=== PATIENT | male | born 1945 | race Caucasian/White ===

== ENCOUNTER 2017-06-28 11:00 | Day surgery (SDC) | payer MEDICARE, OTHER ==
[~2017-06-28] VITALS: Ht 162.6 cm; Wt 57.6 kg
[~2017-06-28 11:00] MED LIST: ALGAL OMEGA-3200 MG PO; ALLOPURINOL100 MG PO; AUGMENTIN 875-1 EACH PO; BILBERRY100 MG PO; BROMELAINS500 MG PO; CALCITRIOL0.25 MCG PO; CINNAMON500 MG PO; CLONAZEPAM0.5 MG PO; COQ-10100 MG PO; DONEPEZIL HCL10 MG PO; GABAPENTIN250 MG/5 M PO; L-ARGININE500 M1 PO; LATANOPROST2.5 ML OPTH; MAGNESIUM400 M1 PO; NORCO 5-325 TA1 EACH PO; PHOSPHATIDYLSERI1 GM MISC; PROZAC40 MG PO; TART CHERRY CA1 EACH PO; TRAZODONE HCL100 MG PO; VITAMIN B COMP1 EAC1 PO; VITAMIN B122500 MCG PO; VITAMIN D34000 UNIT PO; VITAMIN K240 MCG PO; ZINC50 MG PO; [UNRECOGNIZED DRUG - OTHER] PO
--- NOTE | 2017-06-28 14:07 | NUR ---
06/28/17 1407 Karuna Almaraz 1352-PATIENT ARRIVED TO PACU ON 4L NC O2 SAT 97% PATIENT NONAROUSABLE. LAYING ON LEFT LATERAL SIDE. PATIENT DOES HAVE TWITCHES. PASSING FLATUS. 1357-PATIENT REPOSITIONED ON BACK BP 88/53 BP INCREASED TO 102/61 1405-PATIENT AROUSING TO VERBAL STIMULI OPENING EYES DENIES PAIN OR NAUSEA. WARM BLANKET GIVEN.
--- NOTE | 2017-06-30 08:59 | OR ---
[facility] [address] [place], [place] [address] Signed DATE OF OPERATION: 06/28/2017 SURGEON: Ulices Maki MD PREOPERATIVE DIAGNOSES: 1. Dementia and weight loss, uncertain etiology. 2. Constipation. POSTOPERATIVE DIAGNOSIS: Internal hemorrhoids, otherwise normal. PROCEDURE: Total colonoscopy to cecum. ANESTHESIA: Intravenous sedation, propofol infusion; Kvng Lilly CRNA. INDICATIONS: A 72-year-old white man is patient of Dr. Park and last seen by me in 2010 for colonoscopy. He has developed constipation and more importantly weight loss. Upon close reflection by his who takes care of him, it is noted that he simply has not been fed that much food in recent times. Now that she is feeding him better, he is gaining weight. In any case, colonoscopy was recommended by Dr. Park as he does have constipation issues as well. He is admitted at this time to undergo colonoscopy. He understands the risks of bleeding, infection, and perforation. His last colonoscopy was in 2010, previously in 2005. FINDINGS: The prep was excellent. Complete colonoscopy was undertaken to the cecum. There was no sign of cancer or polyps or colitis. Retroflex view did confirm internal hemorrhoids. DESCRIPTION OF PROCEDURE: The patient was brought to the endoscopy suite and placed in lateral decubitus position, given intravenous sedation by the hr receptionist with propofol infusion based on his advanced ASA class of 4. Digital rectal examination showed diminished sphincter tone, not atypical for age. The Olympus video colonoscope was passed in the rectum and manipulated throughout the colon. Abdominal wall stabilization was required to allow for full intubation of the cecum itself. The ileocecal valve and appendiceal orifice appeared normal. Photographs Electronically Signed By: ULICES MAKI MD 06/30/17 0859 PATIENT NAME: KEARA CAMERON OPERATIVE REPORT DATE OF : 41 REPORT #: [id number] PHYSICIAN: ULICES MAKI MD PCP: DRE PARK MD REPORT IS CONFIDENTIAL AND NOT TO BE RELEASED WITHOUT AUTHORIZATION [facility] [address] [place], [place] [address] Signed were taken. The scope was withdrawn from that point and examination throughout showed no sign of abnormality until the rectum. Retroflexed view showed prominent internal hemorrhoids which were not bleeding or with other problem. The scope was straightened, withdrawn, removed, and the patient was taken to recovery room in good condition. CONCLUDING DIAGNOSIS: No evidence of colonic lesion to account for constipation or weight loss. PLAN: He will return to the ongoing care of Dr. Park. I suspect his weight loss will improve as he is now being fed more by his manager state. MD HEENA Thakkar/FAHEEM /[id number] cc: Dre Park MD Copies: DRE PARK MD ~ Electronically Signed By: ULICES MAKI MD 06/30/17 0859 PATIENT NAME: KEARA CAMERON OPERATIVE REPORT DATE OF : 41 REPORT #: [id number] PHYSICIAN: ULICES MAKI MD PCP: DRE PARK MD REPORT IS CONFIDENTIAL AND NOT TO BE RELEASED WITHOUT AUTHORIZATION
== END 2017-06-28 14:47 | disposition home or self-care (01) ==
LOC: OPS 11:00 → DS 11:00 → OPS 12:00 → DS 12:00 → OPS 14:47
PROVIDERS: Surgery
PROC: 0DJD8ZZ Inspection of Lower Intestinal Tract, Via Natural or Artificial Opening Endoscopic (ICD-10-PCS; principal; 2017-06-28 12:00)
DX: K64.8 Other hemorrhoids (principal); K59.09 Other constipation; R63.4 Abnormal weight loss; F32.9 Major depressive disorder, single episode, unspecified; G30.9 Alzheimer's disease, unspecified; F02.80 Dementia in other diseases classified elsewhere, unspecified severity, without behavioral disturbance, psychotic disturbance, mood disturbance, and anxiety; I12.9 Hypertensive chronic kidney disease with stage 1 through stage 4 chronic kidney disease, or unspecified chronic kidney disease; N18.4 Chronic kidney disease, stage 4 (severe); G47.30 Sleep apnea, unspecified; Z79.899 Other long term (current) drug therapy
CPT/HCPCS: J2704; J7120

== ENCOUNTER 2019-03-07 16:08 | Emergency (ER) | payer MEDICARE, OTHER ==
[~2019-03-07] VITALS: Ht 162.6 cm; Wt 57.6 kg
--- OUTSIDE RECORDS SUMMARY | ~2019-03-07 | XMS | Encounter Summary ---
Demographics + + + | Address | [address] | | | [place] [address] | + + + | Home Phone | | + + + | Preferred Language | Unknown | + + + | Marital Status | | + + + | Mandaen Affiliation | 1001 | + + + | Race | Unknown | + + + | Ethnic Group | Unknown | + + + Author + + + | Author | [facility] | | | and [place] | + + + | Organization | [facility] | | | and [place] | + + + | Address | Unknown | + + + | Phone | Unavailable | + + + Support + + + + + | Name | Relationship | Address | Phone | + + + + + | Genet Glasgow | ECON | [address] | | | | | [place] | | | | | [phone] | | + + + + + Care Team Providers + +------+ + | Care Business Development Assistant Name | Role | Phone | + +------+ + | Dre Jacobo MD | PCP | | + +------+ + Encounter Details +--------+ + + + + | Date | Type | Department | Care Team | Description | +--------+ + + + + | 12/25/ | Orders Only | [facility] [place] | Osvaldode[facility]ennie | CHRONIC KIDNEY | | 2015 | | NEPHROLOGY [address] | M, DO [address] | DISEASE STAGE III | | | | [address] | [place] | (MODERATE) (Primary | | | | [place], [place] | [place], [place] | Dx); Secondary | | | | [phone] | [address] | hyperparathyroidism | | | | [phone] | | (of renal origin) | | | | | | (HCC); Anemia in | | | | | | chronic kidney | | | | | | disease | +--------+ + + + + Social History + +-------+ +--------+------+ | Tobacco Use | Types | Packs/Day | Years | Date | | | | | Used | | + +-------+ +--------+------+ | Never Smoker | | | | | + +-------+ +--------+------+ + +---+---+---+ | Smokeless Tobacco: | | | | | Never Used | | | | + +---+---+---+ + + +---------+ + | Alcohol Use | Drinks/Week | oz/Week | Comments | + + +---------+ + | No | | | | + + +---------+ + + + + | Sex Assigned at | Date Recorded | | | | + + + | Not on file | | + + + + + + + | Job Start Date | Occupation | Industry | + + + + | Not on file | Not on file | Not on file | + + + + + + + + | Travel History | Travel Start | Travel End | + + + + + + | No recent travel history available. | + + documented as of this encounter Progress Tanika Cross RN - 12/25/2014 9:45 AM PDTInterpath 01/27 documented in this encounter Plan of Treatment +--------+ + + + + | Date | Type | Specialty | Care Team | Description | +--------+ + + + + | 03/12/ | Off-Site | Nephrology | Bennie Garza | | | 2019 | Visit | | DO Deep [address] [place] [address] | | | | | | [place] | | | | | | [place] | | | | | | [phone] | | | | | | | | +--------+ + + + + documented as of this encounter Visit Diagnoses + + | Diagnosis | + + | CHRONIC KIDNEY DISEASE STAGE III (MODERATE) - Primary Chronic kidney disease, Stage | | III (moderate) | + + | Secondary hyperparathyroidism (of renal origin) | + + | Anemia in chronic kidney disease | + + documented in this encounter"
--- OUTSIDE RECORDS SUMMARY | ~2019-03-07 | XMS | Encounter Summary ---
Demographics + + + | Address | [address] | | | [place] [address] | + + + | Home Phone | | + + + | Preferred Language | Unknown | + + + | Marital Status | | + + + | Gnosticism Affiliation | 1001 | + + + | Race | Unknown | + + + | Ethnic Group | Unknown | + + + Author + + + | Author | [facility] | | | and [place] | + + + | Organization | [facility] | | | and [place] | + + + | Address | Unknown | + + + | Phone | Unavailable | + + + Support + + + + + | Name | Relationship | Address | Phone | + + + + + | Genet Glasgwo | ECON | [address] | | | | | [place] | | | | | [phone] | | + + + + + Care Team Providers + +------+ + | Care Driller And Broacher Name | Role | Phone | + +------+ + | Dre Jacobo MD | PCP | | + +------+ + Encounter Details +--------+ + + + + | Date | Type | Department | Care Team | Description | +--------+ + + + + | 07/02/ | Orders Only | [facility] [place] | Bennie Garza | Chronic kidney | | 2017 | | NEPHROLOGY [address] | M, DO [address] | disease, stage IV | | | | [address] | [place], [address] | (severe) (HCC) | | | | [place], [place] | [place], [place] | (Primary Dx) | | | | [address] | [address] | | | | | [phone] | | | +--------+ + + + + Social [...] + documented as of this encounter Progress Notes Carlee Tena RN - 07/02/2016 4:01 PM PDTLabs for nephrology appt on 07/26/16 sent to In [facility] documented in this en counter Plan of Treatment +--------+ + + + + | Date | Type | Specialty | Care Team | Description | +--------+ + + + + | 03/12/ | Off-Site | Nephrology | Bennie Garza | | | 2018 | Visit | | DO Deep [address] | | | | | | [address] | | | | | | [place] | | | | | | [id number] | | | | | | | | +--------+ + + + + documented as of this encounter Visit Diagnoses + + | Diagnosis | + + | Chronic kidney disease, stage IV (severe) (HCC) - Primary Chronic kidney disease, | | Stage IV (severe) | + + documented in this encounter"
--- OUTSIDE RECORDS SUMMARY | ~2019-03-07 | XMS | Encounter Summary ---
Demographics + + + | Address | [address] | | | [place] [address] | + + + | Home Phone | | + + + | Preferred Language | Unknown | + + + | Marital Status | | + + + | Baptist Affiliation | 1001 | + + + | Race | Unknown | + + + | Ethnic Group | Unknown | + + + Author + + + | Author | [facility] | | | and [place] | + + + | Organization | [facility] | | | and [...] [place] | | | | | [address] | | + + + + + Care Team Providers + +------+ + | Care Final Cleaner Name | Role | Phone | + +------+ + | Dre Jacobo MD | PCP | | + +------+ + Encounter Details +--------+ + + + + | Date | Type | Department | Care Team | Description | +--------+ + + + + | 06/01/ | Abstract | [facility] [place] | Bennie Garza | | | 2012 | | NEPHROLOGY [address] | M, DO [address] | | | | | [address] | [place] | | | | | [place], [place] | [place], [place] | | | | | [address] | [address] | | | | | [phone] | | | +--------+ + + + + Social History + +-------+ +--------+------+ | Tobacco Use | Types | Packs/Day | Years | Date | | | | | Used | | + +-------+ +--------+------+ | Never Assessed | | | | | + +-------+ +--------+------+ + + + | Sex Assigned at [...] + + documented as of this encounter Plan of Treatment +--------+ + + + + | Date | Type | Specialty | Care Team | Description | +--------+ + + + + | 03/12/ | Off-Site | Nephrology | Bennie Garza | | | 2018 | Visit | | DO Deep [address] [place] [address] | | | | | | [place] [address] [facility] | | | | | | [place] | | | | | | [phone] | | | | | | | | +--------+ + + + + documented as of this encounter Visit Diagnoses Not on filedocumented in this encounter"
--- OUTSIDE RECORDS SUMMARY | ~2019-03-07 | XMS | Encounter Summary ---
Demographics + + + | Address | [address] | | | [place] [address] | + + + | Home Phone | | + + + | Preferred Language | Unknown | + + + | Marital Status | | + + + | Sabianism Affiliation | 1001 | + + + | Race | Unknown | + + + | Ethnic Group | Unknown | + + + Author + + + | Author | [facility] | | | and [place] | + + + | Organization | [facility] [...] [place] | | | | | [address] | | + + + + + Care Team Providers + +------+ + | Care Studio Designer Name | Role | Phone | + +------+ + | Dre Jacobo MD | PCP | | + +------+ + Encounter Details +--------+ + + + + | Date | Type | Department | Care Team | Description | +--------+ + + + + | 11/12/ | Orders Only | [facility] [place] | Bennie Garza | CHRONIC KIDNEY | | 2016 | | NEPHROLOGY [address] | M, DO [address] | DISEASE STAGE III | | | | [address] | [place], [address] | (MODERATE) (Primary | | | | [place], [place] | [place], [place] | Dx); Anemia in | | | | [phone] | [address] | chronic kidney | | | | [phone] | | disease(285.21) | +--------+ + + + + Social [...] encounter Progress Notes Carlee Tena RN - 11/13/2015 5:24 PM PDTLabs for nephrology appt on 11/24/15 sent to In [facility]. documented in this en counter Plan of Treatment +--------+ + + + + | Date | Type | Specialty | Care Team | Description | +--------+ + + + + | 03/12/ | Off-Site | Nephrology | Bennie Garza | | | 2018 | Visit | | DO [address] | | | | | | [place] | | | | | | [place] | | | | | | [phone] | | | | | | | | +--------+ + + + + documented as of this encounter Visit Diagnoses + + | Diagnosis | + + | CHRONIC KIDNEY DISEASE STAGE III (MODERATE) - Primary Chronic kidney disease, Stage | | III (moderate) | + + | Anemia in chronic kidney disease(285.21) Anemia in chronic kidney disease | + + documented in this encounter"
--- OUTSIDE RECORDS SUMMARY | ~2019-03-07 | XMS | Encounter Summary ---
Demographics + + + | Address | [address] | | | [place] [address] | + + + | Home Phone | | + + + | Preferred Language | Unknown | + + + | Marital Status | | + + + | Church Affiliation | 1001 | + + + | Race | Unknown | + + + | Ethnic Group | Unknown | + + + Author + + + | Author | [facility] | | | and [place] | + + + | Organization | [facility] | | | and [place] | + + + | Address | Unknown | + + + | Phone | Unavailable | + + + Support + + + + + | Name | Relationship | Address | Phone | + + + + + | Genet Glasgow | ECON | [address] | | | | | [place] | | | | | [address] | | + + + + + Care Team Providers + +------+ + | Care Bottled Beverage Inspector Name | Role | Phone | + +------+ + | Dre Jacobo MD | PCP | | + +------+ + Encounter Details +--------+ + + + + | Date | Type | Department | Care Team | Description | +--------+ + + + + | 02/16/ | Orders Only | [facility] [place] | Bennie Garza | Chronic kidney | | 2017 | | NEPHROLOGY [address] | M, DO [address] | disease, stage IV | | | | [address] | [place] | (severe) (HCC) | | | | [place], [place] | [place], [place] | (Primary Dx) | | | | [address] | [address] | | | | | [phone] | | | +--------+ + + + [...] encounter Progress Notes Carlee Tena RN - 02/16/2017 4:07 PM PSTLabs for nephrology appt on 03/14/17 sent to [facility]. documented in this en counter Plan of Treatment +--------+ + + + + | Date | Type | Specialty | Care Team | Description | +--------+ + + + + | 03/12/ | Off-Site | Nephrology | Bennie Garza | | | 2018 | Visit | | DO [address] | | | | | | [place] | | | | | | [place] | | | | | | [phone] | | | | | | | | +--------+ + + + + documented as of this encounter Visit Diagnoses + + | Diagnosis | + + | Chronic kidney disease, stage IV (severe) (HCC) - Primary Chronic kidney disease, | | Stage IV (severe) | + + documented in this encounter"
--- OUTSIDE RECORDS SUMMARY | ~2019-03-07 | XMS | Encounter Summary ---
Demographics + + + | Address | [address] | | | [place] [address] | + + + | Home Phone | | + + + | Preferred Language | Unknown | + + + | Marital Status | | + + + | Orthodoxy Affiliation | 1001 | + + + | Race | Unknown | + + + | Ethnic Group | Unknown | + + + Author + + + | Author | [facility] | | | and [place] | + + + | Organization | [facility] | | | and [...] [place] | | | | | [address] | | + + + + + Care Team Providers + +------+ + | Care Stadium Manager Name | Role | Phone | + +------+ + | Dre Jacobo MD | PCP | | + +------+ + Encounter Details +--------+ + + + + | Date | Type | Department | Care Team | Description | +--------+ + + + + | 05/30/ | Abstract | [facility] | Bennie Garza | | | 2018 | | NEPHROLOGY [address] | M, DO [address] | | | | | [address] | [place] | | | | | [place], [place] | [place], [place] | | | | | [address] | [address] | | | | | [phone] | | | +--------+ + + + [...] 2019 | Visit | | DO [address] | | | | | | [address] | | | | | | [place], [place] | | | | | | [id number] | | | | | | | | +--------+ + + + + documented as of this encounter Procedures + +--------+ + + + | Procedure Name | Priori | Date/Time | Associated Diagnosis | Comments | | | ty | | | | + +--------+ + + + | EXTERNAL LAB: BUN | Routin | 08/30/2018 | | Results for this | | | e | | | procedure are in the | | | | | | results section. | + +--------+ + + + | EXTERNAL LAB: | Routin | 08/30/2018 | | Results for this | | GLUCOSE | e | | | procedure are in the | | | | | | results section. | + +--------+ + + + | EXTERNAL LAB: HADLEY | Routin | 08/30/2018 | | Results for this | | | e | | | procedure are in the | | | | | | results section. | + +--------+ + + + | EXTERNAL LAB: AST | Routin | 08/30/2018 | | Results for this | | | e | | | procedure are in the | | | | | | results section. | + +--------+ + + + | EXTERNAL LAB: | Routin | 08/30/2018 | | Results for this | | ALKALINE PHOSPHATASE | e | | | procedure are in the | | | | | | results section. | + +--------+ + + + | EXTERNAL LAB: | Routin | 08/30/2018 | | Results for this | | BILIRUBIN, TOTAL | e | | | procedure are in the | | | | | | results section. | + +--------+ + + + | EXTERNAL LAB: | Routin | 08/30/2018 | | Results for this | | ALBUMIN | e | | | procedure are in the | | | | | | results section. | + +--------+ + + + | EXTERNAL LAB: | Routin | 08/30/2018 | | Results for this | | PROTEIN, TOTAL | e | | | procedure are in the | | | | | | results section. | + +--------+ + + + | EXTERNAL LAB: | Routin | 08/30/2018 | | Results for this | | PHOSPHORUS | e | | | procedure are in the | | | | | | results section. | + +--------+ + + + | EXTERNAL LAB: | Routin | 08/30/2018 | | Results for this | | CALCIUM | e | | | procedure are in the | | | | | | results section. | + +--------+ + + + | EXTERNAL LAB: CARBON | Routin | 08/30/2018 | | Results for this | | DIOXIDE | e | | | procedure are in the | | | | | | results section. | + +--------+ + + + | EXTERNAL LAB: | Routin | 08/30/2018 | | Results for this | | CHLORIDE | e | | | procedure are in the | | | | | | results section. | + +--------+ + + + | EXTERNAL LAB: | Routin | 08/30/2018 | | Results for this | | POTASSIUM | e | | | procedure are in the | | | | | | results section. | + +--------+ + + + | EXTERNAL LAB: SODIUM | Routin | 08/30/2018 | | Results for this | | | e | | | procedure are in the | | | | | | results section. | + +--------+ + + + | EXTERNAL LAB: МАРИНА | Routin | 08/30/2018 | | Results for this | | INTACT | e | | | procedure are in the | | | | | | results section. | + +--------+ + + + | EXTERNAL LAB: CBC | Routin | 08/30/2018 | | Results for this | | | e | | | procedure are in the | | | | | | results section. | + +--------+ + + + | EXTERNAL LAB: | Routin | 08/30/2018 | | Results for this | | TRIGLYCERIDES | e | | | procedure are in the | | | | | | results section. | + +--------+ + + + | EXTERNAL LAB: | Routin | 08/30/2018 | | Results for this | | CHOLESTEROL, HDL | e | | | procedure are in the | | | | | | results section. | + +--------+ + + + | EXTERNAL LAB: | Routin | 08/30/2018 | | Results for this | | CHOLESTEROL, TOTAL | e | | | procedure are in the | | | | | | results section. | + +--------+ + + + | EXTERNAL LAB: | Routin | 08/30/2018 | | Results for this | | CHOLESTEROL, LDL | e | | | procedure are in the | | | | | | results section. | + +--------+ + + + | EXTERNAL LAB: EGFR | Routin | 08/30/2018 | | Results for this | | | e | | | procedure are in the | | | | | | results section. | + +--------+ + + + | EXTERNAL LAB: | Routin | 08/30/2018 | | Results for this | | CREATININE | e | | | procedure are in the | | | | | | results section. | + +--------+ + + + documented in this encounter Results External Lab: PTH, Intact (08/30/2018) + +-------+ + + + | Component | Value | Ref Range | Performed | Pathologist | | | | | At | Signature | + +-------+ + + + | PTH Intact, | 20.44 | 12 - 88 | | | | External | | | | | + +-------+ + + + + + | Specimen | + + | | + + External Lab: BUN (08/30/2018) + +-------+ + + + | Component | Value | Ref Range | Performed | Pathologist | | | | | At | Signature | + +-------+ + + + | ROSARIO, | 59 | | EXTERNAL | | | External | | | LAB | | + +-------+ + + + + +---------+ + + | Performing | Address | City/State/Zipcode | Phone Number | | Organization | | | | + +---------+ + + | EXTERNAL LAB | | | | + +---------+ + + External Lab: Glucose (08/30/2018) + +-------+ + + + | Component | Value | Ref Range | Performed | Pathologist | | | | | At | Signature | + +-------+ + + + | Glucose, | 83 | | EXTERNAL | | | External | | | LAB | | + +-------+ + + + + +---------+ + + | Performing | Address | City/State/Zipcode | Phone Number | | Organization | | | | + +---------+ + + | EXTERNAL LAB | | | | + +---------+ + + External Lab: ALT (08/30/2018) + +-------+ + + + | Component | Value | Ref Range | Performed | Pathologist | | | | | At | Signature | + +-------+ + + + | ALT, | 27 | | EXTERNAL | | | External | | | LAB | | + +-------+ + + + + +---------+ + + | Performing | Address | City/State/Zipcode | Phone Number | | Organization | | | | + +---------+ + + | EXTERNAL LAB | | | | + +---------+ + + External Lab: AST (08/30/2018) + +-------+ + + + | Component | Value | Ref Range | Performed | Pathologist | | | | | At | Signature | + +-------+ + + + | AST, | 25 | | EXTERNAL | | | External | | | LAB | | + +-------+ + + + + +---------+ + + | Performing | Address | City/State/Zipcode | Phone Number | | Organization | | | | + +---------+ + + | EXTERNAL LAB | | | | + +---------+ + + External Lab: Alkaline Phosphatase (08/30/2018) + +-------+ + + + | Component | Value | Ref Range | Performed | Pathologist | | | | | At | Signature | + +-------+ + + + | ALP, | 63 | | EXTERNAL | | | External | | | LAB | | + +-------+ + + + + +---------+ + + | Performing | Address | City/State/Zipcode | Phone Number | | Organization | | | | + +---------+ + + | EXTERNAL LAB | | | | + +---------+ + + External Lab: Bilirubin, Total (08/30/2018) + +-------+ + + + | Component | Value | Ref Range | Performed | Pathologist | | | | | At | Signature | + +-------+ + + + | Bilirubin, | 0.7 | | EXTERNAL | | | Total, | | | LAB | | | External | | | | | + +-------+ + + + + +---------+ + + | Performing | Address | City/State/Zipcode | Phone Number | | Organization | | | | + +---------+ + + | EXTERNAL LAB | | | | + +---------+ + + External Lab: Albumin (08/30/2018) + +-------+ + + + | Component | Value | Ref Range | Performed | Pathologist | | | | | At | Signature | + +-------+ + + + | Albumin, | 4.0 | | EXTERNAL | | | External | | | LAB | | + +-------+ + + + + +---------+ + + | Performing | Address | City/State/Zipcode | Phone Number | | Organization | | | | + +---------+ + + | EXTERNAL LAB | | | | + +---------+ + + External Lab: Protein, Total (08/30/2018) + +-------+ + + + | Component | Value | Ref Range | Performed | Pathologist | | | | | At | Signature | + +-------+ + + + | Protein, | 6.7 | | EXTERNAL | | | Total, | | | LAB | | | External | | | | | + +-------+ + + + + +---------+ + + | Performing | Address | City/State/Zipcode | Phone Number | | Organization | | | | + +---------+ + + | EXTERNAL LAB | | | | + +---------+ + + External Lab: Phosphorus (08/30/2018) + +-------+ + + + | Component | Value | Ref Range | Performed | Pathologist | | | | | At | Signature | + +-------+ + + + | Phosphorus, | 3.7 | | EXTERNAL | | | External | | | LAB | | + +-------+ + + + + +---------+ + + | Performing | Address | City/State/Zipcode | Phone Number | | Organization | | | | + +---------+ + + | EXTERNAL LAB | | | | + +---------+ + + External Lab: Calcium (08/30/2018) + +-------+ + + + | Component | Value | Ref Range | Performed | Pathologist | | | | | At | Signature | + +-------+ + + + | Calcium, | 10.5 | | EXTERNAL | | | External | | | LAB | | + +-------+ + + + + +---------+ + + | Performing | Address | City/State/Zipcode | Phone Number | | Organization | | | | + +---------+ + + | EXTERNAL LAB | | | | + +---------+ + + External Lab: Carbon Dioxide (08/30/2018) + +-------+ + + + | Component | Value | Ref Range | Performed | Pathologist | | | | | At | Signature | + +-------+ + + + | Carbon | 24 | | EXTERNAL | | | Dioxide, | | | LAB | | | External | | | | | + +-------+ + + + + +---------+ + + | Performing | Address | City/State/Zipcode | Phone Number | | Organization | | | | + +---------+ + + | EXTERNAL LAB | | | | + +---------+ + + External Lab: Chloride (08/30/2018) + +-------+ + + + | Component | Value | Ref Range | Performed | Pathologist | | | | | At | Signature | + +-------+ + + + | Chloride, | 105 | | EXTERNAL | | | External | | | LAB | | + +-------+ + + + + +---------+ + + | Performing | Address | City/State/Zipcode | Phone Number | | Organization | | | | + +---------+ + + | EXTERNAL LAB | | | | + +---------+ + + External Lab: Potassium (08/30/2018) + +-------+ + + + | Component | Value | Ref Range | Performed | Pathologist | | | | | At | Signature | + +-------+ + + + | Potassium, | 4.6 | | EXTERNAL | | | External | | | LAB | | + +-------+ + + + + +---------+ + + | Performing | Address | City/State/Zipcode | Phone Number | | Organization | | | | + +---------+ + + | EXTERNAL LAB | | | | + +---------+ + + External Lab: Sodium (08/30/2018) + +-------+ + + + | Component | Value | Ref Range | Performed | Pathologist | | | | | At | Signature | + +-------+ + + + | Sodium, | 139 | | EXTERNAL | | | External | | | LAB | | + +-------+ + + + + +---------+ + + | Performing | Address | City/State/Zipcode | Phone Number | | Organization | | | | + +---------+ + + | EXTERNAL LAB | | | | + +---------+ + + External Lab: CBC (08/30/2018) + +-------+ + + + | Component | Value | Ref Range | Performed | Pathologist | | | | | At | Signature | + +-------+ + + + | WBC, | 6.8 | | EXTERNAL | | | External | | | LAB | | + +-------+ + + + | HGB, | 12.5 | | EXTERNAL | | | External | | | LAB | | + +-------+ + + + | HCT, | 37.5 | | EXTERNAL | | | External | | | LAB | | + +-------+ + + + | PLT, | 160 | | EXTERNAL | | | External | | | LAB | | + +-------+ + + + | RBC, | 3.79 | | EXTERNAL | | | External | | | LAB | | + +-------+ + + + | MCV, | 99 | | EXTERNAL | | | External | | | LAB | | + +-------+ + + + | RDW, | 13.3 | | EXTERNAL | | | External | | | LAB | | + +-------+ + + + + +---------+ + + | Performing | Address | City/State/Zipcode | Phone Number | | Organization | | | | + +---------+ + + | EXTERNAL LAB | | | | + +---------+ + + External Lab: Triglycerides (08/30/2018) + +-------+ + + + | Component | Value | Ref Range | Performed | Pathologist | | | | | At | Signature | + +-------+ + + + | Triglycerid | 47 | | EXTERNAL | | | es, | | | LAB | | | External | | | | | + +-------+ + + + + + | Specimen | + + | Blood | + + + +---------+ + + | Performing | Address | City/State/Zipcode | Phone Number | | Organization | | | | + +---------+ + + | EXTERNAL LAB | | | | + +---------+ + + External Lab: Cholesterol, HDL (08/30/2018) + +-------+ + + + | Component | Value | Ref Range | Performed | Pathologist | | | | | At | Signature | + +-------+ + + + | HDL | 56.2 | mg/dl | EXTERNAL | | | Cholesterol | | | LAB | | | , External | | | | | + +-------+ + + + + + | Specimen | + + | Blood | + + + +---------+ + + | Performing | Address | City/State/Zipcode | Phone Number | | Organization | | | | + +---------+ + + | EXTERNAL LAB | | | | + +---------+ + + External Lab: Cholesterol, Total (08/30/2018) + +-------+ + + + | Component | Value | Ref Range | Performed | Pathologist | | | | | At | Signature | + +-------+ + + + | Cholesterol | 134 | mg/dl | EXTERNAL | | | , Total, | | | LAB | | | External | | | | | + +-------+ + + + + + | Specimen | + + | Blood | + + + +---------+ + + | Performing | Address | City/State/Zipcode | Phone Number | | Organization | | | | + +---------+ + + | EXTERNAL LAB | | | | + +---------+ + + External Lab: Cholesterol, LDL (08/30/2018) + +-------+ + + + | Component | Value | Ref Range | Performed | Pathologist | | | | | At | Signature | + +-------+ + + + | LDL | 68 | | EXTERNAL | | | Cholesterol | | | LAB | | | , Direct, | | | | | | External | | | | | + +-------+ + + + + + | Specimen | + + | Blood | + + + +---------+ + + | Performing | Address | City/State/Zipcode | Phone Number | | Organization | | | | + +---------+ + + | EXTERNAL LAB | | | | + +---------+ + + External Lab: eGFR (08/30/2018) + +-------+ + + + | Component | Value | Ref Range | Performed | Pathologist | | | | | At | Signature | + +-------+ + + + | eGFR, | 16 | | EXTERNAL | | | External | | | LAB | | + +-------+ + + + + + | Specimen | + + | Blood | + + + +---------+ + + | Performing | Address | City/State/Zipcode | Phone Number | | Organization | | | | + +---------+ + + | EXTERNAL LAB | | | | + +---------+ + + External Lab: Creatinine (08/30/2018) + +-------+ + + + | Component | Value | Ref Range | Performed | Pathologist | | | | | At | Signature | + +-------+ + + + | Creatinine, | 3.64 | | EXTERNAL | | | External | | | LAB | | + +-------+ + + + + + | Specimen | + + | Blood | + + + +---------+ + + | Performing | Address | City/State/Zipcode | Phone Number | | Organization | | | | + +---------+ + + | EXTERNAL LAB | | | | + +---------+ + + documented in this encounter Visit Diagnoses Not on filedocumented in this encounter"
--- OUTSIDE RECORDS SUMMARY | ~2019-03-07 | XMS | Encounter Summary ---
Demographics + + + | Address | [address] | | | [place] [address] | + + + | Home Phone | | + + + | Preferred Language | Unknown | + + + | Marital Status | | + + + | Synagogue Affiliation | 1001 | + + + | Race | Unknown | + + + | Ethnic Group | Unknown | + + + Author + + + | Author | [facility] | | | and [place] | + + + | Organization | [facility] | | | and [place] | [...] [place] | | | | | [address] | | + + + + + Care Team Providers + +------+ + | Care Bobbin Collector Name | Role | Phone | + +------+ + | Dre Jacobo MD | PCP | | + +------+ + Encounter Details +--------+ + + + + | Date | Type | Department | Care Team | Description | +--------+ + + + + | 05/19/ | Orders Only | [facility] [place] | Bennie Garza | CHRONIC KIDNEY | | 2012 | | NEPHROLOGY [address] | M, DO [address] | DISEASE STAGE III | | | | [address] | [place], [address] | (MODERATE) (Primary | | | | [place], [place] | [place], [place] | Dx); Hypertension; | | | | [address] | [address] | Anemia in chronic | | | | [phone] | | kidney disease | +--------+ + + + + [...] + documented as of this encounter Progress Lori Parks RN - 05/19/2012 10:58 AM PSTLab order for nephrology appt on 06/12/12 faxed to [facility] in [place]. documented in t his encounter Plan of Treatment +--------+ + + + + | Date | Type | Specialty | Care Team | Description | +--------+ + + + + | 03/12/ | Off-Site | Nephrology | Bennie Garza | | | 2018 | Visit | | DO Deep [address] [place] [address] | | | | | | [address] | | | | | | [facility] [place] | | | | | | [address] | | | | | | | | +--------+ + + + + documented as of this encounter Visit Diagnoses + + | Diagnosis | + + | CHRONIC KIDNEY DISEASE STAGE III (MODERATE) - Primary Chronic kidney disease, Stage | | III (moderate) | + + | Hypertension Unspecified essential hypertension | + + | Anemia in chronic kidney disease(285.21) Anemia in chronic kidney disease | + + documented in this encounter"
--- OUTSIDE RECORDS SUMMARY | ~2019-03-07 | XMS | Encounter Summary ---
Demographics + + + | Address | [address] | | | [place] [address] | + + + | Home Phone | | + + + | Preferred Language | Unknown | + + + | Marital Status | | + + + | Holiness Affiliation | 1001 | + + + | Race | Unknown | + + + | Ethnic Group | Unknown | + + + Author + + + | Author | [facility] | | | and [place] | + + + | Organization | [facility] | | | and [place] | [...] [place] | | | | | [address] | | + + + + + Care Team Providers + +------+ + | Care Field Representatives Director Name | Role | Phone | + +------+ + | Dre Jacobo MD | PCP | | + +------+ + Encounter Details +--------+ + + + + | Date | Type | Department | Care Team | Description | +--------+ + + + + | 10/09/ | Off-Site | [facility] [place] | Bennie Garza | CHRONIC KIDNEY | | 2012 | Visit | NEPHROLOGY [address] | M, DO [address] | DISEASE STAGE III | | | | [address] | [place], [address] | (MODERATE) (Primary | | | | [place], [place] | [place], [place] | Dx); Unspecified | | | | [address] | [address] | hypertensive kidney | | | | [phone] | | disease with chronic | | | | | | kidney disease | | | | | | stage I through | | | | | | stage IV, or | | | | | | unspecified; | | | | | | Secondary | | | | | | hyperparathyroidism | | | | | | (of renal origin) | | | | | | (HCC); Depression | +--------+ + + + + Social [...] + + documented as of this encounter Last Filed Vital Signs + + + + + | Vital Sign | Reading | Time Taken | Comments | + + + + + | Blood Pressure | 110/62 | 10/09/2012 1:06 PM | | | | | PDT | | + + + + + | Pulse | - | - | | + + + + + | Temperature | 37 C (98.6 F) | 10/09/2012 1:06 PM | | | | | PDT | | + + + + + | Respiratory Rate | - | - | | + + + + + | Oxygen Saturation | - | - | | + + + + + | Inhaled Oxygen | - | - | | | Concentration | | | | + + + + + | Weight | 67 kg (147 lb 11.3 | 10/09/2012 1:06 PM | | | | oz) | PDT | | + + + + + | Height | - | - | | + + + + + | Body Mass Index | 24.58 | 01/26/2011 11:06 AM | | | | | PDT | | + + + + + documented in this encounter Progress Notes Luis Enrique Mcmillan MD - 10/10/2012 7:05 PM PDTPlease schedule for preop visit.Electronica lly signed by Luis Enrique Mcmillan MD at 10/10/2012 7:05 PM Bennie Rodriguez DO - 11/2012 9:08 PM PDT Subjective: NEPHROLOGY Patient ID: David Glasgow is a 67 y.o. male. HPI Comments: Followup for this 67-year-old white male with history of CKD secondary to hypertension, SHP TH, and remote depression. He has had a left arm aVF, placed 12/10/10, in anticipation of d ialysis. Overall, he is very talkative and energetic here in clinic. He is somewhat fearfu l that his left arm AVF may have clotted in the last 2 months, but he cannot clearly pinpoin t the date. Review of Systems Outpatient Prescriptions Marked as Taking for the 10/09/12 encounter (Off-Site Visit) with Danica Garza DO Medication Sig Dispense Refill allopurinol (ZYLOPRIM) 100 mg tablet Take 100 mg by mouth Daily. benazepril (LOTENSIN) 10 mg tablet (1/2 tablet, daily). calcitRIOL (ROCALTROL) 0.5 MCG capsule Take 0.5 mcg by mouth every 48 hours. DISCONTD: calcitRIOL (ROCALTROL) 0.5 MCG capsule Take 1 capsule by mouth Daily. 90 cap rene 4 clonazePAM (KLONOPIN) 0.5 mg tablet Take 0.5 mg by mouth nightly. Coenzyme Q10 (CO Q-10) 200 MG CAPS Take 200 mg by mouth Daily. fluoxetine (PROZAC) 40 MG capsule Take 40 mg by mouth Daily. L-Tyrosine 500 MG TABS Take 500 mg by mouth Daily. pyridoxine ([employer] VITAMIN B-6) 200 MG tablet Take 200 mg by mouth Daily. traZODone (DESYREL) 50 mg tablet 2, by mouth, daily. vitamin B-12 (CYANOCOBALAMIN) 1000 MCG tablet Take 1,000 mcg by mouth Daily. Zinc Picolinate 50 MG TABS Take 50 mg by mouth Daily. No Known Allergies Objective: BP 110/62 | Temp 37 C (98.6 F) | Wt 67 kg (147 lb 11.3 oz) (my exam) Physical Exam Cardiovascular: Regular rate and rhythm, with no S3, S4, murmur or rub. Pulmonary/Chest: CTA bilaterally. No rales or wheezes. Abdominal: Soft, flat, nontender, normoactive bowel sounds, no guarding. Musculoskeletal: No clubbing, cyanosis, or asterixis. (+) AVF in his left arm is flat, no bruit, or t hrill. LAB: BUN 39, Cr 2.65, K+ 3.8, HCO3 24, Alb 4.5, Ca++ 10.2, PO4 , PTH 20, H/H = 13.6/40.9. 24-Hour Urine: Ccr = 31 mL/minute, Protein = 110 mg/day. Assessment: 1. CKD, Stage III, secondary to hypertensive nephrosclerosis--his GFR appears to have plate aued on current Rx. 2. Hypertension--BP is low normal, today. However, no orthostatic symptoms. 3. SHPTH--excellent control. 4. Depression--compensated. 5. Anemia secondary to CKD--not yet requiring Aranesp. Plan: 1. I cannot appreciate a thrill or a bruit in the AVF today. Will schedule an appt. With Dr. Luis Enrique Mcmillan , outpatient. It appears too small on PE for IR, and may be more amen able to open thrombectomy. 2. To assist with patency, I told david to DC his benazepril, in light of today's BP to h elp with arterialization of the AVF. 3. I reassured David that the good news, is that his GFR appears to have plateaued, and there is ample time to resurrect the AVF, outpatient. 4. Will plan on seeing him back at the [facility], [place], on 01/15/13 at 12:30PM, w [facility], no PTH, and a 24 Hr Urine 1 week prior to that. CC[facility] Ray Mcmillan MD 9: 29 PM PDTdocumented in this encounter Plan of Treatment +--------+ + + + + | Date | Type | Specialty | Care Team | Description | +--------+ + + + + | 03/12/ | Off-Site | Nephrology | Bennie Garza | | | 2018 | Visit | | DO Deep [address] [place] [address] | | | | | | [address] | | | | | | [facility] [place] | | | | | | [address] | | | | | | | | +--------+ + + + + documented as of this encounter Visit Diagnoses + + | Diagnosis | + + | CHRONIC KIDNEY DISEASE STAGE III (MODERATE) - Primary Chronic kidney disease, Stage | | III (moderate) | + + | Unspecified hypertensive kidney disease with chronic kidney disease stage I through | | stage IV, or unspecified(403.90) Unspecified hypertensive kidney disease with chronic | | kidney disease stage I through stage IV, or unspecified | + + | Secondary hyperparathyroidism (of renal origin) | + + | Depression Depressive disorder, not elsewhere classified | + + documented in this encounter"
--- OUTSIDE RECORDS SUMMARY | ~2019-03-07 | XMS | Encounter Summary ---
Demographics + + + | Address | [address] | | | [place] [address] | + + + | Home Phone | | + + + | Preferred Language | Unknown | + + + | Marital Status | | + + + | Hindu Affiliation | 1001 | + + + | Race | Unknown | + + + | Ethnic Group | Unknown | + + + Author + + + | Author | [facility] | | | and [place] | + + + | Organization | [facility] | | | and [place] | + + + | Address | Unknown | + + + | Phone | Unavailable | + + + Support + + + + + | Name | Relationship | Address | Phone | + + + + + | Genet Glasgow | ECON | [address] | | | | | [place] | | | | | [address] | | + + + + + Care Team Providers + +------+ + | Care African History Professor Name | Role | Phone | + +------+ + | Dre Jacobo MD | PCP | | + +------+ + Reason for Visit Evaluate & Treat (Routine) + +--------+ + + + + | Status | Reason | Specialty | Diagnoses / | Referred By | Referred To | | | | | Procedures | Contact | Contact | + +--------+ + + + + | Authorized | | Nephrology | Diagnoses | Donnell, | Greg, | | | | | Chronic | Dre | Bennie Adame DO | | | | | kidney | MD [address] | [address] | | | | | disease, | [address] | [place], [place] | | | | | stage 4 | [place] [address] | [address] | | | | | (severe) | [facility], | [place], [place] | | | | | (HCC) | [place] | [address] Phone: | | | | | Hypertension | [address] | [phone] | | | | | 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 | [phone] | [phone] | | | | | kidney | Fax: | | | | | | disease | [phone] | | | | | | Procedures | | | | | | | [place] OFFICE | | | | | | | OUTPATIENT | | | | | | | VISIT 25 | | | | | | | MINUTES | | | + +--------+ + + + + Encounter Details +--------+ + + + + | Date | Type | Department | Care Team | Description | +--------+ + + + + | 09/04/ | Off-Site | [facility] | Bennie Garza | Chronic kidney | | 2019 | Visit | NEPHROLOGY [address] | M, DO [address] | disease, stage IV | | | | [address] | [place] [place] [address] | (severe) (HCC) | | | | [place], [place] | [place], [place] | (Primary Dx); | | | | [address] | [id number] | SECONDARY | | | | [phone] | | HYPERPARATHYROIDISM; | | | | | | Essential | | | | | | hypertension; Late | | | | | | onset Alzheimer's | | | | | | disease without | | | | | | behavioral | | | | | | disturbance | +--------+ + + + + Social [...] + + + | Blood Pressure | 142/74 | 09/04/2018 1:20 PM | | | | | PDT | | + + + + + | Pulse | - | - | | + + + + + | Temperature | 35.6 C (96 F) | 09/04/2018 1:20 PM | | | | | PDT [...] + + + + | Weight | 57 kg (125 lb 10.6 | 09/04/2018 1:20 PM | | | | oz) | PDT | | + + + + + | Height | - | - | | + + + + + | Body Mass Index | 20.91 | 10/02/2013 2:09 PM | | | | | PDT | | + + + + + documented in this encounter Patient Instructions Patient Instructions Bennie Garza DO - 09/04/2018 1:00 PM PDT1. Right arm AVF = 5 mm and mature. 2. Alzheimer's is worse but no uremic symptoms. 3. Wants to avoid a 24 Hr urine. 4. RTC in 6 mo. Early start for Rx of his Alzhemer's. documented in this encounter Progress Notes Bennie Garza DO - 09/04/2018 1:00 PM PDT Subjective: NEPHROLOGY Patient ID: Dillon [place] is a 73 y.o. male. HPI Comments: Follow up for this energetic, 72 YOWM with Stage 4 CKD felt secondary to hypertension, S HPTH, and remote depression. He is s/p AVF construction in his right arm on 06/04/13. Apparently, he has concurrent Alzh eimer's with memory loss, and is on Aricept. Unfortunately, his states that is his memory is progressively worsening somewhat. He apparently has an appetite that waxes and wanes, which more likely than not has led to the v katy slow decline in his GFR , due to a reduced daily solute load? He denies any uremic symptoms. His states that his memory and alertness are somewhat better after being off of gabapentin. MEDS: Outpatient Medications Marked as Taking for the 09/04/18 encounter (Off-Site Visit) with Perlita Garza, DO Medication Sig Dispense Refill allopurinol (ZYLOPRIM) 100 mg tablet Take 100 mg by mouth Daily. calcitriol (ROCALTROL) 0.25 mcg capsule Take 1 capsule by mouth Daily. 90 capsule 4 cholecalciferol (VITAMIN D-3) 2000 units TABS Take 2,000 Units by mouth Daily. donepezil (ARICEPT) 10 MG tablet Take 10 mg by mouth nightly. fluoxetine (PROZAC) 40 MG capsule Take 40 mg by mouth Daily. latanoprost (XALATAN) 0.005% ophthalmic solution Place 1 drop into both eyes nightly. timolol maleate (TIMOPTIC) 0.5% ophthalmic solution Place 1 drop into both eyes 2 times daily. traZODone (DESYREL) 50 mg tablet Take 100 mg by mouth nightly. No Known Allergies Objective: BP 142/74 | Temp 35.6 C (96 F) | Wt 57 kg (125 lb 10.6 oz) | BMI 20.91 kg /m Physical Exam Heart: Regular rate and rhythm with no S3, S4, murmur or rub. Lungs: CTA bilaterally. No rales or wheezes. Abdomen: soft, obese, nontender, NABS. Extremities: no edema, clubbing, or asterixis; (+) 5 mm AVF at Right arm with (+) thrill. Lab Results Component Value Date NAEX 139 08/30/2018 KEX 4.6 08/30/2018 CLEX 105 08/30/2018 CO2EX 24 08/30/2018 BUNEX 59 08/30/2018 CREEX 3.64 08/30/2018 EGFREX 16 08/30/2018 GLUEX 83 08/30/2018 CAEX 10.5 08/30/2018 PHOSEX 3.7 08/30/2018 PTHEX 20.44 08/30/2018 Lab Results Component Value Date WBCEX 6.8 08/30/2018 HGBEX 12.5 08/30/2018 HCTEX 37.5 08/30/2018 PLTEX 160 08/30/2018 Lab Results Component Value Date CHOLEX 134 08/30/2018 HDLEX 56.2 08/30/2018 LDLEX 68 08/30/2018 TRIGEX 47 08/30/2018 Assessment: 1. CKD, Stage 4, secondary to hypertensive nephrosclerosis-- no symptoms of uremia, howeve r, GFR is steadily falling. 2. Hypertension-- allowing him acces to salt, to optimize AVF development. 3. Depression--in remission. 4. History of gout-- in remission. 5. SHPTH-- PTH may be too tightly controlled. 6. Historical diagnosis of Alzheimer's-- slowly progressing per his . Plan: 1. Dillon does verbalize that he would desire to pursue Outpt HD when his GFR is clearly < 15 ml/min, if it will prolong his life. He does acknowledge that his memory is very slowly and progressively declining. However, he and his live independently, and his QOL is f airly good for the circumstances. 2. Therefore, will have a low threshold to begin renal replacement Rx, when his GFR is janet tony < 15 ml/min, to minimize any PRODUCTION [employer]IT[employer]ER confusion, superimposed his background mild dementia/m anu loss. He verbalizes that this is c/w his wishes. 3. In regards to his PTH, will decrease the Calcitriol to 0.5 mcg, Q M-- only to target the PTH 150-300 pg/ml. 4. Will plan to see him back in 6 months at the [facility] at [place], [place]. He w ill have a CBC, CMP, PO4, HbA1c, iPTH, Vitamin D level, lipid profile, and spot Urine Pro/ Cr ratio one week prior to that. Otherwise, will see him sooner if his symptoms worsen. Electronically signed by Bennie Garza DO. 09/08/18 16:57 CC: Ray Mcmillan MD, BRANDAN Mcpherson MD, [facility] documented in thi s encounter Plan of Treatment +--------+ + + + + | Date | Type | Specialty | Care Team | Description | +--------+ + + + + | 03/12/ | Off-Site | Nephrology | Bennie Garza | | | 2019 | Visit | | DO Deep [address] [place] [address] | | | | | | [address] | | | | | | [place] | | | | | | [id number] | | | | | | | | +--------+ + + + + documented as of this encounter Procedures + +--------+ + + + | Procedure Name | Priori | Date/Time | Associated Diagnosis | Comments | | | ty | | | | + +--------+ + + + | LABS - EXTERNAL SCAN | | 08/30/2018 | | Results for this | | | | 12:00 AM | | procedure are in the | | | | PDT | | results section. | + +--------+ + + + documented in this encounter Results LABS - EXTERNAL SCAN (08/30/2018 12:00 AM PDT) + + + | Narrative | Performed At | + + + | Ordered by an | | | unspecified provider. 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
--- OUTSIDE RECORDS SUMMARY | ~2019-03-07 | XMS | Encounter Summary ---
Demographics + + + | Address | [address] | | | [place] [address] | + + + | Home Phone | | + + + | Preferred Language | Unknown | + + + | Marital Status | | + + + | Samaritan Affiliation | 1001 | + + + | Race | Unknown | + + + | Ethnic Group | Unknown | + + + Author + + + | Author | [facility] | | | and [place] | + + + | Organization | [facility] | | | and [...] [place] | | | | | [address] | | + + + + + Care Team Providers + +------+ + | Care Esl Instructional Assistant Name | Role | Phone | + +------+ + | Dre Jacobo MD | PCP | | + +------+ + Encounter Details +--------+ + + + + | Date | Type | Department | Care Team | Description | +--------+ + + + + | 05/27/ | Abstract | [facility] | Bennie Garza | | | 2014 | | NEPHROLOGY [address] | M, DO [address] | | | | | [address] | [address] | | | | | [place], [place] | [place], [place] | | | | | [address] | [address] | | | | | [phone] | | | +--------+ + + + [...] | Visit | | DO [address] | | | | | | [address] | | | | | | [place], [place] | | | | | | [phone] | | | | | | | | +--------+ + + + + documented as of this encounter Procedures + +--------+ + + + | Procedure Name | Priori | Date/Time | Associated Diagnosis | Comments | | | ty | | | | + +--------+ + + + | EXTERNAL LAB: BUN | Routin | 08/27/2014 | | Results for this | | | e | | | procedure are in the | | | | | | results section. | + +--------+ + + + | EXTERNAL LAB: | Routin | 08/27/2014 | | Results for this | | GLUCOSE | e | | | procedure are in the | | | | | | results section. | + +--------+ + + + | EXTERNAL LAB: HADLEY | Routin | 08/27/2014 | | Results for this | | | e | | | procedure are in the | | | | | | results section. | + +--------+ + + + | EXTERNAL LAB: AST | Routin | 08/27/2014 | | Results for this | | | e | | | procedure are in the | | | | | | results section. | + +--------+ + + + | EXTERNAL LAB: | Routin | 08/27/2014 | | Results for this | | ALKALINE PHOSPHATASE | e | | | procedure are in the | | | | | | results section. | + +--------+ + + + | EXTERNAL LAB: | Routin | 08/27/2014 | | Results for this | | BILIRUBIN, TOTAL | e | | | procedure are in the | | | | | | results section. | + +--------+ + + + | EXTERNAL LAB: | Routin | 08/27/2014 | | Results for this | | ALBUMIN | e | | | procedure are in the | | | | | | results section. | + +--------+ + + + | EXTERNAL LAB: | Routin | 08/27/2014 | | Results for this | | PROTEIN, TOTAL | e | | | procedure are in the | | | | | | results section. | + +--------+ + + + | EXTERNAL LAB: | Routin | 08/27/2014 | | Results for this | | PHOSPHORUS | e | | | procedure are in the | | | | | | results section. | + +--------+ + + + | EXTERNAL LAB: | Routin | 08/27/2014 | | Results for this | | CALCIUM | e | | | procedure are in the | | | | | | results section. | + +--------+ + + + | EXTERNAL LAB: CARBON | Routin | 08/27/2014 | | Results for this | | DIOXIDE | e | | | procedure are in the | | | | | | results section. | + +--------+ + + + | EXTERNAL LAB: | Routin | 08/27/2014 | | Results for this | | CHLORIDE | e | | | procedure are in the | | | | | | results section. | + +--------+ + + + | EXTERNAL LAB: | Routin | 08/27/2014 | | Results for this | | POTASSIUM | e | | | procedure are in the | | | | | | results section. | + +--------+ + + + | EXTERNAL LAB: SODIUM | Routin | 08/27/2014 | | Results for this | | | e | | | procedure are in the | | | | | | results section. | + +--------+ + + + | EXTERNAL LAB: МАРИНА | Routin | 08/27/2014 | | Results for this | | INTACT | e | | | procedure are in the | | | | | | results section. | + +--------+ + + + | EXTERNAL LAB: | Routin | 08/27/2014 | | Results for this | | PROTEIN, URINE, 24HR | e | | | procedure are in the | | | | | | results section. | + +--------+ + + + | EXTERNAL LAB: CBC | Routin | 08/27/2014 | | Results for this | | | e | | | procedure are in the | | | | | | results section. | + +--------+ + + + | EXTERNAL LAB: | Routin | 08/27/2014 | | Results for this | | TRIGLYCERIDES | e | | | procedure are in the | | | | | | results section. | + +--------+ + + + | EXTERNAL LAB: | Routin | 08/27/2014 | | Results for this | | CHOLESTEROL, HDL | e | | | procedure are in the | | | | | | results section. | + +--------+ + + + | EXTERNAL LAB: | Routin | 08/27/2014 | | Results for this | | CHOLESTEROL, TOTAL | e | | | procedure are in the | | | | | | results section. | + +--------+ + + + | EXTERNAL LAB: | Routin | 08/27/2014 | | Results for this | | CHOLESTEROL, LDL | e | | | procedure are in the | | | | | | results section. | + +--------+ + + + | EXTERNAL LAB: EGFR | Routin | 08/27/2014 | | Results for this | | | e | | | procedure are in the | | | | | | results section. | + +--------+ + + + | EXTERNAL LAB: | Routin | 08/27/2014 | | Results for this | | CREATININE | e | | | procedure are in the | | | | | | results section. | + +--------+ + + + | CREATININE | Routin | 08/27/2014 | | Results for this | | CLEARANCE, RESULT | e | | | procedure are in the | | | | | | results section. | + +--------+ + + + documented in this encounter Results External Lab: PTH, Intact (08/27/2014) + +-------+ + + + | Component | Value | Ref Range | Performed | Pathologist | | | | | At | Signature | + +-------+ + + + | PTH Intact, | 74.29 | | EXTERNAL | | | External | | | LAB | | + +-------+ + + + + + | Specimen | + + | | + + + +---------+ + + | Performing | Address | City/State/Zipcode | Phone Number | | Organization | | | | + +---------+ + + | EXTERNAL LAB | | | | + +---------+ + + Creatinine Clearance, Result (08/27/2014) + + + + + + | Component | Value | Ref Range | Performed | Pathologist | | | | | At | Signature | + + + + + + | CREATININE | 32.0 (A) | 97.0 - 137.0 | EXTERNAL | | | CLEARANCE | | mL/min | LAB | | + + + + + + + + | Specimen | + + | Urine specimen | | (specimen) | + + + +---------+ + + | Performing | Address | City/State/Zipcode | Phone Number | | Organization | | | | + +---------+ + + | EXTERNAL LAB | | | | + +---------+ + + External Lab: BUN (08/27/2014) + +--------+ + + + | Component | Value | Ref Range | Performed | Pathologist | | | | | At | Signature | + +--------+ + + + | BUN, | 30 (A) | 6 - 23 | EXTERNAL | | | External | | | LAB | | + +--------+ + + + + + | Resulting Agency Comment | + + | [facility] | + + + +---------+ + + | Performing | Address | City/State/Zipcode | Phone Number | | Organization | | | | + +---------+ + + | EXTERNAL LAB | | | | + +---------+ + + External Lab: Glucose (08/27/2014) + +-------+ + + + | Component | Value | Ref Range | Performed | Pathologist | | | | | At | Signature | + +-------+ + + + | Glucose, | 86 | 70 - 100 | EXTERNAL | | | External | | | LAB | | + +-------+ + + + + + | Resulting Agency Comment | + + | [facility] | + + + +---------+ + + | Performing | Address | City/State/Zipcode | Phone Number | | Organization | | | | + +---------+ + + | EXTERNAL LAB | | | | + +---------+ + + External Lab: ALT (08/27/2014) + +-------+ + + + | Component | Value | Ref Range | Performed | Pathologist | | | | | At | Signature | + +-------+ + + + | ALT, | 21 | 7 - 52 | EXTERNAL | | | External | | | LAB | | + +-------+ + + + + + | Resulting Agency Comment | + + | [facility] | + + + +---------+ + + | Performing | Address | City/State/Zipcode | Phone Number | | Organization | | | | + +---------+ + + | EXTERNAL LAB | | | | + +---------+ + + External Lab: AST (08/27/2014) + +-------+ + + + | Component | Value | Ref Range | Performed | Pathologist | | | | | At | Signature | + +-------+ + + + | AST, | 21 | 13 - 39 | EXTERNAL | | | External | | | LAB | | + +-------+ + + + + + | Resulting Agency Comment | + + | [facility] | + + + +---------+ + + | Performing | Address | City/State/Zipcode | Phone Number | | Organization | | | | + +---------+ + + | EXTERNAL LAB | | | | + +---------+ + + External Lab: Alkaline Phosphatase (08/27/2014) + +-------+ + + + | Component | Value | Ref Range | Performed | Pathologist | | | | | At | Signature | + +-------+ + + + | ALP, | 83 | 30 - 128 | EXTERNAL | | | External | | | LAB | | + +-------+ + + + + + | Resulting Agency Comment | + + | [facility] | + + + +---------+ + + | Performing | Address | City/State/Zipcode | Phone Number | | Organization | | | | + +---------+ + + | EXTERNAL LAB | | | | + +---------+ + + External Lab: Bilirubin, Total (08/27/2014) + +-------+ + + + | Component | Value | Ref Range | Performed | Pathologist | | | | | At | Signature | + +-------+ + + + | Bilirubin, | 0.9 | | EXTERNAL | | | Total, | | | LAB | | | External | | | | | + +-------+ + + + + + | Resulting Agency Comment | + + | [facility] | + + + +---------+ + + | Performing | Address | City/State/Zipcode | Phone Number | | Organization | | | | + +---------+ + + | EXTERNAL LAB | | | | + +---------+ + + External Lab: Albumin (08/27/2014) + +-------+ + + + | Component | Value | Ref Range | Performed | Pathologist | | | | | At | Signature | + +-------+ + + + | Albumin, | 4.2 | 3.5 - 5 | EXTERNAL | | | External | | | LAB | | + +-------+ + + + + + | Resulting Agency Comment | + + | [facility] | + + + +---------+ + + | Performing | Address | City/State/Zipcode | Phone Number | | Organization | | | | + +---------+ + + | EXTERNAL LAB | | | | + +---------+ + + External Lab: Protein, Total (08/27/2014) + +-------+ + + + | Component | Value | Ref Range | Performed | Pathologist | | | | | At | Signature | + +-------+ + + + | Protein, | 7.2 | 6 - 8 | EXTERNAL | | | Total, | | | LAB | | | External | | | | | + +-------+ + + + + + | Resulting Agency Comment | + + | [facility] | + + + +---------+ + + | Performing | Address | City/State/Zipcode | Phone Number | | Organization | | | | + +---------+ + + | EXTERNAL LAB | | | | + +---------+ + + External Lab: Phosphorus (08/27/2014) + +-------+ + + + | Component | Value | Ref Range | Performed | Pathologist | | | | | At | Signature | + +-------+ + + + | Phosphorus, | 2.8 | 2.5 - 5 | EXTERNAL | | | External | | | LAB | | + +-------+ + + + + + | Resulting Agency Comment | + + | [facility] | + + + +---------+ + + | Performing | Address | City/State/Zipcode | Phone Number | | Organization | | | | + +---------+ + + | EXTERNAL LAB | | | | + +---------+ + + External Lab: Calcium (08/27/2014) + +-------+ + + + | Component | Value | Ref Range | Performed | Pathologist | | | | | At | Signature | + +-------+ + + + | Calcium, | 9.2 | 8.4 - 10.2 | EXTERNAL | | | External | | | LAB | | + +-------+ + + + + + | Resulting Agency Comment | + + | [facility] | + + + +---------+ + + | Performing | Address | City/State/Zipcode | Phone Number | | Organization | | | | + +---------+ + + | EXTERNAL LAB | | | | + +---------+ + + External Lab: Carbon Dioxide (08/27/2014) + +-------+ + + + | Component | Value | Ref Range | Performed | Pathologist | | | | | At | Signature | + +-------+ + + + | Carbon | 22 | 19 - 31 | EXTERNAL | | | Dioxide, | | | LAB | | | External | | | | | + +-------+ + + + + + | Resulting Agency Comment | + + | [facility] | + + + +---------+ + + | Performing | Address | City/State/Zipcode | Phone Number | | Organization | | | | + +---------+ + + | EXTERNAL LAB | | | | + +---------+ + + External Lab: Chloride (08/27/2014) + +-------+ + + + | Component | Value | Ref Range | Performed | Pathologist | | | | | At | Signature | + +-------+ + + + | Chloride, | 104 | 95 - 112 | EXTERNAL | | | External | | | LAB | | + +-------+ + + + + + | Resulting Agency Comment | + + | [facility] | + + + +---------+ + + | Performing | Address | City/State/Zipcode | Phone Number | | Organization | | | | + +---------+ + + | EXTERNAL LAB | | | | + +---------+ + + External Lab: Potassium (08/27/2014) + +---------+ + + + | Component | Value | Ref Range | Performed | Pathologist | | | | | At | Signature | + +---------+ + + + | Potassium, | 3.3 (A) | 3.6 - 5.1 | EXTERNAL | | | External | | | LAB | | + +---------+ + + + + + | Resulting Agency Comment | + + | [facility] | + + + +---------+ + + | Performing | Address | City/State/Zipcode | Phone Number | | Organization | | | | + +---------+ + + | EXTERNAL LAB | | | | + +---------+ + + External Lab: Sodium (08/27/2014) + +-------+ + + + | Component | Value | Ref Range | Performed | Pathologist | | | | | At | Signature | + +-------+ + + + | Sodium, | 137 | 132 - 143 | EXTERNAL | | | External | | | LAB | | + +-------+ + + + + + | Resulting Agency Comment | + + | [facility] | + + + +---------+ + + | Performing | Address | City/State/Zipcode | Phone Number | | Organization | | | | + +---------+ + + | EXTERNAL LAB | | | | + +---------+ + + External Lab: Protein, Urine, 24Hr (08/27/2014) + +---------+ + + + | Component | Value | Ref Range | Performed | Pathologist | | | | | At | Signature | + +---------+ + + + | Protein, | 224 (A) | 150 | EXTERNAL | | | Urine 24Hr, | | | LAB | | | External | | | | | + +---------+ + + + + + | Specimen | + + | Urine specimen | | (specimen) | + + + + | Resulting Agency Comment | + + | [facility] | + + + +---------+ + + | Performing | Address | City/State/Zipcode | Phone Number | | Organization | | | | + +---------+ + + | EXTERNAL LAB | | | | + +---------+ + + External Lab: CBC (08/27/2014) + + + + + + | Component | Value | Ref Range | Performed | Pathologist | | | | | At | Signature | + + + + + + | WBC, | 6.9 | 4.5 - 11 | EXTERNAL | | | External | | | LAB | | + + + + + + | HGB, | 14.9 | 13.5 - 18 | EXTERNAL | | | External | | | LAB | | + + + + + + | HCT, | 44.7 | 41 - 50 | EXTERNAL | | | External | | | LAB | | + + + + + + | PLT, | 178 | 140 - 440 | EXTERNAL | | | External | | | LAB | | + + + + + + | Neutrophils | 68.8 | 39 - 80 | EXTERNAL | | | %, | | | LAB | | | External | | | | | + + + + + + | Lymphocytes | 22.1 (A) | 24 - 44 | EXTERNAL | | | %, | | | LAB | | | External | | | | | + + + + + + | Monocytes | 7.2 | 0 - 12 | EXTERNAL | | | %, External | | | LAB | | + + + + + + | Eosinophils | 1.0 | 0 - 6 | EXTERNAL | | | %, | | | LAB | | | External | | | | | + + + + + + | RBC, | 4.68 | 4.3 - 5.7 | EXTERNAL | | | External | | | LAB | | + + + + + + | MCV, | 96 | 81 - 99 | EXTERNAL | | | External | | | LAB | | + + + + + + | RDW, | 13.9 | 10.5 - 15 | EXTERNAL | | | External | | | LAB | | + + + + + + + + | Resulting Agency Comment | + + | [facility] | + + + +---------+ + + | Performing | Address | City/State/Zipcode | Phone Number | | Organization | | | | + +---------+ + + | EXTERNAL LAB | | | | + +---------+ + + External Lab: Triglycerides (08/27/2014) + +-------+ + + + | Component | Value | Ref Range | Performed | Pathologist | | | | | At | Signature | + +-------+ + + + | Triglycerid | 55 | 30 - 150 | EXTERNAL | | | es, | | | LAB | | | External | | | | | + +-------+ + + + + + | Specimen | + + | Blood specimen | | (specimen) | + + + + | Resulting Agency Comment | + + | [facility] | + + + +---------+ + + | Performing | Address | City/State/Zipcode | Phone Number | | Organization | | | | + +---------+ + + | EXTERNAL LAB | | | | + +---------+ + + External Lab: Cholesterol, HDL (08/27/2014) + +-------+ + + + | Component | Value | Ref Range | Performed | Pathologist | | | | | At | Signature | + +-------+ + + + | HDL | 46.6 | 40 | EXTERNAL | | | Cholesterol | | | LAB | | | , External | | | | | + +-------+ + + + + + | Specimen | + + | Blood specimen | | (specimen) | + + + + | Resulting Agency Comment | + + | [facility] | + + + +---------+ + + | Performing | Address | City/State/Zipcode | Phone Number | | Organization | | | | + +---------+ + + | EXTERNAL LAB | | | | + +---------+ + + External Lab: Cholesterol, Total (08/27/2014) + +-------+ + + + | Component | Value | Ref Range | Performed | Pathologist | | | | | At | Signature | + +-------+ + + + | Cholesterol | 141 | 200 | EXTERNAL | | | , Total, | | | LAB | | | External | | | | | + +-------+ + + + + + | Specimen | + + | Blood specimen | | (specimen) | + + + + | Resulting Agency Comment | + + | [facility] | + + + +---------+ + + | Performing | Address | City/State/Zipcode | Phone Number | | Organization | | | | + +---------+ + + | EXTERNAL LAB | | | | + +---------+ + + External Lab: Cholesterol, LDL (08/27/2014) + +-------+ + + + | Component | Value | Ref Range | Performed | Pathologist | | | | | At | Signature | + +-------+ + + + | LDL | 83 | 100 | EXTERNAL | | | Cholesterol | | | LAB | | | , Direct, | | | | | | External | | | | | + +-------+ + + + + + | Specimen | + + | Blood specimen | | (specimen) | + + + + | Resulting Agency Comment | + + | [facility] | + + + +---------+ + + | Performing | Address | City/State/Zipcode | Phone Number | | Organization | | | | + +---------+ + + | EXTERNAL LAB | | | | + +---------+ + + External Lab: eGFR (08/27/2014) + +-------+ + + + | Component | Value | Ref Range | Performed | Pathologist | | | | | At | Signature | + +-------+ + + + | eGFR, | 28 | | EXTERNAL | | | External | | | LAB | | + +-------+ + + + + + | Specimen | + + | Blood specimen | | (specimen) | + + + + | Resulting Agency Comment | + + | [facility] | + + + +---------+ + + | Performing | Address | City/State/Zipcode | Phone Number | | Organization | | | | + +---------+ + + | EXTERNAL LAB | | | | + +---------+ + + External Lab: Creatinine (08/27/2014) + + + + + + | Component | Value | Ref Range | Performed | Pathologist | | | | | At | Signature | + + + + + + | Creatinine, | 2.32 (A) | 0.7 - 1.18 | EXTERNAL | | | External | | | LAB | | + + + + + + + + | Specimen | + + | Blood specimen | | (specimen) | + + + + | Resulting Agency Comment | + + | [facility] | + + + +---------+ + + | Performing | Address | City/State/Zipcode | Phone Number | | Organization | | | | + +---------+ + + | EXTERNAL LAB | | | | + +---------+ + + documented in this encounter Visit Diagnoses Not on filedocumented in this encounter"
--- OUTSIDE RECORDS SUMMARY | ~2019-03-07 | XMS | Encounter Summary ---
Demographics + + + | Address | [address] | | | [place] [address] | + + + | Home Phone | | + + + | Preferred Language | Unknown | + + + | Marital Status | | + + + | Adventist Affiliation | 1001 | + + + | Race | Unknown | + + + | Ethnic Group | Unknown | + + + Author + + + | Author | [facility] | | | and [place] | + + + | Organization | [facility] | | | and [...] [place] | | | | | [address] | | + + + + + Care Team Providers + +------+ + | Care Ballet Dancer Name | Role | Phone | + +------+ + | Dre Jacobo MD | PCP | | + +------+ + Reason for Visit + + + | Reason | Comments | + + + | Medication Refill | | + + + Encounter Details +--------+--------+ + + + | Date | Type | Department | Care Team | Description | +--------+--------+ + + + | 05/29/ | Refill | [facility] | Bennie Garza | Medication Refill | | 2015 | | NEPHROLOGY [address] | M, DO [address] | | | | | [address] | [place] | | | | | [place], [place] | [place], [place] | | | | | [address] | [address] | | | | | [phone] | | | +--------+--------+ + + + Social History + +-------+ [...] | Visit | | DO [address] | | | | | | [address] | | | | | | [place] | | | | | | [address] | | | | | | | | +--------+ + + + + documented as of this encounter Visit Diagnoses Not on filedocumented in this encounter"
--- OUTSIDE RECORDS SUMMARY | ~2019-03-07 | XMS | Encounter Summary ---
Demographics + + + | Address | [address] | | | [place] [address] | + + + | Home Phone | | + + + | Preferred Language | Unknown | + + + | Marital Status | | + + + | Bahai Affiliation | 1001 | + + + | Race | Unknown | + + + | Ethnic Group | Unknown | + + + Author + + + | Author | [facility] | | | and [place] | + + + | Organization | [facility] | [...] [place] | | | | | [place] | | | | | [address] | | + + + + + Care Team Providers + +------+ + | Care Casino Runner Name | Role | Phone | + +------+ + PCP | Unavailable | + +------+ + Encounter Details +--------+ + + + + | Date | Type | Department | Care Team | Description | +--------+ + + + + | 12/10/ | Hospital | [facility] | [place], | | | 2010 | Encounter | [facility] | [phone] | | | | | [address] | (Fax) | | | | | [place] | | | | | | [address] | | | | | | [phone] | | | +--------+ + + + [...] + + documented as of this encounter Medications at Time of Discharge + + + +---------+ + + | Medication | Sig | Dispensed | Refills | Start | End Date | | | | | | Date | | + + + +---------+ + + | traZODone | Take 100 mg by mouth | | 0 | 04/29/19 | | | (DESYREL) 50 mg | nightly. | | | 11 | | | tablet | | | | | | + + + +---------+ + + | ascorbic acid ([facility] | Take one half, by | | 0 | 11/24/19 | | | VITAMIN C) 1000 MG | mouth daily | | | 11 | 2 | | tablet | | | | | | + + + +---------+ + + | doxercalciferol | Take 2.5 mcg by | | 0 | 08/27/19 | | | (HECTOROL) 2.5 mcg | mouth every 48 | | | 11 | 3 | | capsuleIndications: | hours. 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 | | 0 | 04/29/19 | | | (DESYREL) 50 mg | | | | 11 | 4 | | tablet | | | | | | + + + +---------+ + + documented as of this encounter Plan of Treatment +--------+ + + + + | Date | Type | Specialty | Care Team | Description | +--------+ + + + + | 03/12/ | Off-Site | Nephrology | Bennie Garza | | | 2018 | Visit | | M, DO [address] | | | | | | [address] | | | | | | [place] | | | | | | [address] | | | | | | | | +--------+ + + + + documented as of this encounter Procedures + +--------+ + + + | Procedure Name | Priori | Date/Time | Associated Diagnosis | Comments | | | ty | | | | + +--------+ + + + | POTASSIUM | Routin | 12/10/2010 | | Results for this | | | e | 1:41 PM | | procedure are in the | | | | PDT | | results section. | + +--------+ + + + documented in this encounter Results Potassium (12/10/2010 1:41 PM PDT) + +-------+ + + + | Component | Value | Ref Range | Performed | Pathologist | | | | | At | Signature | + +-------+ + + + | K | 3.8 | 3.5 - 5.1 mEq/l | [facility] | | [facility] | | | | [facility] | | + +-------+ + + + + + | Specimen | + + | | + + + + + + + | Performing | Address | City/State/Zipcode | Phone Number | | Organization | | | | + + + + + | [facility] | [address] | [place] | [phone] | | [facility] | | [address] | | | - LABORATORY | | | | + + + + + | [facility] | [address] | [place] | | | [facility] | | [address] | | | - LABORATORY | | | | + + + + + documented in this encounter Visit Diagnoses Not on filedocumented in this encounter"
--- OUTSIDE RECORDS SUMMARY | ~2019-03-07 | XMS | Encounter Summary ---
Demographics + + + | Address | [address] | | | [place] [address] | + + + | Home Phone | | + + + | Preferred Language | Unknown | + + + | Marital Status | | + + + | Confucianist Affiliation | 1001 | + + + | Race | Unknown | + + + | Ethnic Group | Unknown | + + + Author + + + | Author | [facility] | | | and Ezraana | + + + | Organization | [facility] | | | [...] [place] | | | | | [address] | | + + + + + Care Team Providers + +------+ + | Care Auto Body Repair Teacher Name | Role | Phone | + +------+ + | Dre Jacobo MD | PCP | | + +------+ + Encounter Details +--------+ + + + + | Date | Type | Department | Care Team | Description | +--------+ + + + + | 12/16/ | Abstract | [facility] [place] | Bennie Garza | | | 2015 | | NEPHROLOGY [address] | M, DO [address] | | | | | [address] | [address] | | | | | [place], [place] | [place], [place] | | | | | [address] | [address] | | | | | [phone] | | | +--------+ + + + [...] documented as of this encounter Progress Notes Nikki Preston - 03/19/2016 9:16 AM PSTOutside record: [facility] standing la b order request. Sent to scan. documented in this encounter Plan of Treatment +--------+ + + + + | Date | Type | Specialty | Care Team | Description | +--------+ + + + + | 03/12/ | Off-Site | Nephrology | Bennie Garza | | | 2018 | Visit | | DO Deep [address] [place] [address] | | | | | | [address] | | | | | | [place] | | | | | | [address] | | | | | | | | +--------+ + + + + documented as of this encounter Visit Diagnoses Not on filedocumented in this encounter"
--- OUTSIDE RECORDS SUMMARY | ~2019-03-07 | XMS | Encounter Summary ---
Demographics + + + | Address | [address] | | | [place] [address] | + + + | Home Phone | | + + + | Preferred Language | Unknown | + + + | Marital Status | | + + + | Episcopal Affiliation | 1001 | + + + | Race | Unknown | + + + | Ethnic Group | Unknown | + + + Author + + + | Author | [facility] | | | and [place]ra[place] | + + + | Organization | [facility] | | | and [place]ra[place] [...] [place] | | | | | [address] | | + + + + + Care Team Providers + +------+ + | Care Calculus Tutor Name | Role | Phone | + +------+ + | Dre Jacobo MD | PCP | | + +------+ + Encounter Details +--------+ + + + + | Date | Type | Department | Care Team | Description | +--------+ + + + + | 03/27/ | Abstract | [facility] [place] | Bennie Garza | | | 2017 | | NEPHROLOGY [address] | M, DO [address] | | | | | [address] | [place] | | | | | [place], [place] | [place], [place] | | | | | [address] | [address] | | | | | [phone] | | | +--------+ + + + [...] | Visit | | DO [address] | | | | | | [address] | | | | | | [place], [place] | | | | | | [id number] | | | | | | | | +--------+ + + + + documented as of this encounter Procedures + +--------+ + + + | Procedure Name | Priori | Date/Time | Associated Diagnosis | Comments | | | ty | | | | + +--------+ + + + | EXTERNAL LAB: BUN | Routin | 06/27/2017 | | Results for this | | | e | | | procedure are in the | | | | | | results section. | + +--------+ + + + | EXTERNAL LAB: | Routin | 06/27/2017 | | Results for this | | GLUCOSE | e | | | procedure are in the | | | | | | results section. | + +--------+ + + + | EXTERNAL LAB: HADLEY | Routin | 06/27/2017 | | Results for this | | | e | | | procedure are in the | | | | | | results section. | + +--------+ + + + | EXTERNAL LAB: AST | Routin | 06/27/2017 | | Results for this | | | e | | | procedure are in the | | | | | | results section. | + +--------+ + + + | EXTERNAL LAB: | Routin | 06/27/2017 | | Results for this | | ALKALINE PHOSPHATASE | e | | | procedure are in the | | | | | | results section. | + +--------+ + + + | EXTERNAL LAB: | Routin | 06/27/2017 | | Results for this | | BILIRUBIN, TOTAL | e | | | procedure are in the | | | | | | results section. | + +--------+ + + + | EXTERNAL LAB: | Routin | 06/27/2017 | | Results for this | | ALBUMIN | e | | | procedure are in the | | | | | | results section. | + +--------+ + + + | EXTERNAL LAB: | Routin | 06/27/2017 | | Results for this | | PROTEIN, TOTAL | e | | | procedure are in the | | | | | | results section. | + +--------+ + + + | EXTERNAL LAB: | Routin | 06/27/2017 | | Results for this | | PHOSPHORUS | e | | | procedure are in the | | | | | | results section. | + +--------+ + + + | EXTERNAL LAB: | Routin | 06/27/2017 | | Results for this | | CALCIUM | e | | | procedure are in the | | | | | | results section. | + +--------+ + + + | EXTERNAL LAB: CARBON | Routin | 06/27/2017 | | Results for this | | DIOXIDE | e | | | procedure are in the | | | | | | results section. | + +--------+ + + + | EXTERNAL LAB: | Routin | 06/27/2017 | | Results for this | | CHLORIDE | e | | | procedure are in the | | | | | | results section. | + +--------+ + + + | EXTERNAL LAB: | Routin | 06/27/2017 | | Results for this | | POTASSIUM | e | | | procedure are in the | | | | | | results section. | + +--------+ + + + | EXTERNAL LAB: SODIUM | Routin | 06/27/2017 | | Results for this | | | e | | | procedure are in the | | | | | | results section. | + +--------+ + + + | EXTERNAL LAB: | Routin | 06/27/2017 | | Results for this | | VITAMIN D, | e | | | procedure are in the | | 25-HYDROXY | | | | results section. | + +--------+ + + + | EXTERNAL LAB: PTH, | Routin | 06/27/2017 | | Results for this | | INTACT | e | | | procedure are in the | | | | | | results section. | + +--------+ + + + | EXTERNAL LAB: | Routin | 06/27/2017 | | Results for this | | PROTEIN, URINE, 24HR | e | | | procedure are in the | | | | | | results section. | + +--------+ + + + | EXTERNAL LAB: CBC | Routin | 06/27/2017 | | Results for this | | | e | | | procedure are in the | | | | | | results section. | + +--------+ + + + | EXTERNAL LAB: EGFR | Routin | 06/27/2017 | | Results for this | | | e | | | procedure are in the | | | | | | results section. | + +--------+ + + + | EXTERNAL LAB: | Routin | 06/27/2017 | | Results for this | | CREATININE | e | | | procedure are in the | | | | | | results section. | + +--------+ + + + documented in this encounter Results External Lab: PTH, Intact (06/27/2017) + + + + + + | Component | Value | Ref Range | Performed | Pathologist | | | | | At | Signature | + + + + + + | PTH Intact, | 36.93 | | | | | External | | | | | + + + + + + | CREATININE | 17.0 (A) | 97.0 - 137.0 | | | | CLEARANCE | | mL/min | | | + + + + + + | 24H Urine | 3,000 | mL | | | | Volume | | | | | + + + + + + + + | Specimen | + + | | + + External Lab: BUN (06/27/2017) + +-------+ + + + | Component | Value | Ref Range | Performed | Pathologist | | | | | At | Signature | + +-------+ + + + | BUN, | 56 | | EXTERNAL | | | External | | | LAB | | + +-------+ + + + + +---------+ + + | Performing | Address | City/State/Zipcode | Phone Number | | Organization | | | | + +---------+ + + | EXTERNAL LAB | | | | + +---------+ + + External Lab: Glucose (06/27/2017) + +-------+ + + + | Component | Value | Ref Range | Performed | Pathologist | | | | | At | Signature | + +-------+ + + + | Glucose, | 81 | | EXTERNAL | | | External | | | LAB | | + +-------+ + + + + +---------+ + + | Performing | Address | City/State/Zipcode | Phone Number | | Organization | | | | + +---------+ + + | EXTERNAL LAB | | | | + +---------+ + + External Lab: ALT (06/27/2017) + +-------+ + + + | Component | Value | Ref Range | Performed | Pathologist | | | | | At | Signature | + +-------+ + + + | ALT, | 32 | | EXTERNAL | | | External | | | LAB | | + +-------+ + + + + +---------+ + + | Performing | Address | City/State/Zipcode | Phone Number | | Organization | | | | + +---------+ + + | EXTERNAL LAB | | | | + +---------+ + + External Lab: AST (06/27/2017) + +-------+ + + + | Component | Value | Ref Range | Performed | Pathologist | | | | | At | Signature | + +-------+ + + + | AST, | 24 | | EXTERNAL | | | External | | | LAB | | + +-------+ + + + + +---------+ + + | Performing | Address | City/State/Zipcode | Phone Number | | Organization | | | | + +---------+ + + | EXTERNAL LAB | | | | + +---------+ + + External Lab: Alkaline Phosphatase (06/27/2017) + +-------+ + + + | Component | Value | Ref Range | Performed | Pathologist | | | | | At | Signature | + +-------+ + + + | ALP, | 60 | | EXTERNAL | | | External | | | LAB | | + +-------+ + + + + +---------+ + + | Performing | Address | City/State/Zipcode | Phone Number | | Organization | | | | + +---------+ + + | EXTERNAL LAB | | | | + +---------+ + + External Lab: Bilirubin, Total (06/27/2017) + +-------+ + + + | Component | Value | Ref Range | Performed | Pathologist | | | | | At | Signature | + +-------+ + + + | Bilirubin, | 0.8 | | EXTERNAL | | | Total, | | | LAB | | | External | | | | | + +-------+ + + + + +---------+ + + | Performing | Address | City/State/Zipcode | Phone Number | | Organization | | | | + +---------+ + + | EXTERNAL LAB | | | | + +---------+ + + External Lab: Albumin (06/27/2017) + +-------+ + + + | Component | Value | Ref Range | Performed | Pathologist | | | | | At | Signature | + +-------+ + + + | Albumin, | 4.3 | | EXTERNAL | | | External | | | LAB | | + +-------+ + + + + +---------+ + + | Performing | Address | City/State/Zipcode | Phone Number | | Organization | | | | + +---------+ + + | EXTERNAL LAB | | | | + +---------+ + + External Lab: Protein, Total (06/27/2017) + +-------+ + + + | Component | Value | Ref Range | Performed | Pathologist | | | | | At | Signature | + +-------+ + + + | Protein, | 7.0 | | EXTERNAL | | | Total, | | | LAB | | | External | | | | | + +-------+ + + + + +---------+ + + | Performing | Address | City/State/Zipcode | Phone Number | | Organization | | | | + +---------+ + + | EXTERNAL LAB | | | | + +---------+ + + External Lab: Phosphorus (06/27/2017) + +-------+ + + + | Component | Value | Ref Range | Performed | Pathologist | | | | | At | Signature | + +-------+ + + + | Phosphorus, | 3.9 | | EXTERNAL | | | External | | | LAB | | + +-------+ + + + + +---------+ + + | Performing | Address | City/State/Zipcode | Phone Number | | Organization | | | | + +---------+ + + | EXTERNAL LAB | | | | + +---------+ + + External Lab: Calcium (06/27/2017) + +-------+ + + + | Component | Value | Ref Range | Performed | Pathologist | | | | | At | Signature | + +-------+ + + + | Calcium, | 9.8 | | EXTERNAL | | | External | | | LAB | | + +-------+ + + + + +---------+ + + | Performing | Address | City/State/Zipcode | Phone Number | | Organization | | | | + +---------+ + + | EXTERNAL LAB | | | | + +---------+ + + External Lab: Carbon Dioxide (06/27/2017) + +-------+ + + + | Component | Value | Ref Range | Performed | Pathologist | | | | | At | Signature | + +-------+ + + + | Carbon | 23 | | EXTERNAL | | | Dioxide, | | | LAB | | | External | | | | | + +-------+ + + + + +---------+ + + | Performing | Address | City/State/Zipcode | Phone Number | | Organization | | | | + +---------+ + + | EXTERNAL LAB | | | | + +---------+ + + External Lab: Chloride (06/27/2017) + +-------+ + + + | Component [...] + +---------+ + + External Lab: Potassium (06/27/2017) + +-------+ + + + | Component [...] + +---------+ + + External Lab: Sodium (06/27/2017) + +-------+ + + + | Component [...] | + +---------+ + + External Lab: Vitamin D, 25-Hydroxy (06/27/2017) + +-------+ + + + | Component | Value | Ref Range | Performed | Pathologist | | | | | At | Signature | + +-------+ + + + | Vitamin D, | 37 | 30 | EXTERNAL | | | 25-Hydroxy, | | | LAB | | | [...] + + External Lab: Protein, Urine, 24Hr (06/27/2017) + +---------+ + + + | Component | Value | Ref Range | Performed | Pathologist | | | | | At | Signature | + +---------+ + + + | Protein, | 330 (A) | 150 | EXTERNAL | | | Urine 24Hr, | | | LAB | | | External | | | | | + +---------+ + + + + + | Specimen | + + | Urine | + + + +---------+ + + | Performing | Address | City/State/Zipcode | Phone Number | | Organization | | | | + +---------+ + + | EXTERNAL LAB | | | | + +---------+ + + External Lab: CBC (06/27/2017) + +-------+ + + + | Component | Value | Ref Range | Performed | Pathologist | | | | | At | Signature | + +-------+ + + + | WBC, | 5.5 | | EXTERNAL | | | External | | | LAB | | + +-------+ + + + | HGB, | 13.6 | | EXTERNAL | | | External | | | LAB | | + +-------+ + + + | HCT, | 41 | | EXTERNAL | | | External | | | LAB | | + +-------+ + + + | PLT, | 158 | | EXTERNAL | | | External | | | LAB | | + +-------+ + + + | RBC, | 4.19 | | EXTERNAL | | | External | | | LAB | | + +-------+ + + + | MCV, | 98 | | EXTERNAL | | | External | | | LAB | | + +-------+ + + + | RDW, | 13.2 | | EXTERNAL | | | External | | | LAB | | + +-------+ + + + + +---------+ + + | Performing | Address | City/State/Zipcode | Phone Number | | Organization | | | | + +---------+ + + | EXTERNAL LAB | | | | + +---------+ + + External Lab: eGFR (06/27/2017) + +-------+ + + + | Component | Value | Ref Range | Performed | Pathologist | | | | | At | Signature | + +-------+ + + + | eGFR, | 22 | | EXTERNAL | | | External [...] + +---------+ + + External Lab: Creatinine (06/27/2017) + +-------+ + + + | Component | Value | Ref Range | Performed | Pathologist | | | | | At | Signature | + +-------+ + + + | Creatinine, | 2.83 | | EXTERNAL | | | External [...]
--- OUTSIDE RECORDS SUMMARY | ~2019-03-07 | XMS | Encounter Summary ---
Demographics + + + | Address | [address] | | | [place] [address] | + + + | Home Phone | | + + + | Preferred Language | Unknown | + + + | Marital Status | | + + + | Christian Affiliation | 1001 | + + + | Race | Unknown | + + + | Ethnic Group | Unknown | + + + Author + + + | Author | [facility] | | | and [place]raana | + + + | Organization | [facility] | | | and [...] [place] | | | | | [address] | | + + + + + Care Team Providers + +------+ + | Care Field Sales Engineer Name | Role | Phone | + +------+ + | Dre Jacobo MD | PCP | | + +------+ + Encounter Details +--------+ + + + + | Date | Type | Department | Care Team | Description | +--------+ + + + + | 10/ | Orders Only | [facility] | Ozzie Yost W, | | | 2010 | | CONVERSION DEP [address] | MD [address] | | | | | [address] | [address] | | | | | [place], [place] | [place] [address] | | | | | [address] | [phone] | | | | | [phone] | | | +--------+ + + + [...] | 03/12/ | Off-Site | Nephrology | Silvaandrewde Bennie | | | 2019 | Visit | | DO [address] | | | | | | [address] | | | | | | [place] | | | | | | [address] | | | | | | | | +--------+ + + + + documented as of this encounter Procedures + +--------+ + + + | Procedure Name | Priori | Date/Time | Associated Diagnosis | Comments | | | ty | | | | + +--------+ + + + | CULTURE, URINE | Routin | 01/18/2011 | | Results for this | | | e | 9:20 AM | | procedure are in the | | | | PDT | | results section. | + +--------+ + + + documented in this encounter Results Culture, Urine (01/18/2011 9:20 AM PDT) + + | Specimen | + + | | + + + + + | Narrative | Performed At | + + + | Specimen Description CLEAN CATCH URINE | EXTERNAL LAB | | Testing performed at | | | [facility];[address] [facility];[place] [address] CULTURE | | | <10,000 CFU/ML MIXED GRAM POSITIVE ISMAEL NO | | | SUSCEPTIBILITY TO FOLLOW | | | Testing performed at [facility], [address] [facility] | | | [place] [address] REPORT STATUS 01/20/2011 | | | FINAL | | + + + + +---------+ + + | Performing | Address | City/State/Zipcode | Phone Number | | Organization | | | | + +---------+ + + | EXTERNAL LAB | | | | + +---------+ + + documented in this encounter Visit Diagnoses Not on filedocumented in this encounter"
--- OUTSIDE RECORDS SUMMARY | ~2019-03-07 | XMS | Encounter Summary ---
Demographics + + + | Address | [address] | | | [place] [address] | + + + | Home Phone | | + + + | Preferred Language | Unknown | + + + | Marital Status | | + + + | Evangelical Affiliation | 1001 | + + + | Race | Unknown | + + + | Ethnic Group | Unknown | + + + Author + + + | Author | [facility] | | | and [place] | + + + | Organization | [facility] | | | and [...] [place] | | | | | [phone] | | + + + + + Care Team Providers + +------+ + | Care Treasury Assistant Name | Role | Phone | + +------+ + | Dre Jacobo MD | PCP | | + +------+ + Encounter Details +--------+ + + + + | Date | Type | Department | Care Team | Description | +--------+ + + + + | 06/07/ | Abstract | [facility] [place] | Bennie Garza | | | 2012 | | NEPHROLOGY [address] | M, DO [address] | | | | | [address] | [address] | | | | | [place], [place] | [place], [place] | | | | | [address] | [address] | | | | | [phone] | | | +--------+ + + + [...] | 03/12/ | Off-Site | Nephrology | Greg Bennie | | | 2018 | Visit | | DO Deep [address] [place] [address] | | | | | | [address] | | | | | | [place] | | | | | | [address] | | | | | | | | +--------+ + + + + documented as of this encounter Procedures + +--------+ + + + | Procedure Name | Priori | Date/Time | Associated Diagnosis | Comments | | | ty | | | | + +--------+ + + + | PTH + CALCIUM | Routin | 06/05/2012 | | Results for this | | | e | | | procedure are in the | | | | | | results section. | + +--------+ + + + documented in this encounter Results PTH + Calcium (06/05/2012) + +-------+ + + + | Component | Value | Ref Range | Performed | Pathologist | | | | | At | Signature | + +-------+ + + + | PTH INTACT | 42.39 | pg/mL | | | + +-------+ + + + + + | Specimen | + + | Blood specimen | | (specimen) | + + documented in this encounter Visit Diagnoses Not on filedocumented in this encounter"
--- OUTSIDE RECORDS SUMMARY | ~2019-03-07 | XMS | Encounter Summary ---
Demographics + + + | Address | [address] | | | [place] [address] | + + + | Home Phone | | + + + | Preferred Language | Unknown | + + + | Marital Status | | + + + | Episcopalian Affiliation | 1001 | + + + | Race | Unknown | + + + | Ethnic Group | Unknown | + + + Author + + + | Author | [facility] | | | and Ezraana | + + + | Organization | [facility] | | | and Ezraana | [...] [place] | | | | | [phone] | | + + + + + Care Team Providers + +------+ + | Care Gravity Flow Irrigator Name | Role | Phone | + +------+ + | Dre Jacobo MD | PCP | | + +------+ + Encounter Details +--------+ + + + + | Date | Type | Department | Care Team | Description | +--------+ + + + + | 05/07/ | Off-Site | [facility] | Bennie Garza | Unspecified | | 2013 | Visit | NEPHROLOGY [address] | M, DO [address] | hypertensive kidney | | | | [address] [place] [address] | [place] [place] [address] | disease with chronic | | | | [place], [place] | [place], [place] | kidney disease | | | | [address] | [id number] | stage I through | | | | [phone] | | stage IV, or | | | | | | unspecified(403.90) | | | | | | (Primary Dx); Anemia | | | | | | in chronic kidney | | | | | | disease(285.21); | | | | | | CHRONIC KIDNEY | | | | | | DISEASE STAGE III | | | | | | (MODERATE); | | | | | | Secondary | | | | | | hyperparathyroidism | | | | | | (of renal origin) | | | | | | (HCC) | +--------+ + + + + Social [...] + + + | Blood Pressure | 120/70 | 05/07/2013 12:02 PM | | | | | PST | | + + + + + | Pulse | - | - | | + + + + + | Temperature | 35 C (95 F) | 05/07/2013 12:02 PM | | | | | PST | | + + + + + | Respiratory Rate | - | - | | + + + + + | Oxygen Saturation | - | - | | + + + + + | Inhaled Oxygen | - | - | | | Concentration | | | | + + + + + | Weight | 68 kg (149 lb 14.6 | 05/07/2013 12:02 PM | | | | oz) | PST | | + + + + + | Height | - | - | | + + + + + | Body Mass Index | 24.95 | 12/05/2012 1:05 PM | | | | | PDT | | + + + + + documented in this encounter Progress Notes Bennie Garza DO - 05/08/2013 12:03 PM PST Subjective: NEPHROLOGY Patient ID: Dillon Glasgow is a 67 y.o. male. HPI Comments: Followup for this 67-year-old white male with history of CKD secondary to hyp ertension, SHPTH, and remote depression. Overall, he is energetic, and feels relatively wel l. He denies increased edema, hiccups, or anorexia. His GFR has appeared to plateau, eddieev er, I did discuss that I would favor placement of an early AVF while there is ample time for it to mature. MEDS: allopurinol (ZYLOPRIM) 100 mg tablet, Take 100 mg by mouth Daily., Disp: , Rfl: calcitriol (ROCALTROL) 0.5 MCG capsule, Take 0.5 mcg by mouth every 48 hours., Disp: , Rfl: clonazepam (KLONOPIN) 0.5 mg tablet, Take 0.5 mg by mouth nightly., Disp: , Rfl: fluoxetine (PROZAC) 40 MG capsule, Take 40 mg by mouth Daily., Disp: , Rfl: traZODone (MARGARITA YREL) 50 mg tablet, 2, by mouth, daily., Disp: , Rfl: Review of Systems No Known Allergies Objective: BP 120/70 | Temp 35 C (95 F) | Wt 68 kg (149 lb 14.6 oz) (my exam) Physical Exam Cardiovascular: Regular rate and rhythm, with no S3, S4, murmur or rub. Pulmonary/Chest: CTA bilaterally. No rales or wheezes. Abdominal: Soft, flat, nontender, normoactive bowel sounds, no guarding. Musculoskeletal: No clubbing, cyanosis, or asterixis. Old, clotted AVF in left arm. LAB: Lab Results Component Value Date CREA 2.7 09/25/2012 BUN 34 04/30/2013 NA 136 04/30/2013 K 3.3 04/30/2013 CL 100 04/30/2013 CO2 25 04/30/2013 Cr 2.27 04/30/2013 GLUCOSE Date Value Range Status 04/30/2013 71 Final Uric acid 6.0 Lab Results Component Value Date PTH 67.6 04/30/2013 CALCIUM 9.3 04/30/2013 PHOS 2.4 04/30/2013 TC 141 HDL 51 LDL 75 TG 74 H/H = Not listed. 24-Hour Urine: Ccr = 31 ml/minute, protein = 203 mg/day. Assessment: 1. CKD, Stage III, secondary to hypertensive nephrosclerosis--his Scr is below previous bas jassi. 2. Hypertension--excellent control. 3. SHPTH--good control. 4. Depression--in remission. 5. Anemia secondary to CKD--previously stable. 6. History of gout--in remission. Plan: 1. I discussed with Dillon that fortunately his BP, and Scr appear very stable. He appea rs to follow a very consistent, low salt diet? 2. I did discuss that it would be ideal to have a reliable dialysis access, exterminator helper, in the event that his GFR does deteriorate. I acknowledged to him about his wishes about a [place] renal allograft, but he does not have a specific living related donor, in mind, at this point. Nevertheless, will arrange a follow up appt. With Dr. Luis Enrique Mcmillan in the next 3 0 days, to plan on an AVF in his right arm. (He has never had any access surgeries in that arm). I did suggest to Dillon that the natural history of CKD over the decades, is that it does tend to very slowly progress with time. 3. Will plan to see him back in 4 months. He will have an H/H, CMP, PO4, PTH, and 24 Hr urine 1 week prior to that . CC: [facility], [facility] Ray Mcmillan MD 12: 22 PM PSTdocumented in this encounter Plan of Treatment +--------+ + + + + | Date | Type | Specialty | Care Team | Description | +--------+ + + + + | 03/12/ | Off-Site | Nephrology | Bennie Garza | | | 2018 | Visit | | DO Deep [address] [place] [address] | | | | | | [place], [facility] [address] | | | | | | [place] | | | | | | [address] | | | | | | | | +--------+ + + + + documented as of this encounter Visit Diagnoses + + | Diagnosis | + + | Unspecified hypertensive kidney disease with chronic kidney disease stage I through | | stage IV, or unspecified(403.90) - Primary Unspecified hypertensive kidney disease with | | chronic kidney disease stage I through stage IV, or unspecified | + + | Anemia in chronic kidney disease(285.21) Anemia in chronic kidney disease | + + | CHRONIC KIDNEY DISEASE STAGE III (MODERATE) Chronic kidney disease, Stage III | | (moderate) | + + | Secondary hyperparathyroidism (of renal origin) | + + documented in this encounter"
--- OUTSIDE RECORDS SUMMARY | ~2019-03-07 | XMS | Encounter Summary ---
Demographics + + + | Address | [address] | | | [place] [address] | + + + | Home Phone | | + + + | Preferred Language | Unknown | + + + | Marital Status | | + + + | Taoist Affiliation | 1001 | + + + | Race | Unknown | + + + | Ethnic Group | Unknown | + + + Author + + + | Author | [facility] | | | and Ezraana | + + + | Organization | [facility] | | | and [place]raana [...] [place] | | | | | [phone] | | + + + + + Care Team Providers + +------+ + | Care Ocean Rescue Lieutenant Name | Role | Phone | + +------+ + | Dre Jacobo MD | PCP | | + +------+ + Reason for Visit Evaluate & Treat (Routine) +--------+--------+ + + + + | Status | Reason | Specialty | Diagnoses / | Referred By | Referred To | | | | | Procedures | Contact | Contact | +--------+--------+ + + + + | Closed | | Surgery / | Diagnoses | Stroemel, | Field, | | | | General | Follow up 3 | Bennie Adame, | Luis Enrique Simeon, | | | | Surgery | months AV | DO [address] | MD FACS [address] | | | | | Fistula/Stro | [place], [place] | [address] | | | | | raffy | [address] [place] | [place], | | | | | Procedures | [place], [place] | [place] [address] | | | | | [place] OFFICE | [address] | Phone: | | | | | OUTPATIENT | Phone: | [phone] | | | | | VISIT 25 | [phone] | Fax: | | | | | MINUTES | Fax: | [phone] | | | | | OFFICE VISIT | [phone] | | | | | | EXTENDED | | | +--------+--------+ + + + + Encounter Details +--------+---------+ + + + | Date | Type | Department | Care Team | Description | +--------+---------+ + + + | 10/02/ | Office | [facility] [place] [facility] | Luis Enrique Mcmillan | End stage renal | | 2013 | Visit | SURGERY [address] | MD Blanco, FACS [address] | disease (HCC) | | | | [place], [place] | [address] [place] | (Primary Dx) | | | | [phone] | [facility] [place] [address] | | | | | [phone] | [phone] | | | | | | | | +--------+---------+ + + + Social History + +-------+ [...] + + + | Blood Pressure | 110/58 | 10/02/2013 2:09 PM | | | | | PDT | | + + + + + | Pulse | 76 | 10/02/2013 2:09 PM | | | | | PDT | | + + + + + | Temperature | 36.8 C (98.2 F) | 10/02/2013 2:09 PM | | | | | PDT | | + + + + + | Respiratory Rate | 16 | 10/02/2013 2:09 PM | | | | | PDT | | + + + + + | Oxygen Saturation | 97% | 10/02/2013 2:09 PM | | | | | PDT | | + + + + + | Inhaled Oxygen | - | - | | | Concentration | | | | + + + + + | Weight | 66.6 kg (146 lb 12.8 | 10/02/2013 2:09 PM | | | | oz) | PDT | | + + + + + | Height | 165.1 cm (5' 5") | 10/02/2013 2:09 PM | | | | | PDT | | + + + + + | Body Mass Index | 24.43 | 10/02/2013 2:09 PM | | | | | PDT | | + + + + + documented in this encounter Patient Instructions Patient Instructions Luis Enrique Mcmillan MD - 10/02/2013 2:38 PM PDT. Follow with Dr Garza ( has visits every 4 months). No IV, blood draw or BP on RIGHT arm. . documented in this encounter Progress Notes Luis Enrique Mcmillan MD - 10/02/2013 2:16 PM PDT Patient Identification: Dillon Glasgow 1945 Is a 68 y.o. male , a patient of Rubin Jacobo. Patient is here alone . S: Date of surgery 06/04/2013 . Title of surgery: Right AV fistula Now 3 months s/p right forearm AVF. Patient has good thrill. No hand pain. Past Medical History He has a past medical history of Hypertension; Secondary hyperparathyroidism (HCC); Depress ion; Sleep apnea; Chronic kidney disease, stage III (moderate) (HCC); Anemia; and Panic bk ck. Past Surgical History He Past Surgical History Procedure Date Tonsillectomy Nose surgery 1958 Uvulopalatopharygoplasty 2000 Av fistula repair Exploration, left brachial-basilic fistula 11/03/2012 Right av fistula 06/04/2013 Dr. Mcmillan Allergies Allergen Reactions Aspirin CKD Medications: He has a current medication list which includes the following prescription(s): allopurinol, benazepril, calcitriol, klonopin, fluoxetine, and trazodone. Outpatient Encounter Prescriptions as of 10/02/2013 Medication Sig Dispense Refill allopurinol (ZYLOPRIM) 100 mg tablet Take 100 mg by mouth Daily. benazepril (LOTENSIN) 10 mg tablet Take 5 mg by mouth Daily. calcitriol (ROCALTROL) 0.25 mcg capsule Take 0.25 mcg by mouth Daily. clonazePAM (KLONOPIN) 0.5 mg tablet Take 0.5 mg by mouth nightly. fluoxetine (PROZAC) 40 MG capsule Take 40 mg by mouth Daily. traZODone (DESYREL) 50 mg tablet Take 50 mg by mouth 2 times daily. Family History: His family history includes Diabetes in his brother and mother; High blood pressure in his brother; Other (See Comment) in his father; and Stroke in his brother. There is no history of Kidney disease. Social History: He reports that he has never smoked. He has never used smokeless tobacco. He reports that glendy zazueta does not drink alcohol or use illicit drugs. Filed Vitals: 10/02/13 1409 BP: 110/58 Pulse: 76 Temp: 36.8 C (98.2 F) TempSrc: Temporal Resp: 16 Height: 1.651 m (5' 5") Weight: 66.588 kg (146 lb 12.8 oz) SpO2: 97% PE: RIGHT arm: Good forearm thrill. Ultrasound 8 mm vein with good flow IMP: right forearm fistula is maturing well. P: Continue same. Dialysis per Dr Garza. Follow with Dr Garza ( has visits every 4 months). No IV, blood draw or BP on RIGHT arm. Luis Enrique Mcmillan MD, FACS Vascular and General Surgery documented in this encounter Plan of Treatment +--------+ + + + + | Date | Type | Specialty | Care Team | Description | +--------+ + + + + | 03/12/ | Off-Site | Nephrology | Bennie Garza | | | 2018 | Visit | | DO [address] | | | | | | [place] [place] [address] | | | | | | [place] | | | | | | [address] | | | | | | | | +--------+ + + + + documented as of this encounter Visit Diagnoses + + | Diagnosis | + + | End stage renal disease (HCC) - Primary End stage renal disease | + + documented in this encounter
--- OUTSIDE RECORDS SUMMARY | ~2019-03-07 | XMS | Encounter Summary ---
Demographics + + + | Address | [address] | | | [place] [address] | + + + | Home Phone | | + + + | Preferred Language | Unknown | + + + | Marital Status | | + + + | Cheondoism Affiliation | 1001 | + + + | Race | Unknown | + + + | Ethnic Group | Unknown | + + + Author + + + | Author | [facility] | | | and [place] | + + + | Organization | [facility] | | | and [place] [...] [place] | | | | | [phone] | | + + + + + Care Team Providers + +------+ + | Care Video Recorder Mechanic Name | Role | Phone | + +------+ + | Dre Jacobo MD | PCP | | + +------+ + Encounter Details +--------+ + + + + | Date | Type | Department | Care Team | Description | +--------+ + + + + | 12/04/ | Abstract | [facility] [place] | Bennie Garza | | | 2019 | | NEPHROLOGY [address] | M, DO [address] | | | | | [address] | [address] | | | | | [place], [place] | [place], [place] | | | | | [phone] | [address] | | | | | [phone] | | | +--------+ + + + [...] | Visit | | [address] | | | | | | [address] | | | | | | [place], [place] | | | | | | [id number] | | | | | | | | +--------+ + + + + documented as of this encounter Procedures + +--------+ + + + | Procedure Name | Priori | Date/Time | Associated Diagnosis | Comments | | | ty | | | | + +--------+ + + + | EXTERNAL LAB: BUN | Routin | 03/06/2019 | | Results for this | | | e | | | procedure are in the | | | | | | results section. | + +--------+ + + + | EXTERNAL LAB: | Routin | 03/06/2019 | | Results for this | | GLUCOSE | e | | | procedure are in the | | | | | | results section. | + +--------+ + + + | EXTERNAL LAB: [place] | Routin | 03/06/2019 | | Results for this | | | e | | | procedure are in the | | | | | | results section. | + +--------+ + + + | EXTERNAL LAB: AST | Routin | 03/06/2019 | | Results for this | | | e | | | procedure are in the | | | | | | results section. | + +--------+ + + + | EXTERNAL LAB: | Routin | 03/06/2019 | | Results for this | | ALKALINE PHOSPHATASE | e | | | procedure are in the | | | | | | results section. | + +--------+ + + + | EXTERNAL LAB: | Routin | 03/06/2019 | | Results for this | | BILIRUBIN, TOTAL | e | | | procedure are in the | | | | | | results section. | + +--------+ + + + | EXTERNAL LAB: | Routin | 03/06/2019 | | Results for this | | ALBUMIN | e | | | procedure are in the | | | | | | results section. | + +--------+ + + + | EXTERNAL LAB: | Routin | 03/06/2019 | | Results for this | | PROTEIN, TOTAL | e | | | procedure are in the | | | | | | results section. | + +--------+ + + + | EXTERNAL LAB: | Routin | 03/06/2019 | | Results for this | | PHOSPHORUS | e | | | procedure are in the | | | | | | results section. | + +--------+ + + + | EXTERNAL LAB: | Routin | 03/06/2019 | | Results for this | | CALCIUM | e | | | procedure are in the | | | | | | results section. | + +--------+ + + + | EXTERNAL LAB: CARBON | Routin | 03/06/2019 | | Results for this | | DIOXIDE | e | | | procedure are in the | | | | | | results section. | + +--------+ + + + | EXTERNAL LAB: | Routin | 03/06/2019 | | Results for this | | CHLORIDE | e | | | procedure are in the | | | | | | results section. | + +--------+ + + + | EXTERNAL LAB: | Routin | 03/06/2019 | | Results for this | | POTASSIUM | e | | | procedure are in the | | | | | | results section. | + +--------+ + + + | EXTERNAL LAB: SODIUM | Routin | 03/06/2019 | | Results for this | | | e | | | procedure are in the | | | | | | results section. | + +--------+ + + + | EXTERNAL LAB: | Routin | 03/06/2019 | | Results for this | | VITAMIN D, | e | | | procedure are in the | | 25-HYDROXY | | | | results section. | + +--------+ + + + | EXTERNAL LAB: PTH, | Routin | 03/06/2019 | | Results for this | | INTACT | e | | | procedure are in the | | | | | | results section. | + +--------+ + + + | EXTERNAL LAB: | Routin | 03/06/2019 | | Results for this | | PROTEIN/CREATININE | e | | | procedure are in the | | RATIO | | | | results section. | + +--------+ + + + | EXTERNAL LAB: CBC | Routin | 03/06/2019 | | Results for this | | | e | | | procedure are in the | | | | | | results section. | + +--------+ + + + | EXTERNAL LAB: | Routin | 03/06/2019 | | Results for this | | TRIGLYCERIDES | e | | | procedure are in the | | | | | | results section. | + +--------+ + + + | EXTERNAL LAB: | Routin | 03/06/2019 | | Results for this | | CHOLESTEROL, HDL | e | | | procedure are in the | | | | | | results section. | + +--------+ + + + | EXTERNAL LAB: | Routin | 03/06/2019 | | Results for this | | CHOLESTEROL, TOTAL | e | | | procedure are in the | | | | | | results section. | + +--------+ + + + | EXTERNAL LAB: | Routin | 03/06/2019 | | Results for this | | CHOLESTEROL, LDL | e | | | procedure are in the | | | | | | results section. | + +--------+ + + + | EXTERNAL LAB: EGFR | Routin | 03/06/2019 | | Results for this | | | e | | | procedure are in the | | | | | | results section. | + +--------+ + + + | EXTERNAL LAB: | Routin | 03/06/2019 | | Results for this | | CREATININE | e | | | procedure are in the | | | | | | results section. | + +--------+ + + + documented in this encounter Results External Lab: PTH, Intact (03/06/2019) + +-------+ + + + | Component | Value | Ref Range | Performed | Pathologist | | | | | At | Signature | + +-------+ + + + | PTH Intact, | 45.84 | | | | | External | | | | | + +-------+ + + + + + | Specimen | + + | | + + External Lab: Protein/Creatinine Ratio (03/06/2019) + + + + + + | Component | Value | Ref Range | Performed | Pathologist | | | | | At | Signature | + + + + + + | Protein/Cre | 1.074 (A) | 0.2 | | | | atinine | | | | | | Ratio, | | | | | | External | | | | | + + + + + + + + | Specimen | + + | | + + External Lab: BUN (03/06/2019) + +-------+ + + + | Component | Value | Ref Range | Performed | Pathologist | | | | | At | Signature | + +-------+ + + + | BUN, | 62 | | EXTERNAL | | | External | | | LAB | | + +-------+ + + + + +---------+ + + | Performing | Address | City/State/Zipcode | Phone Number | | Organization | | | | + +---------+ + + | EXTERNAL LAB | | | | + +---------+ + + External Lab: Glucose (03/06/2019) + +-------+ + + + | Component | Value | Ref Range | Performed | Pathologist | | | | | At | Signature | + +-------+ + + + | Glucose, | 80 | | EXTERNAL | | | External | | | LAB | | + +-------+ + + + + +---------+ + + | Performing | Address | City/State/Zipcode | Phone Number | | Organization | | | | + +---------+ + + | EXTERNAL LAB | | | | + +---------+ + + External Lab: ALT (03/06/2019) + +-------+ + + + | Component | Value | Ref Range | Performed | Pathologist | | | | | At | Signature | + +-------+ + + + | ALT, | 18 | | EXTERNAL | | | External | | | LAB | | + +-------+ + + + + +---------+ + + | Performing | Address | City/State/Zipcode | Phone Number | | Organization | | | | + +---------+ + + | EXTERNAL LAB | | | | + +---------+ + + External Lab: AST (03/06/2019) + +-------+ + + + | Component | Value | Ref Range | Performed | Pathologist | | | | | At | Signature | + +-------+ + + + | AST, | 21 | | EXTERNAL | | | External | | | LAB | | + +-------+ + + + + +---------+ + + | Performing | Address | City/State/Zipcode | Phone Number | | Organization | | | | + +---------+ + + | EXTERNAL LAB | | | | + +---------+ + + External Lab: Alkaline Phosphatase (03/06/2019) + +-------+ + + + | Component | Value | Ref Range | Performed | Pathologist | | | | | At | Signature | + +-------+ + + + | ALP, | 74 | | EXTERNAL | | | External | | | LAB | | + +-------+ + + + + +---------+ + + | Performing | Address | City/State/Zipcode | Phone Number | | Organization | | | | + +---------+ + + | EXTERNAL LAB | | | | + +---------+ + + External Lab: Bilirubin, Total (03/06/2019) + +-------+ + + + | Component [...] + +---------+ + + External Lab: Albumin (03/06/2019) + +-------+ + + + | Component | Value | Ref Range | Performed | Pathologist | | | | | At | Signature | + +-------+ + + + | Albumin, | 4.5 | | EXTERNAL | | | External | | | LAB | | + +-------+ + + + + +---------+ + + | Performing | Address | City/State/Zipcode | Phone Number | | Organization | | | | + +---------+ + + | EXTERNAL LAB | | | | + +---------+ + + External Lab: Protein, Total (03/06/2019) + +-------+ + + + | Component | Value | Ref Range | Performed | Pathologist | | | | | At | Signature | + +-------+ + + + | Protein, | 7.1 | | EXTERNAL | | | Total, | | | LAB | | | External | | | | | + +-------+ + + + + +---------+ + + | Performing | Address | City/State/Zipcode | Phone Number | | Organization | | | | + +---------+ + + | EXTERNAL LAB | | | | + +---------+ + + External Lab: Phosphorus (03/06/2019) + +-------+ + + + | Component | Value | Ref Range | Performed | Pathologist | | | | | At | Signature | + +-------+ + + + | Phosphorus, | 4.8 | | EXTERNAL | | | External | | | LAB | | + +-------+ + + + + +---------+ + + | Performing | Address | City/State/Zipcode | Phone Number | | Organization | | | | + +---------+ + + | EXTERNAL LAB | | | | + +---------+ + + External Lab: Calcium (03/06/2019) + +-------+ + + + | Component | Value | Ref Range | Performed | Pathologist | | | | | At | Signature | + +-------+ + + + | Calcium, | 10.2 | | EXTERNAL | | | External | | | LAB | | + +-------+ + + + + +---------+ + + | Performing | Address | City/State/Zipcode | Phone Number | | Organization | | | | + +---------+ + + | EXTERNAL LAB | | | | + +---------+ + + External Lab: Carbon Dioxide (03/06/2019) + +-------+ + + + | Component | Value | Ref Range | Performed | Pathologist | | | | | At | Signature | + +-------+ + + + | Carbon | 21 | | EXTERNAL | | | Dioxide, | | | LAB | | | External | | | | | + +-------+ + + + + +---------+ + + | Performing | Address | City/State/Zipcode | Phone Number | | Organization | | | | + +---------+ + + | EXTERNAL LAB | | | | + +---------+ + + External Lab: Chloride (03/06/2019) + +-------+ + + + | Component | Value | Ref Range | Performed | Pathologist | | | | | At | Signature | + +-------+ + + + | Chloride, | 109 | | EXTERNAL | | | External | | | LAB | | + +-------+ + + + + +---------+ + + | Performing | Address | City/State/Zipcode | Phone Number | | Organization | | | | + +---------+ + + | EXTERNAL LAB | | | | + +---------+ + + External Lab: Potassium (03/06/2019) + +-------+ + + + | Component | Value | Ref Range | Performed | Pathologist | | | | | At | Signature | + +-------+ + + + | Potassium, | 4.4 | | EXTERNAL | | | External | | | LAB | | + +-------+ + + + + +---------+ + + | Performing | Address | City/State/Zipcode | Phone Number | | Organization | | | | + +---------+ + + | EXTERNAL LAB | | | | + +---------+ + + External Lab: Sodium (03/06/2019) + +-------+ + + + | Component | Value | Ref Range | Performed | Pathologist | | | | | At | Signature | + +-------+ + + + | Sodium, | 141 | | EXTERNAL | | | External | | | LAB | | + +-------+ + + + + +---------+ + + | Performing | Address | City/State/Zipcode | Phone Number | | Organization | | | | + +---------+ + + | EXTERNAL LAB | | | | + +---------+ + + External Lab: Vitamin D, 25-Hydroxy (03/06/2019) + +-------+ + + + | Component | Value | Ref Range | Performed | Pathologist | | | | | At | Signature | + +-------+ + + + | Vitamin D, | 43 | | EXTERNAL | | | 25-Hydroxy, | [...] + +---------+ + + External Lab: CBC (03/06/2019) + +-------+ + + + | Component | Value | Ref Range | Performed | Pathologist | | | | | At | Signature | + +-------+ + + + | WBC, | 5.5 | | EXTERNAL | | | External | | | LAB | | + +-------+ + + + | HGB, | 13 | | EXTERNAL | | | External | | | LAB | | + +-------+ + + + | HCT, | 38.8 | | EXTERNAL | | | External | | | LAB | | + +-------+ + + + | PLT, | 218 | | EXTERNAL | | | External | | | LAB | | + +-------+ + + + | RBC, | 4.21 | | EXTERNAL | | | External | | | LAB | | + +-------+ + + + | MCV, | 92 | | EXTERNAL | | | External | | | LAB | | + +-------+ + + + | RDW, | 12.5 | | EXTERNAL | | | External | | | LAB | | + +-------+ + + + + +---------+ + + | Performing | Address | City/State/Zipcode | Phone Number | | Organization | | | | + +---------+ + + | EXTERNAL LAB | | | | + +---------+ + + External Lab: Triglycerides (03/06/2019) + +-------+ + + + | Component | Value | Ref Range | Performed | Pathologist | | | | | At | Signature | + +-------+ + + + | Triglycerid | 62 | | EXTERNAL | | | es, [...] +---------+ + + External Lab: Cholesterol, HDL (03/06/2019) + +-------+ + + + | Component | Value | Ref Range | Performed | Pathologist | | | | | At | Signature | + +-------+ + + + | HDL | 46.9 | mg/dl | EXTERNAL | | | [...] +---------+ + + External Lab: Cholesterol, Total (03/06/2019) + +-------+ + + + | Component | Value | Ref Range | Performed | Pathologist | | | | | At | Signature | + +-------+ + + + | Cholesterol | 141 | mg/dl | EXTERNAL | | | [...] +---------+ + + External Lab: Cholesterol, LDL (03/06/2019) + +-------+ + + + | Component | Value | Ref Range | Performed | Pathologist | | | | | At | Signature | + +-------+ + + + | LDL | 82 | | EXTERNAL | | | Cholesterol [...] + +---------+ + + External Lab: eGFR (03/06/2019) + +-------+ + + + | Component | Value | Ref Range | Performed | Pathologist | | | | | At | Signature | + +-------+ + + + | eGFR, | 19 | | EXTERNAL | | | External [...] + +---------+ + + External Lab: Creatinine (03/06/2019) + +-------+ + + + | Component | Value | Ref Range | Performed | Pathologist | | | | | At | Signature | + +-------+ + + + | Creatinine, | 3.22 | | EXTERNAL | | | External [...]
--- OUTSIDE RECORDS SUMMARY | ~2019-03-07 | XMS | Encounter Summary ---
Demographics + + + | Address | [address] | | | [place] [address] | + + + | Home Phone | | + + + | Preferred Language | Unknown | + + + | Marital Status | | + + + | Gnosticism Affiliation | 1001 | + + + | Race | Unknown | + + + | Ethnic Group | Unknown | + + + Author + + + | Author | [facility] | | | and Ezraana | + + + | Organization | [facility] | | | and [place]raana [...] [place] | | | | | [phone] | | + + + + + Care Team Providers + +------+ + | Care Representative Personal Service Name | Role | Phone | + +------+ + | Dre Jacobo MD | PCP | | + +------+ + Encounter Details +--------+ + + + + | Date | Type | Department | Care Team | Description | +--------+ + + + + | 01/08/ | Abstract | [facility] | Bennie Garza | | | 2013 | | NEPHROLOGY [address] | M, DO [address] | | | | | [address] | [place] | | | | | [place], [place] | [place], [place] | | | | | [address] | [address] | | | | | [phone] | | | +--------+ + + + [...] | Visit | | DO [address] | | | | | | [address] | | | | | | [place], [place] | | | | | | [id number] | | | | | | | | +--------+ + + + + documented as of this encounter Procedures + +--------+ + + + | Procedure Name | Priori | Date/Time | Associated Diagnosis | Comments | | | ty | | | | + +--------+ + + + | EXTERNAL LAB: МАРИНА | Routin | 01/08/2014 | | Results for this | | INTACT | e | | | procedure are in the | | | | | | results section. | + +--------+ + + + | AR EXT ECG RECORD | Routin | 01/08/2014 | | Results for this | | CONTIN 48 HR, SCAN | e | | | procedure are in the | | ANALYSIS W REPORT | | | | results section. | + +--------+ + + + | EXTERNAL LAB: ROSARIO | Routin | 01/07/2014 | | Results for this | | | e | | | procedure are in the | | | | | | results section. | + +--------+ + + + | EXTERNAL LAB: | Routin | 01/07/2014 | | Results for this | | GLUCOSE | e | | | procedure are in the | | | | | | results section. | + +--------+ + + + | EXTERNAL LAB: ALT | Routin | 01/07/2014 | | Results for this | | | e | | | procedure are in the | | | | | | results section. | + +--------+ + + + | EXTERNAL LAB: AST | Routin | 01/07/2014 | | Results for this | | | e | | | procedure are in the | | | | | | results section. | + +--------+ + + + | EXTERNAL LAB: | Routin | 01/07/2014 | | Results for this | | ALKALINE PHOSPHATASE | e | | | procedure are in the | | | | | | results section. | + +--------+ + + + | EXTERNAL LAB: | Routin | 01/07/2014 | | Results for this | | BILIRUBIN, TOTAL | e | | | procedure are in the | | | | | | results section. | + +--------+ + + + | EXTERNAL LAB: | Routin | 01/07/2014 | | Results for this | | ALBUMIN | e | | | procedure are in the | | | | | | results section. | + +--------+ + + + | EXTERNAL LAB: | Routin | 01/07/2014 | | Results for this | | PROTEIN, TOTAL | e | | | procedure are in the | | | | | | results section. | + +--------+ + + + | EXTERNAL LAB: | Routin | 01/07/2014 | | Results for this | | PHOSPHORUS | e | | | procedure are in the | | | | | | results section. | + +--------+ + + + | EXTERNAL LAB: | Routin | 01/07/2014 | | Results for this | | CALCIUM | e | | | procedure are in the | | | | | | results section. | + +--------+ + + + | EXTERNAL LAB: CARBON | Routin | 01/07/2014 | | Results for this | | DIOXIDE | e | | | procedure are in the | | | | | | results section. | + +--------+ + + + | EXTERNAL LAB: | Routin | 01/07/2014 | | Results for this | | CHLORIDE | e | | | procedure are in the | | | | | | results section. | + +--------+ + + + | EXTERNAL LAB: | Routin | 01/07/2014 | | Results for this | | POTASSIUM | e | | | procedure are in the | | | | | | results section. | + +--------+ + + + | EXTERNAL LAB: SODIUM | Routin | 01/07/2014 | | Results for this | | | e | | | procedure are in the | | | | | | results section. | + +--------+ + + + | EXTERNAL LAB: | Routin | 01/07/2014 | | Results for this | | PROTEIN, URINE, 24HR | e | | | procedure are in the | | | | | | results section. | + +--------+ + + + | EXTERNAL LAB: CBC | Routin | 01/07/2014 | | Results for this | | | e | | | procedure are in the | | | | | | results section. | + +--------+ + + + | EXTERNAL LAB: | Routin | 01/07/2014 | | Results for this | | TRIGLYCERIDES | e | | | procedure are in the | | | | | | results section. | + +--------+ + + + | EXTERNAL LAB: | Routin | 01/07/2014 | | Results for this | | CHOLESTEROL, HDL | e | | | procedure are in the | | | | | | results section. | + +--------+ + + + | EXTERNAL LAB: | Routin | 01/07/2014 | | Results for this | | CHOLESTEROL, TOTAL | e | | | procedure are in the | | | | | | results section. | + +--------+ + + + | EXTERNAL LAB: | Routin | 01/07/2014 | | Results for this | | CHOLESTEROL, LDL | e | | | procedure are in the | | | | | | results section. | + +--------+ + + + | EXTERNAL LAB: EGFR | Routin | 01/07/2014 | | Results for this | | | e | | | procedure are in the | | | | | | results section. | + +--------+ + + + | EXTERNAL LAB: | Routin | 01/07/2014 | | Results for this | | CREATININE | e | | | procedure are in the | | | | | | results section. | + +--------+ + + + documented in this encounter Results AR EXT ECG RECORD CONTIN 48 HR, SCAN ANALYSIS W REPORT (01/08/2014) + + + + + + | Component | Value | Ref Range | Performed | Pathologist | | | | | At | Signature | + + + + + + | CREATININE | 34.0 (A) | 97.0 - 137.0 | EXTERNAL [...] | + +---------+ + + External Lab: PTH, Intact (01/08/2014) + +-------+ + + + | Component | Value | Ref Range | Performed | Pathologist | | | | | At | Signature | + +-------+ + + + | PTH Intact, | 105.5 | | EXTERNAL | | | External [...] + + External Lab: Protein, Urine, 24Hr (01/07/2014) + +-------+ + + + | Component | Value | Ref Range | Performed | Pathologist | | | | | At | Signature | + +-------+ + + + | Protein, | 189 | | EXTERNAL | | | Urine 24Hr, [...] | + +---------+ + + External Lab: ROSARIO (01/07/2014) + +--------+ + + + | Component [...] + +---------+ + + External Lab: Glucose (01/07/2014) + +-------+ + + + | Component | Value | Ref Range | Performed | Pathologist | | | | | At | Signature | + +-------+ + + + | Glucose, | 76 | 70 - 100 | EXTERNAL | [...] + +---------+ + + External Lab: ALT (01/07/2014) + +-------+ + + + | Component [...] | + +---------+ + + External Lab: SAHIL (01/07/2014) + +-------+ + + + | Component | Value | Ref Range | Performed | Pathologist | | | | | At | Signature | + +-------+ + + + | SAHIL, | 23 | 13 - 39 | EXTERNAL | [...] +---------+ + + External Lab: Alkaline Phosphatase (01/07/2014) + +-------+ + + + | Component | Value | Ref Range | Performed | Pathologist | | | | | At | Signature | + +-------+ + + + | ALP, | 89 | 30 - 128 | EXTERNAL | [...] +---------+ + + External Lab: Bilirubin, Total (01/07/2014) + +-------+ + + + | Component | Value | Ref Range | Performed | Pathologist | | | | | At | Signature | + +-------+ + + + | Bilirubin, | 0.8 | 0 - 1.2 | EXTERNAL | | | Total, | [...] + +---------+ + + External Lab: Albumin (01/07/2014) + +-------+ + + + | Component [...] +---------+ + + External Lab: Protein, Total (01/07/2014) + +-------+ + + + | Component | Value | Ref Range | Performed | Pathologist | | | | | At | Signature | + +-------+ + + + | Protein, | 6.8 | 6 - 8 | EXTERNAL | [...] + +---------+ + + External Lab: Phosphorus (01/07/2014) + +-------+ + + + | Component | Value | Ref Range | Performed | Pathologist | | | | | At | Signature | + +-------+ + + + | Phosphorus, | 2.6 | 2.5 - 5 | EXTERNAL | [...] + +---------+ + + External Lab: Calcium (01/07/2014) + +-------+ + + + | Component | Value | Ref Range | Performed | Pathologist | | | | | At | Signature | + +-------+ + + + | Calcium, | 9.0 | 8.4 - 10.2 | EXTERNAL | [...] +---------+ + + External Lab: Carbon Dioxide (01/07/2014) + +-------+ + + + | Component | Value | Ref Range | Performed | Pathologist | | | | | At | Signature | + +-------+ + + + | Carbon | 23 | 19 - 31 | EXTERNAL | [...] + +---------+ + + External Lab: Chloride (01/07/2014) + +-------+ + + + | Component | Value | Ref Range | Performed | Pathologist | | | | | At | Signature | + +-------+ + + + | Chloride, | 105 | 95 - 112 | EXTERNAL | [...] + +---------+ + + External Lab: Potassium (01/07/2014) + +---------+ + + + | Component | Value | Ref Range | Performed | Pathologist | | | | | At | Signature | + +---------+ + + + | Potassium, | 3.5 (A) | 3.6 - 5.1 | EXTERNAL [...] + +---------+ + + External Lab: Sodium (01/07/2014) + +-------+ + + + | Component | Value | Ref Range | Performed | Pathologist | | | | | At | Signature | + +-------+ + + + | Sodium, | 135 | 132 - 143 | EXTERNAL | [...] + +---------+ + + External Lab: CBC (01/07/2014) + + + + + + | Component | Value | Ref Range | Performed | Pathologist | | | | | At | Signature | + + + + + + | WBC, | 7.5 | 4.5 - 11 | EXTERNAL | | | External | | | LAB | | + + + + + + | HGB, | 14.4 | 13.5 - 18 | EXTERNAL | | | External | | | LAB | | + + + + + + | HCT, | 42.8 | 41 - 50 | EXTERNAL | | | External | | | LAB | | + + + + + + | PLT, | 153 | 140 - 440 | EXTERNAL | | | External | | | LAB | | + + + + + + | Neutrophils | 66.5 | 39 - 80 | EXTERNAL | | | %, | | | LAB | | | External | | | | | + + + + + + | Lymphocytes | 22.9 (A) | 24 - 44 | EXTERNAL | | | %, | | | LAB | | | External | | | | | + + + + + + | Monocytes | 8.5 | 0 - 12 | EXTERNAL | | | %, External | | | LAB | | + + + + + + | Eosinophils | 1.1 | 0 - 6 | EXTERNAL | | | %, | | | LAB | | | External | | | | | + + + + + + | RBC, | 4.5 | 4.3 - 5.7 | EXTERNAL | | | External | | | LAB | | + + + + + + | MCV, | 95 | 81 - 99 | EXTERNAL | | | External | | | LAB | | + + + + + + | RDW, | 13.5 | 10.5 - 15 | EXTERNAL | [...] + +---------+ + + External Lab: Triglycerides (01/07/2014) + +-------+ + + + | Component | Value | Ref Range | Performed | Pathologist | | | | | At | Signature | + +-------+ + + + | Triglycerid | 58 | 30 - 150 | EXTERNAL | [...] +---------+ + + External Lab: Cholesterol, HDL (01/07/2014) + +-------+ + + + | Component | Value | Ref Range | Performed | Pathologist | | | | | At | Signature | + +-------+ + + + | HDL | 44.4 | 40 | EXTERNAL | | | [...] +---------+ + + External Lab: Cholesterol, Total (01/07/2014) + +-------+ + + + | Component | Value | Ref Range | Performed | Pathologist | | | | | At | Signature | + +-------+ + + + | Cholesterol | 132 | 200 | EXTERNAL | | | [...] +---------+ + + External Lab: Cholesterol, LDL (01/07/2014) + +-------+ + + + | Component | Value | Ref Range | Performed | Pathologist | | | | | At | Signature | + +-------+ + + + | LDL | 76 | 100 | EXTERNAL | | | [...] + +---------+ + + External Lab: eGFR (01/07/2014) + +-------+ + + + | Component | Value | Ref Range | Performed | Pathologist | | | | | At | Signature | + +-------+ + + + | eGFR, | 29 | | EXTERNAL | | | External | | | LAB | | + +-------+ + + + | eGFR, | | | EXTERNAL | | | | | | LAB | | | [place], | | | | | | External [...] + +---------+ + + External Lab: Creatinine (01/07/2014) + + + + + + | Component | Value | Ref Range | Performed | Pathologist | | | | | At | Signature | + + + + + + | Creatinine, | 2.25 (A) | 0.7 - 1.18 | EXTERNAL [...]
--- OUTSIDE RECORDS SUMMARY | ~2019-03-07 | XMS | Encounter Summary ---
Demographics + + + | Address | [address] | | | [place] [address] | + + + | Home Phone | | + + + | Preferred Language | Unknown | + + + | Marital Status | | + + + | Anabaptism Affiliation | 1001 | + + + | Race | Unknown | + + + | Ethnic Group | Unknown | + + + Author + + + | Author | [facility] | | | and Ezraana | + + + | Organization | [facility] | | | and [place]raana [...] [place] | | | | | [phone] | | + + + + + Care Team Providers + +------+ + | Care Prn Occupational Therapist Name | Role | Phone | + +------+ + | Dre Jacobo MD | PCP | | + +------+ + Encounter Details +--------+ + + + + | Date | Type | Department | Care Team | Description | +--------+ + + + + | 03/05/ | Abstract | [facility] [place] | Bennie Garza | | | 2012 | | NEPHROLOGY [address] | M, DO [address] | | | | | [address] | [address] | | | | | [place], [place] | [place], [place] | | | | | [address] | [address] | | | | | [phone] | | | +--------+ + + + [...] 2018 | Visit | | DO Deep [address] [place] [address] | | | | | | [address] | | | | | | [place] | | | | | | [address] | | | | | | | | +--------+ + + + + documented as of this encounter Procedures + +--------+ + + + | Procedure Name | Priori | Date/Time | Associated Diagnosis | Comments | | | ty | | | | + +--------+ + + + | LIPID PROFILE | Routin | 06/05/2012 | | Results for this | | | e | | | procedure are in the | | | | | | results section. | + +--------+ + + + | CBC W/AUTO | Routin | 06/05/2012 | | Results for this | | DIFFERENTIAL | e | | | procedure are in the | | | | | | results section. | + +--------+ + + + | PROTEIN, URINE, 24HR | Routin | 06/05/2012 | | Results for this | | | e | | | procedure are in the | | | | | | results section. | + +--------+ + + + | CREATININE | Routin | 06/05/2012 | | Results for this | | CLEARANCE, RESULT | e | | | procedure are in the | | | | | | results section. | + +--------+ + + + | PHOSPHORUS | Routin | 06/05/2012 | | Results for this | | | e | | | procedure are in the | | | | | | results section. | + +--------+ + + + | COMPREHENSIVE | Routin | 06/05/2012 | | Results for this | | METABOLIC PANEL | e | | | procedure are in the | | | | | | results section. | + +--------+ + + + documented in this encounter Results CBC w/ Auto Differential (06/05/2012) + +-------+ + + + | Component | Value | Ref Range | Performed | Pathologist | | | | | At | Signature | + +-------+ + + + | WBC | 7.2 | K/uL | | | + +-------+ + + + | Hemoglobin | 14.1 | 13.7 - 16.7 | | | | | | g/dL | | | + +-------+ + + + | Hematocrit | 41.9 | 40.0 - 50.0 % | | | + +-------+ + + + | Platelet | 215 | | | | | Count | | | | | + +-------+ + + + | MCV | 92.9 | 80.0 - 100.0 fL | | | + +-------+ + + + + + | Specimen | + + | Blood specimen | | (specimen) | + + Protein, Urine, 24Hr (06/05/2012) + +-------+ + + + | Component | Value | Ref Range | Performed | Pathologist | | | | | At | Signature | + +-------+ + + + | PROTEIN, | 207.0 | mg/24hrs | [facility] | | | 24HR URINE | | | [facility] | | | | | | [facility] | | | | | | CENTER - | | | | | | LABORATORY | | + +-------+ + + + + + | Specimen | + + | Urine specimen | | (specimen) | + + + + + + + | Performing | Address | City/State/Zipcode | Phone Number | | Organization | | | | + + + + + | [facility] | [address] | [place] | [phone] | | [facility] | | [address] | | | - LABORATORY | | | | + + + + + | [facility] | [address] | [place] | | | [facility] | | [address] | | | - LABORATORY | | | | + + + + + Lipid Profile (06/05/2012) + +-------+ + + + | Component | Value | Ref Range | Performed | Pathologist | | | | | At | Signature | + +-------+ + + + | Cholesterol | 144 | mg/dL | [facility] | | | | | | [facility] | | | | | | [facility]ICAL | | | | | | CENTER - | | | | | | LABORATORY | | + +-------+ + + + | Triglycerid | 64 | | [facility] | | | es | | | [facility] | | | | | | [facility] | | | | | | CENTER - | | | | | | LABORATORY | | + +-------+ + + + | HDL | 43 | mg/dL | [facility] | | | | | | [facility] | | | | | | MEDICAL | | | | | | CENTER - | | | | | | LABORATORY | | + +-------+ + + + | LDL | 88 | | [facility] | | | Cholesterol | | | [facility] | | | | | | MEDICAL | | | | | | CENTER - | | | | | | LABORATORY | | + +-------+ + + + + + | Specimen | + + | Blood specimen | | (specimen) | + + + + + + + | Performing | Address | City/State/Zipcode | Phone Number | | Organization | | | | + + + + + | [facility] | [address] | [place] | [phone] | | [facility] | | [address] | | | - LABORATORY | | | | + + + + + | [facility] | [address] | [place] | | | [facility] | | [address] | | | - LABORATORY | | | | + + + + + Creatinine Clearance, Result (06/05/2012) + + + + + + | Component | Value | Ref Range | Performed | Pathologist | | | | | At | Signature | + + + + + + | CREATININE | 33.0 (A) | 97.0 - 137.0 | [facility] | | | CLEARANCE | | mL/min | [facility] | | | | | | MEDICAL | | | | | | CENTER - | | | | | | LABORATORY | | + + + + + + | CREAT CLEAR | 2,300 | ml | [facility] | | | VOLUME | | | [facility] | | | | | | [facility] | | | | | | CENTER - | | | | | | LABORATORY | | + + + + + + + + | Specimen | + + | Urine specimen | | (specimen) | + + + + + + + | Performing | Address | City/State/Zipcode | Phone Number | | Organization | | | | + + + + + | [facility] | [address] | [place] | [phone] | | [facility] | | [address] | | | - LABORATORY | | | | + + + + + | [facility] | [address] | [place] | | | [facility] | | [address] | | | - LABORATORY | | | | + + + + + Phosphorus (06/05/2012) + +-------+ + + + | Component | Value | Ref Range | Performed | Pathologist | | | | | At | Signature | + +-------+ + + + | Phosphorus | 3.0 | 2.1 - 3.9 mg/dL | [facility] | | | | | | [facility] | | | | | | MEDICAL | | | | | | CENTER - | | | | | | LABORATORY | | + +-------+ + + + + + | Specimen | + + | Blood specimen | | (specimen) | + + + + + + + | Performing | Address | City/State/Zipcode | Phone Number | | Organization | | | | + + + + + | [facility] | [address] | [place], [place] | [phone] | | [facility] | | [address] | | | - LABORATORY | | | | + + + + + | [facility] | [address] | [place], [place] | | | [facility] | | [address] | | | - LABORATORY | | | | + + + + + Comprehensive Metabolic Panel (06/05/2012) + +-------+ + + + | Component | Value | Ref Range | Performed | Pathologist | | | | | At | Signature | + +-------+ + + + | Na | 137 | mmol/L | [facility] | | | | | | [facility] | | | | | | MEDICAL | | | | | | CENTER - | | | | | | LABORATORY | | + +-------+ + + + | K | 3.9 | mmol/L | [facility] | | | | | | [facility] | | | | | | MEDICAL | | | | | | CENTER - | | | | | | LABORATORY | | + +-------+ + + + | Cl | 103 | mmol/L | [facility] | | | | | | [facility] | | | | | | MEDICAL | | | | | | CENTER - | | | | | | LABORATORY | | + +-------+ + + + | Glucose | 85 | mg/dL | [facility] | | | | | | [facility] | | | | | | MEDICAL | | | | | | CENTER - | | | | | | LABORATORY | | + +-------+ + + + | BUN | 39 | mg/dL | [facility] | | | | | | [facility] | | | | | | MEDICAL | | | | | | CENTER - | | | | | | LABORATORY | | + +-------+ + + + | CREA | 2.3 | mg/dL | [facility] | | | | | | [facility] | | | | | | MEDICAL | | | | | | CENTER - | | | | | | LABORATORY | | + +-------+ + + + | AST | 20 | 5 - 40 U/L | [facility] | | | | | | [facility] | | | | | | MEDICAL | | | | | | CENTER - | | | | | | LABORATORY | | + +-------+ + + + | ALT | 22 | U/L | [facility] | | | | | | [facility] | | | | | | MEDICAL | | | | | | CENTER - | | | | | | LABORATORY | | + +-------+ + + + | Alkaline | 79 | 38 - 110 U/L | [facility] | | | Phosphatase | | | [facility] | | | | | | MEDICAL | | | | | | CENTER - | | | | | | LABORATORY | | + +-------+ + + + | Estimated | 28.0 | mL/min/1.73m2 | [facility] | | | GFR | | | [facility] | | | | | | MEDICAL | | | | | | CENTER - | | | | | | LABORATORY | | + +-------+ + + + | Calcium | 9.7 | mg/dL | [facility] | | | | | | [facility] | | | | | | MEDICAL | | | | | | CENTER - | | | | | | LABORATORY | | + +-------+ + + + | Albumin | 4.5 | 3.3 - 4.8 g/dL | [facility] | | | | | | [facility] | | | | | | [facility]ICAL | | | | | | CENTER - | | | | | | LABORATORY | | + +-------+ + + + | CO2 | 21 | mmol/L | [facility] | | | | | | [facility] | | | | | | MEDICAL | | | | | | CENTER - | | | | | | LABORATORY | | + +-------+ + + + | Bilirubin | 0.7 | 0.1 - 1.5 mg/dL | [facility] | | | Total | | | [facility] | | | | | | MEDICAL | | | | | | CENTER - | | | | | | LABORATORY | | + +-------+ + + + + + | Specimen | + + | Blood specimen | | (specimen) | + + + + + + + | Performing | Address | City/State/Zipcode | Phone Number | | Organization | | | | + + + + + | [facility] | [address] | [place] | [phone] | | [facility] | | [address] | | | - LABORATORY | | | | + + + + + | [facility] | [address] | [place] | | | [facility] | | [address] | | | - LABORATORY | | | | + + + + + documented in this encounter Visit Diagnoses Not on filedocumented in this encounter"
--- OUTSIDE RECORDS SUMMARY | ~2019-03-07 | XMS | Encounter Summary ---
Demographics + + + | Address | [address] | | | [place] [address] | + + + | Home Phone | | + + + | Preferred Language | Unknown | + + + | Marital Status | | + + + | Anglican Affiliation | 1001 | + + + | Race | Unknown | + + + | Ethnic Group | Unknown | + + + Author + + + | Author | [facility] | | | and [place]ra[place] | + + + | Organization | [facility] | | | and [place]ra[place] [...] [place] | | | | | [address] | | + + + + + Care Team Providers + +------+ + | Care Repeat Photocomposing Machine Operator Name | Role | Phone | + +------+ + | Dre Jacobo MD | PCP | | + +------+ + Encounter Details +--------+ + + + + | Date | Type | Department | Care Team | Description | +--------+ + + + + | 04/20/ | Abstract | [facility] [place] | Bennie Garza | | | 2017 | | NEPHROLOGY [address] | M, DO [address] | | | | | [address] | [place] | | | | | [place], [place] | [place], [place] | | | | | [address] | [address] | | | | | [phone] | | | +--------+ + + + [...] | Visit | | DO [address] | | | | | | [address] | | | | | | [place], [place] | | | | | | [id number] | | | | | | | | +--------+ + + + + documented as of this encounter Procedures + +--------+ + + + | Procedure Name | Priori | Date/Time | Associated Diagnosis | Comments | | | ty | | | | + +--------+ + + + | EXTERNAL LAB: BUN | Routin | 07/19/2016 | | Results for this | | | e | | | procedure are in the | | | | | | results section. | + +--------+ + + + | EXTERNAL LAB: | Routin | 07/19/2016 | | Results for this | | GLUCOSE | e | | | procedure are in the | | | | | | results section. | + +--------+ + + + | EXTERNAL LAB: HADLEY | Routin | 07/19/2016 | | Results for this | | | e | | | procedure are in the | | | | | | results section. | + +--------+ + + + | EXTERNAL LAB: AST | Routin | 07/19/2016 | | Results for this | | | e | | | procedure are in the | | | | | | results section. | + +--------+ + + + | EXTERNAL LAB: | Routin | 07/19/2016 | | Results for this | | ALKALINE PHOSPHATASE | e | | | procedure are in the | | | | | | results section. | + +--------+ + + + | EXTERNAL LAB: | Routin | 07/19/2016 | | Results for this | | BILIRUBIN, TOTAL | e | | | procedure are in the | | | | | | results section. | + +--------+ + + + | EXTERNAL LAB: | Routin | 07/19/2016 | | Results for this | | ALBUMIN | e | | | procedure are in the | | | | | | results section. | + +--------+ + + + | EXTERNAL LAB: | Routin | 07/19/2016 | | Results for this | | PROTEIN, TOTAL | e | | | procedure are in the | | | | | | results section. | + +--------+ + + + | EXTERNAL LAB: | Routin | 07/19/2016 | | Results for this | | PHOSPHORUS | e | | | procedure are in the | | | | | | results section. | + +--------+ + + + | EXTERNAL LAB: | Routin | 07/19/2016 | | Results for this | | CALCIUM | e | | | procedure are in the | | | | | | results section. | + +--------+ + + + | EXTERNAL LAB: CARBON | Routin | 07/19/2016 | | Results for this | | DIOXIDE | e | | | procedure are in the | | | | | | results section. | + +--------+ + + + | EXTERNAL LAB: | Routin | 07/19/2016 | | Results for this | | CHLORIDE | e | | | procedure are in the | | | | | | results section. | + +--------+ + + + | EXTERNAL LAB: | Routin | 07/19/2016 | | Results for this | | POTASSIUM | e | | | procedure are in the | | | | | | results section. | + +--------+ + + + | EXTERNAL LAB: SODIUM | Routin | 07/19/2016 | | Results for this | | | e | | | procedure are in the | | | | | | results section. | + +--------+ + + + | EXTERNAL LAB: | Routin | 07/19/2016 | | Results for this | | VITAMIN D, | e | | | procedure are in the | | 25-HYDROXY | | | | results section. | + +--------+ + + + | EXTERNAL LAB: PTH, | Routin | 07/19/2016 | | Results for this | | INTACT | e | | | procedure are in the | | | | | | results section. | + +--------+ + + + | EXTERNAL LAB: | Routin | 07/19/2016 | | Results for this | | PROTEIN, URINE, 24HR | e | | | procedure are in the | | | | | | results section. | + +--------+ + + + | EXTERNAL LAB: CBC | Routin | 07/19/2016 | | Results for this | | | e | | | procedure are in the | | | | | | results section. | + +--------+ + + + | EXTERNAL LAB: CBC | Routin | 07/19/2016 | | Results for this | | | e | | | procedure are in the | | | | | | results section. | + +--------+ + + + | EXTERNAL LAB: EGFR | Routin | 07/19/2016 | | Results for this | | | e | | | procedure are in the | | | | | | results section. | + +--------+ + + + | EXTERNAL LAB: | Routin | 07/19/2016 | | Results for this | | CREATININE | e | | | procedure are in the | | | | | | results section. | + +--------+ + + + | CREATININE | Routin | 07/19/2016 | | Results for this | | CLEARANCE, RESULT | e | | | procedure are in the | | | | | | results section. | + +--------+ + + + documented in this encounter Results External Lab: CBC (07/19/2016) + +-------+ + + + | Component | Value | Ref Range | Performed | Pathologist | | | | | At | Signature | + +-------+ + + + | PLT, | 172 | 140 - 440 | EXTERNAL | | | External | | | LAB | | + +-------+ + + + | MCV, | 97 | 80 - 100 | EXTERNAL | | | External | | | LAB | | + +-------+ + + + | RDW, | 13.4 | 10.5 - 15 | EXTERNAL | | | External | | | LAB | | + +-------+ + + + + +---------+ + + | Performing | Address | City/State/Zipcode | Phone Number | | Organization | | | | + +---------+ + + | EXTERNAL LAB | | | | + +---------+ + + External Lab: PTH, Intact (07/19/2016) + + + + + + | Component | Value | Ref Range | Performed | Pathologist | | | | | At | Signature | + + + + + + | PTH Intact, | 67.95 (A) | 15 - 65 | | | | External | | | | | + + + + + + + + | Specimen | + + | | + + Creatinine Clearance, Result (07/19/2016) + + + + + + | Component | Value | Ref Range | Performed | Pathologist | | | | | At | Signature | + + + + + + | CREATININE | 29.0 (A) | 97.0 - 137.0 | | | | CLEARANCE | | mL/min | | | + + + + + + | 24H Urine | 2,300 | mL | | | | Volume | | | | | + + + + + + + + | Specimen | + + | Urine specimen | | (specimen) | + + External Lab: Protein, Urine, 24Hr (07/19/2016) + +---------+ + + + | Component | Value | Ref Range | Performed | Pathologist | | | | | At | Signature | + +---------+ + + + | Protein, | 230 (A) | 150 | EXTERNAL | | [...] + +---------+ + + External Lab: BUN (07/19/2016) + +--------+ + + + | Component | Value | Ref Range | Performed | Pathologist | | | | | At | Signature | + +--------+ + + + | BUN, | 48 (A) | 6 - 23 | EXTERNAL | | | External | | | LAB | | + +--------+ + + + + +---------+ + + | Performing | Address | City/State/Zipcode | Phone Number | | Organization | | | | + +---------+ + + | EXTERNAL LAB | | | | + +---------+ + + External Lab: Glucose (07/19/2016) + +-------+ + + + | Component | Value | Ref Range | Performed | Pathologist | | | | | At | Signature | + +-------+ + + + | Glucose, | 81 | 70 - 100 | EXTERNAL | | | External | | | LAB | | + +-------+ + + + + +---------+ + + | Performing | Address | City/State/Zipcode | Phone Number | | Organization | | | | + +---------+ + + | EXTERNAL LAB | | | | + +---------+ + + External Lab: ALT (07/19/2016) + +-------+ + + + | Component | Value | Ref Range | Performed | Pathologist | | | | | At | Signature | + +-------+ + + + | ALT, | 21 | 6 - 23 | EXTERNAL | | | External | | | LAB | | + +-------+ + + + + +---------+ + + | Performing | Address | City/State/Zipcode | Phone Number | | Organization | | | | + +---------+ + + | EXTERNAL LAB | | | | + +---------+ + + External Lab: AST (07/19/2016) + +-------+ + + + | Component | Value | Ref Range | Performed | Pathologist | | | | | At | Signature | + +-------+ + + + | AST, | 23 | 19 - 31 | EXTERNAL | | | External | | | LAB | | + +-------+ + + + + +---------+ + + | Performing | Address | City/State/Zipcode | Phone Number | | Organization | | | | + +---------+ + + | EXTERNAL LAB | | | | + +---------+ + + External Lab: Alkaline Phosphatase (07/19/2016) + +-------+ + + + | Component | Value | Ref Range | Performed | Pathologist | | | | | At | Signature | + +-------+ + + + | ALP, | 88 | 31 - 120 | EXTERNAL | | | External | | | LAB | | + +-------+ + + + + +---------+ + + | Performing | Address | City/State/Zipcode | Phone Number | | Organization | | | | + +---------+ + + | EXTERNAL LAB | | | | + +---------+ + + External Lab: Bilirubin, Total (07/19/2016) + +-------+ + + + | Component | Value | Ref Range | Performed | Pathologist | | | | | At | Signature | + +-------+ + + + | Bilirubin, | 0.7 | 0 - 1.2 | EXTERNAL | [...] + +---------+ + + External Lab: Albumin (07/19/2016) + +-------+ + + + | Component | Value | Ref Range | Performed | Pathologist | | | | | At | Signature | + +-------+ + + + | Albumin, | 4.1 | 3.5 - 5 | EXTERNAL | | | External | | | LAB | | + +-------+ + + + + +---------+ + + | Performing | Address | City/State/Zipcode | Phone Number | | Organization | | | | + +---------+ + + | EXTERNAL LAB | | | | + +---------+ + + External Lab: Protein, Total (07/19/2016) + +-------+ + + + | Component [...] + +---------+ + + External Lab: Phosphorus (07/19/2016) + +-------+ + + + | Component | Value | Ref Range | Performed | Pathologist | | | | | At | Signature | + +-------+ + + + | Phosphorus, | 4.0 | 2.5 - 5 | EXTERNAL | | | External | | | LAB | | + +-------+ + + + + +---------+ + + | Performing | Address | City/State/Zipcode | Phone Number | | Organization | | | | + +---------+ + + | EXTERNAL LAB | | | | + +---------+ + + External Lab: Calcium (07/19/2016) + +-------+ + + + | Component | Value | Ref Range | Performed | Pathologist | | | | | At | Signature | + +-------+ + + + | Calcium, | 9.5 | 8.4 - 10.2 | EXTERNAL | | | External | | | LAB | | + +-------+ + + + + +---------+ + + | Performing | Address | City/State/Zipcode | Phone Number | | Organization | | | | + +---------+ + + | EXTERNAL LAB | | | | + +---------+ + + External Lab: Carbon Dioxide (07/19/2016) + +-------+ + + + | Component | Value | Ref Range | Performed | Pathologist | | | | | At | Signature | + +-------+ + + + | Carbon | 21 | 21 - 32 | EXTERNAL | | | Dioxide, | | | LAB | | | External | | | | | + +-------+ + + + + +---------+ + + | Performing | Address | City/State/Zipcode | Phone Number | | Organization | | | | + +---------+ + + | EXTERNAL LAB | | | | + +---------+ + + External Lab: Chloride (07/19/2016) + +-------+ + + + | Component | Value | Ref Range | Performed | Pathologist | | | | | At | Signature | + +-------+ + + + | Chloride, | 103 | 100 - 110 | EXTERNAL | | | External | | | LAB | | + +-------+ + + + + +---------+ + + | Performing | Address | City/State/Zipcode | Phone Number | | Organization | | | | + +---------+ + + | EXTERNAL LAB | | | | + +---------+ + + External Lab: Potassium (07/19/2016) + +-------+ + + + | Component | Value | Ref Range | Performed | Pathologist | | | | | At | Signature | + +-------+ + + + | Potassium, | 3.7 | 3.5 - 5.1 | EXTERNAL | | | External | | | LAB | | + +-------+ + + + + +---------+ + + | Performing | Address | City/State/Zipcode | Phone Number | | Organization | | | | + +---------+ + + | EXTERNAL LAB | | | | + +---------+ + + External Lab: Sodium (07/19/2016) + +-------+ + + + | Component | Value | Ref Range | Performed | Pathologist | | | | | At | Signature | + +-------+ + + + | Sodium, | 136 | 135 - 145 | EXTERNAL | | | External | | | LAB | | + +-------+ + + + + +---------+ + + | Performing | Address | City/State/Zipcode | Phone Number | | Organization | | | | + +---------+ + + | EXTERNAL LAB | | | | + +---------+ + + External Lab: Vitamin D, 25-Hydroxy (07/19/2016) + +--------+ + + + | Component | Value | Ref Range | Performed | Pathologist | | | | | At | Signature | + +--------+ + + + | Vitamin D, | 19 (A) | 30 - 100 | EXTERNAL | | | 25-Hydroxy, | | | LAB | | | External | | | | | + +--------+ + + + + + | Specimen | + + | Blood specimen | | (specimen) | + + + +---------+ + + | Performing | Address | City/State/Zipcode | Phone Number | | Organization | | | | + +---------+ + + | EXTERNAL LAB | | | | + +---------+ + + External Lab: CBC (07/19/2016) + +-------+ + + + | Component | Value | Ref Range | Performed | Pathologist | | | | | At | Signature | + +-------+ + + + | WBC, | 5.3 | 4.5 - 11 | EXTERNAL | | | External | | | LAB | | + +-------+ + + + | HGB, | 13.6 | 12 - 16 | EXTERNAL | | | External | | | LAB | | + +-------+ + + + | HCT, | 40.8 | 35 - 45 | EXTERNAL | | | External | | | LAB | | + +-------+ + + + | RBC, | 4.21 | 4 - 6 | EXTERNAL | | | External | | | LAB | | + +-------+ + + + + +---------+ + + | Performing | Address | City/State/Zipcode | Phone Number | | Organization | | | | + +---------+ + + | EXTERNAL LAB | | | | + +---------+ + + External Lab: eGFR (07/19/2016) + +--------+ + + + | Component | Value | Ref Range | Performed | Pathologist | | | | | At | Signature | + +--------+ + + + | eGFR, | 26 (A) | 60 | EXTERNAL | | | External | | | LAB | | + +--------+ + + + + + | Specimen | + + | Blood specimen | | (specimen) | + + + +---------+ + + | Performing | Address | City/State/Zipcode | Phone Number | | Organization | | | | + +---------+ + + | EXTERNAL LAB | | | | + +---------+ + + External Lab: Creatinine (07/19/2016) + + + + + + | Component | Value | Ref Range | Performed | Pathologist | | | | | At | Signature | + + + + + + | Creatinine, | 2.46 (A) | 0.6 - 1.3 | EXTERNAL | | | External | [...]
--- OUTSIDE RECORDS SUMMARY | ~2019-03-07 | XMS | Encounter Summary ---
Demographics + + + | Address | [address] | | | [place] [address] | + + + | Home Phone | | + + + | Preferred Language | Unknown | + + + | Marital Status | | + + + | Mormonism Affiliation | 1001 | + + + | Race | Unknown | + + + | Ethnic Group | Unknown | + + + Author + + + | Author | [facility] | | | and [place] | + + + | Organization | [facility] | [...] [place] | | | | | [address] | | + + + + + Care Team Providers + +------+ + | Care Numberer And Wirer Name | Role | Phone | + +------+ + | Dre Jacobo MD | PCP | | + +------+ + Encounter Details +--------+---------+ + + + | Date | Type | Department | Care Team | Description | +--------+---------+ + + + | 06/12/ | Office | [facility] [place] | Bennie Garza | CHRONIC KIDNEY | | 2012 | Visit | NEPHROLOGY [address] | M, DO [address] | DISEASE STAGE III | | | | [address] | [place] | (MODERATE) (Primary | | | | [place], [place] | [place], [place] | Dx); Unspecified | | | | [address] | [address] | hypertensive kidney | | | | [phone] | | disease with chronic | | | | | | kidney disease | | | | | | stage I through | | | | | | stage IV, or | | | | | | unspecified; Anemia | | | | | | in chronic kidney | | | | | | disease; Secondary | | | | | | hyperparathyroidism | | | | | | (of renal origin) | | | | | | (HCC) | +--------+---------+ + + + Social History [...] + + + | Blood Pressure | 114/60 | 06/12/2012 11:03 AM | | | | | PDT | | + + + + + | Pulse | - | - | | + + + + + | Temperature | 35.5 C (95.9 F) | 06/12/2012 11:03 AM | | | | | PDT [...] + + + + | Weight | 68.1 kg (150 lb 2.1 | 06/12/2012 11:03 AM | | | | oz) | PDT | | + + + + + | Height | - | - | | + + + + + | Body Mass Index | 24.98 | 01/26/2011 11:06 AM | | | | | PDT | | + + + + + documented in this encounter Progress Notes Nikki Preston - 08/24/2012 3:01 PM PDTE-faxed progress note to Ray Jacobo MD, estephania gallegos faxed to [facility] on 08/24/12. Bennie Rodriguez DO - 06/12/2012 6:06 PM PDT Subjective: NEPHROLOGY Patient ID: Dillon Glasgow is a 67 y.o. male. HPI Comments: Followup at the [facility] for this 67-year-old white male with history of CKD secon sunday to hypertension, SHPTH, and remote depression. He has had a left arm aVF, placed 12/10, in anticipation of dialysis. He states that he still feels well. He denies hiccups, na usea, or edema. Apparently, his insurance company has denied refilling his Hectorol and th ey request that a "generic" be used, per the pt. In addition, he has a very detailed home B P log which shows very good control with all readings <120/80 mmHg. Review of Systems Outpatient Prescriptions Marked as Taking for the 06/12/12 encounter (Office Visit) with Gustavo Garza DO Medication Sig Dispense Refill benazepril (LOTENSIN) 10 mg tablet (1/2 tablet, daily). doxercalciferol (HECTOROL) 2.5 mcg capsule Take 2.5 mcg by mouth every 48 hours. traZODone (DESYREL) 50 mg tablet 2, by mouth, daily. fluoxetine (PROZAC) 40 MG capsule Take 40 mg by mouth Daily. Coenzyme Q10 (CO Q-10) 200 MG CAPS Take 200 mg by mouth Daily. vitamin B-12 (CYANOCOBALAMIN) 1000 MCG tablet Take 1,000 mcg by mouth Daily. L-Tyrosine 500 MG TABS Take 500 mg by mouth Daily. Zinc Picolinate 50 MG TABS Take 50 mg by mouth Daily. clonazePAM (KLONOPIN) 0.5 mg tablet Take 0.5 mg by mouth nightly. allopurinol (ZYLOPRIM) 100 mg tablet Take 100 mg by mouth Daily. pyridoxine ([employer] VITAMIN B-6) 200 MG tablet Take 200 mg by mouth Daily. No Known Allergies Objective: BP 114/60 | Temp 35.5 C (95.9 F) | Wt 68.1 kg (150 lb 2.1 oz) (my exam) Physical Exam Cardiovascular: Regular rate and rhythm, with no S3, S4, murmur or rub. Pulmonary/Chest: CTA bilaterally. No rales or wheezes. Abdominal: Soft, flat, nontender, normoactive bowel sounds, no guarding. Musculoskeletal: No clubbing, cyanosis, or asterixis. (+) AVF, in his left upper arm with a (+)bruit . LAB: BUN 39, Cr 2.33, K+ 3.9, HCO3 21, Ca++ 9.7, PO4 3.0, PTH 42.3, TC 144, HDL 43, LDL 88, TG 64, Hb 14.1, Hct 41.9% 24-Hour Urine: Ccr = 33 mL/minute, 207 mg protein/day. Assessment: 1. CKD, Stage III, secondary to hypertensive nephrosclerosis--GFR is stable. 2. Hypertension--good control. 3. SHPTH--stable on a maintenance dose of Hectorol. 4. Depression--compensated. 5. Anemia secondary to CKD--stable without WES Rx. Plan: 1. His BP does appear tightly controlled for a CKD patient with a developing AVF, however, given his stable GFR over the past 3 years will not adjust the dose of Benazepril. 2. He appears to be following a renal, low salt diet very well. I encouraged Dillon that he is doing a good job. 3. In regards to his SHPTH, will change to Calcitriol 0.5 mg, daily for Rx. 4. Will plan to see him back in 4 months at [facility] with and H/H, CMP, PTH, and 24 hr urine one week before. CC: [facility], [facility] Ray Jacobo M.D. 6 :21 PM PDTdocumented in this encounter Plan of Treatment +--------+ + + + + | Date | Type | Specialty | Care Team | Description | +--------+ + + + + | 03/12/ | Off-Site | Nephrology | Bennie Garza | | | 2018 | Visit | | DO Deep [address] [place] [address] | | | | | | [place] [address] | | | | | | [place], [place] | | | | | | [address] | | | | | | | [...] chronic kidney disease | + + | Secondary hyperparathyroidism (of renal origin) | + + documented in this encounter
--- OUTSIDE RECORDS SUMMARY | ~2019-03-07 | XMS | Encounter Summary ---
Demographics + + + | Address | [address] | | | [place] [address] | + + + | Home Phone | | + + + | Preferred Language | Unknown | + + + | Marital Status | | + + + | Mosque Affiliation | 1001 | + + + | Race | Unknown | + + + | Ethnic Group | Unknown | + + + Author + + + | Author | [facility] | | | and [place] | + + + | Organization | [facility] | | | and [...] [place] | | | | | [address] | | + + + + + Care Team Providers + +------+ + | Care Duck Operator Name | Role | Phone | + +------+ + | Dre Jacobo MD | PCP | | + +------+ + Encounter Details +--------+ + + + + | Date | Type | Department | Care Team | Description | +--------+ + + + + | 12/25/ | Orders Only | [facility] [place] | SilvaraffyBennie | CHRONIC KIDNEY | | 2012 | | NEPHROLOGY [address] | M, DO [address] | DISEASE STAGE III | | | | [address] | [place], [address] | (MODERATE) (Primary | | | | [place], [place] | [place], [place] | Dx); Anemia in | | | | [address] | [address] | chronic kidney | | | | [phone] | | disease | +--------+ + + [...] this encounter Progress Tanika Cross RN - 12/25/2012 2:19 PM [facility] for nephrology appt on 01/15/13 sent to [facility] documented in this encounter Plan of Treatment +--------+ + + + + | Date | Type | Specialty | Care Team | Description | +--------+ + + + + | 03/12/ | Off-Site | Nephrology | Bennie Garza | | | 2018 | Visit | | DO Deep [address] [place] [address] | | | | | | [address] [place] [address] | | | | | | [place] | | | | | | [id number] | | | | | | | | +--------+ + + + + + +------+--------+ + + | Name | Type | Priori | Associated Diagnoses | Order Schedule | | | | ty | | | + +------+--------+ + + | Comprehensive | Lab | Routin | CHRONIC KIDNEY | Expected: 01/08/2013 | | Metabolic Panel | | e | DISEASE STAGE III | (Approximate), | | | | | (MODERATE) | Expires: 12/25/2013 | + +------+--------+ + + | Phosphorus | Lab | Routin | CHRONIC KIDNEY | Expected: 01/08/2013 | | | | e | DISEASE STAGE III | (Approximate), | | | | | (MODERATE) | Expires: 12/25/2013 | + +------+--------+ + + | Protein, Urine, 24Hr | Lab | Routin | CHRONIC KIDNEY | Expected: 01/08/2013 | | | | e | DISEASE STAGE III | (Approximate), | | | | | (MODERATE) | Expires: 12/25/2013 | + +------+--------+ + + | Creatinine | Lab | Routin | CHRONIC KIDNEY | Expected: 01/08/2013 | | Clearance, Result | | e | DISEASE STAGE III | (Approximate), | | | | | (MODERATE) | Expires: 12/25/2013 | + +------+--------+ + + | Hemoglobin and | Lab | Routin | Anemia in chronic | Expected: 01/08/2013 | | Hematocrit | | e | kidney disease | (Approximate), | | | | | | Expires: 12/25/2013 | + +------+--------+ + + documented as of this encounter Visit Diagnoses + + | Diagnosis | + + | CHRONIC KIDNEY DISEASE STAGE III (MODERATE) - Primary Chronic kidney disease, Stage | | III (moderate) | + + | Anemia in chronic kidney disease(285.21) Anemia in chronic kidney disease | + + documented in this encounter"
--- OUTSIDE RECORDS SUMMARY | ~2019-03-07 | XMS | Encounter Summary ---
Demographics + + + | Address | [address] | | | [place] [address] | + + + | Home Phone | | + + + | Preferred Language | Unknown | + + + | Marital Status | | + + + | Cheondoism Affiliation | 1001 | + + + | Race | Unknown | + + + | Ethnic Group | Unknown | + + + Author + + + | Author | [facility] | | | and [place] | + + + | Organization | [facility] | | | and [...] [place] | | | | | [address] | | + + + + + Care Team Providers + +------+ + | Care Conformal Pad Former Name | Role | Phone | + [...] | | [address] | [place], [address] | disease with chronic | | | | [place], [place] | [place], [place] | kidney disease | | | | [address] | [address] | stage I through | | | | [phone] | | stage IV, or | | [...] ideal to have a reliable dialysis access, terminal carman, in the event that his GFR does [...] to that . CC: [facility] Ray Mcmillan MD 12: 22 PM PSTdocumented in this encounter Plan of Treatment +--------+ + + + + | Date | Type | Specialty | Care Team | Description | +--------+ + + + + | 03/12/ | Off-Site | Nephrology | Bennie Garza | | | 2018 | Visit | | DO Deep [address] [place] [address] | | | | | | [place], [facility] [address] | | | | | [...]
--- OUTSIDE RECORDS SUMMARY | ~2019-03-07 | XMS | Encounter Summary ---
Demographics + + + | Address | [address] | | | [place] [address] | + + + | Home Phone | | + + + | Preferred Language | Unknown | + + + | Marital Status | | + + + | Mandaen Affiliation | 1001 | + + + | Race | Unknown | + + + | Ethnic Group | Unknown | + + + Author + + + | Author | [facility] | | | and [place]ra[place] | + + + | Organization | [facility] | | | and [place] [...] [place] | | | | | [address] | | + + + + + Care Team Providers + +------+ + | Care Assistant Director Of Residence Life Name | Role | Phone | + +------+ + | Dre Jacobo MD | PCP | | + +------+ + Reason for Visit +--------+ + | Reason | Comments | +--------+ + | Other | Post Op Dressing Change | +--------+ + Encounter Details +--------+ + + + + | Date | Type | Department | Care Team | Description | +--------+ + + + + | 06/05/ | Telephone | [facility] | Luis Enrique Mcmillan | Other (Post Op | | 2013 | | SURGERY [address] | MD Blanco, FACS [address] | Dressing Change) | | | | [place], [place] | [facility] | | | | | [address] | [place] [address] | | | | | [phone] | [phone] | | | | | | | [...] 2018 | Visit | | DO Deep [address] [place] [address] | | | | | | [place] | | | | | | [place] | | | | | | [address] | | | | | | | | +--------+ + + + + documented as of this encounter Visit Diagnoses Not on filedocumented in this encounter"
--- OUTSIDE RECORDS SUMMARY | ~2019-03-07 | XMS | Encounter Summary ---
Demographics + + + | Address | [address] | | | [place] [address] | + + + | Home Phone | | + + + | Preferred Language | Unknown | + + + | Marital Status | | + + + | Hoahaoism Affiliation | 1001 | + + + | Race | Unknown | + + + | Ethnic Group | Unknown | + + + Author + + + | Author | [facility] | | | and [place] | + + + | Organization | [facility] | | | and [place] [...] [place] | | | | | [address] | | + + + + + Care Team Providers + +------+ + | Care Director Of Cardiopulmonary Services Name | Role | Phone | + [...] | | [address] | [place] | | | | | [place], [place] | [place], [place] | | | | | [address] | [address] | | | | | [phone] | | | +--------+ + + + [...] | Visit | | DO Deep [address] | | | | | | [place] | | | | | | [place], [place] | | | | | | [id number] | | | | | | | [...]
--- OUTSIDE RECORDS SUMMARY | ~2019-03-07 | XMS | Encounter Summary ---
Demographics + + + | Address | [address] | | | [place] [address] | + + + | Home Phone | | + + + | Preferred Language | Unknown | + + + | Marital Status | | + + + | Adventism Affiliation | 1001 | + + + | Race | Unknown | + + + | Ethnic Group | Unknown | + + + Author + + + | Author | [facility] | | | and [place] | + + + | Organization | [facility] | | | and [place] [...] [place] | | | | | [address] | | + + + + + Care Team Providers + +------+ + | Care Turnstile Collector Name | Role | Phone | + +------+ + | Dre Jacobo MD | PCP | | + +------+ + Encounter Details +--------+ + + + + | Date | Type | Department | Care Team | Description | +--------+ + + + + | 02/14/ | Orders Only | [facility] [place] | Bennie Garza | Chronic kidney | | 2019 | | NEPHROLOGY [address] | M, DO [address] | disease, stage IV | | | | [address] | [place] | (severe) (HCC) | | | | [place], [place] | [place], [place] | (Primary Dx); Anemia | | | | [address] | [phone] | in stage 3 chronic | | | | [phone] | | kidney disease (HCC) | +--------+ + + + + [...] documented as of this encounter Progress Notes Tanika Maddox RN - 02/14/2019 3:00 PM PSTLabs for upcoming nephrology appointment sent to: [facility] documented in this encounter Plan of Treatment +--------+ + + + + | Date | Type | Specialty | Care Team | Description | +--------+ + + + + | 03/12/ | Off-Site | Nephrology | Bennie Garza | | | 2018 | Visit | | DO Deep [address] [place] [address] | | | | | | [place] | | | | | | [place] | | | | | | [address] | | | | | | | | +--------+ + + + + documented as of this encounter Visit Diagnoses + + | Diagnosis | + + | Chronic kidney disease, stage IV (severe) (HCC) - Primary Chronic kidney disease, | | Stage IV (severe) | + + | 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
--- OUTSIDE RECORDS SUMMARY | ~2019-03-07 | XMS | Encounter Summary ---
Demographics + + + | Address | [address] | | | [place] [address] | + + + | Home Phone | | + + + | Preferred Language | Unknown | + + + | Marital Status | | + + + | Anglican Affiliation | 1001 | + + + | Race | Unknown | + + + | Ethnic Group | Unknown | + + + Author + + + | Author | [facility] | | | and [place] | + + + | Organization | [facility] | | | and [...] [place] | | | | | [address] | | + + + + + Care Team Providers + +------+ + | Care Casino Investigator Name | Role | Phone | + +------+ + | Dre Jacobo MD | PCP | | + +------+ + Encounter Details +--------+ + + + + | Date | Type | Department | Care Team | Description | +--------+ + + + + | 11/02/ | Orders Only | [facility] [place] | Bennie Garza | | | 2017 | | NEPHROLOGY [address] | M, DO [address] | | | | | [address] | [place] | | | | | [place], [place] | [place], [place] | | | | | [address] | [address] | | | | | [phone] | | | +--------+ + + + [...] 2019 | Visit | | DO Deep [address] [place] [address] | | | | | | [place] | | | | | | [place] | | | | | | [phone] | | | | | | | | +--------+ + + + + documented as of this encounter Procedures + +--------+ + + + | Procedure Name | Priori | Date/Time | Associated Diagnosis | Comments | | | ty | | | | + +--------+ + + + | EXTERNAL LAB: ROSARIO | Routin | 11/01/2017 | | Results for this | | | e | | | procedure are in the | | | | | | results section. | + +--------+ + + + | EXTERNAL LAB: | Routin | 11/01/2017 | | Results for this | | GLUCOSE | e | | | procedure are in the | | | | | | results section. | + +--------+ + + + | EXTERNAL LAB: [facility] | Routin | 11/01/2017 | | Results for this | | | e | | | procedure are in the | | | | | | results section. | + +--------+ + + + | EXTERNAL LAB: AST | Routin | 11/01/2017 | | Results for this | | | e | | | procedure are in the | | | | | | results section. | + +--------+ + + + | EXTERNAL LAB: | Routin | 11/01/2017 | | Results for this | | ALKALINE PHOSPHATASE | e | | | procedure are in the | | | | | | results section. | + +--------+ + + + | EXTERNAL LAB: | Routin | 11/01/2017 | | Results for this | | BILIRUBIN, TOTAL | e | | | procedure are in the | | | | | | results section. | + +--------+ + + + | EXTERNAL LAB: | Routin | 11/01/2017 | | Results for this | | ALBUMIN | e | | | procedure are in the | | | | | | results section. | + +--------+ + + + | EXTERNAL LAB: | Routin | 11/01/2017 | | Results for this | | PROTEIN, TOTAL | e | | | procedure are in the | | | | | | results section. | + +--------+ + + + | EXTERNAL LAB: | Routin | 11/01/2017 | | Results for this | | PHOSPHORUS | e | | | procedure are in the | | | | | | results section. | + +--------+ + + + | EXTERNAL LAB: | Routin | 11/01/2017 | | Results for this | | CALCIUM | e | | | procedure are in the | | | | | | results section. | + +--------+ + + + | EXTERNAL LAB: CARBON | Routin | 11/01/2017 | | Results for this | | DIOXIDE | e | | | procedure are in the | | | | | | results section. | + +--------+ + + + | EXTERNAL LAB: | Routin | 11/01/2017 | | Results for this | | CHLORIDE | e | | | procedure are in the | | | | | | results section. | + +--------+ + + + | EXTERNAL LAB: | Routin | 11/01/2017 | | Results for this | | POTASSIUM | e | | | procedure are in the | | | | | | results section. | + +--------+ + + + | EXTERNAL LAB: SODIUM | Routin | 11/01/2017 | | Results for this | | | e | | | procedure are in the | | | | | | results section. | + +--------+ + + + | EXTERNAL LAB: PTH, | Routin | 11/01/2017 | | Results for this | | INTACT | e | | | procedure are in the | | | | | | results section. | + +--------+ + + + | EXTERNAL LAB: CBC | Routin | 11/01/2017 | | Results for this | | | e | | | procedure are in the | | | | | | results section. | + +--------+ + + + | EXTERNAL LAB: EGFR | Routin | 11/01/2017 | | Results for this | | | e | | | procedure are in the | | | | | | results section. | + +--------+ + + + | EXTERNAL LAB: | Routin | 11/01/2017 | | Results for this | | CREATININE | e | | | procedure are in the | | | | | | results section. | + +--------+ + + + documented in this encounter Results External Lab: PTH, Intact (11/01/2017) + +-------+ + + + | Component | Value | Ref Range | Performed | Pathologist | | | | | At | Signature | + +-------+ + + + | PTH Intact, | 40.61 | 15 - 65 | | | | External | | | | | + +-------+ + + + + + | Specimen | + + | | + + External Lab: BUN (11/01/2017) + +--------+ + + + | Component | Value | Ref Range | Performed | Pathologist | | | | | At | Signature | + +--------+ + + + | BUN, | 50 (A) | 6 - 23 | EXTERNAL | | | External | | | LAB | | + +--------+ + + + + +---------+ + + | Performing | Address | City/State/Zipcode | Phone Number | | Organization | | | | + +---------+ + + | EXTERNAL LAB | | | | + +---------+ + + External Lab: Glucose (11/01/2017) + +-------+ + + + | Component | Value | Ref Range | Performed | Pathologist | | | | | At | Signature | + +-------+ + + + | Glucose, | 94 | 70 - 100 | EXTERNAL | | | External | | | LAB | | + +-------+ + + + + +---------+ + + | Performing | Address | City/State/Zipcode | Phone Number | | Organization | | | | + +---------+ + + | EXTERNAL LAB | | | | + +---------+ + + External Lab: ALT (11/01/2017) + +-------+ + + + | Component | Value | Ref Range | Performed | Pathologist | | | | | At | Signature | + +-------+ + + + | ALT, | 23 | 7 - 52 | EXTERNAL | | | External | | | LAB | | + +-------+ + + + + +---------+ + + | Performing | Address | City/State/Zipcode | Phone Number | | Organization | | | | + +---------+ + + | EXTERNAL LAB | | | | + +---------+ + + External Lab: AST (11/01/2017) + +-------+ + + + | Component | Value | Ref Range | Performed | Pathologist | | | | | At | Signature | + +-------+ + + + | AST, | 20 | 13 - 39 | EXTERNAL | | | External | | | LAB | | + +-------+ + + + + +---------+ + + | Performing | Address | City/State/Zipcode | Phone Number | | Organization | | | | + +---------+ + + | EXTERNAL LAB | | | | + +---------+ + + External Lab: Alkaline Phosphatase (11/01/2017) + +-------+ + + + | Component | Value | Ref Range | Performed | Pathologist | | | | | At | Signature | + +-------+ + + + | ALP, | 61 | 31 - 120 | EXTERNAL | | | External | | | LAB | | + +-------+ + + + + +---------+ + + | Performing | Address | City/State/Zipcode | Phone Number | | Organization | | | | + +---------+ + + | EXTERNAL LAB | | | | + +---------+ + + External Lab: Bilirubin, Total (11/01/2017) + +-------+ + + + | Component [...] + +---------+ + + External Lab: Albumin (11/01/2017) + +-------+ + + + | Component | Value | Ref Range | Performed | Pathologist | | | | | At | Signature | + +-------+ + + + | Albumin, | 4.0 | 3.5 - 5 | EXTERNAL | | | External | | | LAB | | + +-------+ + + + + +---------+ + + | Performing | Address | City/State/Zipcode | Phone Number | | Organization | | | | + +---------+ + + | EXTERNAL LAB | | | | + +---------+ + + External Lab: Protein, Total (11/01/2017) + +-------+ + + + | Component | Value | Ref Range | Performed | Pathologist | | | | | At | Signature | + +-------+ + + + | Protein, | 6.4 | 6 - 8 | EXTERNAL | [...] + +---------+ + + External Lab: Phosphorus (11/01/2017) + +-------+ + + + | Component | Value | Ref Range | Performed | Pathologist | | | | | At | Signature | + +-------+ + + + | Phosphorus, | 4.8 | 2.5 - 5 | EXTERNAL | | | External | | | LAB | | + +-------+ + + + + +---------+ + + | Performing | Address | City/State/Zipcode | Phone Number | | Organization | | | | + +---------+ + + | EXTERNAL LAB | | | | + +---------+ + + External Lab: Calcium (11/01/2017) + +-------+ + + + | Component | Value | Ref Range | Performed | Pathologist | | | | | At | Signature | + +-------+ + + + | Calcium, | 10.0 | 8.4 - 10.2 | EXTERNAL | | | External | | | LAB | | + +-------+ + + + + +---------+ + + | Performing | Address | City/State/Zipcode | Phone Number | | Organization | | | | + +---------+ + + | EXTERNAL LAB | | | | + +---------+ + + External Lab: Carbon Dioxide (11/01/2017) + +--------+ + + + | Component | Value | Ref Range | Performed | Pathologist | | | | | At | Signature | + +--------+ + + + | Carbon | 18 (A) | 19 - 31 | EXTERNAL | [...] + +---------+ + + External Lab: Chloride (11/01/2017) + +-------+ + + + | Component | Value | Ref Range | Performed | Pathologist | | | | | At | Signature | + +-------+ + + + | Chloride, | 105 | 100 - 110 | EXTERNAL | | | External | | | LAB | | + +-------+ + + + + +---------+ + + | Performing | Address | City/State/Zipcode | Phone Number | | Organization | | | | + +---------+ + + | EXTERNAL LAB | | | | + +---------+ + + External Lab: Potassium (11/01/2017) + +-------+ + + + | Component | Value | Ref Range | Performed | Pathologist | | | | | At | Signature | + +-------+ + + + | Potassium, | 4.1 | 3.5 - 5.1 | EXTERNAL | | | External | | | LAB | | + +-------+ + + + + +---------+ + + | Performing | Address | City/State/Zipcode | Phone Number | | Organization | | | | + +---------+ + + | EXTERNAL LAB | | | | + +---------+ + + External Lab: Sodium (11/01/2017) + +-------+ + + + | Component | Value | Ref Range | Performed | Pathologist | | | | | At | Signature | + +-------+ + + + | Sodium, | 137 | 135 - 145 | EXTERNAL | | | External | | | LAB | | + +-------+ + + + + +---------+ + + | Performing | Address | City/State/Zipcode | Phone Number | | Organization | | | | + +---------+ + + | EXTERNAL LAB | | | | + +---------+ + + External Lab: CBC (11/01/2017) + + + + + + | Component | Value | Ref Range | Performed | Pathologist | | | | | At | Signature | + + + + + + | WBC, | 6.1 | 4 - 11 | EXTERNAL | | | External | | | LAB | | + + + + + + | HGB, | 12.3 | 12 - 16 | EXTERNAL | | | External | | | LAB | | + + + + + + | HCT, | 36.9 | 35 - 45 | EXTERNAL | | | External | | | LAB | | + + + + + + | PLT, | 175 | 140 - 440 | EXTERNAL | | | External | | | LAB | | + + + + + + | RBC, | 3.72 (A) | 4.3 - 6 | EXTERNAL | | | External | | | LAB | | + + + + + + | MCV, | 99 | 80 - 100 | EXTERNAL | | | External | | | LAB | | + + + + + + | RDW, | 13.6 | 10.5 - 15 | EXTERNAL | | | External | | | LAB | | + + + + + + + +---------+ + + | Performing | Address | City/State/Zipcode | Phone Number | | Organization | | | | + +---------+ + + | EXTERNAL LAB | | | | + +---------+ + + External Lab: eGFR (11/01/2017) + +--------+ + + + | Component | Value | Ref Range | Performed | Pathologist | | | | | At | Signature | + +--------+ + + + | eGFR, | 20 (A) | 60 | EXTERNAL | | [...] + +---------+ + + External Lab: Creatinine (11/01/2017) + + + + + + | Component | Value | Ref Range | Performed | Pathologist | | | | | At | Signature | + + + + + + | Creatinine, | 3.01 (A) | 0.6 - 1.3 | EXTERNAL [...]
--- OUTSIDE RECORDS SUMMARY | ~2019-03-07 | XMS | Encounter Summary ---
Demographics + + + | Address | [address] | | | [place] [address] | + + + | Home Phone | | + + + | Preferred Language | Unknown | + + + | Marital Status | | + + + | Jainism Affiliation | 1001 | + + + | Race | Unknown | + + + | Ethnic Group | Unknown | + + + Author + + + | Author | [facility] | | | and [place] | + + + | Organization | [facility] | | | and [place] [...] [place] | | | | | [address] | | + + + + + Care Team Providers + +------+ + | Care Ship Wirer Name | Role | Phone | [...] NEPHROLOGY [address] | M, DO [address] | | | | | [address] | [place] | | | | | [place], [place] | [place], [place] | | | | | [address] | [address] | | | | | [phone] | | | +--------+ + + + [...] | Visit | | DO Deep [address] | | | | | | [place] | | | | | | [place], [place] | | | | | | [id number] | | | | | | | [...]
--- OUTSIDE RECORDS SUMMARY | ~2019-03-07 | XMS | Encounter Summary ---
Demographics + + + | Address | [address] | | | [place] [address] | + + + | Home Phone | | + + + | Preferred Language | Unknown | + + + | Marital Status | | + + + | Restoration Affiliation | 1001 | + + + | Race | Unknown | + + + | Ethnic Group | Unknown | + + + Author + + + | Author | [facility] | | | and [place] | + + + | Organization | [facility] | | | and [place] [...] [place] | | | | | [address] | | + + + + + Care Team Providers + +------+ + | Care Mains And Service Supervisor Name | Role | Phone | + [...] | | [address] | [place], [address] | (severe) (HCC) | | | | [place], [place] | [place], [place] | (Primary Dx) | | | | [address] | [address] | | | | | [phone] | | | +--------+ + + + [...] encounter Progress Notes Tanika Maddox RN - 11/02/2016 10:54 AM PDTLabs for upcoming nephrology appointment sent to: [facility] [...] | | | | | [place] | | | | | | [id number] | | | | | | | | +--------+ + + + + documented as of this encounter Visit Diagnoses + + | Diagnosis | + + | Chronic kidney disease, stage IV (severe) (HCC) - Primary Chronic kidney disease, | | Stage IV (severe) | + + documented in this encounter"
--- OUTSIDE RECORDS SUMMARY | ~2019-03-07 | XMS | Encounter Summary ---
Demographics + + + | Address | [address] | | | [place] [address] | + + + | Home Phone | | + + + | Preferred Language | Unknown | + + + | Marital Status | | + + + | Jehovah'S Witness Affiliation | 1001 | + + + | Race | Unknown | + + + | Ethnic Group | Unknown | + + + Author + + + | Author | [facility] | | | and Ezra[place] | + + + | Organization | [facility] | | | and [...] [place] | | | | | [address] | | + + + + + Care Team Providers + +------+ + | Care Saw Tailer Name | Role | Phone | + +------+ + | Dre Jacobo MD | PCP | | + +------+ + Encounter Details +--------+ + + + + | Date | Type | Department | Care Team | Description | +--------+ + + + + | 10/20/ | Abstract | [facility] [place] | Bennie Garza | | | 2014 | | NEPHROLOGY [address] | M, DO [address] | | | | | [address] | [place] | | | | | [place], [place] | [place], [place] | | | | | [address] | [address] | | | | | [phone] | | | +--------+ + + + [...] | Visit | | DO Deep [address] | | | | | | [address] | | | | | | [place], [place] | | | | | | [id number] | | | | | | | | +--------+ + + + + documented as of this encounter Procedures + +--------+ + + + | Procedure Name | Priori | Date/Time | Associated Diagnosis | Comments | | | ty | | | | + +--------+ + + + | EXTERNAL LAB: BUN | Routin | 01/20/2015 | | Results for this | | | e | | | procedure are in the | | | | | | results section. | + +--------+ + + + | EXTERNAL LAB: | Routin | 01/20/2015 | | Results for this | | GLUCOSE | e | | | procedure are in the | | | | | | results section. | + +--------+ + + + | EXTERNAL LAB: ALT | Routin | 01/20/2015 | | Results for this | | | e | | | procedure are in the | | | | | | results section. | + +--------+ + + + | EXTERNAL LAB: AST | Routin | 01/20/2015 | | Results for this | | | e | | | procedure are in the | | | | | | results section. | + +--------+ + + + | EXTERNAL LAB: | Routin | 01/20/2015 | | Results for this | | ALKALINE PHOSPHATASE | e | | | procedure are in the | | | | | | results section. | + +--------+ + + + | EXTERNAL LAB: | Routin | 01/20/2015 | | Results for this | | BILIRUBIN, TOTAL | e | | | procedure are in the | | | | | | results section. | + +--------+ + + + | EXTERNAL LAB: | Routin | 01/20/2015 | | Results for this | | ALBUMIN | e | | | procedure are in the | | | | | | results section. | + +--------+ + + + | EXTERNAL LAB: | Routin | 01/20/2015 | | Results for this | | PROTEIN, TOTAL | e | | | procedure are in the | | | | | | results section. | + +--------+ + + + | EXTERNAL LAB: | Routin | 01/20/2015 | | Results for this | | PHOSPHORUS | e | | | procedure are in the | | | | | | results section. | + +--------+ + + + | EXTERNAL LAB: | Routin | 01/20/2015 | | Results for this | | CALCIUM | e | | | procedure are in the | | | | | | results section. | + +--------+ + + + | EXTERNAL LAB: CARBON | Routin | 01/20/2015 | | Results for this | | DIOXIDE | e | | | procedure are in the | | | | | | results section. | + +--------+ + + + | EXTERNAL LAB: | Routin | 01/20/2015 | | Results for this | | CHLORIDE | e | | | procedure are in the | | | | | | results section. | + +--------+ + + + | EXTERNAL LAB: | Routin | 01/20/2015 | | Results for this | | POTASSIUM | e | | | procedure are in the | | | | | | results section. | + +--------+ + + + | EXTERNAL LAB: SODIUM | Routin | 01/20/2015 | | Results for this | | | e | | | procedure are in the | | | | | | results section. | + +--------+ + + + | EXTERNAL LAB: МАРИНА | Routin | 01/20/2015 | | Results for this | | INTACT | e | | | procedure are in the | | | | | | results section. | + +--------+ + + + | EXTERNAL LAB: | Routin | 01/20/2015 | | Results for this | | PROTEIN, URINE, 24HR | e | | | procedure are in the | | | | | | results section. | + +--------+ + + + | EXTERNAL LAB: CBC | Routin | 01/20/2015 | | Results for this | | | e | | | procedure are in the | | | | | | results section. | + +--------+ + + + | EXTERNAL LAB: EGFR | Routin | 01/20/2015 | | Results for this | | | e | | | procedure are in the | | | | | | results section. | + +--------+ + + + | EXTERNAL LAB: | Routin | 01/20/2015 | | Results for this | | CREATININE | e | | | procedure are in the | | | | | | results section. | + +--------+ + + + | CREATININE | Routin | 01/20/2015 | | Results for this | | CLEARANCE, RESULT | e | | | procedure are in the | | | | | | results section. | + +--------+ + + + documented in this encounter Results Creatinine Clearance, Result (01/20/2015) + + + + + + | Component | Value | Ref Range | Performed | Pathologist | | | | | At | Signature | + + + + + + | CREATININE | 33.0 (A) | 97.0 - 137.0 | [facility] | | | CLEARANCE | | mL/min | [facility] | | | [facility] | | [facility] - | | | | | | [facility]ATORY | | + + + + + + | 24H Urine | 2,700 | mL | [facility] | | | Volume | | | [facility] [...] + | [facility] | [address] | [place] | [phone] | | [facility] | | [address] | | | - LABORATORY | | | | + + + + + External Lab: PTH, Intact (01/20/2015) + +-------+ + + + | Component | Value | Ref Range | Performed | Pathologist | | | | | At | Signature | + +-------+ + + + | PTH Intact, | 70.38 | | | | | External | | | | | + +-------+ + + + + + | Specimen | + + | | + + External Lab: BUN (01/20/2015) + +--------+ + + + | Component [...] + +---------+ + + External Lab: Glucose (01/20/2015) + +-------+ + + + | Component | Value | Ref Range | Performed | Pathologist | | | | | At | Signature | + +-------+ + + + | Glucose, | 89 | 70 - 100 | EXTERNAL | | | External | | | LAB | | + +-------+ + + + + +---------+ + + | Performing | Address | City/State/Zipcode | Phone Number | | Organization | | | | + +---------+ + + | EXTERNAL LAB | | | | + +---------+ + + External Lab: ALT (01/20/2015) + +-------+ + + + | Component | Value | Ref Range | Performed | Pathologist | | | | | At | Signature | + +-------+ + + + | ALT, | 24 | | EXTERNAL | | | External | | | LAB | | + +-------+ + + + + +---------+ + + | Performing | Address | City/State/Zipcode | Phone Number | | Organization | | | | + +---------+ + + | EXTERNAL LAB | | | | + +---------+ + + External Lab: AST (01/20/2015) + +-------+ + + + | Component | Value | Ref Range | Performed | Pathologist | | | | | At | Signature | + +-------+ + + + | AST, | 26 | | EXTERNAL | | | External | | | LAB | | + +-------+ + + + + +---------+ + + | Performing | Address | City/State/Zipcode | Phone Number | | Organization | | | | + +---------+ + + | EXTERNAL LAB | | | | + +---------+ + + External Lab: Alkaline Phosphatase (01/20/2015) + +-------+ + + + | Component | Value | Ref Range | Performed | Pathologist | | | | | At | Signature | + +-------+ + + + | ALP, | 82 | 30 - 128 | EXTERNAL | | | External | | | LAB | | + +-------+ + + + + +---------+ + + | Performing | Address | City/State/Zipcode | Phone Number | | Organization | | | | + +---------+ + + | EXTERNAL LAB | | | | + +---------+ + + External Lab: Bilirubin, Total (01/20/2015) + +---------+ + + + | Component | Value | Ref Range | Performed | Pathologist | | | | | At | Signature | + +---------+ + + + | Bilirubin, | 1.4 (A) | 0 - 1.2 | EXTERNAL | | | Total, | | | LAB | | | External | | | | | + +---------+ + + + + +---------+ + + | Performing | Address | City/State/Zipcode | Phone Number | | Organization | | | | + +---------+ + + | EXTERNAL LAB | | | | + +---------+ + + External Lab: Albumin (01/20/2015) + +-------+ + + + | Component | Value | Ref Range | Performed | Pathologist | | | | | At | Signature | + +-------+ + + + | Albumin, | 4.4 | | EXTERNAL | | | External | | | LAB | | + +-------+ + + + + +---------+ + + | Performing | Address | City/State/Zipcode | Phone Number | | Organization | | | | + +---------+ + + | EXTERNAL LAB | | | | + +---------+ + + External Lab: Protein, Total (01/20/2015) + +-------+ + + + | Component [...] + +---------+ + + External Lab: Phosphorus (01/20/2015) + +-------+ + + + | Component [...] + +---------+ + + External Lab: Calcium (01/20/2015) + +-------+ + + + | Component | Value | Ref Range | Performed | Pathologist | | | | | At | Signature | + +-------+ + + + | Calcium, | 9.9 | 8.4 - 10.2 | EXTERNAL | | | External | | | LAB | | + +-------+ + + + + +---------+ + + | Performing | Address | City/State/Zipcode | Phone Number | | Organization | | | | + +---------+ + + | EXTERNAL LAB | | | | + +---------+ + + External Lab: Carbon Dioxide (01/20/2015) + +-------+ + + + | Component | Value | Ref Range | Performed | Pathologist | | | | | At | Signature | + +-------+ + + + | Carbon | 21 | 21 - 23 | EXTERNAL | | | Dioxide, | | | LAB | | | External | | | | | + +-------+ + + + + +---------+ + + | Performing | Address | City/State/Zipcode | Phone Number | | Organization | | | | + +---------+ + + | EXTERNAL LAB | | | | + +---------+ + + External Lab: Chloride (01/20/2015) + +-------+ + + + | Component [...] + +---------+ + + External Lab: Potassium (01/20/2015) + +-------+ + + + | Component | Value | Ref Range | Performed | Pathologist | | | | | At | Signature | + +-------+ + + + | Potassium, | 3.8 | 3.5 - 5.1 | EXTERNAL | | | External | | | LAB | | + +-------+ + + + + +---------+ + + | Performing | Address | City/State/Zipcode | Phone Number | | Organization | | | | + +---------+ + + | EXTERNAL LAB | | | | + +---------+ + + External Lab: Sodium (01/20/2015) + +-------+ + + + | Component | Value | Ref Range | Performed | Pathologist | | | | | At | Signature | + +-------+ + + + | Sodium, | 138 | 135 - 145 | EXTERNAL | | | External | | | LAB | | + +-------+ + + + + +---------+ + + | Performing | Address | City/State/Zipcode | Phone Number | | Organization | | | | + +---------+ + + | EXTERNAL LAB | | | | + +---------+ + + External Lab: Protein, Urine, 24Hr (01/20/2015) + +---------+ + + + | Component | Value | Ref Range | Performed | Pathologist | | | | | At | Signature | + +---------+ + + + | Protein, | 216 (A) | 150 | EXTERNAL | | [...] + +---------+ + + External Lab: CBC (01/20/2015) + +-------+ + + + | Component | Value | Ref Range | Performed | Pathologist | | | | | At | Signature | + +-------+ + + + | WBC, | 6.5 | 4.5 - 11 | EXTERNAL | | | External | | | LAB | | + +-------+ + + + | HGB, | 15.4 | 13.5 - 18 | EXTERNAL | | | External | | | LAB | | + +-------+ + + + | HCT, | 44.8 | 35 - 45 | EXTERNAL | | | External | | | LAB | | + +-------+ + + + | PLT, | 182 | 140 - 440 | EXTERNAL | | | External | | | LAB | | + +-------+ + + + | RBC, | 4.68 | 4.3 - 5.7 | EXTERNAL | | | External | | | LAB | | + +-------+ + + + | MCV, | 96 | 81 - 99 | EXTERNAL | | | External | | | LAB | | + +-------+ + + + | RDW, | 13.3 | 10.5 - 15 | EXTERNAL | | | External | | | LAB | | + +-------+ + + + + +---------+ + + | Performing | Address | City/State/Zipcode | Phone Number | | Organization | | | | + +---------+ + + | EXTERNAL LAB | | | | + +---------+ + + External Lab: eGFR (01/20/2015) + +--------+ + + + | Component [...] + +---------+ + + External Lab: Creatinine (01/20/2015) + + + + + + | Component | Value | Ref Range | Performed | Pathologist | | | | | At | Signature | + + + + + + | Creatinine, | 2.43 (A) | 0.6 - 1.3 | EXTERNAL [...]
--- OUTSIDE RECORDS SUMMARY | ~2019-03-07 | XMS | Encounter Summary ---
Demographics + + + | Address | [address] | | | [place] [address] | + + + | Home Phone | | + + + | Preferred Language | Unknown | + + + | Marital Status | | + + + | Mandaeism Affiliation | 1001 | + + + | Race | Unknown | + + + | Ethnic Group | Unknown | + + + Author + + + | Author | [facility] | | | and [place] | + + + | Organization | [facility] | | | and [place] | + + + | Address | Unknown | + + + | Phone | Unavailable | + + + Support + + + + + | Name | Relationship | Address | Phone | + + + + + | Genet Glasgow | ECON | [address] | | | | | [place] | | | | | [address] | | + + + + + Care Team Providers + +------+ + | Care Craps Manager Name | Role | Phone | [...] + + + | Closed | | Nephrology | Diagnoses | Donnell, | Osvaldol, | | | | | Chronic | Dre | Bennie Adame DO | | | | | kidney | MD [address] | [address] | | | | | disease, | [address] | [place], [place] | | | | | stage 4 | [address] | [address] [place] | | | | | (severe) | [place], | [place], [place] | | | | | (HCC) | [place] | [address] Phone: | | | | | Hypertension | [address] | [phone] | | | | | 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 | [phone] | [phone] | | | | | kidney | Fax: | | | | | | disease | [phone] | | | | | | Procedures | | | | | | | DE OFFICE | | | | | | | OUTPATIENT | | | | | | | VISIT 25 | | | | | | | MINUTES | | | +--------+--------+ + + + + Encounter Details +--------+ + + + + | Date | Type | Department | Care Team | Description | +--------+ + + + + | 11/29/ | Off-Site | [facility] [place] | Bennie Garza | Essential | | 2017 | Visit | NEPHROLOGY [address] | M, DO [address] | hypertension | | | | [address] | [place] | (Primary Dx); | | | | [place], [place] | [place], [place] | Chronic kidney | | | | [address] | [address] | disease, stage IV | | | | [phone] | | (severe) (HCC); | | | | | | Anemia in chronic | | | | | | kidney | | | | | | disease(285.21); | | | | | | Secondary | | | | | | hyperparathyroidism | | | | | | (of renal origin) | +--------+ + + + + Social [...] + + + | Blood Pressure | 128/70 | 11/29/2016 2:25 PM | | | | | PDT | | + + + + + | Pulse | - | - | | + + + + + | Temperature | 36.6 C (97.8 F) | 11/29/2016 2:25 PM | | | | | PDT [...] + + + + | Weight | 57.2 kg (126 lb) | 11/29/2016 2:25 PM | | | | | PDT | | + + + + + | Height | - | - | | + + + + + | Body Mass Index | 20.97 | 10/02/2013 2:09 PM | | | | | PDT | | + + + + + documented in this encounter Progress Notes Bennie Garza DO - 11/29/2016 2:00 PM PDT Subjective: NEPHROLOGY Patient ID: Dillon Glasgow is a 71 y.o. male. HPI Comments: Follow up for this pleasant, 71 YOWM with a long history of CKD sec ondary to hypertension, SHPTH, and remote depression. He states that his family is very con cerned about his memory and whether he is slowly developing the onset of Alzheimer's disease ? He has seen Dr. Chandana Mcpherson, an excellent Neurologist about this. Apparently , he has be en on donepezil for the past year. He is s/p AVF construction in his right arm on 06/04/13. His believes that he is losin g some lean body weight? He denies any SOB or uremic symptoms. . Outpatient Prescriptions Marked as Taking for the 11/29/16 encounter (Off-Site Visit) with Deep Garza DO Medication Sig Dispense Refill allopurinol (ZYLOPRIM) 100 mg tablet Take 100 mg by mouth Daily. calcitriol (ROCALTROL) 0.25 mcg capsule Take 1 capsule by mouth Daily. 90 capsule 4 donepezil (ARICEPT) 10 MG tablet Take 10 mg by mouth nightly. dorzolamide (TRUSOPT) 2% ophthalmic solution Place 2 drops into both eyes 2 times daily . fluoxetine (PROZAC) 40 MG capsule Take 40 mg by mouth Daily. gabapentin (NEURONTIN) 250 mg/5 mL solution Take 100 mg by mouth nightly. latanoprost (XALATAN) 0.005% ophthalmic solution Place 1 drop into both eyes nightly. traZODone (DESYREL) 50 mg tablet Take 100 mg by mouth nightly. No Known Allergies Objective: BP 128/70 | Temp 36.6 C (97.8 F) | Wt 57.2 kg (126 lb) | BMI 20.97 kg/m Physical Exam Heart: Regular rate and rhythm with no S3, S4, murmur or rub. Lungs: CTA bilaterally. No rales or wheezes. Abdomen: soft, obese, nontender, normoactive bowel sounds. Extremities: no clubbing, cyanosis, edema, (+) ~ 6mm, AVF in the right arm with a strong bruit. Lab Results Component Value Date NAEX 134 (A) 11/22/2016 KEX 4.3 11/22/2016 CLEX 101 11/22/2016 CO2EX 19 (A) 11/22/2016 BUNEX 49 (A) 11/22/2016 CREEX 2.85 (A) 11/22/2016 EGFREX 22 (A) 11/22/2016 GLUEX 84 11/22/2016 PHOSEX 3.9 11/22/2016 PTHEX 47.81 11/22/2016 Lab Results Component Value Date CHOLEX 133 11/22/2016 HDLEX 61.8 11/22/2016 LDLEX 57 11/22/2016 TRIGEX 72 11/22/2016 Lab Results Component Value Date WBCEX 5.8 11/22/2016 HGBEX 13.5 11/22/2016 HCTEX 40.5 11/22/2016 PLTEX 178 11/22/2016 Lab Results Component Value Date PROTEX 242 (A) 11/22/2016 CRCLEARANCE 24.0 (A) 11/22/2016 Assessment: 1. CKD, Stage IV, secondary to hypertensive nephrosclerosis-- no symptoms of uremia. He ap pears to be following a very strict renal diet. 2. Hypertension-- no longer requiring vasodilators. 3. Depression--compensated. 4. History of gout--in remission. 5. SHPTH-- PTH is stable. 6. New dx of Alzheimer's dementia. Plan: 1. I discussed with Dillon and his that his GFR is very slowly declining but that his diet may be too strict if he is actually losing some lean body weight, which could be counterproductive. He was advised to liberalize his diet somewhat. 2. I reviewed with him his lab, GFR, and BP. 3. Ironically, he does not appear to be becoming anemic with his CKD. 4. Will plan to see him back in 4 mo. at the [facility] at [place], [place]. He will have CBC, CMP, PO4, iPTH, and 24 Hr urine one week prior to that. : aRy Mcmillan MD, Chandana Mcpherson MD, [facility] documented in t his encounter Plan of Treatment +--------+ + + + + | Date | Type | Specialty | Care Team | Description | +--------+ + + + + | 03/12/ | Off-Site | Nephrology | Bennie Garza | | | 2019 | Visit | | M, DO [address] | | | | | | [address], [address] | | | | | | [place] | | | | | | [address] | | | | | | | | +--------+ + + + + documented as of this encounter Procedures + +--------+ + + + | Procedure Name | Priori | Date/Time | Associated Diagnosis | Comments | | | ty | | | | + +--------+ + + + | LABS - EXTERNAL SCAN | | 11/22/2016 | | Results for this | | | | 12:00 AM | | procedure are in the | | | | PDT | | results section. | + +--------+ + + + documented in this encounter Results LABS - EXTERNAL SCAN (11/22/2016 12:00 AM PDT) + + + | Narrative | Performed At | + + + | Ordered by an | | | unspecified provider. | | + + + documented in this encounter Visit Diagnoses + + | Diagnosis | + + | Essential hypertension - Primary Unspecified essential hypertension | + + | Chronic kidney disease, stage IV (severe) (HCC) Chronic kidney disease, Stage IV | | (severe) | + + | Anemia in chronic kidney disease(285.21) Anemia in chronic kidney disease | + + | Secondary hyperparathyroidism (of renal origin) | + + documented in this encounter"
--- OUTSIDE RECORDS SUMMARY | ~2019-03-07 | XMS | Encounter Summary ---
Demographics + + + | Address | [address] | | | [place] [address] | + + + | Home Phone | | + + + | Preferred Language | Unknown | + + + | Marital Status | | + + + | Presybeterian Affiliation | 1001 | + + + | Race | Unknown | + + + | Ethnic Group | Unknown | + + + Author + + + | Author | [facility] | | | and [place]ra[place] | + + + | Organization | [facility] | | | and [...] [place] | | | | | [address] | | + + + + + Care Team Providers + +------+ + | Care Reversing Mill Roller Name | Role | Phone | + +------+ + | Dre Jacobo MD | PCP | | + +------+ + Encounter Details +--------+ + + + + | Date | Type | Department | Care Team | Description | +--------+ + + + + | 06/07/ | Orders Only | [facility] [place] | Bennie Garza | Chronic kidney | | 2018 | | NEPHROLOGY [address] | M, DO [address] | disease, stage IV | | | | [address] | [place], [address] | (severe) (HCC) | | | | [place], [place] | [place], [place] | (Primary Dx) | | | | [address] | [address] | | | | | [phone] | | | +--------+ + + + [...] encounter Progress Notes Tanika Maddox RN - 06/07/2017 4:01 PM PSTLabs for upcoming nephrology appointment sent to: [facility] documented in this encounter Plan of Treatment [...] | | | | | [place] | | | | | | [id number] | | | | | | | | +--------+ + + + + documented as of this encounter Visit Diagnoses + + | Diagnosis | + + | Chronic kidney disease, stage IV (severe) (HCC) - Primary Chronic kidney disease, | | Stage IV (severe) | + + documented in this encounter"
--- OUTSIDE RECORDS SUMMARY | ~2019-03-07 | XMS | Encounter Summary ---
Demographics + + + | Address | [address] | | | [place] [address] | + + + | Home Phone | | + + + | Preferred Language | Unknown | + + + | Marital Status | | + + + | Baptism Affiliation | 1001 | + + + | Race | Unknown | + + + | Ethnic Group | Unknown | + + + Author + + + | Author | [facility] | | | and Ezraana | + + + | Organization | [facility] | | | and Ezraana [...] [place] | | | | | [address] | | + + + + + Care Team Providers + +------+ + | Care Communication Skills Instructor Name | Role | Phone | + [...] | Greg, | | | | | Unspecified | Dre | Bennie Adame DO | | | | | essential | MD [address] | [address] | | | | | hypertension | [address] | [place], [place] | | | | | Chronic | [address] | [address] [place] | | | | | kidney | [place], | [place], [place] | | | | | disease, | [place] | [address] Phone: | | | | | stage III | [address] | [phone] | | | | | (moderate) | Phone: | Fax: | | | | | (HCC) | [phone] | [phone] | | | | | Procedures | Fax: | | | | | | Evaluate & | [phone] | | | | | | treat | | | +--------+--------+ + + + + Encounter Details +--------+ + + + + | Date | Type | Department | Care Team | Description | +--------+ + + + + | 05/13/ | Off-Site | [facility] [place] | Stroemel, Bennie | CHRONIC KIDNEY | | 2015 | Visit | NEPHROLOGY [address] | M, DO [address] | DISEASE STAGE III | | | | [address] | [place], [place] [address] | (MODERATE) (Primary | | | | [place], [place] | [place], [place] | Dx); Unspecified | | | | [address] | [address] | hypertensive kidney | | | | [phone] | | disease with chronic | | | | | | kidney disease | | | | | | stage I through | | | | | | stage IV, or | | | | | | unspecified; | | | | | | SECONDARY | | | | | | HYPERPARATHYROIDISM; | | | | | | Depression | +--------+ + + + + [...] + + + | Blood Pressure | 142/78 | 05/13/2014 2:24 PM | | | | | PST | | + + + + + | Pulse | - | - | | + + + + + | Temperature | 36.6 C (97.8 F) | 05/13/2014 2:24 PM | | | | | PST [...] + + + + | Weight | 65.8 kg (145 lb) | 05/13/2014 2:24 PM | | | | | PST | | + + + + + | Height | - | - | | + + + + + | Body Mass Index | 24.13 | 10/02/2013 2:09 PM | | | | | PDT | | + + + + + documented in this encounter Progress Notes Bennie Garza DO - 05/13/2014 2:25 PM PST Subjective: NEPHROLOGY Patient ID: Dillon Glasgow is a 68 y.o. male. HPI Comments: Followup for this 68 YO white male with history of CKD secondary to hypertens ion, SHPTH, and remote depression. He is very energetic. Denies SOB, edema, or uremic symptoms. He is to establish with a emma w DMD, and inquires whether he should have Outpatient Prescriptions Marked as Taking for the 05/13/14 encounter (Off-Site Visit) with Danica Garza DO Medication Sig Dispense Refill allopurinol (ZYLOPRIM) 100 mg tablet Take 100 mg by mouth Daily. calcitRIOL (ROCALTROL) 0.25 mcg capsule Take 1 capsule by mouth Every other day. 45 ca psule 4 clonazePAM (KLONOPIN) 0.5 mg tablet Take 0.5 mg by mouth nightly. fluoxetine (PROZAC) 40 MG capsule Take 40 mg by mouth Daily. traZODone (DESYREL) 50 mg tablet Take 100 mg by mouth nightly. No Facility-Administered Medications for the 05/13/14 encounter (Off-Site Visit) with Bennie Garza DO. No Known Allergies Objective: BP 142/78 | Temp(Src) 36.6 C (97.8 F) | Wt 65.772 kg (145 lb) Physical Exam Cardiovascular: Regular rate and rhythm, with no S3, S4, murmur or rub. Pulmonary/Chest: CTA in all yanes. No rales or wheezes. Abdominal: Soft, flat, nontender, normoactive bowel sounds, no guarding. Musculoskeletal: No clubbing, cyanosis, or edema. (+) ~ 6mm, well developed AVF in the right arm with a strong bruit. Lab Results Component Value Date NAEX 141 05/06/2014 KEX 4.1 05/06/2014 CLEX 105 05/06/2014 CO2EX 26 05/06/2014 BUNEX 36* 05/06/2014 CREEX 2.3* 05/06/2014 EGFREX 30 05/06/2014 GLUEX 85 05/06/2014 PHOSEX 3.0 05/06/2014 PTHEX 79.23 05/06/2014 Lab Results Component Value Date WBCEX 7.5 01/07/2014 HGBEX 14.3 05/06/2014 HCTEX 44.7 05/06/2014 PLTEX 153 01/07/2014 Lab Results Component Value Date PROTEX 210* 05/06/2014 CRCLEARANCE 33.0* 05/06/2014 Assessment: 1. CKD, Stage III, secondary to hypertensive nephrosclerosis--no symptoms of uremia. 2. Hypertension--BP is improved to assist with AVF maturation. 3. SHPTH--PTH is stable. 4. Depression--in remission. 5. 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 6. History of gout--in remission. Plan: 1. I discussed with Dillon that his GFR appears to have plateaued. He appears to be consu allie a very consistent diet, which has helped improve long management of his CKD. 2. He has a very excellent AVF, which is ready to be utilized. Dr. Mcmillan has done an exce llent job. 3. Dillon understands that there is no need for renal replacement Rx until his GFR is skylar rly < 15 ml/min. 4. I refilled his Calcitriol, at [facility]. 5. [facility] He will have a CBC, CMP, P 04, PTH, lipid profile and 24-hour urine collection one week prior to that. CC: Renal Transplant Clinic, [facility] Ray Jacobo M.D. Luis Enrique Mcmillan MD, FACS documented in thi s encounter Plan of Treatment +--------+ + + + + | Date | Type | Specialty | Care Team | Description | +--------+ + + + + | 03/12/ | Off-Site | Nephrology | Bennie Garza | | | 2019 | Visit | | DO Deep [address] [place] [address] | | | | | | [place], [facility] [address] | | | | | | [place], [place] | | | | | | [phone] | | | | | | | [...] IV, or unspecified | + + | SECONDARY HYPERPARATHYROIDISM Secondary hyperparathyroidism (of renal origin) | + + | Depression Depressive disorder, not elsewhere classified | + + documented in this encounter"
--- OUTSIDE RECORDS SUMMARY | ~2019-03-07 | XMS | Encounter Summary ---
Demographics + + + | Address | [address] | | | [place] [address] | + + + | Home Phone | | + + + | Preferred Language | Unknown | + + + | Marital Status | | + + + | Roman Catholic Affiliation | 1001 | + + + | Race | Unknown | + + + | Ethnic Group | Unknown | + + + Author + + + | Author | [facility] | | | and Ezraana | + + + | Organization | [facility] | | | and [...] [place] | | | | | [address] | | + + + + + Care Team Providers + +------+ + | Care Inventory Worker Name | Role | Phone | + +------+ + | Dre Jacobo MD | PCP | | + +------+ + Reason for Visit + + + | Reason | Comments | + + + | Dressing Change | | + + + Encounter Details +--------+ + + + + | Date | Type | Department | Care Team | Description | +--------+ + + + + | 11/06/ | Telephone | [facility] | Luis Enrique Mcmillan | Dressing Change | | 2012 | | SURGERY [address] | MD [place]anco, FACS [address] | | | [address] [place], [place] | [facility] | | | | | [address] | [place] [address] | | | | | [phone] | [phone] | | | | | | | [...] [place] | | | | | | [address] | | | | | | | | +--------+ + + + + documented as of this encounter Visit Diagnoses Not on filedocumented in this encounter"
--- OUTSIDE RECORDS SUMMARY | ~2019-03-07 | XMS | Encounter Summary ---
Demographics + + + | Address | [address] | | | [place] [address] | + + + | Home Phone | | + + + | Preferred Language | Unknown | + + + | Marital Status | | + + + | Baptism Affiliation | 1001 | + + + | Race | Unknown | + + + | Ethnic Group | Unknown | + + + Author + + + | Author | [facility] | | | and Ezraana | + + + | Organization | [facility] | | | and [place]raana [...] [place] | | | | | [address] | | + + + + + Care Team Providers + +------+ + | Care It Consultant Name | Role | Phone | + [...] | | [address] | [place], [place] [address] | (MODERATE) (Primary | | | | [place], [place] | [place], [place] | Dx); Unspecified | | | | [address] | [address] | hypertensive kidney | | | | [phone] | | disease with chronic | | [...] plan on seeing him back at the [facility] [place], on 01/15/13 at 12:30PM, w [facility] lab, no PTH, and a 24 Hr [...] 2018 | Visit | | DO Deep [address] [place] [address] | | | | | | [address] [place] [address] | | | | | | [place] [facility] [place] | | | | | | [address] | | | | | | | [...]
--- OUTSIDE RECORDS SUMMARY | ~2019-03-07 | XMS | Encounter Summary ---
Demographics + + + | Address | [address] | | | [place] [address] | + + + | Home Phone | | + + + | Preferred Language | Unknown | + + + | Marital Status | | + + + | Amish Affiliation | 1001 | + + + | Race | Unknown | + + + | Ethnic Group | Unknown | + + + Author + + + | Author | [facility] | | | and Ezra[place] | + + + | Organization | [facility] | | | and [place]ra[place] [...] [place] | | | | | [address] | | + + + + + Care Team Providers + +------+ + | Care Nozzle Worker Name | Role | Phone | [...] | hypertension | [address] | [place], [place] | | | | | Chronic | [address] | [address] [place] | | | | | kidney | [place], | [place], [place] | | | | | disease, | [place] | [address] Phone: | | | | | stage III | [phone] | [phone] | | | | | (moderate) | Phone: | Fax: | | | | | (HCC) | [phone] | [phone] | | | | | Procedures | Fax: | | | | | | Evaluate & | [phone] | | | | | | treat | | | +--------+--------+ + + + + Encounter Details +--------+ + + + + | Date | Type | Department | Care Team | Description | +--------+ + + + + | 01/14/ | Off-Site | [facility] [place] | Stroemel, Bennie | CHRONIC KIDNEY | | 2014 | Visit | NEPHROLOGY [address] | M, DO [address] | DISEASE STAGE III | | | | [address] | [place], [place] [address] | (MODERATE) (Primary | | | | [place], [place] | [place], [place] | Dx); Secondary | | | | [address] | [address] | hyperparathyroidism | | | | [phone] | | (of renal origin); | | | | | | Unspecified | | | | | | hypertensive kidney | | | | | | disease with chronic | | | | | | kidney disease | | | | | | stage I through | | | | | | stage IV, or | | | | | | unspecified; Gout | +--------+ + + + + Social [...] + + + | Blood Pressure | 132/80 | 01/14/2014 2:14 PM | | | | | PDT | | + + + + + | Pulse | - | - | | + + + + + | Temperature | 35.9 C (96.7 F) | 01/14/2014 2:14 PM | | | | | PDT [...] | 68 kg (149 lb 14.6 | 01/14/2014 2:14 PM | | | | oz) | PDT | | + + + + + | Height | - | - | | + + + + + | Body Mass Index | 24.95 | 10/02/2013 2:09 PM | | | | | PDT | | + + + + + documented in this encounter Progress Notes Bennie Garza DO - 01/19/2014 2:15 PM PDT Subjective: NEPHROLOGY Patient ID: Dillon Glasgwo is a 68 y.o. male. HPI Comments: Followup for this 68 YO white male with history of CKD secondary to hypertens ion, SHPTH, and remote depression. He denies worsening edema, hiccups, pruritus, somnolence or anorexia. He states that his energy level is very good. His right arm continues to dev elop nicely. Outpatient Prescriptions Marked as Taking for the 01/14/14 encounter (Off-Site Visit) with Bennie Garza DO Medication Sig Dispense Refill allopurinol (ZYLOPRIM) 100 mg tablet Take 100 mg by mouth Daily. [DISCONTINUED] benazepril (LOTENSIN) 10 mg tablet Take 5 mg by mouth Daily. calcitriol (ROCALTROL) 0.25 mcg capsule Take 1 capsule by mouth Every other day for 90 days. 45 capsule 4 clonazePAM (KLONOPIN) 0.5 mg tablet Take 0.5 mg by mouth nightly. fluoxetine (PROZAC) 40 MG capsule Take 40 mg by mouth Daily. traZODone (DESYREL) 50 mg tablet Take 100 mg by mouth nightly. Allergies Allergen Reactions Aspirin CKD Objective: BP 132/80 | Temp 35.9 C (96.7 F) | Wt 68 kg (149 lb 14.6 oz) (my exam) Physical Exam Cardiovascular: Regular rate and rhythm, with no S3, S4, murmur or rub. Pulmonary/Chest: CTA bilaterally. No rales or wheezes. Abdominal: Soft, flat, nontender, normoactive bowel sounds, no guarding. Musculoskeletal: No clubbing, cyanosis, or edema. (+) ~ 6mm, well developed aVF in the right arm with a strong bruit. Lab Results Component Value Date NAEX 135 01/07/2014 KEX 3.5* 01/07/2014 CLEX 105 01/07/2014 CO2EX 23 01/07/2014 BUNEX 30* 01/07/2014 CREEX 2.25* 01/07/2014 EGFREX 29 01/07/2014 GLUEX 76 01/07/2014 PHOSEX 2.6 01/07/2014 PTHEX 105.5 01/08/2014 Lab Results Component Value Date WBCEX 7.5 01/07/2014 HGBEX 14.4 01/07/2014 HCTEX 42.8 01/07/2014 PLTEX 153 01/07/2014 Lab Results Component Value Date PROTEX 189 01/07/2014 CRCLEARANCE 34.0* 01/08/2014 Assessment: 1. CKD, Stage III, secondary to hypertensive nephrosclerosis--his Scr is stable. 2. Hypertension--excellent control. 3. SHPTH--good control. 4. Depression--clinically, no longer a problem? 5. 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 6. History of gout--in remission. Plan: 1. I discussed with Dillon that his BP control and Scr appear excellent for the circumsta nces. 2. His PTH control appears adequate on the current dose of Calcitriol. 3. I emphasized to Dillon that he, again, made an excellent decision to have early constr uction of his AVF. It is very well developed. 4. No change in medications at this time. Will plan to see him back in 5 mo., at the [facility]. He will have a CBC, CMP, PO4, PTH, and 24 hr urine 1 week prior t o that. CC: Renal Transplant Clinic, [facility] Ray Mcmillan MD 2: 35 PM PDTdocumented in this encounter Plan of Treatment +--------+ + + + + | Date | Type | Specialty | Care Team | Description | +--------+ + + + + | 03/12/ | Off-Site | Nephrology | Bennie Garza | | | 2019 | Visit | | DO Deep [address] [place] [address] | | | | | | [place], [facility] 100 | | | | | | [place] | | | | | | [phone] | | | | | | | | +--------+ + + + + documented as of this encounter Visit Diagnoses + + | Diagnosis | + + | CHRONIC KIDNEY DISEASE STAGE III (MODERATE) - Primary Chronic kidney disease, Stage | | III (moderate) | + + | Secondary hyperparathyroidism (of renal origin) | + + | Unspecified hypertensive kidney disease with chronic kidney disease stage I through | | stage IV, or unspecified | + + | Gout Gout, unspecified | + + documented in this encounter"
--- OUTSIDE RECORDS SUMMARY | ~2019-03-07 | XMS | Encounter Summary ---
Demographics + + + | Address | [address] | | | [place] [address] | + + + | Home Phone | | + + + | Preferred Language | Unknown | + + + | Marital Status | | + + + | Mosque Affiliation | 1001 | + + + | Race | Unknown | + + + | Ethnic Group | Unknown | + + + Author + + + | Author | [facility] | | | and [place]ra[place] | + + + | Organization | [facility] | | | and [place] [...] [place] | | | | | [address] | | + + + + + Care Team Providers + +------+ + | Care Sharepoint Net Developer Name | Role | Phone | + +------+ + PCP | Unavailable | + +------+ + Encounter Details +--------+ + + + + | Date | Type | Department | Care Team | Description | +--------+ + + + + | 09/14/ | [facility] | [facility] | Ozzie Miguel | | | 2000 | Encounter | MED CTR SLEEP | MD Patricio [address] | | | | | ADRIAN [address] | [place] | | | | | [place] | [place] [address] | | | | | [address] | [phone] | | | | | [phone] | | | +--------+ + + + [...] | 2019 | Visit | | DO Carmela Adame | | | | | | [address] [place] [address] | | | | | | [place] | | | | | | [address] | | | | | | | | +--------+ + + + + documented as of this encounter Visit Diagnoses Not on filedocumented in this encounter"
--- OUTSIDE RECORDS SUMMARY | ~2019-03-07 | XMS | Encounter Summary ---
Demographics + + + | Address | [address] | | | [place] [address] | + + + | Home Phone | | + + + | Preferred Language | Unknown | + + + | Marital Status | | + + + | Alevism Affiliation | 1001 | + + + | Race | Unknown | + + + | Ethnic Group | Unknown | + + + Author + + + | Author | [facility] | | | and [place]ra[place] | + + + | Organization | [facility] | | | and [place] [...] [place] | | | | | [address] | | + + + + + Care Team Providers + +------+ + | Care Ecotherapist Name | Role | Phone | + +------+ + PCP | Unavailable | + +------+ + Encounter Details +--------+ + + + + | Date | Type | Department | Care Team | Description | +--------+ + + + + | 01/28/ | [facility] | [facility] | Garfield Talamantes, | | | 2010 | Encounter | MED CTR MP INTRA OP | [phone] | | | | | [address] | (Fax) | | | | | [place] | | | | | | [address] | | | | | | [phone] | | | +--------+ + + + [...] | Visit | | M, DO [address] | | | | | | [place] [address] | | | | | | [place] | | | | | | [address] | | | | | | | | +--------+ + + + + documented as of this encounter Procedures + +--------+ + + + | Procedure Name | Priori | Date/Time | Associated Diagnosis | Comments | | | ty | | | | + +--------+ + + + | POTASSIUM | Routin | 01/28/2011 | | Results for this | | | e | 10:41 AM | | procedure are in the | | | | PDT | | results section. | + +--------+ + + + documented in this encounter Results Potassium (01/28/2011 10:41 AM PDT) + +-------+ + + + | Component | Value | Ref Range | Performed | Pathologist | | | | | At | Signature | + +-------+ + + + | K | 3.9 | 3.5 - 5.1 mEq/l | [facility] [...] [address] | [place] | [phone] | | [facility] | | [address] | | | - LABORATORY | | | | + + + + + | [address] | [address] | [place] | | | [facility] | | [address] | | | - LABORATORY | | | | + + + + + documented in this encounter Visit Diagnoses Not on filedocumented in this encounter"
--- OUTSIDE RECORDS SUMMARY | ~2019-03-07 | XMS | Encounter Summary ---
Demographics + + + | Address | [address] | | | [place] [address] | + + + | Home Phone | | + + + | Preferred Language | Unknown | + + + | Marital Status | | + + + | Zoroastrianism Affiliation | 1001 | + + + | Race | Unknown | + + + | Ethnic Group | Unknown | + + + Author + + + | Author | [facility] | | | and Ezraana | + + + | Organization | [facility] | | | and [place]ra[place] | + + + | Address | Unknown | + + + | Phone | Unavailable | + + + Support + + + + + | Name | Relationship | Address | Phone | + + + + + | Genet Cameron | ECON | [address] | | | | | [place] | | | | | [address] | | + + + + + Care Team Providers + +------+ + | Care Foreign Student Adviser Name | Role | Phone | + +------+ + | Dre Jacobo MD | PCP | | + +------+ + Encounter Details +--------+ + + + + | Date | Type | Department | Care Team | Description | +--------+ + + + + | /17/ | Orders Only | [facility] | Priyank Reagan W, | | | 2010 | | CONVERSION | MD [address] | | | | | INTERFACES | [address] | | | | | [phone] | [place] [address] | | | | | | [phone] | | | | | | | [...] 03/12/ | Off-Site | Nephrology | Bennie Graza | | | 2018 | Visit | | M, [address] | | | | | | [address] | | | | | | [place] | | | | | | [address] | | | | | | | | +--------+ + + + + documented as of this encounter Procedures + +--------+ + + + | Procedure Name | Priori | Date/Time | Associated Diagnosis | Comments | | | ty | | | | + +--------+ + + + | CT ABDOMEN PELVIS WO | Routin | 01/18/2011 | | Results for this | | CONTRAST | e | 12:25 PM | | procedure are in the | | | | PDT | | results section. | + +--------+ + + + documented in this encounter Results CT Abdomen Pelvis wo Contrast (01/18/2011 12:25 PM PDT) + + | Specimen | + + | | + + + + + | Narrative | Performed At | + + + | [facility] [address] Ph: | | | Patient Name: DILLON CAMERON Date of : | | | 1945 Medical Record: [id number] Account: [id number] | | | Exam Date/Time: 01/18/2011 12:50 Ordering | | | Physician: REAGAN EMMANUEL Order Detail: [id number] Exam Description: | | | CCT ABDOMEN/PELVIS UNENHANCED | | | | | | HISTORY: Kidney transplant evaluation. COMPARISON: None. | | | TECHNIQUE: 5-mm axial images were acquired through the abdomen and | | | pelvis without oral or IV contrast. Lack of contrast does limit | | | evaluation. FINDINGS: ABDOMEN: Triangular density in the | | | posterior lateral left lung base sequence two image 4 measuring 4 mm | | | probably is due to scarring, with 2-mm nodule in the posterior | | | lateral left lung base image 7. Lung bases are otherwise clear. | | | There are 3 cysts in the liver measuring up to 2.6 cm in the anterior | | | mid right lobe. Multiple cysts in both kidneys, measuring up to | | | 2.6 cm in the posterior mid pole left kidney. 15-mm hypodense | | | lesion in the medial inferior pole left kidney, Hounsfield unit | | | attenuation 18, probably due to complex cyst. Solid lesion seems less | | | likely. Noncontrast MRI given the patient's poor renal function | | | would have some limited increased use in further evaluation. | | | Multiple stones in both kidneys, measuring up to 4 mm bilaterally, | | | with 3 stones in the left kidney, and 6 stones in the right kidney. | | | No ureteral stones or ureteral obstruction. Moderate cortical | | | thinning both kidneys. PELVIS: There is no pelvic adenopathy. | | | No calcification of the pelvic vasculature, with minimal | | | atherosclerotic calcification of the abdominal aorta. No prostatic | | | enlargement. Bone windows with gas in the posterior aspect of the | | | inferior right SI joint sequence two image 62 measuring 6 mm | | | protruding into the adjacent bone, with mild degenerative spurring of | | | the upper aspects of both SI joints. Mild degenerative spurring of | | | the lumbar spine vertebral endplates with subtle lower lumbar | | | degenerative facet change. IMPRESSION: 1. Probable complex cyst | | | inferior pole left kidney, measuring 15 mm. Complex solid lesion | | | cannot be excluded. MRI is suggested for further evaluation. 2. | | | Further hepatic and renal cysts. 3. Bilateral renal stones | | | measuring up to 4 mm. 4. 2-mm nodule left lung base, probably due | | | to granuloma, with adjacent minimal scarring. Electronically | | | signed by Eduardo Tay MD on 01/18/2011 1:57 PM | | + + + + + | Procedure Note | + + | Matias Moreno Conversion - 11/25/2018 11:02 AM PDT | | [facility] | | [facility] [address] | | | | | | Patient Name: DILLON CAMERON | | Date of : 1945 | | Medical Record: [id number] | | Account: [id number] | | | | | | Exam Date/Time: 01/18/2011 12:50 | | Ordering Physician: REAGAN EMMANUEL | | Order Detail: [id number] | | Exam Description: CCT ABDOMEN/PELVIS UNENHANCED | | | | HISTORY: | | Kidney transplant evaluation. | | | | COMPARISON: | | None. | | | | TECHNIQUE: | | 5-mm axial images were acquired through the abdomen and pelvis without oral | | or IV contrast. Lack of contrast does limit evaluation. | | | | FINDINGS: | | ABDOMEN: | | Triangular density in the posterior lateral left lung base sequence two | | image 4 measuring 4 mm probably is due to scarring, with 2-mm nodule in the | | posterior lateral left lung base image 7. Lung bases are otherwise clear. | | | | There are 3 cysts in the liver measuring up to 2.6 cm in the anterior mid | | right lobe. | | | | Multiple cysts in both kidneys, measuring up to 2.6 cm in the posterior mid | | pole left kidney. 15-mm hypodense lesion in the medial inferior pole left | | kidney, Hounsfield unit attenuation 18, probably due to complex cyst. | | Solid lesion seems less likely. Noncontrast MRI given the patient's poor | | renal function would have some limited increased use in further evaluation. | | | | Multiple stones in both kidneys, measuring up to 4 mm bilaterally, with 3 | | stones in the left kidney, and 6 stones in the right kidney. No ureteral | | stones or ureteral obstruction. Moderate cortical thinning both kidneys. | | | | PELVIS: | | There is no pelvic adenopathy. No calcification of the pelvic vasculature, | | with minimal atherosclerotic calcification of the abdominal aorta. No | | prostatic enlargement. Bone windows with gas in the posterior aspect of | | the inferior right SI joint sequence two image 62 measuring 6 mm protruding | | into the adjacent bone, with mild degenerative spurring of the upper | | aspects of both SI joints. Mild degenerative spurring of the lumbar spine | | vertebral endplates with subtle lower lumbar degenerative facet change. | | | | IMPRESSION: | | 1. Probable complex cyst inferior pole left kidney, measuring 15 mm. | | Complex solid lesion cannot be excluded. MRI is suggested for further | | evaluation. | | 2. Further hepatic and renal cysts. | | 3. Bilateral renal stones measuring up to 4 mm. | | 4. 2-mm nodule left lung base, probably due to granuloma, with adjacent | | minimal scarring. | | | | | + + documented in this encounter Visit Diagnoses Not on filedocumented in this encounter"
--- OUTSIDE RECORDS SUMMARY | ~2019-03-07 | XMS | Encounter Summary ---
Demographics + + + | Address | [address] | | | [place] [address] | + + + | Home Phone | | + + + | Preferred Language | Unknown | + + + | Marital Status | | + + + | Mandaeism Affiliation | 1001 | + + + | Race | Unknown | + + + | Ethnic Group | Unknown | + + + Author + + + | Author | [facility] | | | and Ezraana | + + + | Organization | [facility] | [...] [place] | | | | | [address] | | + + + + + Care Team Providers + +------+ + | Care Veterinary Laboratory Technician Name | Role | Phone | + +------+ + | Dre Jacobo MD | PCP | | + +------+ + Encounter Details +--------+ + + + + | Date | Type | Department | Care Team | Description | +--------+ + + + + | 01/15/ | Off-Site | [facility] [place] | Bennie Garza | Unspecified | | 2012 | Visit | NEPHROLOGY [address] | M, DO [address] | hypertensive kidney | | | | [address] | [place] | disease with chronic | | | | [place], [place] | [place], [place] | kidney disease | | | | [address] | [address] | stage I through | | | | [phone] | | stage IV, or | | | | | | unspecified (Primary | | | | | | Dx); Anemia in | | | | | | chronic kidney | | | | | | disease; CHRONIC | | | | | | KIDNEY DISEASE STAGE | | | | | | III (MODERATE); | | | | | | Secondary | | | | | | hyperparathyroidism | | | | | | (HCC) [...] + + + | Blood Pressure | 114/65 | 01/15/2013 9:55 PM | | | | | PDT | | + + + + + | Pulse | - | - | | + + + + + | Temperature | 35.3 C (95.5 F) | 01/15/2013 9:55 PM | | | | | PDT [...] + + + + | Weight | 66.9 kg (147 lb 7.8 | 01/15/2013 9:55 PM | | | | oz) | PDT | | + + + + + | Height | - | - | | + + + + + | Body Mass Index | 24.54 | 12/05/2012 1:05 PM | | | | | PDT | | + + + + + documented in this encounter Progress Notes Bennie Garza DO - 04/15/2013 9:53 PM PST Subjective: NEPHROLOGY Patient ID: Dillon Glasgow is a 67 y.o. male. HPI Comments: Followup for this 67-year-old white male with history of CKD secondary to hyp ertension, SHPTH, and remote depression. Unfortunately, outpatient thrombectomy of his left arm AVF was not successful.and it appears clotted. He is thankful for the extra effort roger t was taken to attempt to salvage it. Otherwise he denies fatigue, dyspnea, anorexia, or pru ritus. Review of Systems Outpatient Prescriptions Marked as Taking for the 01/15/13 encounter (Off-Site Visit) with Bennie Garza DO Medication Sig Dispense Refill allopurinol (ZYLOPRIM) 100 mg tablet Take 100 mg by mouth Daily. calcitRIOL (ROCALTROL) 0.5 MCG capsule Take 0.5 mcg by mouth every 48 hours. clonazePAM (KLONOPIN) 0.5 mg tablet Take 0.5 [...] mouth Daily. No Known Allergies Objective: BP 114/65 | Temp 35.3 C (95.5 F) | Wt 66.9 kg (147 lb 7.8 oz) (my exam) Physical Exam Cardiovascular: Regular rate and rhythm, with no S3, S4, murmur or rub. Pulmonary/Chest: CTA bilaterally. No rales or wheezes. Abdominal: Soft, flat, nontender, normoactive bowel sounds, no guarding. Musculoskeletal: No clubbing, cyanosis, or asterixis. No bruit in left arm AVF. LAB: BUN 43, Cr 2.5, K+ 3.5, HCO3 25, glucose 89, Ca++ 9.5, P04 3.1, H&H = 13.7/41.9%. 24-Hour Urine: Ccr = 36 mL/minute, Protein = 192 mg/day. Assessment: 1. CKD, Stage III, secondary to hypertensive nephrosclerosis--GFR slowly worsening over paco e. However, no symptoms of uremia. 2. Hypertension--good control. 3. SHPTH--previously stable. 4. Depression--in remission. 5. 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 Plan: 1. Overall, Dillon is hopeful that if his GFR should worsen to <20 mL/minute, that he coul d be listed for primary renal allograft? This may be reasonable if WES several donor, given the current GFR? 2. Otherwise he states that he feels relatively well. BP control is satisfactory. 3. Will plan to see him back in 3 months. He will have an H&H, CMP, P04, PTH, HbA1c, and 2 4-hour urine collection one week prior to that. Will plan on seeing him around [facility]/39 at [facility]. CC: [facility] Trans[facility], [facility] Ray Mcmillan MD 10: 04 PM PSTdocumented in this encounter Plan of Treatment +--------+ + + + + | Date | Type | Specialty | Care Team | Description | +--------+ + + + + | 03/12/ | Off-Site | Nephrology | Bennie Garza | | | 2018 | Visit | | DO Deep [address] [place] [address] | | | | | | [place] [address] | | | | | | [place] | | | | | | [id number] | | | | | | | [...] (moderate) | + + | Secondary hyperparathyroidism (HCC) Secondary hyperparathyroidism (of renal origin) | + + documented in this encounter"
--- OUTSIDE RECORDS SUMMARY | ~2019-03-07 | XMS | Encounter Summary ---
Demographics + + + | Address | [address] | | | [place] [address] | + + + | Home Phone | | + + + | Preferred Language | Unknown | + + + | Marital Status | | + + + | Islam Affiliation | 1001 | + + + | Race | Unknown | + + + | Ethnic Group | Unknown | + + + Author + + + | Author | [facility] | | | and [place]ra[place] | + + + | Organization | [facility] | | | and [place]raana [...] [place] | | | | | [address] | | + + + + + Care Team Providers + +------+ + | Care Oracle Applications Analyst Name | Role | Phone | + [...] | | [address] | [place] | (severe) (HCC) | | | | [place], [place] | [place], [place] | (Primary Dx) | | | | [address] | [address] | | | | | [phone] | | | +--------+ + + + [...] PSTLabs for upcoming nephrology appointment sent to: [facility] documented in this encounter Plan of Treatment [...] | | | | | [place] | | | | | | [address] | | | | | | | | +--------+ + + + + documented as of this encounter Visit Diagnoses + + | Diagnosis | + + | Chronic kidney disease, stage IV (severe) (HCC) - Primary Chronic kidney disease, | | Stage IV (severe) | + + documented in this encounter"
--- OUTSIDE RECORDS SUMMARY | ~2019-03-07 | XMS | Encounter Summary ---
Demographics + + + | Address | [address] | | | [place] [address] | + + + | Home Phone | | + + + | Preferred Language | Unknown | + + + | Marital Status | | + + + | Mandaeism Affiliation | 1001 | + + + | Race | Unknown | + + + | Ethnic Group | Unknown | + + + Author + + + | Author | [facility] | | | and [place]ra[place] | + + + | Organization | [facility] | | | and [place] [...] [place] | | | | | [address] | | + + + + + Care Team Providers + +------+ + | Care Economics Instructor Name | Role | Phone | [...] Description | +--------+--------+ + + + | 07/11/ | Refill | [facility] [place] | Bennie Garza | Medication Refill | | 2018 | | NEPHROLOGY [address] | M, DO [address] | | | | | [address] | [place] | | | | | [place], [place] | [place], [place] | | | | | [address] | [address] | | | | | [phone] | | | +--------+--------+ + + + [...] | Visit | | DO [address] | | | | | | [place] | | | | | | [place] | | | | | | [address] | | | | | | | | +--------+ + + + + documented as of this encounter Visit Diagnoses + + | Diagnosis | + + | Chronic kidney disease, stage IV (severe) (HCC) Chronic kidney disease, Stage IV | | (severe) | + + | Essential hypertension Unspecified essential hypertension | + + | SECONDARY HYPERPARATHYROIDISM Secondary hyperparathyroidism (of renal origin) | + + | Idiopathic gout, unspecified chronicity, unspecified site | + + documented in this encounter"
--- OUTSIDE RECORDS SUMMARY | ~2019-03-07 | XMS | Encounter Summary ---
Demographics + + + | Address | [address] | | | [place] [address] | + + + | Home Phone | | + + + | Preferred Language | Unknown | + + + | Marital Status | | + + + | Restorationism Affiliation | 1001 | + + + | Race | Unknown | + + + | Ethnic Group | Unknown | + + + Author + + + | Author | [facility] | | | and Ezra[place] | + + + | Organization | [facility] | | | and [place] [...] [place] | | | | | [address] | | + + + + + Care Team Providers + +------+ + | Care Art Museum Aide Name | Role | Phone | + [...] | | | INTERFACES | [address] | | | | | [phone] | [place] [address] | | | | | | [phone] | | | | | | | [...] | Visit | | DO [address] | | | | | | [address] | | | | | | [place] | | | | | | [address] | | | | | | | | +--------+ + + + + documented as of this encounter Procedures + +--------+ + + + | Procedure Name | Priori | Date/Time | Associated Diagnosis | Comments | | | ty | | | | + +--------+ + + + | XR CHEST 2 VIEWS | Routin | 01/18/2011 | | Results for this | | | e | 10:35 AM | | procedure are in the | | | | PDT | | results section. | + +--------+ + + + documented in this encounter Results XR Chest 2 Vws (01/18/2011 10:35 AM PDT) + + | Specimen | + + | | + + + + + | Narrative | Performed At | + + + | [facility] [address] Ph: | | | Patient Name: DILLON CAMERON Date of : | | | 1945 Medical Record: [id number] Account: [id number] | | | Exam Date/Time: 01/18/2011 10:25 Ordering | | | Physician: REAGAN EMMANUEL Order Detail: [id number] Exam Description: | | | XR CHEST 2 VIEW | | | | | | DILLON CAMERON XR CHEST 2 VIEW 01/18/2011 10:25 AM HISTORY: 65 | | | years. Male. Renal disease TECHNIQUE: Two view | | | COMPARISON: None FINDINGS: Some dorsal spondylosis but no | | | vertebral body collapse seen. Overall, lungs are clear. No cardiac | | | enlargement seen IMPRESSION: 1. Findings limited dorsal | | | spondylosis. No pulmonary or cardiac abnormalities are seen | | | | | + + + + + | Procedure Note | + + | Matias Moreno - 11/25/2018 11:02 AM PDT | | [facility] | | [facility] [address] | | | | | | Patient Name: DILLON CAMERON | | Date of : 1945 | | Medical Record: [id number] | | Account: [id number] | | | | | | Exam Date/Time: 01/18/2011 10:25 | | Ordering Physician: REAGAN EMMANUEL | | Order Detail: [id number] | | Exam Description: XR CHEST 2 VIEW | | | | DILLON CAMERON | | XR CHEST 2 VIEW | | 01/18/2011 10:25 AM | | | | HISTORY: | | 65 years. Male. Renal disease | | | | TECHNIQUE: | | Two view | | | | COMPARISON: | | None | | | | FINDINGS: | | Some dorsal spondylosis but no vertebral body collapse seen. Overall, lungs | | are clear. No cardiac enlargement seen | | | | IMPRESSION: | | 1. Findings limited dorsal spondylosis. No pulmonary or cardiac | | abnormalities are seen | | | | | + + documented in this encounter Visit Diagnoses Not on filedocumented in this encounter"
--- OUTSIDE RECORDS SUMMARY | ~2019-03-07 | XMS | Encounter Summary ---
Demographics + + + | Address | [address] | | | [place] [address] | + + + | Home Phone | | + + + | Preferred Language | Unknown | + + + | Marital Status | | + + + | Mormonism Affiliation | 1001 | + + + | Race | Unknown | + + + | Ethnic Group | Unknown | + + + Author + + + | Author | [facility] | | | and Ezraana | + + + | Organization | [facility] | | | and Ezraana [...] [place] | | | | | [id number] | | + + + + + Care Team Providers + +------+ + | Care Yard Manager Name | Role | Phone | + +------+ + | Dre Jacobo MD | PCP | | + +------+ + Encounter Details +--------+ + + + + | Date | Type | Department | Care Team | Description | +--------+ + + + + | 12/05/ | Abstract | [facility] | Bennie Garza | | | 2017 | | NEPHROLOGY [address] | M, DO [address] | | | | | [address] | [address] | | | | | [place], [place] | [place], [place] | | | | | [phone] | [address] | | | | | [phone] | | | +--------+ + + + [...] | Visit | | DO [address] | | | | | | [address] | | | | | | [place], [place] | | | | | | [id number] | | | | | | | | +--------+ + + + + documented as of this encounter Procedures + +--------+ + + + | Procedure Name | Priori | Date/Time | Associated Diagnosis | Comments | | | ty | | | | + +--------+ + + + | EXTERNAL LAB: BUN | Routin | 03/07/2018 | | Results for this | | | e | | | procedure are in the | | | | | | results section. | + +--------+ + + + | EXTERNAL LAB: | Routin | 03/07/2018 | | Results for this | | GLUCOSE | e | | | procedure are in the | | | | | | results section. | + +--------+ + + + | EXTERNAL LAB: HADLEY | Routin | 03/07/2018 | | Results for this | | | e | | | procedure are in the | | | | | | results section. | + +--------+ + + + | EXTERNAL LAB: AST | Routin | 03/07/2018 | | Results for this | | | e | | | procedure are in the | | | | | | results section. | + +--------+ + + + | EXTERNAL LAB: | Routin | 03/07/2018 | | Results for this | | ALKALINE PHOSPHATASE | e | | | procedure are in the | | | | | | results section. | + +--------+ + + + | EXTERNAL LAB: | Routin | 03/07/2018 | | Results for this | | BILIRUBIN, TOTAL | e | | | procedure are in the | | | | | | results section. | + +--------+ + + + | EXTERNAL LAB: | Routin | 03/07/2018 | | Results for this | | ALBUMIN | e | | | procedure are in the | | | | | | results section. | + +--------+ + + + | EXTERNAL LAB: | Routin | 03/07/2018 | | Results for this | | PROTEIN, TOTAL | e | | | procedure are in the | | | | | | results section. | + +--------+ + + + | EXTERNAL LAB: | Routin | 03/07/2018 | | Results for this | | PHOSPHORUS | e | | | procedure are in the | | | | | | results section. | + +--------+ + + + | EXTERNAL LAB: | Routin | 03/07/2018 | | Results for this | | CALCIUM | e | | | procedure are in the | | | | | | results section. | + +--------+ + + + | EXTERNAL LAB: CARBON | Routin | 03/07/2018 | | Results for this | | DIOXIDE | e | | | procedure are in the | | | | | | results section. | + +--------+ + + + | EXTERNAL LAB: | Routin | 03/07/2018 | | Results for this | | CHLORIDE | e | | | procedure are in the | | | | | | results section. | + +--------+ + + + | EXTERNAL LAB: | Routin | 03/07/2018 | | Results for this | | POTASSIUM | e | | | procedure are in the | | | | | | results section. | + +--------+ + + + | EXTERNAL LAB: SODIUM | Routin | 03/07/2018 | | Results for this | | | e | | | procedure are in the | | | | | | results section. | + +--------+ + + + | EXTERNAL LAB: | Routin | 03/07/2018 | | Results for this | | VITAMIN D, | e | | | procedure are in the | | 25-HYDROXY | | | | results section. | + +--------+ + + + | EXTERNAL LAB: PTH, | Routin | 03/07/2018 | | Results for this | | INTACT | e | | | procedure are in the | | | | | | results section. | + +--------+ + + + | EXTERNAL LAB: | Routin | 03/07/2018 | | Results for this | | PROTEIN, URINE, 24HR | e | | | procedure are in the | | | | | | results section. | + +--------+ + + + | EXTERNAL LAB: CBC | Routin | 03/07/2018 | | Results for this | | | e | | | procedure are in the | | | | | | results section. | + +--------+ + + + | EXTERNAL LAB: EGFR | Routin | 03/07/2018 | | Results for this | | | e | | | procedure are in the | | | | | | results section. | + +--------+ + + + | EXTERNAL LAB: | Routin | 03/07/2018 | | Results for this | | CREATININE | e | | | procedure are in the | | | | | | results section. | + +--------+ + + + | CREATININE | Routin | 03/07/2018 | | Results for this | | CLEARANCE, RESULT | e | | | procedure are in the | | | | | | results section. | + +--------+ + + + documented in this encounter Results External Lab: PTH, Intact (03/07/2018) + +-------+ + + + | Component | Value | Ref Range | Performed | Pathologist | | | | | At | Signature | + +-------+ + + + | PTH Intact, | 36.08 | 12 - 88 | | | | External | | | | | + +-------+ + + + + + | Specimen | + + | | + + Creatinine Clearance, Result (03/07/2018) + + + + + + | Component | Value | Ref Range | Performed | Pathologist | | | | | At | Signature | + + + + + + | CREATININE | 17.0 (A) | 97.0 - 137.0 | | | | CLEARANCE | | mL/min | | | + + + + + + | 24H Urine | 2,200 | mL | | | | Volume | | | | | + + + + + + + + | Specimen | + + | Urine | + + External Lab: BUN (03/07/2018) + +-------+ + + + | Component | Value | Ref Range | Performed | Pathologist | | | | | At | Signature | + +-------+ + + + | BUN, | 56 | | | | | External | | | | | + +-------+ + + + External Lab: Glucose (03/07/2018) + +-------+ + + + | Component | Value | Ref Range | Performed | Pathologist | | | | | At | Signature | + +-------+ + + + | Glucose, | 68 | | | | | External | | | | | + +-------+ + + + External Lab: ALT (03/07/2018) + +-------+ + + + | Component | Value | Ref Range | Performed | Pathologist | | | | | At | Signature | + +-------+ + + + | ALT, | 21 | | | | | External | | | | | + +-------+ + + + External Lab: AST (03/07/2018) + +-------+ + + + | Component | Value | Ref Range | Performed | Pathologist | | | | | At | Signature | + +-------+ + + + | AST, | 23 | | | | | External | | | | | + +-------+ + + + External Lab: Alkaline Phosphatase (03/07/2018) + +-------+ + + + | Component | Value | Ref Range | Performed | Pathologist | | | | | At | Signature | + +-------+ + + + | ALP, | 66 | | | | | External | | | | | + +-------+ + + + External Lab: Bilirubin, Total (03/07/2018) + +-------+ + + + | Component | Value | Ref Range | Performed | Pathologist | | | | | At | Signature | + +-------+ + + + | Bilirubin, | 0.8 | | | | | Total, | | | | | | External | | | | | + +-------+ + + + External Lab: Albumin (03/07/2018) + +-------+ + + + | Component | Value | Ref Range | Performed | Pathologist | | | | | At | Signature | + +-------+ + + + | Albumin, | 4.2 | | | | | External | | | | | + +-------+ + + + External Lab: Protein, Total (03/07/2018) + +-------+ + + + | Component | Value | Ref Range | Performed | Pathologist | | | | | At | Signature | + +-------+ + + + | Protein, | 6.9 | | | | | Total, | | | | | | External | | | | | + +-------+ + + + External Lab: Phosphorus (03/07/2018) + +-------+ + + + | Component | Value | Ref Range | Performed | Pathologist | | | | | At | Signature | + +-------+ + + + | Phosphorus, | 3.9 | | | | | External | | | | | + +-------+ + + + External Lab: Calcium (03/07/2018) + +-------+ + + + | Component | Value | Ref Range | Performed | Pathologist | | | | | At | Signature | + +-------+ + + + | Calcium, | 10.4 | | | | | External | | | | | + +-------+ + + + External Lab: Carbon Dioxide (03/07/2018) + +-------+ + + + | Component | Value | Ref Range | Performed | Pathologist | | | | | At | Signature | + +-------+ + + + | Carbon | 20 | | | | | Dioxide, | | | | | | External | | | | | + +-------+ + + + External Lab: Chloride (03/07/2018) + +-------+ + + + | Component | Value | Ref Range | Performed | Pathologist | | | | | At | Signature | + +-------+ + + + | Chloride, | 100 | | | | | External | | | | | + +-------+ + + + External Lab: Potassium (03/07/2018) + +-------+ + + + | Component | Value | Ref Range | Performed | Pathologist | | | | | At | Signature | + +-------+ + + + | Potassium, | 4.2 | | | | | External | | | | | + +-------+ + + + External Lab: Sodium (03/07/2018) + +-------+ + + + | Component | Value | Ref Range | Performed | Pathologist | | | | | At | Signature | + +-------+ + + + | Sodium, | 137 | | | | | External | | | | | + +-------+ + + + External Lab: Vitamin D, 25-Hydroxy (03/07/2018) + +-------+ + + + | Component | Value | Ref Range | Performed | Pathologist | | | | | At | Signature | + +-------+ + + + | Vitamin D, | 50 | | | | | 25-Hydroxy, | | | | | | External | | | | | + +-------+ + + + + + | Specimen | + + | Blood | + + External Lab: Protein, Urine, 24Hr (03/07/2018) + +-------+ + + + | Component | Value | Ref Range | Performed | Pathologist | | | | | At | Signature | + +-------+ + + + | Protein, | 462 | | | | | Urine 24Hr, | | | | | | External | | | | | + +-------+ + + + + + | Specimen | + + | Urine | + + External Lab: CBC (03/07/2018) + +-------+ + + + | Component | Value | Ref Range | Performed | Pathologist | | | | | At | Signature | + +-------+ + + + | WBC, | 6.6 | | | | | External | | | | | + +-------+ + + + | HGB, | 13.2 | | | | | External | | | | | + +-------+ + + + | HCT, | 39.6 | | | | | External | | | | | + +-------+ + + + | PLT, | 200 | | | | | External | | | | | + +-------+ + + + | RBC, | 4.04 | | | | | External | | | | | + +-------+ + + + | MCV, | 98 | | | | | External | | | | | + +-------+ + + + | RDW, | 13.5 | | | | | External | | | | | + +-------+ + + + External Lab: eGFR (03/07/2018) + +-------+ + + + | Component | Value | Ref Range | Performed | Pathologist | | | | | At | Signature | + +-------+ + + + | eGFR, | 20 | | | | | External | | | | | + +-------+ + + + + + | Specimen | + + | Blood | + + External Lab: Creatinine (03/07/2018) + +-------+ + + + | Component | Value | Ref Range | Performed | Pathologist | | | | | At | Signature | + +-------+ + + + | Creatinine, | 3.09 | | | | | External | | | | | + +-------+ + + + + + | Specimen | + + | Blood | + + documented in this encounter Visit Diagnoses Not on filedocumented in this encounter"
--- OUTSIDE RECORDS SUMMARY | ~2019-03-07 | XMS | Encounter Summary ---
Demographics + + + | Address | [address] | | | [place] [address] | + + + | Home Phone | | + + + | Preferred Language | Unknown | + + + | Marital Status | | + + + | Nondenominational Affiliation | 1001 | + + + | Race | Unknown | + + + | Ethnic Group | Unknown | + + + Author + + + | Author | [facility] | | | and [place]ra[place] | + + + | Organization | [facility] [...] [place] | | | | | [address] | | + + + + + Care Team Providers + +------+ + | Care Plant Guard Name | Role | Phone | + +------+ + | Dre Jacobo MD | PCP | | + +------+ + Encounter Details +--------+ + + + + | Date | Type | Department | Care Team | Description | +--------+ + + + + | 02/16/ | Abstract | [facility] [place] | Bennie Garza | | | 2015 | | NEPHROLOGY [address] | M, DO [address] | | | | | [address] | [place] | | | | | [place], [place] | [place], [place] | | | | | [phone] | [address] | | | | | [phone] | | | +--------+ + + + [...] | Visit | | DO [address] | | | | | | [address] | | | | | | [place], [place] | | | | | | [id number] | | | | | | | | +--------+ + + + + documented as of this encounter Procedures + +--------+ + + + | Procedure Name | Priori | Date/Time | Associated Diagnosis | Comments | | | ty | | | | + +--------+ + + + | EXTERNAL LAB: BUN | Routin | 05/19/2015 | | Results for this | | | e | | | procedure are in the | | | | | | results section. | + +--------+ + + + | EXTERNAL LAB: | Routin | 05/19/2015 | | Results for this | | GLUCOSE | e | | | procedure are in the | | | | | | results section. | + +--------+ + + + | EXTERNAL LAB: URIC | Routin | 05/19/2015 | | Results for this | | ACID | e | | | procedure are in the | | | | | | results section. | + +--------+ + + + | EXTERNAL LAB: ALT | Routin | 05/19/2015 | | Results for this | | | e | | | procedure are in the | | | | | | results section. | + +--------+ + + + | EXTERNAL LAB: AST | Routin | 05/19/2015 | | Results for this | | | e | | | procedure are in the | | | | | | results section. | + +--------+ + + + | EXTERNAL LAB: | Routin | 05/19/2015 | | Results for this | | ALKALINE PHOSPHATASE | e | | | procedure are in the | | | | | | results section. | + +--------+ + + + | EXTERNAL LAB: | Routin | 05/19/2015 | | Results for this | | BILIRUBIN, TOTAL | e | | | procedure are in the | | | | | | results section. | + +--------+ + + + | EXTERNAL LAB: | Routin | 05/19/2015 | | Results for this | | ALBUMIN | e | | | procedure are in the | | | | | | results section. | + +--------+ + + + | EXTERNAL LAB: | Routin | 05/19/2015 | | Results for this | | PROTEIN, TOTAL | e | | | procedure are in the | | | | | | results section. | + +--------+ + + + | EXTERNAL LAB: | Routin | 05/19/2015 | | Results for this | | PHOSPHORUS | e | | | procedure are in the | | | | | | results section. | + +--------+ + + + | EXTERNAL LAB: | Routin | 05/19/2015 | | Results for this | | CALCIUM | e | | | procedure are in the | | | | | | results section. | + +--------+ + + + | EXTERNAL LAB: CARBON | Routin | 05/19/2015 | | Results for this | | DIOXIDE | e | | | procedure are in the | | | | | | results section. | + +--------+ + + + | EXTERNAL LAB: | Routin | 05/19/2015 | | Results for this | | CHLORIDE | e | | | procedure are in the | | | | | | results section. | + +--------+ + + + | EXTERNAL LAB: | Routin | 05/19/2015 | | Results for this | | POTASSIUM | e | | | procedure are in the | | | | | | results section. | + +--------+ + + + | EXTERNAL LAB: SODIUM | Routin | 05/19/2015 | | Results for this | | | e | | | procedure are in the | | | | | | results section. | + +--------+ + + + | EXTERNAL LAB: PTH, | Routin | 05/19/2015 | | Results for this | | INTACT | e | | | procedure are in the | | | | | | results section. | + +--------+ + + + | EXTERNAL LAB: | Routin | 05/19/2015 | | Results for this | | PROTEIN, URINE, 24HR | e | | | procedure are in the | | | | | | results section. | + +--------+ + + + | EXTERNAL LAB: CBC | Routin | 05/19/2015 | | Results for this | | | e | | | procedure are in the | | | | | | results section. | + +--------+ + + + | EXTERNAL LAB: | Routin | 05/19/2015 | | Results for this | | TRIGLYCERIDES | e | | | procedure are in the | | | | | | results section. | + +--------+ + + + | EXTERNAL LAB: | Routin | 05/19/2015 | | Results for this | | CHOLESTEROL, HDL | e | | | procedure are in the | | | | | | results section. | + +--------+ + + + | EXTERNAL LAB: | Routin | 05/19/2015 | | Results for this | | CHOLESTEROL, TOTAL | e | | | procedure are in the | | | | | | results section. | + +--------+ + + + | EXTERNAL LAB: | Routin | 05/19/2015 | | Results for this | | CHOLESTEROL, LDL | e | | | procedure are in the | | | | | | results section. | + +--------+ + + + | EXTERNAL LAB: EGFR | Routin | 05/19/2015 | | Results for this | | | e | | | procedure are in the | | | | | | results section. | + +--------+ + + + | EXTERNAL LAB: | Routin | 05/19/2015 | | Results for this | | CREATININE | e | | | procedure are in the | | | | | | results section. | + +--------+ + + + | CREATININE | Routin | 05/19/2015 | | Results for this | | CLEARANCE, RESULT | e | | | procedure are in the | | | | | | results section. | + +--------+ + + + documented in this encounter Results Creatinine Clearance, Result (05/19/2015) + + + + + + | Component | Value | Ref Range | Performed | Pathologist | | | | | At | Signature | + + + + + + | CREATININE | 33.0 (A) | 97.0 - 137.0 | [facility] | | | CLEARANCE | | mL/min | [facility] | [facility] | | | [facility] - | | | | | | [facility]ATORY | | + + + + + + | 24H Urine | 2,400 | mL | [facility] | | | Volume | | | [facility] | | [...] + | [facility] | [address] | [place] | [phone] | | [facility] | | [address] | | | - LABORATORY | | | | + + + + + External Lab: PTH, Intact (05/19/2015) + +-------+ + + + | Component | Value | Ref Range | Performed | Pathologist | | | | | At | Signature | + +-------+ + + + | PTH Intact, | 59.62 | 15 - 65 | | | | External | | | | | + +-------+ + + + + + | Specimen | + + | | + + External Lab: BUN (05/19/2015) + +--------+ + + + | Component | Value | Ref Range | Performed | Pathologist | | | | | At | Signature | + +--------+ + + + | BUN, | 35 (A) | 6 - 23 | EXTERNAL | | | External | | | LAB | | + +--------+ + + + + +---------+ + + | Performing | Address | City/State/Zipcode | Phone Number | | Organization | | | | + +---------+ + + | EXTERNAL LAB | | | | + +---------+ + + External Lab: Glucose (05/19/2015) + +-------+ + + + | Component | Value | Ref Range | Performed | Pathologist | | | | | At | Signature | + +-------+ + + + | Glucose, | 80 | 70 - 100 | EXTERNAL | | | External | | | LAB | | + +-------+ + + + + +---------+ + + | Performing | Address | City/State/Zipcode | Phone Number | | Organization | | | | + +---------+ + + | EXTERNAL LAB | | | | + +---------+ + + External Lab: Uric Acid (05/19/2015) + +-------+ + + + | Component | Value | Ref Range | Performed | Pathologist | | | | | At | Signature | + +-------+ + + + | Uric Acid, | 6.0 | 4.4 - 7.6 | EXTERNAL | | | External | | | LAB | | + +-------+ + + + + +---------+ + + | Performing | Address | City/State/Zipcode | Phone Number | | Organization | | | | + +---------+ + + | EXTERNAL LAB | | | | + +---------+ + + External Lab: ALT (05/19/2015) + +-------+ + + + | Component [...] + +---------+ + + External Lab: AST (05/19/2015) + +-------+ + + + | Component [...] +---------+ + + External Lab: Alkaline Phosphatase (05/19/2015) + +-------+ + + + | Component | Value | Ref Range | Performed | Pathologist | | | | | At | Signature | + +-------+ + + + | ALP, | 87 | | EXTERNAL | | | External | | | LAB | | + +-------+ + + + + +---------+ + + | Performing | Address | City/State/Zipcode | Phone Number | | Organization | | | | + +---------+ + + | EXTERNAL LAB | | | | + +---------+ + + External Lab: Bilirubin, Total (05/19/2015) + +-------+ + + + | Component [...] + +---------+ + + External Lab: Albumin (05/19/2015) + +-------+ + + + | Component | Value | Ref Range | Performed | Pathologist | | | | | At | Signature | + +-------+ + + + | Albumin, | 4.2 | 3.5 - 5.1 | EXTERNAL | | | External | | | LAB | | + +-------+ + + + + +---------+ + + | Performing | Address | City/State/Zipcode | Phone Number | | Organization | | | | + +---------+ + + | EXTERNAL LAB | | | | + +---------+ + + External Lab: Protein, Total (05/19/2015) + +-------+ + + + | Component [...] + +---------+ + + External Lab: Phosphorus (05/19/2015) + +-------+ + + + | Component | Value | Ref Range | Performed | Pathologist | | | | | At | Signature | + +-------+ + + + | Phosphorus, | 2.8 | 2.5 - 4.6 | EXTERNAL | | | External | | | LAB | | + +-------+ + + + + +---------+ + + | Performing | Address | City/State/Zipcode | Phone Number | | Organization | | | | + +---------+ + + | EXTERNAL LAB | | | | + +---------+ + + External Lab: Calcium (05/19/2015) + +-------+ + + + | Component | Value | Ref Range | Performed | Pathologist | | | | | At | Signature | + +-------+ + + + | Calcium, | 9.4 | 8.4 - 10.2 | EXTERNAL | | | External | | | LAB | | + +-------+ + + + + +---------+ + + | Performing | Address | City/State/Zipcode | Phone Number | | Organization | | | | + +---------+ + + | EXTERNAL LAB | | | | + +---------+ + + External Lab: Carbon Dioxide (05/19/2015) + +-------+ + + + | Component [...] + +---------+ + + External Lab: Chloride (05/19/2015) + +-------+ + + + | Component | Value | Ref Range | Performed | Pathologist | | | | | At | Signature | + +-------+ + + + | Chloride, | 102 | 100 - 110 | EXTERNAL | | | External | | | LAB | | + +-------+ + + + + +---------+ + + | Performing | Address | City/State/Zipcode | Phone Number | | Organization | | | | + +---------+ + + | EXTERNAL LAB | | | | + +---------+ + + External Lab: Potassium (05/19/2015) + +-------+ + + + | Component | Value | Ref Range | Performed | Pathologist | | | | | At | Signature | + +-------+ + + + | Potassium, | 4.0 | 3.5 - 5.1 | EXTERNAL | | | External | | | LAB | | + +-------+ + + + + +---------+ + + | Performing | Address | City/State/Zipcode | Phone Number | | Organization | | | | + +---------+ + + | EXTERNAL LAB | | | | + +---------+ + + External Lab: Sodium (05/19/2015) + +-------+ + + + | Component [...] + + External Lab: Protein, Urine, 24Hr (05/19/2015) + +---------+ + + + | Component [...] + +---------+ + + External Lab: CBC (05/19/2015) + +-------+ + + + | Component | Value | Ref Range | Performed | Pathologist | | | | | At | Signature | + +-------+ + + + | WBC, | 5.5 | 4 - 11 | EXTERNAL | | | External | | | LAB | | + +-------+ + + + | HGB, | 13.6 | 12 - 16 | EXTERNAL | | | External | | | LAB | | + +-------+ + + + | HCT, | 43.3 | 35 - 45 | EXTERNAL | | | External | | | LAB | | + +-------+ + + + | PLT, | 174 | 140 - 440 | EXTERNAL | | | External | | | LAB | | + +-------+ + + + | RBC, | 4.51 | 4 - 6 | EXTERNAL | | | External | | | LAB | | + +-------+ + + + | MCV, | 96 | | EXTERNAL | | | External | | | LAB | | + +-------+ + + + | RDW, | 13.7 | | EXTERNAL | | | External | | | LAB | | + +-------+ + + + + +---------+ + + | Performing | Address | City/State/Zipcode | Phone Number | | Organization | | | | + +---------+ + + | EXTERNAL LAB | | | | + +---------+ + + External Lab: Triglycerides (05/19/2015) + +-------+ + + + | Component | Value | Ref Range | Performed | Pathologist | | | | | At | Signature | + +-------+ + + + | Triglycerid | 52 | | EXTERNAL | | | es, [...] +---------+ + + External Lab: Cholesterol, HDL (05/19/2015) + +-------+ + + + | Component | Value | Ref Range | Performed | Pathologist | | | | | At | Signature | + +-------+ + + + | HDL | 49.7 | mg/dl | EXTERNAL | | | [...] +---------+ + + External Lab: Cholesterol, Total (05/19/2015) + +-------+ + + + | Component | Value | Ref Range | Performed | Pathologist | | | | | At | Signature | + +-------+ + + + | Cholesterol | 135 | mg/dl | EXTERNAL | | | [...] +---------+ + + External Lab: Cholesterol, LDL (05/19/2015) + +-------+ + + + | Component | Value | Ref Range | Performed | Pathologist | | | | | At | Signature | + +-------+ + + + | LDL | 75 | | EXTERNAL | | | Cholesterol [...] + +---------+ + + External Lab: eGFR (05/19/2015) + +--------+ + + + | Component | Value | Ref Range | Performed | Pathologist | | | | | At | Signature | + +--------+ + + + | eGFR, | 28 (A) | 60 | EXTERNAL | | [...] + +---------+ + + External Lab: Creatinine (05/19/2015) + + + + + + | Component | Value | Ref Range | Performed | Pathologist | | | | | At | Signature | + + + + + + | Creatinine, | 2.29 (A) | 0.6 - 1.3 | EXTERNAL [...]
--- OUTSIDE RECORDS SUMMARY | ~2019-03-07 | XMS | Encounter Summary ---
Demographics + + + | Address | [address] | | | [place] [address] | + + + | Home Phone | | + + + | Preferred Language | Unknown | + + + | Marital Status | | + + + | Gnosticist Affiliation | 1001 | + + + | Race | Unknown | + + + | Ethnic Group | Unknown | + + + Author + + + | Author | [facility] | | | and Ezraana | + + + | Organization | [facility] | | | and [...] [place] | | | | | [address] | | + + + + + Care Team Providers + +------+ + | Care Shrinking Machine Operator Name | Role | Phone [...] | | | | | Fistula/Stro | [place], [place] | [address] | | | | | raffy | [address] [place] | [place], | | | | | Procedures | [place], [place] | [place] [address] | | | | | [place] OFFICE | [address] | Phone: | | | | | OUTPATIENT | Phone: | [phone] | | | | | VISIT 25 | [phone] | Fax: | | | | | MINUTES | Fax: | [phone] | | | | | OFFICE VISIT | [phone] | | | | | | EXTENDED [...] disease (HCC) | | | | [place], [place] | [address] [place] | (Primary Dx) | | | | [address] | [place] [address] | | | | | [phone] | [phone] | | | | | | | [...] | Visit | | DO Deep [address] | | | | | | [place], [place] [address] | | | | | | [place] | | | | | | [address] | | | | | | | | +--------+ + + + + documented as of this encounter Visit Diagnoses + + | Diagnosis | + + | End stage renal disease (HCC) - Primary End stage renal disease | + + documented in this encounter
--- OUTSIDE RECORDS SUMMARY | ~2019-03-07 | XMS | Encounter Summary ---
Demographics + + + | Address | [address] | | | [place] [address] | + + + | Home Phone [...] Author | [facility] | | | and Ezraana | + + + | Organization | [facility] | | | and Ezraana | + + + | Address | Unknown | + + + | Phone | Unavailable | + + + Support + + + + + | Name | Relationship | Address | Phone | + + + + + | Genet Glasgow | ECON | [address] | | | | | [place] | | | | | [address] | | + + + + + Care Team Providers + +------+ + | Care Magisterial District Judge Name | Role | Phone | + +------+ + PCP | Unavailable | + +------+ + Encounter Details +--------+ + + + + | Date | Type | Department | Care Team | Description | +--------+ + + + + | 01/26/ | Hospital | [facility] | Ozzie Yost W, | | | 2010 | Encounter | HEART MED CTR PRE | [address] | | | | | KIDNEY TRANSPLANT | [address] | | | | | [address] [place] | [place] [address] | | | | | [address] [place] | [phone] | | | | | [address] | | | | | | [phone] | | | +--------+ + + + [...] 2018 | Visit | | DO Deep [address] [place] [address] | | | | | | [place] [address] | | | | | | [place] | | | | | | [address] | | | | | | | | +--------+ + + + + documented as of this encounter Visit Diagnoses Not on filedocumented in this encounter"
--- OUTSIDE RECORDS SUMMARY | ~2019-03-07 | XMS | Encounter Summary ---
Demographics + + + | Address | [address] | | | [place] [address] | + + + | Home Phone | | + + + | Preferred Language | Unknown | + + + | Marital Status | | + + + | Yarsanism Affiliation | 1001 | + + + | Race | Unknown | + + + | Ethnic Group | Unknown | + + + Author + + + | Author | [facility] | | | and Ezraana | + + + | Organization | [facility] | | | and Ezraana [...] [place] | | | | | [address] | | + + + + + Care Team Providers + +------+ + | Care Thermo Processor Name | Role | Phone | + [...] | | [address] [place] [address] | [place], [place] [address] | (MODERATE) (Primary | | | | [place], [place] | [place] | Dx); Hypertension; | | | | [address] | [address] | Anemia in chronic | | | | [phone] | | kidney disease | +--------+ + [...] for nephrology appt on 06/12/12 faxed to [facility] in [place]. documented in t his encounter Plan of Treatment +--------+ + + + + | Date | Type | Specialty | Care Team | Description | +--------+ + + + + | 03/12/ | Off-Site | Nephrology | Bennie Garza | | | 2018 | Visit | | DO Deep [address] [place] [address] | | | | | | [place] [address] | | | | | | [place] [facility] [place] | | | | | | [address] | | | | | | | [...]
--- OUTSIDE RECORDS SUMMARY | ~2019-03-07 | XMS | Encounter Summary ---
Demographics + + + | Address | [address] | | | [place] [address] | + + + | Home Phone | | + + + | Preferred Language | Unknown | + + + | Marital Status | | + + + | Rastafari Affiliation | 1001 | + + + | Race | Unknown | + + + | Ethnic Group | Unknown | + + + Author + + + | Author | [facility] | | | and Ezraana | + + + | Organization | [facility] | | | and [place]raana [...] [place] | | | | | [address] | | + + + + + Care Team Providers + +------+ + | Care Game Technician Name | Role | Phone | + +------+ + PCP | Unavailable | + +------+ + Encounter Details +--------+ + + + + | Date | Type | Department | Care Team | Description | +--------+ + + + + | 11/27/ | Hospital | [facility] | Bennie Garza | | | 2010 | Encounter | MED CTR XRAY [address] | M, DO [address] | | | | | [place] | [place], [place] [address] | | | | | [place] [address] | [place], [place] | | | | | [phone] | [address] | | | | | | | [...] | Visit | | DO Deep [address] | | | | | | [place] [address] | | | | | | [place] | | | | | | [address] | | | | | | | | +--------+ + + + + documented as of this encounter Procedures + +--------+ + + + | Procedure Name | Priori | Date/Time | Associated Diagnosis | Comments | | | ty | | | | + +--------+ + + + | VAS LOWER EXTREMITY | | 11/27/2010 | | Results for this | | VENOUS BILATERAL | | 1:36 PM | | procedure are in the | | | | PDT | | results section. | + +--------+ + + + documented in this encounter Results VAS Lower Extremity Venous Bilateral (11/27/2010 1:36 PM PDT) + + | Specimen | + + | | + + + + + | Narrative | Performed At | + + + | [facility] Diagnostic Imaging Department | [facility] | | [address] [facility] | [facility] | | VENOUS DUPLEX, BILATERAL, | DIAG IMG | | 11/27/2010 CLINICAL HISTORY: CKD, BILATERAL VEIN MAPPING. | | | FINDINGS: Vein mapping was performed in both upper extremities. | | | The measurements of the vein mappin g are saved on the PACS system | | | as a scanned in image. Please refer to that for measurements. No | | | visible thrombi. All areas sampled demonstrate appropriate response | | | to augmentation. IMPRESSION: 1. VEIN MAPPING. REFER TO THE | | | SCANNED IN IMAGE FOR MEASUREMENT DETAILS. 2. NO EVIDENCE FOR DEEP | | | VENOUS THROMBOSIS. Dictated Date/Time: 11/27/2010 16:45 | | | Transcribed Date/Time: 11/27/2010 16:56 Hospital Tray Service Worker: | | | <Electronically Signed by Albin Matthews MD> 11/29/10 1004 | | + + + + ---+ | Procedure Note | + ---+ | Josh, Rad Conversion - 05/11/2013 3:40 PM [facility] | | Diagnostic Imaging Department [address] [facility] | | VENOUS DUPLEX, BILATERAL, 11/27/2010 CLINICAL HISTORY: | | CKD, BILATERAL VEIN MAPPING. FINDINGS: Vein mapping was performed in both upper | | extremities. The measurements of the vein mapping are saved on the PACS system as a | | scanned in image. Please refer to that for measurements. No visible thrombi. All areas | | sampled demonstrate appropriate response to augmentation. IMPRESSION: 1. VEIN MAPPING. | | REFER TO THE SCANNED IN IMAGE FOR MEASUREMENT DETAILS. 2. NO EVIDENCE FOR DEEP VENOUS | | THROMBOSIS. Dictated Date/Time: 11/27/2010 16:45Transcribed Date/Time: 11/27/2010 | | 16:56Transcriptionist: <Electronically Signed by Albin Matthews MD> 11/29/10 | | 1004 | |g are saved on the PACS system as a scanned in image. Please refer to that for measurement s. | | | |No visible thrombi. All areas sampled demonstrate appropriate response to augmentation. | | | |IMPRESSION: | |1. VEIN MAPPING. REFER TO THE SCANNED IN IMAGE FOR MEASUREMENT DETAILS. | | | |2. NO EVIDENCE FOR DEEP VENOUS THROMBOSIS. | | | |Dictated Date/Time: 11/27/2010 16:45 | |Transcribed Date/Time: 11/27/2010 16:56 | |Hospital Tray Service Worker: | |<Electronically Signed by Albin Matthews MD> 11/29/10 1004 | + ---+ + +---------+ + + | Performing | Address | City/State/Zipcode | Phone Number | | Organization | | | | + +---------+ + + | [place] | | | | | [place] | | | | + +---------+ + + documented in this encounter Visit Diagnoses Not on filedocumented in this encounter"
--- OUTSIDE RECORDS SUMMARY | ~2019-03-07 | XMS | Encounter Summary ---
Demographics + + + | Address | [address] | | | [place] [address] | + + + | Home Phone | | + + + | Preferred Language | Unknown | + + + | Marital Status | | + + + | Sikhism Affiliation | 1001 | + + + | Race | Unknown | + + + | Ethnic Group | Unknown | + + + Author + + + | Author | [facility] | | | and Ezraana | + + + | Organization | [facility] | | | and Ezraana [...] [place] | | | | | [address] | | + + + + + Care Team Providers + +------+ + | Care Film Crew Member Name | Role | Phone | + [...] kidney | MD [address] | [address] | | | | | disease, | [address] | [place], [place] | | | | | stage 4 | [place] [address] | [address] [place] | | | | | (severe) | [place], | [place], [place] | | | | | (HCC) | [place] | [address] Phone: | | | | | Hypertension | [address] | [phone] | | | | | 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 | [phone] | [phone] | | | | | kidney | Fax: | | | | | | disease | [phone] | | | | | | Procedures | | | | | | | [facility] OFFICE | | | | | | | OUTPATIENT | | | | | | | VISIT 25 | | | | | | | MINUTES | | | +--------+--------+ + + + + Encounter Details +--------+ + + + + | Date | Type | Department | Care Team | Description | +--------+ + + + + | 03/14/ | Off-Site | [facility] [place] | Bennie Garza | Chronic kidney | | 2017 | Visit | NEPHROLOGY [address] | M, DO [address] | disease, stage IV | | | | [address] [address] | [place], [place] [address] | (severe) (HCC) | | | | [place], [place] | [place], [place] | (Primary Dx); | | | | [address] | [address] | Essential | | | | [phone] | | hypertension; | | | | | | SECONDARY | | | | | | HYPERPARATHYROIDISM | +--------+ + + + + Social [...] + + + | Blood Pressure | 135/55 | 03/14/2017 2:18 PM | | | | | PST | | + + + + + | Pulse | - | - | | + + + + + | Temperature | 36 C (96.8 F) | 03/14/2017 2:18 PM | | | | | PST [...] + + + + | Weight | 56.1 kg (123 lb 10.9 | 03/14/2017 2:18 PM | | | | oz) | PST | | + + + + + | Height | - | - | | + + + + + | Body Mass Index | 20.58 | 10/02/2013 2:09 PM | | | | | PDT | | + + + + + documented in this encounter Progress Notes Bennie Garza DO - 03/14/2017 2:00 PM PST Subjective: NEPHROLOGY Patient ID: Dillon Glasgow is a 71 y.o. male. HPI Comments: Follow up for this pleasant, 71 YOWM with a long history of CKD sec ondary to hypertension, SHPTH, and remote depression. He feels that his memory loss has not necessarily worsened. He denies edema, hiccups, cram ps, anorexia, or MAURICE. He is s/p AVF construction in his right arm on 06/04/13. Outpatient Prescriptions Marked as Taking for the 03/14/17 encounter (Appointment) with Gustavo Garza DO Medication Sig Dispense Refill allopurinol [...] mouth nightly. No Known Allergies Objective: BP 135/55 | Temp 36 C (96.8 F) | Wt 56.1 kg (123 lb 10.9 oz) | BMI 20.5 8 kg/m Physical Exam Heart: Regular rate and rhythm with no S3, S4, murmur or rub. Lungs: CTA bilaterally. No rales or wheezes. Abdomen: soft, flat, nontender, NABS. Extremities: no clubbing, cyanosis, edema, (+) ~ 6mm, AVF in the right arm with a strong bruit. Lab Results Component Value Date NAEX 137 03/07/2017 KEX 4.0 03/07/2017 CLEX 103 03/07/2017 CO2EX 21 03/07/2017 BUNEX 52 (A) 03/07/2017 CREEX 2.99 (A) 03/07/2017 EGFREX 21 (A) 03/07/2017 GLUEX 82 03/07/2017 PHOSEX 78 03/07/2017 PTHEX 33.84 03/07/2017 Lab Results Component Value Date CHOLEX 126 03/07/2017 HDLEX 65 03/07/2017 LDLEX 50 03/07/2017 TRIGEX 54 03/07/2017 Lab Results Component Value Date WBCEX 5.8 11/22/2016 HGBEX 13.5 11/22/2016 HCTEX 40.5 11/22/2016 PLTEX 178 11/22/2016 Lab Results Component Value Date PROTEX 325 (A) 03/07/2017 CRCLEARANCE 23.0 (A) 03/07/2017 Assessment: 1. CKD, Stage IV, secondary to hypertensive nephrosclerosis-- his GFR is about same. 2. Hypertension-- stable off of drug Rx. 3. Depression--compensated. 4. History of gout--in remission. 5. SHPTH-- PTH is stable. 6. New dx of Alzheimer's dementia--stable. Plan: 1. I reviewed with Dillon his lab, Ccr and BP. His AVF appears fully mature and he lacks sarahy uremic symptoms still at this point. 2. He appears to be following a very low salt diet, as his BP remains normal w/o any vasod ilators. 3. His memory seems overall, at baseline, at this visit. 4. Will plan to see him back in 4 mo. He will have CBC, CMP, PO4, Vitamin D level, iPTH, and 24 Hour urine, one week prior to that. : Ray Mcmillan MD, Chandana Mcpherson MD, [facility] documented in t his encounter Plan of Treatment +--------+ + + + + | Date | Type | Specialty | Care Team | Description | +--------+ + + + + | 03/12/ | Off-Site | Nephrology | Bennie Garza | | | 2018 | Visit | | DO Deep [address] [place] [address] | | | | | | [place] [address] | | | | | | [place], [place] | | | | | | [id number] | | | | | | | | +--------+ + + + + documented as of this encounter Procedures + +--------+ + + + | Procedure Name | Priori | Date/Time | Associated Diagnosis | Comments | | | ty | | | | + +--------+ + + + | LABS - EXTERNAL SCAN | | 03/07/2017 | | Results for this | | | | 12:00 AM | | procedure are in the | | | | PST | | results section. | + +--------+ + + + documented in this encounter Results LABS - EXTERNAL SCAN (03/07/2017 12:00 AM PST) + + + | Narrative | Performed At | + + + | Ordered by an | | | unspecified provider. | | + + + documented in this encounter Visit Diagnoses + + | Diagnosis | + + | Chronic kidney disease, stage IV (severe) (HCC) - Primary Chronic kidney disease, | | Stage IV (severe) | + + | Essential hypertension Unspecified essential hypertension | + + | SECONDARY HYPERPARATHYROIDISM Secondary hyperparathyroidism (of renal origin) | + + documented in this encounter"
--- OUTSIDE RECORDS SUMMARY | ~2019-03-07 | XMS | Encounter Summary ---
Demographics + + + | Address | [address] | | | [place] [address] | + + + | Home Phone | | + + + | Preferred Language | Unknown | + + + | Marital Status | | + + + | Nondenominational Affiliation | 1001 | + + + | Race | Unknown | + + + | Ethnic Group | Unknown | + + + Author + + + | Author | [facility] | | | and Ezraana | + + + | Organization | [facility] | | | [...] [place] | | | | | [address] | | + + + + + Care Team Providers + +------+ + | Care Senior Information Security Consultant Name | Role | Phone | [...] | | [address] [place] [address] | [place], [place] [address] | (severe) (HCC) | | | | [place], [place] | [place], [place] | (Primary Dx) | | | | [address] | [address] | | | | | [phone] | | | +--------+ + + + [...] | | | | | [place] | | | | | | [id number] | | | | | | | | +--------+ + + + + documented as of this encounter Visit Diagnoses + + | Diagnosis | + + | Chronic kidney disease, stage IV (severe) (HCC) - Primary Chronic kidney disease, | | Stage IV (severe) | + + documented in this encounter"
--- OUTSIDE RECORDS SUMMARY | ~2019-03-07 | XMS | Encounter Summary ---
Demographics + + + | Address | [address] | | | [place] [address] | + + + | Home Phone | | + + + | Preferred Language | Unknown | + + + | Marital Status | | + + + | Yarsanism Affiliation | 1001 | + + + | Race | Unknown | + + + | Ethnic Group | Unknown | + + + Author + + + | Author | [facility] | | | and Ezraana | + + + | Organization | [facility] | | [...] [place] | | | | | [address] | | + + + + + Care Team Providers + +------+ + | Care Candy Cutter Machine Name | Role | Phone | + +------+ + PCP | Unavailable | + +------+ + Encounter Details +--------+ + + + + | Date | Type | Department | Care Team | Description | +--------+ + + + + | 08/19/ | [facility] | [facility] | Ozzie Miguel | | | 2000 | Encounter | MED CTR SLEEP | MD Patricio [address] | | | | | [place] [address] | [place] | | | | | [place] | [place] [address] | | | | | [address] | [phone] | | | | | [phone] | | | +--------+ + + + [...] [place] | | | | | | [address] | | | | | | | | +--------+ + + + + documented as of this encounter Visit Diagnoses Not on filedocumented in this encounter"
--- OUTSIDE RECORDS SUMMARY | ~2019-03-07 | XMS | Encounter Summary ---
Demographics + + + | Address | [address] | | | [place] [address] | + + + | Home Phone | | + + + | Preferred Language | Unknown | + + + | Marital Status | | + + + | Jain Affiliation | 1001 | + + + | Race | Unknown | + + + | Ethnic Group | Unknown | + + + Author + + + | Author | [facility] | | | and Ezraana | + + + | Organization | [facility] | | | and [...] [place] | | | | | [address] | | + + + + + Care Team Providers + +------+ + | Care Rough Rice Tender Name | Role | Phone | + [...] | hypertension | [address] | [place], [place] | | | | | Chronic | [address] | [address] [place] | | | | | kidney | [place], | [place], [place] | | | | | disease, | [place] | [address] Phone: | | | | | stage III | [address] | [phone] | | | | | (moderate) | Phone: | Fax: | | | | | (HCC) | [phone] | [phone] | | | | | Procedures | Fax: | | | | | | Evaluate & | [phone] | | | | | | treat | | | +--------+--------+ + + + + Encounter Details +--------+ + + + + | Date | Type | Department | Care Team | Description | +--------+ + + + + | 09/24/ | Off-Site | [facility] [place] | Stroemel, Bennie | Unspecified | | 2014 | Visit | NEPHROLOGY [address] | M, DO [address] | hypertensive kidney | | | | [address] | [place], [place] [address] | disease with chronic | | | | [place], [place] | [place] | kidney disease | | | | [address] | [address] | stage I through | | | | [phone] | | stage IV, or | | | | | | unspecified (Primary | | | | | | Dx); Secondary | | | | | | hyperparathyroidism | | | | | | (of renal origin); | | | | | | Anemia in chronic | | | | | | kidney disease; | | | | | | CHRONIC KIDNEY | | | | | | DISEASE STAGE III | | | | | | (MODERATE) | +--------+ + + + + Social [...] + + + | Blood Pressure | 122/75 | 09/24/2013 4:02 PM | | | | | PDT | | + + + + + | Pulse | - | - | | + + + + + | Temperature | 36.8 C (98.2 F) | 09/24/2013 4:02 PM | | | | | PDT [...] + + + + | Weight | 68.3 kg (150 lb 9.2 | 09/24/2013 4:02 PM | | | | oz) | PDT | | + + + + + | Height | - | - | | + + + + + | Body Mass Index | 25.06 | 06/12/2013 1:34 PM | | | | | PDT | | + + + + + documented in this encounter Progress Notes Bennie Garza DO - 09/24/2013 4:02 PM PDT Subjective: NEPHROLOGY Patient ID: Dillon Glasgow is a 68 y.o. male. HPI Comments: Followup for this 68 YO white male with history of CKD secondary to hypertens ion, SHPTH, and remote depression. He denies cramps, nausea , weakness, or hiccups. He has since had successful placement of a nice AVF in his right arm, which is developing nicely. Outpatient Prescriptions Marked as Taking for the 09/24/13 encounter (Off-Site Visit) with Deep Garza DO [...] 50 mg by mouth 2 times daily. No Known Allergies Objective: BP 122/75 | Temp 36.8 C (98.2 F) | Wt 68.3 kg (150 lb 9.2 oz) (my exam) Physical Exam Cardiovascular: Regular rate and rhythm, with no S3, S4, murmur or rub. Pulmonary/Chest: CTA bilaterally. No rales or wheezes. Abdominal: Soft, flat, nontender, normoactive bowel sounds, no guarding. Musculoskeletal: No clubbing, cyanosis, or edema. (+) well developed aVF in the right arm with a stron g bruit. Lab Results Component Value Date NA 137 08/28/2013 K 3.6 08/28/2013 CL 102 08/28/2013 CO2 25 08/28/2013 BUN 37 08/28/2013 CREEX 2.45* 08/28/2013 EGFREX 26* 08/28/2013 GLU 74 08/28/2013 CALCIUM 9.7 08/28/2013 PHOS 2.7 08/28/2013 PTH 31.32 08/28/2013 Lab Results Component Value Date HGBEX 13.8 08/28/2013 HCTEX 41.3 08/28/2013 Lab Results Component Value Date CRCLEARANCE 33.0* 08/28/2013 KPN09SEP 4.0 08/28/2013 Assessment: 1. CKD, Stage III, secondary to hypertensive nephrosclerosis--his GFR is relatively stable. 2. Hypertension--good control. 3. SHPTH--excellent control. 4. Depression--in remission. 5. 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 6. History of gout--in remission. Plan: 1. I told Dillon that he has made a lu decision to pursue a patent AVF , terminologist. 2. His GFR does appear stable for now, but the natural Hx of CKD is for it to progress ove r time, if you take all comers. 3. His PTH appears improved on his current dose of Calcitriol. 4. Will plant to see him back in 4 mo. at the [facility] in [place] in 4 mo. He will have lab and a 24 Hr urine 1 week, prior to that. I greatly appreciate Dr. Mcmillan's excellent help with his AVF. CC: [facility], [facility] Ray Mcmillan MD 4: 18 PM PDTdocumented in this encounter Plan of Treatment +--------+ + + + + | Date | Type | Specialty | Care Team | Description | +--------+ + + + + | 03/12/ | Off-Site | Nephrology | Bennie Garza | | | 2019 | Visit | | DO Deep [address] [place] [address] | | | | | | [place], [facility] [address] | | | | | | [place], [place] | | | | | | [phone] | | | | | | | | +--------+ + + + + documented as of this encounter Visit Diagnoses + + | Diagnosis | + + | Unspecified hypertensive kidney disease with chronic kidney disease stage I through | | stage IV, or unspecified - Primary | + + | Secondary hyperparathyroidism (of renal origin) | + + | Anemia in chronic kidney disease | + + | CHRONIC KIDNEY DISEASE STAGE III (MODERATE) Chronic kidney disease, Stage III | | (moderate) | + + documented in this encounter"
--- OUTSIDE RECORDS SUMMARY | ~2019-03-07 | XMS | Encounter Summary ---
Demographics + + + | Address | [address] | | | [place] [address] | + + + | Home Phone | | + + + | Preferred Language | Unknown | + + + | Marital Status | | + + + | Caodaism Affiliation | 1001 | + + + | Race | Unknown | + + + | Ethnic Group | Unknown | + + + Author + + + | Author | [facility] | | | and Ezraana | + + + | Organization | [facility] | | | and Ezraana [...] [place] | | | | | [address] | | + + + + + Care Team Providers + +------+ + | Care Event Producer Name | Role | Phone | + +------+ + | Dre Jacobo MD | PCP | | + +------+ + Encounter Details +--------+ + + + + | Date | Type | Department | Care Team | Description | +--------+ + + + + | 01/27/ | Abstract | [facility] | Bennie Garza | | | 2013 | | NEPHROLOGY [address] | M, DO [address] | | | | | [address] | [address] | | | | | [place], [place] | [place], [place] | | | | | [address] | [address] | | | | | [phone] | | | +--------+ + + + [...] | Visit | | DO [address] | | | | | | [place] | | | | | | [place], [place] | | | | | | [id number] | | | | | | | | +--------+ + + + + documented as of this encounter Procedures + +--------+ + + + | Procedure Name | Priori | Date/Time | Associated Diagnosis | Comments | | | ty | | | | + +--------+ + + + | EXTERNAL LAB: AST | Routin | 04/30/2013 | | Results for this | | | e | | | procedure are in the | | | | | | results section. | + +--------+ + + + | EXTERNAL LAB: ALT | Routin | 04/30/2013 | | Results for this | | | e | | | procedure are in the | | | | | | results section. | + +--------+ + + + | EXTERNAL LAB: | Routin | 04/30/2013 | | Results for this | | TRIGLYCERIDES | e | | | procedure are in the | | | | | | results section. | + +--------+ + + + | EXTERNAL LAB: | Routin | 04/30/2013 | | Results for this | | CHOLESTEROL, HDL | e | | | procedure are in the | | | | | | results section. | + +--------+ + + + | EXTERNAL LAB: | Routin | 04/30/2013 | | Results for this | | CHOLESTEROL, TOTAL | e | | | procedure are in the | | | | | | results section. | + +--------+ + + + | EXTERNAL LAB: | Routin | 04/30/2013 | | Results for this | | CHOLESTEROL, LDL | e | | | procedure are in the | | | | | | results section. | + +--------+ + + + | EXTERNAL LAB: EGFR | Routin | 04/30/2013 | | Results for this | | | e | | | procedure are in the | | | | | | results section. | + +--------+ + + + | EXTERNAL LAB: | Routin | 04/30/2013 | | Results for this | | CREATININE | e | | | procedure are in the | | | | | | results section. | + +--------+ + + + | CMPI | Routin | 04/30/2013 | | Results for this | | | e | | | procedure are in the | | | | | | results section. | + +--------+ + + + documented in this encounter Results CMP/ISTAT (04/30/2013) + + + + + + | Component | Value | Ref Range | Performed | Pathologist | | | | | At | Signature | + + + + + + | Na | 136 | mmol/L | EXTERNAL | | | | | | LAB | | + + + + + + | K | 3.3 | mmol/L | EXTERNAL | | | | | | LAB | | + + + + + + | Cl | 100 | mmol/L | EXTERNAL | | | | | | LAB | | + + + + + + | CO2 | 25 | mmol/L | EXTERNAL | | | | | | LAB | | + + + + + + | BUN | 34 | mg/dL | EXTERNAL | | | | | | LAB | | + + + + + + | Glucose | 71 | mg/dL | EXTERNAL | | | | | | LAB | | + + + + + + | Calcium | 9.3 | mg/dL | EXTERNAL | | | | | | LAB | | + + + + + + | Uric Acid | 6.0 | mg/dL | EXTERNAL | | | | | | LAB | | + + + + + + | Phosphorus | 2.4 | 2.1 - 3.9 mg/dL | EXTERNAL | | | | | | LAB | | + + + + + + | PTH INTACT | 67.6 | pg/mL | EXTERNAL | | | | | | LAB | | + + + + + + | Bilirubin | 0.9 | mg/dL | EXTERNAL | | | Total | | | LAB | | + + + + + + | Alkaline | 81 | 35 - 115 U/L | EXTERNAL | | | Phosphatase | | | LAB | | + + + + + + | Albumin | 4.5 | 3.3 - 4.8 g/dL | EXTERNAL | | | | | | LAB | | + + + + + + | CREATININE | 31.0 (A) | 97.0 - 137.0 | EXTERNAL | | | CLEARANCE | | mL/min | LAB | | + + + + + + | PROTEIN, | 203.0 | mg/24hrs | EXTERNAL | | | 24HR URINE | | | LAB | | + [...] + +---------+ + + External Lab: AST (04/30/2013) + +-------+ + + + | Component | Value | Ref Range | Performed | Pathologist | | | | | At | Signature | + +-------+ + + + | AST, | 22 | | EXTERNAL | | [...] + +---------+ + + External Lab: ALT (04/30/2013) + +-------+ + + + | Component | Value | Ref Range | Performed | Pathologist | | | | | At | Signature | + +-------+ + + + | ALT, | 23 | | EXTERNAL | | | External [...] + +---------+ + + External Lab: Triglycerides (04/30/2013) + +-------+ + + + | Component | Value | Ref Range | Performed | Pathologist | | | | | At | Signature | + +-------+ + + + | Triglycerid | 74 | | EXTERNAL | | | es, [...] +---------+ + + External Lab: Cholesterol, HDL (04/30/2013) + +-------+ + + + | Component | Value | Ref Range | Performed | Pathologist | | | | | At | Signature | + +-------+ + + + | HDL | 51.1 | | EXTERNAL | | | Cholesterol [...] +---------+ + + External Lab: Cholesterol, Total (04/30/2013) + +-------+ + + + | Component | Value | Ref Range | Performed | Pathologist | | | | | At | Signature | + +-------+ + + + | Cholesterol | 141 | | EXTERNAL | | | , Total, [...] +---------+ + + External Lab: Cholesterol, LDL (04/30/2013) + +-------+ + + + | Component [...] + +---------+ + + External Lab: eGFR (04/30/2013) + +-------+ + + + | Component [...] | | | LAB | | | Nauruan, | | | | | | External [...] + +---------+ + + External Lab: Creatinine (04/30/2013) + +-------+ + + + | Component | Value | Ref Range | Performed | Pathologist | | | | | At | Signature | + +-------+ + + + | Creatinine, | 2 | | EXTERNAL | | | External [...]
--- OUTSIDE RECORDS SUMMARY | ~2019-03-07 | XMS | Encounter Summary ---
Demographics + + + | Address | [address] | | | [place] [address] | + + + | Home Phone | | + + + | Preferred Language | Unknown | + + + | Marital Status | | + + + | Rastafari Affiliation | 1001 | + + + | Race | Unknown | + + + | Ethnic Group | Unknown | + + + Author + + + | Author | [facility] | | | and [place]ra[place] | + + + | Organization | [facility] | | | and [...] [place] | | | | | [address] | | + + + + + Care Team Providers + +------+ + | Care Cushion Cover Inspector Name | Role | Phone | + +------+ + PCP | Unavailable | + +------+ + Encounter Details +--------+ + + + + | Date | Type | Department | Care Team | Description | +--------+ + + + + | 05/11/ | [facility] | [facility] | Ozzie Miguel | | | 2002 | Encounter | MED CTR SLEEP | MD Patric[address] | | | | | [place] [address] | [place] | | | | | [place] | [place] [address] | | | | | [address] | [phone] | | | | | [phone] | | | +--------+ + + + [...] [place] | | | | | | [address] | | | | | | | | +--------+ + + + + documented as of this encounter Visit Diagnoses Not on filedocumented in this encounter"
--- OUTSIDE RECORDS SUMMARY | ~2019-03-07 | XMS | Encounter Summary ---
Demographics + + + | Address | [address] | | | [place] [address] | + + + | Home Phone | | + + + | Preferred Language | Unknown | + + + | Marital Status | | + + + | Gnosticist Affiliation | 1001 | + + + | Race | Unknown | + + + | Ethnic Group | Unknown | + + + Author + + + | Author | [facility] | | | and [place]ra[place] | + + + | Organization | [facility] | | | and [place] [...] [place] | | | | | [address] | | + + + + + Care Team Providers + +------+ + | Care Release Of Information Specialist Name | Role | Phone | + +------+ + | Dre Jacobo MD | PCP | | + +------+ + Encounter Details +--------+ + + + + | Date | Type | Department | Care Team | Description | +--------+ + + + + | 07/31/ | Abstract | [facility] [place] | Bennie Garza | | | 2017 | | NEPHROLOGY [address] | M, DO [address] | | | | | [address] | [place] | | | | | [place], [place] | [place], [place] | | | | | [address] | [address] | | | | | [phone] | | | +--------+ + + + [...] | Visit | | DO Deep [address] | | | | | | [address] | | | | | | [place], [place] | | | | | | [phone] | | | | | | | | +--------+ + + + + documented as of this encounter Procedures + +--------+ + + + | Procedure Name | Priori | Date/Time | Associated Diagnosis | Comments | | | ty | | | | + +--------+ + + + | EXTERNAL LAB: | Routin | 10/31/2017 | | Results for this | | PROTEIN, URINE, 24HR | e | | | procedure are in the | | | | | | results section. | + +--------+ + + + | CREATININE | Routin | 10/31/2017 | | Results for this | | CLEARANCE, RESULT | e | | | procedure are in the | | | | | | results section. | + +--------+ + + + documented in this encounter Results External Lab: Protein, Urine, 24Hr (10/31/2017) + +---------+ + + + | Component | Value | Ref Range | Performed | Pathologist | | | | | At | Signature | + +---------+ + + + | Protein, | 372 (A) | 150 | EXTERNAL | | | Urine 24Hr, | | | LAB | | | External | | | | | + +---------+ + + + + + | Specimen | + + | Urine | + + + + | Resulting Agency Comment | + + | [facility] | + + + +---------+ + + | Performing | Address | City/State/Zipcode | Phone Number | | Organization | | | | + +---------+ + + | EXTERNAL LAB | | | | + +---------+ + + Creatinine Clearance, Result (10/31/2017) + + + + + + | Component | Value | Ref Range | Performed | Pathologist | | | | | At | Signature | + + + + + + | CREATININE | 46.0 (A) | 97.0 - 137.0 | | | | CLEARANCE | | mL/min | | | + + + + + + | 24H Urine | 1,550 | mL | | | | Volume | | | | | + + + + + + + + | Specimen | + + | Urine | + + documented in this encounter Visit Diagnoses Not on filedocumented in this encounter"
--- OUTSIDE RECORDS SUMMARY | ~2019-03-07 | XMS | Encounter Summary ---
Demographics + + + | Address | [address] | | | [place] [address] | + + + | Home Phone [...] | Author | [facility] | | | and [place]raana | + + + | Organization | [facility] | | | and [...] [place] | | | | | [address] | | + + + + + Care Team Providers + +------+ + | Care Leather Roller Name | Role | Phone | [...] | | | | [address] | [address] | | | | | [place], [place] | [place] [address] | | | | | [address] | [phone] | | | | | [phone] | | | +--------+ + + + [...] | Visit | | DO Deep [address] | | | | | | [address] | | | | | | [place] | | | | | | [address] | | | | | | | [...] | Testing performed at | | | [facility] [place];[address] [facility];[place] [address] CULTURE | | | <10,000 CFU/ML MIXED GRAM POSITIVE ISMAEL NO | | | SUSCEPTIBILITY TO FOLLOW | | | Testing performed at [facility], [address] [facility] [place] | | | [place] [address] REPORT STATUS 01/20/2011 | | | FINAL [...]
--- OUTSIDE RECORDS SUMMARY | ~2019-03-07 | XMS | Encounter Summary ---
Demographics + + + | Address | [address] | | | [place] [address] | + + + | Home Phone | | + + + | Preferred Language | Unknown | + + + | Marital Status | | + + + | Anabaptist Affiliation | 1001 | + + + | Race | Unknown | + + + | Ethnic Group | Unknown | + + + Author + + + | Author | [facility] | | | and [place]ra[place] | + + + | Organization | [facility] | | | and [...] [place] | | | | | [address] | | + + + + + Care Team Providers + +------+ + | Care Sheet Layer Name | Role | Phone | + +------+ + | Dre Jacobo MD | PCP | | + +------+ + Encounter Details +--------+ + + + + | Date | Type | Department | Care Team | Description | +--------+ + + + + | 04/03/ | Orders Only | [facility] [place] | Bennie Garza | Secondary | | 2012 | | NEPHROLOGY [address] | M, DO [address] | hyperparathyroidism | | | | [address] | [place] | (HCC) (Primary Dx); | | | | [place], [place] | [place], [place] | CHRONIC KIDNEY | | | | [address] | [address] | DISEASE STAGE III | | | | [phone] | | (MODERATE); Anemia | | | | | | in chronic kidney | | | | | | disease; | | | | | | Hypertension | +--------+ + + + + Social [...] this encounter Progress Tanika Cross RN - 04/03/2013 10:24 AM PSTLabs for nephrology appt on 05/07/13 sent to [facility] documented in this encounter Plan of Treatment +--------+ + + + + | Date | Type | Specialty | Care Team | Description | +--------+ + + + + | 03/12/ | Off-Site | Nephrology | Bennie Garza | | | 2018 | Visit | | DO Deep [address] [place] [address] | | | | | | [address] | | | | | | [place] | | | | | | [address] | | | | | | | | +--------+ + + + + documented as of this encounter Visit Diagnoses + + | Diagnosis | + + | Secondary hyperparathyroidism (HCC) - Primary Secondary hyperparathyroidism (of renal | | origin) | + + | CHRONIC KIDNEY DISEASE STAGE III (MODERATE) Chronic kidney disease, Stage III | | (moderate) | + + | Anemia in chronic kidney disease(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
--- OUTSIDE RECORDS SUMMARY | ~2019-03-07 | XMS | Encounter Summary ---
Demographics + + + | Address | [address] | | | [place] [address] | + + + | Home Phone | | + + + | Preferred Language | Unknown | + + + | Marital Status | | + + + | Bahai Affiliation | 1001 | + + + | Race | Unknown | + + + | Ethnic Group | Unknown | + + + Author + + + | Author | [facility] | | | and [place]ra[place] | + + + | Organization | [facility] | | | and [...] [place] | | | | | [address] | | + + + + + Care Team Providers + +------+ + | Care Industrial Maintenance Technician Name | Role | Phone | + +------+ + | Dre Jacobo MD | PCP | | + +------+ + Encounter Details +--------+ + + + + | Date | Type | Department | Care Team | Description | +--------+ + + + + | 04/05/ | Abstract | [facility] | Bennie Garza | | | 2015 | | NEPHROLOGY [address] | M, DO [address] | | | | | [address] | [place] | | | | | [place], [place] | [place], [place] | | | | | [address] | [address] | | | | | [phone] | | | +--------+ + + + [...] | Visit | | DO [address] | | | | | | [place] | | | | | | [place], [place] | | | | | | [address] | | | | | | | | +--------+ + + + + documented as of this encounter Procedures + +--------+ + + + | Procedure Name | Priori | Date/Time | Associated Diagnosis | Comments | | | ty | | | | + +--------+ + + + | EXTERNAL LAB: BUN | Routin | 07/07/2015 | | Results for this | | | e | | | procedure are in the | | | | | | results section. | + +--------+ + + + | EXTERNAL LAB: | Routin | 07/07/2015 | | Results for this | | GLUCOSE | e | | | procedure are in the | | | | | | results section. | + +--------+ + + + | EXTERNAL LAB: HADLEY | Routin | 07/07/2015 | | Results for this | | | e | | | procedure are in the | | | | | | results section. | + +--------+ + + + | EXTERNAL LAB: AST | Routin | 07/07/2015 | | Results for this | | | e | | | procedure are in the | | | | | | results section. | + +--------+ + + + | EXTERNAL LAB: | Routin | 07/07/2015 | | Results for this | | ALKALINE PHOSPHATASE | e | | | procedure are in the | | | | | | results section. | + +--------+ + + + | EXTERNAL LAB: | Routin | 07/07/2015 | | Results for this | | BILIRUBIN, TOTAL | e | | | procedure are in the | | | | | | results section. | + +--------+ + + + | EXTERNAL LAB: | Routin | 07/07/2015 | | Results for this | | ALBUMIN | e | | | procedure are in the | | | | | | results section. | + +--------+ + + + | EXTERNAL LAB: | Routin | 07/07/2015 | | Results for this | | PROTEIN, TOTAL | e | | | procedure are in the | | | | | | results section. | + +--------+ + + + | EXTERNAL LAB: | Routin | 07/07/2015 | | Results for this | | PHOSPHORUS | e | | | procedure are in the | | | | | | results section. | + +--------+ + + + | EXTERNAL LAB: | Routin | 07/07/2015 | | Results for this | | CALCIUM | e | | | procedure are in the | | | | | | results section. | + +--------+ + + + | EXTERNAL LAB: CARBON | Routin | 07/07/2015 | | Results for this | | DIOXIDE | e | | | procedure are in the | | | | | | results section. | + +--------+ + + + | EXTERNAL LAB: | Routin | 07/07/2015 | | Results for this | | CHLORIDE | e | | | procedure are in the | | | | | | results section. | + +--------+ + + + | EXTERNAL LAB: | Routin | 07/07/2015 | | Results for this | | POTASSIUM | e | | | procedure are in the | | | | | | results section. | + +--------+ + + + | EXTERNAL LAB: SODIUM | Routin | 07/07/2015 | | Results for this | | | e | | | procedure are in the | | | | | | results section. | + +--------+ + + + | EXTERNAL LAB: МАРИНА | Routin | 07/07/2015 | | Results for this | | INTACT | e | | | procedure are in the | | | | | | results section. | + +--------+ + + + | EXTERNAL LAB: | Routin | 07/07/2015 | | Results for this | | PROTEIN, URINE, 24HR | e | | | procedure are in the | | | | | | results section. | + +--------+ + + + | EXTERNAL LAB: CBC | Routin | 07/07/2015 | | Results for this | | | e | | | procedure are in the | | | | | | results section. | + +--------+ + + + | EXTERNAL LAB: EGFR | Routin | 07/07/2015 | | Results for this | | | e | | | procedure are in the | | | | | | results section. | + +--------+ + + + | EXTERNAL LAB: | Routin | 07/07/2015 | | Results for this | | CREATININE | e | | | procedure are in the | | | | | | results section. | + +--------+ + + + | CREATININE | Routin | 07/07/2015 | | Results for this | | CLEARANCE, RESULT | e | | | procedure are in the | | | | | | results section. | + +--------+ + + + documented in this encounter Results External Lab: PTH, Intact (07/07/2015) + + + + + + | Component | Value | Ref Range | Performed | Pathologist | | | | | At | Signature | + + + + + + | PTH Intact, | 127.8 (A) | 12 - 88 | | | | External | | | | | + + + + + + + + | Specimen | + + | | + + Creatinine Clearance, Result (07/07/2015) + + + + + + | Component | Value | Ref Range | Performed | Pathologist | | | | | At | Signature | + + + + + + | CREATININE | 27.0 (A) | 97.0 - 137.0 | [facility] | | | CLEARANCE | | mL/min | [facility] | | | | | [facility] | | | | | [facility] - | | | | | | LABORATORY | | + + + + + + | 24H Urine | 3,000 | mL | [facility] | | | [...] [address] | [place] | [phone] | | [facility] | | [address] | | | - LABORATORY | | | | + + + + + External Lab: ROSARIO (07/07/2015) + +--------+ + + + | Component | Value | Ref Range | Performed | Pathologist | | | | | At | Signature | + +--------+ + + + | BUN, | 32 (A) | 6 - 23 | EXTERNAL | | | External | | | LAB | | + +--------+ + + + + +---------+ + + | Performing | Address | City/State/Zipcode | Phone Number | | Organization | | | | + +---------+ + + | EXTERNAL LAB | | | | + +---------+ + + External Lab: Glucose (07/07/2015) + +-------+ + + + | Component | Value | Ref Range | Performed | Pathologist | | | | | At | Signature | + +-------+ + + + | Glucose, | 72 | 70 - 100 | EXTERNAL | | | External | | | LAB | | + +-------+ + + + + +---------+ + + | Performing | Address | City/State/Zipcode | Phone Number | | Organization | | | | + +---------+ + + | EXTERNAL LAB | | | | + +---------+ + + External Lab: ALT (07/07/2015) + +-------+ + + + | Component | Value | Ref Range | Performed | Pathologist | | | | | At | Signature | + +-------+ + + + | ALT, | 21 | | EXTERNAL | | | External | | | LAB | | + +-------+ + + + + +---------+ + + | Performing | Address | City/State/Zipcode | Phone Number | | Organization | | | | + +---------+ + + | EXTERNAL LAB | | | | + +---------+ + + External Lab: AST (07/07/2015) + +-------+ + + + | Component [...] +---------+ + + External Lab: Alkaline Phosphatase (07/07/2015) + +-------+ + + + | Component | Value | Ref Range | Performed | Pathologist | | | | | At | Signature | + +-------+ + + + | ALP, | 80 | | EXTERNAL | | | External | | | LAB | | + +-------+ + + + + +---------+ + + | Performing | Address | City/State/Zipcode | Phone Number | | Organization | | | | + +---------+ + + | EXTERNAL LAB | | | | + +---------+ + + External Lab: Bilirubin, Total (07/07/2015) + +-------+ + + + | Component | Value | Ref Range | Performed | Pathologist | | | | | At | Signature | + +-------+ + + + | Bilirubin, | 1.1 | | EXTERNAL | | | Total, | | | LAB | | | External | | | | | + +-------+ + + + + +---------+ + + | Performing | Address | City/State/Zipcode | Phone Number | | Organization | | | | + +---------+ + + | EXTERNAL LAB | | | | + +---------+ + + External Lab: Albumin (07/07/2015) + +-------+ + + + | Component | Value | Ref Range | Performed | Pathologist | | | | | At | Signature | + +-------+ + + + | Albumin, | 4.3 | 3.5 - 5 | EXTERNAL | | | External | | | LAB | | + +-------+ + + + + +---------+ + + | Performing | Address | City/State/Zipcode | Phone Number | | Organization | | | | + +---------+ + + | EXTERNAL LAB | | | | + +---------+ + + External Lab: Protein, Total (07/07/2015) + +-------+ + + + | Component | Value | Ref Range | Performed | Pathologist | | | | | At | Signature | + +-------+ + + + | Protein, | 7.0 | 6 - 8 | EXTERNAL | [...] + +---------+ + + External Lab: Phosphorus (07/07/2015) + +-------+ + + + | Component | Value | Ref Range | Performed | Pathologist | | | | | At | Signature | + +-------+ + + + | Phosphorus, | 3.2 | 2.5 - 5 | EXTERNAL | | | External | | | LAB | | + +-------+ + + + + +---------+ + + | Performing | Address | City/State/Zipcode | Phone Number | | Organization | | | | + +---------+ + + | EXTERNAL LAB | | | | + +---------+ + + External Lab: Calcium (07/07/2015) + +-------+ + + + | Component | Value | Ref Range | Performed | Pathologist | | | | | At | Signature | + +-------+ + + + | Calcium, | 9.1 | 8.4 - 10.2 | EXTERNAL | | | External | | | LAB | | + +-------+ + + + + +---------+ + + | Performing | Address | City/State/Zipcode | Phone Number | | Organization | | | | + +---------+ + + | EXTERNAL LAB | | | | + +---------+ + + External Lab: Carbon Dioxide (07/07/2015) + +-------+ + + + | Component | Value | Ref Range | Performed | Pathologist | | | | | At | Signature | + +-------+ + + + | Carbon | 21 | 19 - 31 | EXTERNAL | [...] + +---------+ + + External Lab: Chloride (07/07/2015) + +--------+ + + + | Component | Value | Ref Range | Performed | Pathologist | | | | | At | Signature | + +--------+ + + + | Chloride, | 98 (A) | 100 - 110 | EXTERNAL | | | External | | | LAB | | + +--------+ + + + + +---------+ + + | Performing | Address | City/State/Zipcode | Phone Number | | Organization | | | | + +---------+ + + | EXTERNAL LAB | | | | + +---------+ + + External Lab: Potassium (07/07/2015) + +-------+ + + + | Component | Value | Ref Range | Performed | Pathologist | | | | | At | Signature | + +-------+ + + + | Potassium, | 3.9 | 3.5 - 5.1 | EXTERNAL | | | External | | | LAB | | + +-------+ + + + + +---------+ + + | Performing | Address | City/State/Zipcode | Phone Number | | Organization | | | | + +---------+ + + | EXTERNAL LAB | | | | + +---------+ + + External Lab: Sodium (07/07/2015) + +---------+ + + + | Component | Value | Ref Range | Performed | Pathologist | | | | | At | Signature | + +---------+ + + + | Sodium, | 131 (A) | 135 - 145 | EXTERNAL | | | External | | | LAB | | + +---------+ + + + + +---------+ + + | Performing | Address | City/State/Zipcode | Phone Number | | Organization | | | | + +---------+ + + | EXTERNAL LAB | | | | + +---------+ + + External Lab: Protein, Urine, 24Hr (07/07/2015) + +---------+ + + + | Component | Value | Ref Range | Performed | Pathologist | | | | | At | Signature | + +---------+ + + + | Protein, | 180 (A) | 150 | EXTERNAL | | [...] + +---------+ + + External Lab: CBC (07/07/2015) + +-------+ + + + | Component | Value | Ref Range | Performed | Pathologist | | | | | At | Signature | + +-------+ + + + | WBC, | 5.5 | 4 - 11 | EXTERNAL | | | External | | | LAB | | + +-------+ + + + | HGB, | 14.1 | 13.5 - 18 | EXTERNAL | | | External | | | LAB | | + +-------+ + + + | HCT, | 44.1 | 37 - 48 | EXTERNAL | | | External | | | LAB | | + +-------+ + + + | PLT, | 171 | 140 - 440 | EXTERNAL | | | External | | | LAB | | + +-------+ + + + | RBC, | 4.65 | 4 - 6 | EXTERNAL | | | External | | | LAB | | + +-------+ + + + | MCV, | 95 | | EXTERNAL | | | External | | | LAB | | + +-------+ + + + | RDW, | 13.4 | | EXTERNAL | | | External | | | LAB | | + +-------+ + + + + +---------+ + + | Performing | Address | City/State/Zipcode | Phone Number | | Organization | | | | + +---------+ + + | EXTERNAL LAB | | | | + +---------+ + + External Lab: eGFR (07/07/2015) + +--------+ + + + | Component [...] + +---------+ + + External Lab: Creatinine (07/07/2015) + + + + + + | Component | Value | Ref Range | Performed | Pathologist | | | | | At | Signature | + + + + + + | Creatinine, | 2.49 (A) | 0.6 - 1.3 | EXTERNAL [...]
--- OUTSIDE RECORDS SUMMARY | ~2019-03-07 | XMS | Encounter Summary ---
Demographics + + + | Address | [address] | | | [place] [address] | + + + | Home Phone [...] | Author | [facility] | | | and [place] | + + + | Organization | [facility] | | | and [place] [...] [place] | | | | | [address] | | + + + + + Care Team Providers + +------+ + | Care Map Editor Name | Role | Phone | + +------+ + | Dre Jacobo MD | PCP | | + +------+ + Reason for Visit + + + | Reason | Comments | + + + | Medication Question | | + + + Encounter Details +--------+ + + + + | Date | Type | Department | Care Team | Description | +--------+ + + + + | 10/13/ | Telephone | [facility] | Bennie Garza | Medication Question | | 2015 | | NEPHROLOGY [address] | M, DO [address] | | | | | [address] | [place] | | | | | [place], [place] | [place], [place] | | | | | [address] | [address] | | | | | [phone] | | | +--------+ + + + [...] 2019 | Visit | | DO Deep [address] [place] [address] | | | | | | [place] | | | | | | [place] | | | | | | [id number] | | | | | | | | +--------+ + + + + documented as of this encounter Visit Diagnoses Not on filedocumented in this encounter"
--- OUTSIDE RECORDS SUMMARY | ~2019-03-07 | XMS | Encounter Summary ---
Demographics + + + | Address | [address] | | | [place] [address] | + + + | Home Phone [...] + | Author | [facility] | | | and [place] | + + + | Organization | [facility] | | | and [...] [place] | | | | | [address] | | + + + + + Care Team Providers + +------+ + | Care Police Patrol Lieutenant Name | Role | Phone | [...] NEPHROLOGY [address] | M, DO [address] | | | | | [address] | [place] | | | | | [place], [place] | [place], [place] | | | | | [address] | [address] | | | | | [phone] | | | +--------+ + + + [...] 2018 | Visit | | DO Deep [address] [place] [address] | | | | | | [place] [facility] | | | | | | [place] | | | | | | [address] | | | | | | | | +--------+ + + + + documented as of this encounter Visit Diagnoses Not on filedocumented in this encounter"
--- OUTSIDE RECORDS SUMMARY | ~2019-03-07 | XMS | Encounter Summary ---
Demographics + + + | Address | [address] | | | [place] [address] | + + + | Home Phone | | + + + | Preferred Language | Unknown | + + + | Marital Status | | + + + | Congregation Affiliation | 1001 | + + + | Race | Unknown | + + + | Ethnic Group | Unknown | + + + Author + + + | Author | [facility] | | | and Ezraana | + + + | Organization | [facility] | | | and [place]ra[place] | + + + | Address | Unknown | + + + | Phone | Unavailable | + + + Support + + + + + | Name | Relationship | Address | Phone | + + + + + | Genet Glasgow | ECON | [address] | | | | | [place] | | | | | [address] | | + + + + + Care Team Providers + +------+ + | Care Transport Conductor Name | Role | Phone | + +------+ + | Dre Jacobo MD | PCP | | + +------+ + Reason for Referral Surgical (Routine) +--------+ + + + + + | Status | Reason | Specialty | Diagnoses / | Referred By | Referred To | | | | | Procedures | Contact | Contact | +--------+ + + + + + | Closed | Specialty | Surgery / | Diagnoses | Field, | Field, | | | Services | General | End stage | Luis Enrique I, | Luis Enrique I, | | | Required | Surgery | renal | , FACS | [address] | | | | | disease | [address] | [address] | | | | | (HCC) | [place] | | | | | Procedures | [place], [place] | [place] [address] | | | | | [place] | [address] | Phone: | | | | | REVISE | Phone: | [phone] | | | | | GRLANCE,W | [phone] | Fax: | | | | | THROMBECTOMY | Fax: | [phone] | | | | | | [phone] | | +--------+ + + + + + Reason for Visit + + + | Reason | Comments | + + + | New Patient | AV Fistula not working | + + + Encounter Details +--------+---------+ + + + | Date | Type | Department | Care Team | Description | +--------+---------+ + + + | 10/16/ | Office | [facility] | Luis Enrique Mcmillan | End stage renal | | 2013 | Visit | SURGERY [address] | MD Blanco, FACS [address] | disease (HCC) | | | | [place], [place] | [address] [facility] | (Primary Dx) | | | | [address] | [place] [address] | | | | | [phone] | [phone] | | | | | | | [...] + + + | Blood Pressure | 120/66 | 10/16/2012 4:33 PM | | | | | PDT | | + + + + + | Pulse | 73 | 10/16/2012 4:33 PM | | | | | PDT | | + + + + + | Temperature | 36.4 C (97.6 F) | 10/16/2012 4:33 PM | | | | | PDT | | + + + + + | Respiratory Rate | 16 | 10/16/2012 4:33 PM | | | | | PDT | | + + + + + | Oxygen Saturation | 98% | 10/16/2012 4:33 PM | | | | | PDT | | + + + + + | Inhaled Oxygen | - | - | | | Concentration | | | | + + + + + | Weight | 66.8 kg (147 lb 4.8 | 10/16/2012 4:33 PM | | | | oz) | PDT | | + + + + + | Height | 165.1 cm (5' 5") | 10/16/2012 4:33 PM | | | | | PDT | | + + + + + | Body Mass Index | 24.51 | 10/16/2012 4:33 PM | | | | | PDT | | + + + + + documented in this encounter Progress Isabel Galvan - 10/24/2012 4:10 PM PDT Luis Enrique Herrera MD - 10/16/2012 4:00 PM PDT Patient Identification: Dillon Glasgow 1945 Is a 67 y.o. male , a patient of Rubin Jacobo. Chief Complaint: Chief Complaint Patient presents with New Patient AV Fistula not working Patients Preliminary Questionaire: Have you started dialysis yet? No How many years have been dialyzed? none Are you a candidate for kidney transplantation? No Who is your Primary Care ? Dre Jacobo Who is your Radiographic Technologist/Kidney Specialist ? Dr. Garza When was the current dialysis access placed? See below What problems are there with the current dialysis access? Fistula failed HPI Dillon Glasgow is a 67 y.o. male patient of Dre Jacobo here today for evaluat ion of AV Fistula not working Patient is here alone. Dr Talamantes did left upper arm AVF twice in 2010. On December 10, 2010 Albin-left basilic vein to brachial artery AV fistula. Has recently failed. Patient unclear about when it failed. Maybe about 2-3 months ago. Hasn't needed any dialysis. Patient is left handed. Patient is retired. No hobbies. Diaz s pentecostal stuff. On September 25, 2012 at an other serum creatinine 2.65 milligrams/DL creatinine clearance 31 m L/min, GFR estimation 24 mL/min. On November 27, 2010--vein study was completed Dre Jacobo's notes were Not available to be reviewed in clinic today. Notes from Dr Garza October 09, 2012: Followup for this 67-year-old white male with history of CKD secondary to hypertension, SHP TH, and remote depression. He has had a left arm aVF, placed 12/10/10, in anticipation of dial ysis. Overall, he is very talkative and energetic here in clinic. He is somewhat fearful roger t his left arm AVF may have clotted in the last 2 months, but he cannot clearly pinpoint the date. Past Medical History He has a past medical history of Hypertension; Secondary hyperparathyroidism; Depression; S leep apnea; Chronic kidney disease, stage III (moderate); Anemia; and Panic attack. Past Surgical History He has past surgical history that includes Tonsillectomy; Nose surgery (1958); and Uvulopal atopharygoplasty (2000). No Known Allergies Medications: He has a current medication list which includes the following prescription(s): allopurinol, calcitriol, klonopin, co q-10, fluoxetine, l-tyrosine, cvs vitamin b-6, trazodone, vitamin b-12, and zinc picolinate. Family History: His family history includes Diabetes [...] not drink alcohol or use illicit drugs. Review of Systems General: []Weight loss/gain (over 10 lbs) []Fever/chills []Night sweats Hematologic: [x]Bleeding/brusing tendencies []Blood transfusion []Anemia Heent: []Hearing loss []Vision loss []Sinus problems/nosebleeds []Hoarseness Respiratory: []Wheezing []Shortness of breat []Cough []Spitting up blood []On oxygen Cardiac: []Chest pain []Palpitations/heart racing []Swelling of ankles/hands []Unusual shortness of breath []Difficulty sleeping flat Gastrointestinal: []Nausea/vomiting []Difficulty swallowing []Heartburn []Loss of appetite []Abdominal pain []Stomach Ulcers []Diarrhea []Constipation [x]Blood in stool Vascular: []Judd/TIAs []Fainting []Difficulty with speech []Leg cramps []Pain in feet/legs at rest []Foot ulcers/sores []Varicose veins []Phlebitis/blood clots Musculoskeletal: []Joint stiffness/swelling []Join pain []Back pain []Arthritis [x]Gout Urologic: []Blood in urine []Frequent urination at night []Burning/painful urination []Kidney stones []Difficulty urination []Sexual difficulties Neuro/Psychiatric: []Headaches []Seizures [x]Depression [x]Pain/anxiety attacks []Memory loss or confusion Objective BP 120/66 | Pulse 73 | Temp 36.4 C (97.6 F) (Temporal) | Resp 16 | Ht 1.651 m (5' 5") | Wt 66.815 kg (147 lb 4.8 oz) | BMI 24.51 kg/m2 | SpO2 98% General Appearance: Alert, cooperative, no distress, appears stated age Head: Normocephalic, without obvious abnormality, atraumatic Eyes: PERRL, conjunctiva/corneas clear, EOM's intact Ears: Adequate hearing Nose: Nares normal, septum midline. Neck: Supple, symmetrical, no adenopathy, no neck bruits Lungs: Breath sounds are equal bilaterally, no wheezes or crackles Chest Wall/Back: No tenderness or deformity. No CVA Tenderness, no pacemaker Heart: Regular rate and rhythm, no murmur. Abdomen: Soft, non-tender, no pulsatile nor other masses Extremities: RIGHT arm No visible veins LEFT arm Medial upper arm with palpable 8-10 mm vein--somewhat soft Palpable pulses Brachial Radial Ulnar Femoral LEFT 2+ 2+ RIGHT 2+ 2+ 2+ Ultrasound: See report. Neurologic: Cranial nerves II-XII grossly intact, UE motor Intact Gait normal ULTRASOUND REPORT: PATIENT NAME : Dillon Glasgow EQUIPMENT: [employer] M-Turbo with 10-5 mHertz probe. INDICATIONS: Ddialysis access evaluation FINDING: LEFT arm Upper tranlocated ? Basilic vein : Soft, about 8 mm, no flow. Patent brachial artery. RIGHT arm: Cephalic vein is absent. Basilic vein is 3.9 mm , brachial artery 3.8 mm IMPRESSION: Thrombosed left basilic vein brachial artery fistula, relatively small right ar m basilic vein. Assessment Dillon was seen today for new patient. Diagnoses and associated orders for this visit: End stage renal disease patient with thrombosed left brachial artery basilic vein fistula. Patient not yet requi ring dialysis. Plan 1)Recommend LEFT uppper arm AV fistula exploration, possible declot and revision. The alte rnative of proceeding with the right arm brachial artery basilic vein fistula was explained. Given his recent plateau in renal failure, I would recommend attempting to declot left bra chial artery basilic vein. It may need an additional piece of [place]. By ultrasound appe ars that he is a venous stenosis 1 centimeters distal to the anastomosis. If we are surgic ally unable to restore flow in the left arm fistula then would recommend waiting for further deterioration of his renal function before proceeding with a right arm AV fistula. Risks and possible complications including bleeding, infection, hand pain, failure for vein to dilate, MA stroke and was explained. No guarantees given or implied. Patient under stands and wishes to proceed. Luis Enrique Mcmillan MD CC: Dre Jacobo documented in this encounter Plan of Treatment +--------+ + + + + | Date | Type | Specialty | Care Team | Description | +--------+ + + + + | 03/12/ | Off-Site | Nephrology | Bennie Garza | | | 2018 | Visit | | DO Deep [address] [place] [address] | | | | | | [address] | | | | | | [place] | | | | | | [address] | | | | | | | | +--------+ + + + + + + +--------+ + + | Name | Type | Priori | Associated Diagnoses | Order Schedule | | | | ty | | | + + +--------+ + + | Ambulatory referral | Outpatient | Routin | End stage renal | Ordered: 10/20/2012 | | to General Surgery | Referral | e | disease (HCC) | | + + +--------+ + + documented as of this encounter Visit Diagnoses + + | Diagnosis | + + | End stage renal disease (HCC) - Primary End stage renal disease | + + documented in this encounter
--- OUTSIDE RECORDS SUMMARY | ~2019-03-07 | XMS | Encounter Summary ---
Demographics + + + | Address | [address] | | | [place] [address] | + + + | Home Phone | | + + + | Preferred Language | Unknown | + + + | Marital Status | | + + + | Yazdanism Affiliation | 1001 | + + + | Race | Unknown | + + + | Ethnic Group | Unknown | + + + Author + + + | Author | [facility] | | | and Ezra[place] | + + + | Organization | [facility] | | | and [...] [place] | | | | | [address] | | + + + + + Care Team Providers + +------+ + | Care Licensed Real Estate Broker Name | Role | Phone | + +------+ + | Dre Jacobo MD | PCP | | + +------+ + Encounter Details +--------+ + + + + | Date | Type | Department | Care Team | Description | +--------+ + + + + | 05/01/ | Orders Only | [facility] [place] | Bennie Garza | CHRONIC KIDNEY | | 2016 | | NEPHROLOGY [address] | M, DO [address] | DISEASE STAGE III | | | | [address] | [place] [place] [address] | (MODERATE) (Primary | | | | [place], [place] | [place], [place] | Dx); Anemia in | | | | [address] | [address] | chronic kidney | | | | [phone] | | disease(285.21); | | | | | | SECONDARY | | | | | | HYPERPARATHYROIDISM; | | | | | | Essential | | | | | | hypertension | +--------+ + + + + Social [...] encounter Progress Notes Tanika Maddox RN - 05/01/2015 10:13 AM PSTInterpath 05/26/15 documented in this encounter Plan of Treatment +--------+ + + + + | Date | Type | Specialty | Care Team | Description | +--------+ + + + + | 03/12/ | Off-Site | Nephrology | Bennie Garza | | | 2018 | Visit | | DO Deep [address] [place] [address] | | | | | | [place] | | | | | | [place] | | | | | | [address] | | | | | | | | +--------+ + + + + documented as of this encounter Visit Diagnoses + + | Diagnosis | + + | CHRONIC KIDNEY DISEASE STAGE III (MODERATE) - Primary Chronic kidney disease, Stage | | III (moderate) | + + | Anemia in chronic kidney disease(285.21) Anemia in chronic kidney disease | + + | SECONDARY HYPERPARATHYROIDISM Secondary hyperparathyroidism (of renal origin) | + + | Essential hypertension Unspecified essential hypertension | + + documented in this encounter"
--- OUTSIDE RECORDS SUMMARY | ~2019-03-07 | XMS | Encounter Summary ---
Demographics + + + | Address | [address] | | | [place] [address] | + + + | Home Phone | | + + + | Preferred Language | Unknown | + + + | Marital Status | | + + + | Quaker Affiliation | 1001 | + + + | Race | Unknown | + + + | Ethnic Group | Unknown | + + + Author + + + | Author | [facility] | | | and [place]ra[place] | + + + | Organization | [facility] | | | and [...] [place] | | | | | [address] | | + + + + + Care Team Providers + +------+ + | Care Manifold Builder Name | Role | Phone | + +------+ + | Dre Jacobo MD | PCP | | + +------+ + Reason for Visit +---------+ + | Reason | Comments | +---------+ + | Post Op | PO RIGHT ARM AV FISTULA/STROEMEL | +---------+ + Encounter Details +--------+---------+ + + + | Date | Type | Department | Care Team | Description | +--------+---------+ + + + | 06/12/ | Office | [facility] | Luis Enrique Mcmillan | End stage renal | | 2013 | Visit | SURGERY [address] | MD Blanco, FACS [address] | disease (HCC) | | | | [place], [place] | [facility] | (Primary Dx) | | | | [address] | [place] [address] | | | | | [phone] | [phone] | | | | | | | [...] + + + | Blood Pressure | - | - | | + + + + + | Pulse | 76 | 06/12/2013 1:34 PM | | | | | PDT | | + + + + + | Temperature | 36.5 C (97.7 F) | 06/12/2013 1:34 PM | | | | | PDT | | + + + + + | Respiratory Rate | 16 | 06/12/2013 1:34 PM | | | | | PDT | | + + + + + | Oxygen Saturation | 99% | 06/12/2013 1:34 PM | | | | | PDT | | + + + + + | Inhaled Oxygen | - | - | | | Concentration | | | | + + + + + | Weight | 67.4 kg (148 lb 9.6 | 06/12/2013 1:34 PM | | | | oz) | PDT | | + + + + + | Height | 165.1 cm (5' 5") | 06/12/2013 1:34 PM | | | | | PDT | | + + + + + | Body Mass Index | 24.73 | 06/12/2013 1:34 PM | | | | | PDT | | + + + + + documented in this encounter Patient Instructions Patient Instructions Luis Enrique Mcmillan MD - 06/12/2013 1:51 PM PDT NO BP or NEEDLES in RIGHT arm. Follow up with Dr Mcmillan in 3 months. --will check for narrowing of venous end. documented in this encounter Progress Notes Luis Enrique Mcmillan MD - 06/12/2013 1:15 PM PDT Patient Identification: Dillon Glasgow 1945 Is a 68 y.o. male , a patient of Rubin Jacobo. Patient is here alone . S: Date of surgery 06/04/2013 . Title of surgery: Right AV fistula . Physician notes: Minimal pain in incision. No pain in hand. Sometimes bilateral hand pain--attributes to arthritis in his neck. Past Medical History He has a past medical history of Hypertension; Secondary hyperparathyroidism (HCC); Depress ion; Sleep apnea; Chronic kidney disease, stage III (moderate) (HCC); Anemia; and Panic bk ck. Past Surgical History He Past Surgical History Procedure Date Tonsillectomy Nose surgery 1958 Uvulopalatopharygoplasty 2000 Av fistula repair Exploration, left brachial-basilic fistula 11/03/2012 Right av fistula 06/04/2013 Dr. Mcmillan No Known Allergies Medications: He has a current medication list which includes the following prescription(s): allopurinol, benazepril, calcitriol, klonopin, fluoxetine, and trazodone. Outpatient Encounter Prescriptions as of 06/12/2013 Medication Sig Dispense Refill allopurinol (ZYLOPRIM) 100 mg tablet Take 100 mg by mouth Daily. benazepril (LOTENSIN) 10 mg tablet Take 5 mg by mouth Daily. calcitRIOL (ROCALTROL) 0.5 [...] never used smokeless tobacco. He reports that h e does not drink alcohol or use illicit drugs. PE: RIGHT arm: Incision clean and dry. Excellent thrill mid-forearm. IMP: functioning fistula--one week old. P: NO BP or NEEDLES in RIGHT arm. Follow up with Dr Mcmillan in 3 months. --will check for narrowing of venous end. Luis Enrique Mcmillan MD, FACS Vascular and General Surgery documented in this encounter Plan of Treatment +--------+ + + + + | Date | Type | Specialty | Care Team | Description | +--------+ + + + + | 03/12/ | Off-Site | Nephrology | Bennie Garza | | | 2019 | Visit | | DO Deep [address] [place] [address] | | | | | | [place] [address] | | | | | | [place], [place] | | | | | | [address] | | | | | | | | +--------+ + + + + documented as of this encounter Visit Diagnoses + + | Diagnosis | + + | End stage renal disease (HCC) - Primary End stage renal disease | + + documented in this encounter
--- OUTSIDE RECORDS SUMMARY | ~2019-03-07 | XMS | Encounter Summary ---
Demographics + + + | Address | [address] | | | [place] [address] | + + + | Home Phone [...] | [facility] [place] [facility] | | | and [place] | + + + | Organization | [facility] [place] [facility] | | | and [...] [place] | | | | | [address] | | + + + + + Care Team Providers + +------+ + | Care Moving Picture Producer Name | Role | Phone | [...] kidney | MD [address] | [address] | | | | | disease, | [address] | [place], [place] | | | | | stage 4 | [address] | [address] [place] | | | | | (severe) | [place], | [place], [place] | | | | | (HCC) | [place] | [address] Phone: | | | | | Hypertension | [address] | [phone] | | | | | 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 | [phone] | [phone] | | | | | kidney | Fax: | | | | | | disease | [phone] | | | | | | Procedures | | | | | | | MD OFFICE | | | | | | | OUTPATIENT | | | | | | | VISIT 25 | | | | | | | MINUTES | | | +--------+--------+ + + + + Encounter Details +--------+ + + + + | Date | Type | Department | Care Team | Description | +--------+ + + + + | 03/22/ | Off-Site | [facility] [place] | Bennie Garza | Essential | | 2016 | Visit | NEPHROLOGY [address] | M, DO [address] | hypertension | | | | [address] | [place], [address] | (Primary Dx); | | | | [place], [place] | [place], [place] | Chronic kidney | | | | [address] | [address] | disease, stage IV | | | | [phone] | | (severe) (HCC); | | | | | | SECONDARY | | | | | | HYPERPARATHYROIDISM; | | | | | | Idiopathic gout, | | | | | | unspecified | | | | | | chronicity, | | | | | | unspecified site | +--------+ + + + + Social [...] + + + | Blood Pressure | 107/60 | 03/22/2016 2:18 PM | | | | | PST | | + + + + + | Pulse | - | - | | + + + + + | Temperature | 36 C (96.8 F) | 03/22/2016 2:18 PM | | | | | [...] + + + + | Weight | 60.3 kg (132 lb 15 | 03/22/2016 2:18 PM | | | | oz) | PST | | + + + + + | Height | - | - | | + + + + + | Body Mass Index | 22.12 | 10/02/2013 2:09 PM | | | | | PDT | | + + + + + documented in this encounter Progress Notes Bennie Garza DO - 03/22/2016 2:26 PM PST Subjective: NEPHROLOGY Patient ID: Dillon Glasgow is a 70 y.o. male. HPI Comments: Followup for this pleasant, 70 YO white male with a long history of CKD sec ondary to hypertension, SHPTH, and remote depression. He is s/p AVF construction in his right arm on 06/04/13. He appears to follow a very strict, low salt, vegetarian diet, and therefore, has had very slow progression of his CKD. He still denies anorexia, nausea, edema, hiccups or pruritus. His vasodilators have been D C'd to help promote maturation of his [place] AVF, which continues to develop nicely. Outpatient Prescriptions Marked as Taking for the 03/22/16 encounter (Off-Site Visit) with Bennie Garza DO Medication Sig Dispense Refill allopurinol (ZYLOPRIM) 100 mg tablet Take 100 mg by mouth Daily. calcitriol (ROCALTROL) 0.25 mcg capsule Take 1 capsule by mouth Daily. 90 capsule 4 clonazePAM (KLONOPIN) 0.5 mg tablet Take 0.5 mg by mouth nightly. (Patient taking diffe rently: Take 0.25 mg by mouth nightly as needed.) fluoxetine (PROZAC) 40 MG capsule Take 40 mg by mouth Daily. traZODone (DESYREL) 50 mg tablet Take 100 mg by mouth nightly. No Known Allergies Objective: BP 107/60 mmHg | Temp(Src) 36 C (96.8 F) | Wt 60.3 kg (132 lb 15 oz) Physical Exam Cardiovascular: Regular rate and rhythm, with no S3, S4, murmur or rub. Pulmonary/Chest: CTA in all yanes. No rales or wheezes. Abdominal: Soft, flat, nontender, normoactive bowel sounds, no guarding. Musculoskeletal: No clubbing, cyanosis, or edema. (+) ~ 6mm, AVF in the right arm with a strong brui t. Lab Results Component Value Date NAEX 136 03/08/2016 KEX 4.1 03/08/2016 CLEX 101 03/08/2016 CO2EX 21 03/08/2016 BUNEX 38* 03/08/2016 CREEX 2.54* 03/08/2016 EGFREX 25* 03/08/2016 GLUEX 74 03/08/2016 PHOSEX 3.0 03/08/2016 PTHEX 61.71* 03/08/2016 Lab Results Component Value Date CHOLEX 143 03/08/2016 HDLEX 57.3 03/08/2016 LDLEX 74 03/08/2016 TRIGEX 59 03/08/2016 Lab Results Component Value Date WBCEX 6.1 03/08/2016 HGBEX 14.4 03/08/2016 HCTEX 42.8 03/08/2016 PLTEX 165 03/08/2016 Lab Results Component Value Date PROTEX 260* 03/08/2016 CRCLEARANCE 28.0* 03/08/2016 Assessment: 1. CKD, Stage IV, secondary to hypertensive nephrosclerosis-- no symptoms of uremia. 2. Hypertension-- stable off of drug Rx. 4. Depression--compensated. 5. History of gout--in remission. 6. SHPTH-- good control. Plan: 1. I reviewed with Dillon his Ccr, lab, and PTH. He appears to be having very slow progre ssion of his CKD. 2. He does appear to have some loss of LBW? I encouraged him to keep up with his daily in take of HBV protein. 3. His AVF is fully mature, and continues to thrive. I reaffirmed to Dillon that he made an excellent decision about placing that early. 4. I refilled his Calcitriol. Will plan to see him back in [address] [facility], [place], [place]. He will have a CBC, CMP, P04, PTH, and 24-hour urine collection one week pr ior to that. : Ray Mcmillan MD, FACS documented in t his encounter Plan of Treatment +--------+ + + + + | Date | Type | Specialty | Care Team | Description | +--------+ + + + + | 03/12/ | Off-Site | Nephrology | Bennie Garza | | | 2019 | Visit | | Deep DO [address] | | | | | | [place] [address] | | | | | | [place] | | | | | | [phone] | | | | | | | | +--------+ + + + + documented as of this encounter Visit Diagnoses + + | Diagnosis | + + | Essential hypertension - Primary Unspecified essential hypertension | + + | Chronic kidney disease, stage IV (severe) (HCC) Chronic kidney disease, Stage IV | | (severe) | + + | SECONDARY HYPERPARATHYROIDISM Secondary hyperparathyroidism (of renal origin) | + + | Idiopathic gout, unspecified chronicity, unspecified site | + + documented in this encounter"
--- OUTSIDE RECORDS SUMMARY | ~2019-03-07 | XMS | Encounter Summary ---
Demographics + + + | Address | [address] | | | [place] [address] | + + + | Home Phone | | + + + | Preferred Language | Unknown | + + + | Marital Status | | + + + | Mandaeism Affiliation | 1001 | + + + | Race | Unknown | + + + | Ethnic Group | Unknown | + + + Author + + + | Author | [facility] | | | and Ezraana | + + + | Organization | [facility] | | | and [...] [place] | | | | | [address] | | + + + + + Care Team Providers + +------+ + | Care Construction Safety Consultant Name | Role | Phone | [...] kidney | MD [address] | [address] | | | | | disease, | [address] | [place], [place] | | | | | stage 4 | [place] [address] | [address] [place] | | | | | (severe) | [place], | [place], [place] | | | | | (HCC) | [place] | [address] Phone: | | | | | Hypertension | [address] | [phone] | | | | | 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 | [phone] | [phone] | | | | | kidney | Fax: | | | | | | disease | [phone] | | | | | | Procedures | | | | | | | [place] OFFICE | | | | | | | OUTPATIENT | | | | | | | VISIT 25 | | | | | | | MINUTES | | | +--------+--------+ + + + + Encounter Details +--------+ + + + + | Date | Type | Department | Care Team | Description | +--------+ + + + + | 11/23/ | Off-Site | [facility] [place] | Bennie Garza | Chronic kidney | | 2016 | Visit | NEPHROLOGY [address] | M, DO [address] | disease, stage IV | | | | [address] | [place], [place] [address] | (severe) (HCC) | | | | [place], [place] | [place] | (Primary Dx); Anemia | | | | [address] | [address] | in chronic kidney | | | | [phone] | | disease(285.21); | | | | | | Essential | | | | | | hypertension with | | | | | | goal blood pressure | | | | | | less than 130/80; | | | | | | Secondary [...] + + + | Blood Pressure | 150/88 | 11/24/2015 3:07 PM | | | | | PDT | | + + + + + | Pulse | - | - | | + + + + + | Temperature | 36 C (96.8 F) | 11/24/2015 3:07 PM | | | | | PDT [...] + + + + | Weight | 60.6 kg (133 lb 8 | 11/24/2015 3:07 PM | | | | oz) | PDT | | + + + + + | Height | - | - | | + + + + + | Body Mass Index | 22.22 | 10/02/2013 2:09 PM | | | | | PDT | | + + + + + documented in this encounter Progress Notes Bennie Garza DO - 11/24/2015 3:10 PM PDT Subjective: NEPHROLOGY Patient ID: Dillon Glasgow is a 70 y.o. male. HPI Comments: Followup for this pleasant, 70 YOWM with history of CKD secondary to hyper tension, SHPTH, and remote depression. He is s/p AVF construction in his right arm on 06/04/13. He states that he had a dental absce ss approximately 1-2 mo. ago which was I&D'd by his oral surgeon, and then treated with oral metronidazole, with apparent resolution. He states that is was described as a "fungal infe ction" by is unclear if any other Rx, and has scant details? He feels well otherwise. Denies edema, nausea, hiccups or MAURICE. Outpatient Prescriptions Marked as Taking for the 11/24/15 encounter (Off-Site Visit) with Deep Garza DO Medication Sig Dispense Refill allopurinol (ZYLOPRIM) 100 mg tablet Take 100 mg by mouth Daily. calcitriol (ROCALTROL) 0.25 mcg capsule Take 1 capsule by mouth Daily. 90 capsule 4 [DISCONTINUED] calcitriol (ROCALTROL) 0.25 mcg capsule Take 1 capsule by mouth Daily. 9 0 capsule 3 clonazePAM (KLONOPIN) 0.5 mg tablet Take 0.5 mg by mouth nightly. fluoxetine (PROZAC) 40 MG capsule Take 40 mg by mouth Daily. traZODone (DESYREL) 50 mg tablet Take 100 mg by mouth nightly. No Known Allergies Objective: BP 150/88 mmHg | Temp(Src) 36 C (96.8 F) | Wt 60.555 kg (133 lb 8 oz) Physical Exam Cardiovascular: Regular rate and rhythm, with no S3, S4, murmur or rub. Pulmonary/Chest: CTA bilaterally. No rales or wheezes. Abdominal: Soft, flat, nontender, normoactive bowel sounds, no guarding. Musculoskeletal: No clubbing, cyanosis, or edema. (+) ~ 6mm, AVF in the right arm with a strong brui t. Lab Results Component Value Date NAEX 137 11/17/2015 KEX 3.6 11/17/2015 CLEX 102 11/17/2015 CO2EX 21 11/17/2015 BUNEX 40* 11/17/2015 CREEX 2.36* 11/17/2015 EGFREX 27 11/17/2015 GLUEX 82 11/17/2015 PHOSEX 3.2 11/17/2015 PTHEX 44.08 11/17/2015 Lab Results Component Value Date CHOLEX 142 11/17/2015 HDLEX 51.9* 11/17/2015 LDLEX 77 11/17/2015 TRIGEX 66 11/17/2015 Lab Results Component Value Date WBCEX 6.1 11/17/2015 HGBEX 13.3* 11/17/2015 HCTEX 40.1* 11/17/2015 PLTEX 169 11/17/2015 Lab Results Component Value Date PROTEX 207* 11/17/2015 CRCLEARANCE 31.0* 11/17/2015 Assessment: 1. CKD, Stage IV, secondary to hypertensive nephrosclerosis-- his GFR is about same. 2. Hypertension-- improved with diet Rx, last 24 Months? 4. Depression--compensated. 5. History of gout--in remission. 6. SHPTH-- improved on calcitriol. Plan: 1. I reviewed with Dillon his Ccr, anemia, BP's, and lab. I discussed that his GFR appears to have plateaued for now. Clinically, he does not describe symptoms of uremia. 2. His AVF appears to have developed very nicely, and again, is fully mature, if needed. 3. He appears to be following a very strict, low salt diet, which appears to have contribu teresa to the slow decline in his CKD. 4. PTH is improved on current dose of Calcitriol. 5. Will plan to see him back in 4 mo. at the [facility] Clinic, [facility], in [place]. He will collins ve a CBC, CMP, P04, PTH, and 24-hour urine collection one week prior to that. : Ray Mcmillan MD, FACS documented in th is encounter Plan of Treatment +--------+ + + + + | Date | Type | Specialty | Care Team | Description | +--------+ + + + + | 03/12/ | Off-Site | Nephrology | Bennie Garza | | | 2019 | Visit | | DO Deep [address] | | | | | | [address] | | | | | | [place] | | | | | | [id number] [...] chronic kidney disease | + + | Essential hypertension with goal blood pressure less than 130/80 | + + | Secondary hyperparathyroidism (of renal origin) | + + documented in this encounter
--- OUTSIDE RECORDS SUMMARY | ~2019-03-07 | XMS | Encounter Summary ---
Demographics + + + | Address | [address] | | | [place] [address] | + + + | Home Phone | | + + + | Preferred Language | Unknown | + + + | Marital Status | | + + + | Oriental Orthodox Affiliation | 1001 | + + + | Race | Unknown | + + + | Ethnic Group | Unknown | + + + Author + + + | Author | [facility] | | | and [place]ra[place] | + + + | Organization | [facility] | | | and [place]raana [...] [place] | | | | | [address] | | + + + + + Care Team Providers + +------+ + | Care Circulating Process Inspector Name | Role | Phone | [...] kidney | MD [address] | [address] | | | | | disease, | [address] | [place], [place] | | | | | stage 4 | [address] | [address] [place] | | | | | (severe) | [place], | [place], [place] | | | | | (HCC) | [place] | [address] Phone: | | | | | Hypertension | [address] | [phone] | | | | | 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 | [phone] | [phone] | | | | | kidney | Fax: | | | | | | disease | [phone] | | | | | | Procedures [...] | +--------+ + + + + | 11/07/ | Off-Site | [facility] [place] | Bennie Garza | SECONDARY | | 2018 | Visit | NEPHROLOGY [address] | M, DO [address] | HYPERPARATHYROIDISM | | | | [address] | [place], [place] [address] | (Primary Dx); | | | | [place], [place] | [place] | Chronic kidney | | | | [address] | [address] | disease, stage III | | | | [phone] | | (moderate); Anemia | | | | | | in stage 3 chronic | | | | | | kidney disease; | | | | | | Essential [...] + + + | Blood Pressure | 120/64 | 11/07/2017 1:23 PM | | | | | PDT | | + + + + + | Pulse | - | - | | + + + + + | Temperature | 35.9 C (96.6 F) | 11/07/2017 1:23 PM | | | | | PDT [...] + + + + | Weight | 56 kg (123 lb 7.3 | 11/07/2017 1:23 PM | | | | oz) | PDT | | + + + + + | Height | - | - | | + + + + + | Body Mass Index | 20.54 | 10/02/2013 2:09 PM | | | | | PDT | | + + + + + documented in this encounter Progress Notes Bennie Garza DO - 11/07/2017 1:00 PM PDT Subjective: NEPHROLOGY Patient ID: Dillon Glasgow is a 72 y.o. male. HPI: Follow up for this pleasant, 72 YOWM with a long history of CKD secondary to hyper tension, SHPTH, and remote depression. He is s/p AVF construction in his right arm on 06/04/13. Apparently, he has concurrent Alzh eimer's with memory loss, and is on Aricept. He has a very attentive . He denies edema, hiccups, nausea, pruritus, somnolence or DO E. Outpatient Prescriptions Marked as Taking for the 11/07/17 encounter (Off-Site Visit) with Danica Garza DO [...] mouth nightly. No Known Allergies Objective: BP 120/64 | Temp 35.9 C (96.6 F) | Wt 56 kg (123 lb 7.3 oz) | BMI 20.54 kg/m Physical Exam Heart: Regular rate and rhythm with no S3, S4, murmur or rub. Lungs: CTA in all yanes. No rales or wheezes. Abdomen: soft, flat, nontender, NABS. Extremities: no clubbing, cyanosis, or edema. Pulsatile AVF in the right arm with a strong bruit. No asterixis. Lab Results Component Value Date NAEX 137 11/01/2017 KEX 4.1 11/01/2017 CLEX 105 11/01/2017 CO2EX 18 (A) 11/01/2017 BUNEX 50 (A) 11/01/2017 CREEX 3.01 (A) 11/01/2017 EGFREX 20 (A) 11/01/2017 GLUEX 94 11/01/2017 PHOSEX 4.8 11/01/2017 PTHEX 40.61 11/01/2017 Lab Results Component Value Date WBCEX 6.1 11/01/2017 HGBEX 12.3 11/01/2017 HCTEX 36.9 11/01/2017 PLTEX 175 11/01/2017 Lab Results Component Value Date PROTEX 372 (A) 10/31/2017 CRCLEARANCE 46.0 (A) 10/31/2017 Assessment: 1. CKD, Stage 3, secondary to hypertensive nephrosclerosis-- for some reason, his 24 Hr uri ne for Ccr more accurately depicts his true GFR? He clinically has no symptoms of uremia. 2. Hypertension-- stable off of vasodilators to optimize his AVF development. 3. Depression--in remission. 4. History of gout--in remission. 5. SHPTH-- excellent control with diet therapy. 6. Historical diagnosis of Alzheimer's-- her appears cogent today. Plan: 1. He appears to have plateaued, in terms of his GFR. He has no symptoms of uremia. 2. I reviewed with Dillon and his , his Scr, GFR, BP and AVF. He completely comprehe nds at this point, that there is no need for Renal Replacement Rx until his GFR is clearly < 14 ml/min. 3. No change in rx. He appears to follow a very strict renal diet. 4. Will plan to see him back in 6 months. He will have a CBC, CMP, PO4, iPTH, Vitamin D level, and 24 Hour urine,* one week prior to that. : Ray Mcmillan MD, BRANDAN Mcpherson MD, [facility] document ed in this encounter Plan of Treatment +--------+ + + + + | Date | Type | Specialty | Care Team | Description | +--------+ + + + + | 03/12/ | Off-Site | Nephrology | Bennie Garza | | | 2018 | Visit | | M, DO [address] | | | | | | [address] | | | | | | [place], [place] | | | | | | [id number] | | | | | | | | +--------+ + + + + documented as of this encounter Procedures + +--------+ + + + | Procedure Name | Priori | Date/Time | Associated Diagnosis | Comments | | | ty | | | | + +--------+ + + + | LABS - EXTERNAL SCAN | | 11/01/2017 | | Results for this | | | | 12:00 AM | | procedure are in the | | | | PDT | | results section. | + +--------+ + + + | LABS - EXTERNAL SCAN | | 10/31/2017 | | Results for this | | | | 12:00 AM | | procedure are in the | | | | PDT | | results section. | + +--------+ + + + documented in this encounter Results LABS - EXTERNAL SCAN (11/01/2017 12:00 AM PDT) + + + | Narrative | Performed At | + + + | Ordered by an | | | unspecified provider. | | + + + LABS - EXTERNAL SCAN (10/31/2017 12:00 AM PDT) + + + | Narrative | Performed At | + + + | Ordered by an | | | unspecified provider. | | + + + documented in this encounter Visit Diagnoses + + | Diagnosis | + + | SECONDARY HYPERPARATHYROIDISM - Primary Secondary hyperparathyroidism (of renal | | origin) | + + | Chronic kidney disease, stage III (moderate) (HCC) Chronic kidney disease, Stage III | | (moderate) | + + | Anemia in stage 3 chronic kidney disease (HCC) | + + | Essential hypertension Unspecified essential hypertension | + + documented in this encounter"
--- OUTSIDE RECORDS SUMMARY | ~2019-03-07 | XMS | Encounter Summary ---
Demographics + + + | Address | [address] | | | [place] [address] | + + + | Home Phone | | + + + | Preferred Language | Unknown | + + + | Marital Status | | + + + | Shinto Affiliation | 1001 | + + + | Race | Unknown | + + + | Ethnic Group | Unknown | + + + Author + + + | Author | [facility] | | | and Ezraana | + + + | Organization | [facility] | [...] [place] | | | | | [address] | | + + + + + Care Team Providers + +------+ + | Care Burnisher And Bumper Name | Role | Phone | + [...] | | [address] | [place], [place] [address] | (MODERATE) (Primary | | | | [place], [place] | [place] | Dx); Anemia in | | | | [address] | [address] | chronic kidney | | | | [phone] | | disease | +--------+ + + [...] for nephrology appt on 01/15/13 sent to [facility] documented in this encounter Plan of Treatment +--------+ + + + + | Date | Type | Specialty | Care Team | Description | +--------+ + + + + | 03/12/ | Off-Site | Nephrology | Bennie Garza | | | 2018 | Visit | | DO Deep [address] [place] [address] | | | | | | [address] | | | | | | [place] | | | | | | [phone] | | | | | | | [...]
--- OUTSIDE RECORDS SUMMARY | ~2019-03-07 | XMS | Encounter Summary ---
Demographics + + + | Address | [address] | | | [place] [address] | + + + | Home Phone [...] + | Author | [facility] | | | and Ezraana | + + + | Organization | [facility] | | | and [...] [place] | | | | | [address] | | + + + + + Care Team Providers + +------+ + | Care Results Engineer Name | Role | Phone | [...] | | [address] | [place], [place] [address] | (severe) (HCC) | | | | [place], [place] | [place], [place] | (Primary Dx) | | | | [address] | [address] | | | | | [phone] | | | +--------+ + + + [...] nephrology appt on 07/26/16 sent to [facility] documented in this en counter Plan of [...] | | | | | [place] | | | | | | [id number] | | | | | | | | +--------+ + + + + documented as of this encounter Visit Diagnoses + + | Diagnosis | + + | Chronic kidney disease, stage IV (severe) (HCC) - Primary Chronic kidney disease, | | Stage IV (severe) | + + documented in this encounter"
--- OUTSIDE RECORDS SUMMARY | ~2019-03-07 | XMS | Encounter Summary ---
Demographics + + + | Address | [address] | | | [place] [address] | + + + | Home Phone | | + + + | Preferred Language | Unknown | + + + | Marital Status | | + + + | Rastafarian Affiliation | 1001 | + + + | Race | Unknown | + + + | Ethnic Group | Unknown | + + + Author + + + | Author | [facility] | | | and Ezraana | + + + | Organization | [facility] | | | and [place]ra[place] | + + + | Address | Unknown | + + + | Phone | Unavailable | + + + Support + + + + + | Name | Relationship | Address | Phone | + + + + + | Genet [place] | ECON | [address] | | | | | [place] | | | | | [address] | | + + + + + Care Team Providers + +------+ + | Care Technology Support Analyst Name | Role | Phone | + +------+ + PCP | Unavailable | + +------+ + Encounter Details +--------+ + + + + | Date | Type | Department | Care Team | Description | +--------+ + + + + | 11/27/ | Hospital | [facility] | Bennie Garza | | | 2010 | Encounter | MED CTR XRAY [address] | M, DO [address] | | | | | [address] | [place], [address] | | | | | [place] [address] | [place], [place] | | | | | [phone] | [address] | | | | | | | [...] | Visit | | DO Deep [address] | | | | | | [address] [place] [address] | | | | | | [place] | | | | | | [phone] | | | | | | | [...] Performed At | + + + | [facility] | [facility] | | [address] [facility] | [facility] | | VENOUS DUPLEX, BILATERAL, | DIAG [...] | | | Transcribed Date/Time: 11/27/2010 16:56 Other Sales Support Worker: | | | <Electronically Signed by Albin Matthews MD> 11/29/10 1004 | | + + + + ---+ | Procedure Note | + ---+ | Josh, Rad Conversion - 05/11/2013 3:40 PM [facility] | | Diagnostic Imaging Department [address] [facility] | | VENOUS DUPLEX, BILATERAL, 11/27/2010 CLINICAL [...] 16:45 | |Transcribed Date/Time: 11/27/2010 16:56 | |Other Sales Support Worker: | |<Electronically Signed by Albin Matthews [...]
--- OUTSIDE RECORDS SUMMARY | ~2019-03-07 | XMS | Encounter Summary ---
Demographics + + + | Address | [address] | | | [place] [address] | + + + | Home Phone | | + + + | Preferred Language | Unknown | + + + | Marital Status | | + + + | Moravian Affiliation | 1001 | + + + | Race | Unknown | + + + | Ethnic Group | Unknown | + + + Author + + + | Author | [facility] | | | and Ezraana | + + + | Organization | [facility] | | | and [place] [...] [place] | | | | | [address] | | + + + + + Care Team Providers + +------+ + | Care Typewriter Repairer Name | Role | Phone | + +------+ + | Dre Jacobo MD | PCP | | + +------+ + Encounter Details +--------+ + + + + | Date | Type | Department | Care Team | Description | +--------+ + + + + | 12/13/ | Orders Only | [facility] [place] | [facility] Bennie | CHRONIC KIDNEY | | 2013 | | NEPHROLOGY [address] | M, DO [address] | DISEASE STAGE III | | | | [address] | [place], [place] [address] | (MODERATE) (Primary | | | | [place], [place] | [place], [place] | Dx) | | | | [address] | [address] | | | | | [phone] | | | +--------+ + + + [...] encounter Progress Notes Tanika Maddox RN - 12/13/2013 12:39 PM PDTLabs for nephrology appt on 01/14/14 sent to [facility] documented in this e ncounter Plan of Treatment +--------+ + + + + | Date | Type | Specialty | Care Team | Description | +--------+ + + + + | 03/12/ | Off-Site | Nephrology | Bennie Garza | | | 2018 | Visit | | DO Deep [address] | | | | | | [address] | | | | | | [place], [place] | | | | | | [phone] | | | | | | | | +--------+ + + + + documented as of this encounter Visit Diagnoses + + | Diagnosis | + + | CHRONIC KIDNEY DISEASE STAGE III (MODERATE) - Primary Chronic kidney disease, Stage | | III (moderate) | + + documented in this encounter"
--- OUTSIDE RECORDS SUMMARY | ~2019-03-07 | XMS | Encounter Summary ---
Demographics + + + | Address | [address] | | | [place] [address] | + + + | Home Phone | | + + + | Preferred Language | Unknown | + + + | Marital Status | | + + + | Restoration Affiliation | 1001 | + + + | Race | Unknown | + + + | Ethnic Group | Unknown | + + + Author + + + | Author | [facility] | | | and [place]raana | + + + | Organization | [facility] | | | and [place] [...] [place] | | | | | [address] | | + + + + + Care Team Providers + +------+ + | Care Photoengraving Apprentice Name | Role | Phone | + +------+ + | Dre Jacobo MD | PCP | | + +------+ + Encounter Details +--------+ + + + + | Date | Type | Department | Care Team | Description | +--------+ + + + + | 10/17/ | Orders Only | [facility] [place] | Bennie Garza | Chronic kidney | | 2018 | | NEPHROLOGY [address] | M, DO [address] | disease, stage IV | | | | [address] | [place], [address] | (severe) (HCC) | | | | [place], [place] | [place], [place] | (Primary Dx) | | | | [address] | [address] | | | | | [phone] | | | +--------+ + + + [...] encounter Progress Notes Tanika Maddox RN - 10/17/2017 11:18 AM PDTLabs for upcoming nephrology appointment sent to: [facility] documented in this encounter Plan of [...] [place] | | | | | | [id number] | | | | | | | | +--------+ + + + + documented as of this encounter Visit Diagnoses + + | Diagnosis | + + | Chronic kidney disease, stage IV (severe) (HCC) - Primary Chronic kidney disease, | | Stage IV (severe) | + + documented in this encounter"
--- OUTSIDE RECORDS SUMMARY | ~2019-03-07 | XMS | Encounter Summary ---
Demographics + + + | Address | [address] | | | [place] [address] | + + + | Home Phone [...] | [facility] | | | and Ezraana | + + + | Organization | [facility] | [...] [place] | | | | | [address] | | + + + + + Care Team Providers + +------+ + | Care Curtain Stretcher Name | Role | Phone | + +------+ + | Dre Jacobo MD | PCP | | + +------+ + Reason for Visit +---------+ + | Reason | Comments | +---------+ + | Post Op | 1 month AV fistula revision | +---------+ + Encounter Details +--------+---------+ + + + | Date | Type | Department | Care Team | Description | +--------+---------+ + + + | 12/05/ | Office | [facility] | Luis Enrique Mcmillan | End stage renal | | 2012 | Visit | SURGERY [address] | MD Blanco, FACS [address] | disease (HCC) | | | | [place], [place] | [facility] | (Primary Dx) | | | | [address] | [place] [address] | | | | | [phone] | [phone] | | | | | | | [...] + + + | Blood Pressure | 126/60 | 12/05/2012 1:05 PM | | | | | PDT | | + + + + + | Pulse | 64 | 12/05/2012 1:05 PM | | | | | PDT | | + + + + + | Temperature | 36.5 C (97.7 F) | 12/05/2012 1:05 PM | | | | | PDT | | + + + + + | Respiratory Rate | 16 | 12/05/2012 1:05 PM | | | | | PDT | | + + + + + | Oxygen Saturation | 100% | 12/05/2012 1:05 PM | | | | | PDT | | + + + + + | Inhaled Oxygen | - | - | | | Concentration | | | | + + + + + | Weight | 67.1 kg (148 lb) | 12/05/2012 1:05 PM | | | | | PDT | | + + + + + | Height | 165.1 cm (5' 5") | 12/05/2012 1:05 PM | | | | | PDT | | + + + + + | Body Mass Index | 24.63 | 12/05/2012 1:05 PM | | | | | PDT | | + + + + + documented in this encounter Progress Notes Luis Enrique Mcmillan MD - 12/05/2012 1:09 PM PDT Patient Identification: Dillon Glasgow 1945 Is a 67 y.o. male , a patient of Rubin Jacobo. Patient is here alone. S: Date of surgery 11/03/2012 . Title of surgery Exploration, left brachial-basilic fistula.--fistula failed non-reconstructable . Patient got labs done after last surgery. BUN 36, Cr 2.69 GFR est 24. No pain in left arm. Past Medical History He has a past medical history of Hypertension; Secondary hyperparathyroidism; Depression; S leep apnea; Chronic kidney disease, stage III (moderate); Anemia; and Panic attack. Past Surgical History He has past surgical history that includes Tonsillectomy; Nose surgery (1959); Uvulopalatop harygoplasty (2000); AV fistula repair; and exploration, left brachial-basilic fistula (05/2012). No Known Allergies Medications: He has a current medication list which includes the following prescription(s): allopurinol, calcitriol, klonopin, co q-10, fluoxetine, l-tyrosine, cvs vitamin b-6, trazodone, vitamin b-12, and zinc picolinate. Outpatient Encounter Prescriptions as of 12/05/2012 Medication Status Sig Dispense Refill allopurinol (ZYLOPRIM) 100 mg tablet Active Take 100 mg by mouth Daily. calcitRIOL (ROCALTROL) 0.5 MCG capsule Active Take 0.5 mcg by mouth every 48 hours. clonazePAM (KLONOPIN) 0.5 mg tablet Active Take 0.5 mg by mouth nightly. Coenzyme Q10 (CO Q-10) 200 MG CAPS Active Take 200 mg by mouth Daily. fluoxetine (PROZAC) 40 MG capsule Active Take 40 mg by mouth Daily. L-Tyrosine 500 MG TABS Active Take 500 mg by mouth Daily. pyridoxine (CVS VITAMIN B-6) 200 MG tablet Active Take 200 mg by mouth Daily. traZODone (DESYREL) 50 mg tablet Active 2, by mouth, daily. vitamin B-12 (CYANOCOBALAMIN) 1000 MCG tablet Active Take 1,000 mcg by mouth Daily. Zinc Picolinate 50 MG TABS Active Take 50 mg by mouth Daily. Family History: His family history includes Diabetes [...] drink alcohol or use illicit drugs. PE: LEFT arm: Wounds healed. No drainage. No thrill. IMP: renal insufficiency, no dialysis yet. P: Due to poor veins with CR 2.69, recommend wait until dialysis, then place tunneled fernandez ter and AV graft. Luis Enrique Mcmillan MD, FACS documented in this encounter Plan of Treatment +--------+ + + + + | Date | Type | Specialty | Care Team | Description | +--------+ + + + + | 03/12/ | Off-Site | Nephrology | Bennie Garza | | | 2019 | Visit | | DO Deep [address] [place] [address] | | | | | | [address] | | | | | | [place], [place] | | | | | | [address] | | | | | | | | +--------+ + + + + documented as of this encounter Visit Diagnoses + + | Diagnosis | + + | End stage renal disease (HCC) - Primary End stage renal disease | + + documented in this encounter
--- OUTSIDE RECORDS SUMMARY | ~2019-03-07 | XMS | Encounter Summary ---
Demographics + + + | Address | [address] | | | [place] [address] | + + + | Home Phone | | + + + | Preferred Language | Unknown | + + + | Marital Status | | + + + | Anabaptism Affiliation | 1001 | + + + | Race | Unknown | + + + | Ethnic Group | Unknown | + + + Author + + + | Author | [facility] | | | and [place]ra[place] | + + + | Organization | [facility] | | | and [place] | [...] [place] | | | | | [address] | | + + + + + Care Team Providers + +------+ + | Care Rubber Compounder Mixer Name | Role | Phone | + +------+ + | Dre Jacobo MD | PCP | | + +------+ + Encounter Details +--------+ + + + + | Date | Type | Department | Care Team | Description | +--------+ + + + + | 09/30/ | Hospital | [facility] | | | | 2015 | Encounter | [place] | | | | | | CARE [address] | | | | | | [place] | | | | | | [address] | | | | | | [phone] | | | +--------+ + + + [...] + + + +---------+ + + | allopurinol | Take 100 mg by mouth | | 0 | 12/17/19 | | | (ZYLOPRIM) 100 mg | Daily. | | | 12 | | | tablet | | | | | | + + + +---------+ + + | fluoxetine | Take 40 mg by mouth | | 0 | 07/14/19 | | | (PROZAC) 40 MG | Daily. | | | 12 | | | capsule | | | | | | + + + +---------+ + + | traZODone | Take 100 mg by mouth | | 0 | 04/29/19 | | | (DESYREL) 50 mg | nightly. | | | 11 | | | tablet | | | | | | + + + +---------+ + + | calcitriol | Take 1 capsule by | 90 | 3 | 07/21/19 | | | (ROCALTROL) 0.25 mcg | mouth Daily. | capsule | | 16 | 6 | | capsuleIndications: | | | | | | | Chronic kidney | | | | | | | disease, stage IV | | | | | | | (severe) (HCC), | | | | | | | Anemia in chronic | | | | | | | renal disease, | | | | | | | Essential | | | | | | | hypertension with | | | | | | | goal blood pressure | | | | | | | less than 140/90, | | | | | | | Secondary | | | | | | | hyperparathyroidism | | | | | | | (HCC) | | | | | | + + + +---------+ + + | clonazePAM | Take 0.5 mg by mouth | | 0 | 12/17/19 | | | (KLONOPIN) 0.5 mg | nightly. | | | 12 | 7 | | tablet | | | | [...] 2018 | Visit | | DO Deep [address] [place] [address] | | | | | | [address] | | | | | | [place] | | | | | | [address] | | | | | | | | +--------+ + + + + documented as of this encounter Visit Diagnoses Not on filedocumented in this encounter"
--- OUTSIDE RECORDS SUMMARY | ~2019-03-07 | XMS | Encounter Summary ---
Demographics + + + | Address | [address] | | | [place] [address] | + + + | Home Phone [...] + + | Author | [facility] | | | and [place] | + + + | Organization | [facility] | | | and [place] [...] [place] | | | | | [address] | | + + + + + Care Team Providers + +------+ + | Care Cup Machine Operator Name | Role | Phone [...] | | [address] | [place], [address] | (MODERATE) (Primary | | | | [place], [place] | [place], [place] | Dx); Secondary | | | | [address] | [address] | hyperparathyroidism | | | | [phone] | | (of renal origin) | | [...] 2019 | Visit | | DO Deep [address] [place] [address] | | | | | | [place], [...]
--- OUTSIDE RECORDS SUMMARY | ~2019-03-07 | XMS | Encounter Summary ---
Demographics + + + | Address | [address] | | | [place] [address] | + + + | Home Phone | | + + + | Preferred Language | Unknown | + + + | Marital Status | | + + + | Pentecostalism Affiliation | 1001 | + + + | Race | Unknown | + + + | Ethnic Group | Unknown | + + + Author + + + | Author | [facility] | | | and [place] | + + + | Organization | [facility] | | [...] [place] | | | | | [address] | | + + + + + Care Team Providers + +------+ + | Care Auto Glass Installer Name | Role | Phone | + [...] | Nephrology | Diagnoses | Donnell, | Silva[place], | | | | | Chronic | Christopher | Bennie Adame DO | | | | | kidney | [address] | [address] | | | | | disease, | [address] | [place], [place] | | | | | stage III | [address] | [address] [place] | | | | | (moderate) | [place], | [place], [place] | | | | | (HCC) | [place] | [address] Phone: | | | | | Unspecified | [address] | [phone] | | | | | essential | Phone: | Fax: | | | | | hypertension | [phone] | [phone] | | | | | | Fax: | | | | | | Unspecified | [phone] | | | | | | hypertensive | | | | | | | kidney | | | | | | | disease with | | | | | | | chronic | | | | | | | kidney | | | | | | | disease | | | | | | | stage I | | | | | | | through | | | | | | | stage IV, or | | | | | | | | | | | | | | unspecified( | | | | | | | 403.90) | | | | | | | Anemia in | | | | | | | chronic | | | | | | | kidney | | | | | | | disease(285. | | | | | | | 21) | | | | | | | Procedures | | | | | | | PA OFFICE | | | | | | | OUTPATIENT | | | | | | | VISIT 25 | | | | | | | MINUTES | | | +--------+--------+ + + + + Encounter Details +--------+ + + + + | Date | Type | Department | Care Team | Description | +--------+ + + + + | 07/20/ | Off-Site | [facility] [place] | Bennie Garza | Anemia in chronic | | 2016 | Visit | NEPHROLOGY [address] | M, DO [address] | kidney | | | | [address] | [place], [facility] 100 | disease(285.21) | | | | [place] | [place] | (Primary Dx); | | | | [address] | [address] | Chronic kidney | | | | [phone] | | disease, stage IV | | | | | | (severe) (HCC); | | | | | | Essential | | | | | | hypertension with | | | | | | goal blood pressure | | | | | | less than 140/90; | | | | | | SECONDARY [...] + + + | Blood Pressure | 140/88 | 07/21/2015 2:25 PM | | | | | PDT | | + + + + + | Pulse | - | - | | + + + + + | Temperature | 36.8 C (98.2 F) | 07/21/2015 2:25 PM | | | | | [...] + + + + | Weight | 64.5 kg (142 lb 3.2 | 07/21/2015 2:25 PM | | | | oz) | PDT | | + + + + + | Height | - | - | | + + + + + | Body Mass Index | 23.66 | 10/02/2013 2:09 PM | | | | | PDT | | + + + + + documented in this encounter Progress Bennie Payton DO - 07/21/2015 2:26 PM PDT Subjective: NEPHROLOGY Patient ID: Dillon Glasgow is a 70 y.o. male. HPI Comments: Followup for this 70 YOWM with history of CKD secondary to hypertension, SH PTH, and remote depression. He is s/p AVF construction in his right arm on 06/04/13. He is extremely conscientious abou t his diet , therefore, his CKD has progressed very slowly. Again, he denies any hiccups, p ruritus, dyspnea, nausea but has noticed some increased bruising. Outpatient Prescriptions Marked as Taking for the 07/21/15 encounter (Off-Site Visit) with Deep Garza, DO Medication Sig Dispense Refill allopurinol (ZYLOPRIM) 100 mg tablet Take 100 mg by mouth Daily. [ calcitriol (ROCALTROL) 0.25 mcg capsule TAKE 1 CAPSULE EVERY OTHER DAY 45 capsule 3 clonazepam (KLONOPIN) 0.5 mg tablet Take 0.5 mg by mouth nightly. fluoxetine (PROZAC) 40 MG capsule Take 40 mg by mouth Daily. trazodone (DESYREL) 50 mg tablet Take 100 mg by mouth nightly. No Known Allergies Objective: BP 140/88 mmHg | Temp(Src) 36.8 C (98.2 F) | Wt 64.5 kg (142 lb 3.2 oz) Physical Exam Cardiovascular: Regular rate and rhythm, with no S3, S4, murmur or rub. Pulmonary/Chest: CTA in all yanes. No rales or wheezes. Abdominal: Soft, flat, nontender, normoactive bowel sounds, no guarding. Musculoskeletal: No clubbing, cyanosis, or edema. (+) ~ 6mm, well developed AVF in the right arm with a strong bruit. Lab Results Component Value Date NAEX 131* 07/07/2015 KEX 3.9 07/07/2015 CLEX 98* 07/07/2015 CO2EX 21 07/07/2015 BUNEX 32* 07/07/2015 CREEX 2.49* 07/07/2015 EGFREX 26* 07/07/2015 GLUEX 72 07/07/2015 PHOSEX 3.2 07/07/2015 PTHEX 127.8* 07/07/2015 Lab Results Component Value Date WBCEX 5.5 07/07/2015 HGBEX 14.1 07/07/2015 HCTEX 44.1 07/07/2015 PLTEX 171 07/07/2015 Lab Results Component Value Date PROTEX 180* 07/07/2015 CRCLEARANCE 27.0* 07/07/2015 Assessment: 1. CKD, Stage IV, secondary to hypertensive nephrosclerosis-- no symptoms of uremia. His C cr does appear to be worsening very slowly, over time. 2. Hypertension-- BP control is stable, without antihypertensives. 3. SHPTH-- PTH is above target. 4. Depression--in remission. 5. History of gout--in remission. Plan: 1. Will have him increase is Calcitriol to 0.25 mcg, daily to target his PTH < 110 pg/ml p er NKF-DOQI guidelines. 2. I reviewed with Dillon that dialysis Rx is not necessary until his GFR is clearly < 15 ml/min. Also, that his AVF appears excellent and ready to utilize when the time comes. I r einforced that he made an excellent decision in having this done pre-emptively. 3. His BP control appear in a good range to maintain patency of his excellent AVF. 4. Will plan to see him back in 4 mo. at the [facility], [place], [place]. He will have a C BC, CMP, P04, PTH, lipid profile and 24-hour urine collection one week prior to that. 5. Again, I greatly appreciate Dr. Luis Enrique Mcmillan's expert help with his AVF. CC: Ray Mcmillan MD, FACS documented in th is encounter Plan of Treatment +--------+ + + + + | Date | Type | Specialty | Care Team | Description | +--------+ + + + + | 03/12/ | Off-Site | Nephrology | Bennie Garza | | | 2019 | Visit | | DO Deep [address] | | | | | | [place] [address] | | | | | | [place] | | | | | | [address] | | | | | | | | +--------+ + + + + documented as of this encounter Visit Diagnoses + + | Diagnosis | + + | Anemia in chronic kidney disease(285.21) - Primary Anemia in chronic kidney disease | + + | Chronic kidney disease, stage IV (severe) (HCC) Chronic kidney disease, Stage IV | | (severe) | + + | Essential hypertension with goal blood pressure less than 140/90 | + + | SECONDARY HYPERPARATHYROIDISM Secondary hyperparathyroidism (of renal origin) | + + documented in this encounter"
--- OUTSIDE RECORDS SUMMARY | ~2019-03-07 | XMS | Encounter Summary ---
Demographics + + + | Address | [address] | | | [place] [address] | + + + | Home Phone | | + + + | Preferred Language | Unknown | + + + | Marital Status | | + + + | Hindu Affiliation | 1001 | + + + | Race | Unknown | + + + | Ethnic Group | Unknown | + + + Author + + + | Author | [facility] | | | and [place] | + + + | Organization | [facility] | | | and [...] [place] | | | | | [address] | | + + + + + Care Team Providers + +------+ + | Care Practice Management Consultant Name | Role | Phone | + +------+ + | Dre Jacobo MD | PCP | | + +------+ + Encounter Details +--------+ + + + + | Date | Type | Department | Care Team | Description | +--------+ + + + + | 11/28/ | Abstract | [facility] [place] | Bennie Garza | | | 2017 | | NEPHROLOGY [address] | M, DO [address] | | | | | [address] | [place], [address] | | | | | [place], [place] | [place], [place] | | | | | [address] | [address] | | | | | [phone] | | | +--------+ + + + [...] this encounter Progress Notes Nikki Preston - 03/01/2017 11:20 AM PSTOutside records: Standing lab order renewal form from [employer], [facility]. Dos: 02/26/17. Sent to scan.Electronically sign ed by Nikki Preston at 03/01/2017 11:22 AM PSTdocumented in this encounter Plan of Treatment +--------+ + + + + | Date | Type | Specialty | Care Team | Description | +--------+ + + + + | 03/12/ | Off-Site | Nephrology | Bennie Garza | | | 2018 | Visit | | Deep, DO [address] [place] [address] | | | | | | [address] [place] [address] | | | | | | [place] | | | | | | [address] | | | | | | | | +--------+ + + + + documented as of this encounter Visit Diagnoses Not on filedocumented in this encounter"
--- OUTSIDE RECORDS SUMMARY | ~2019-03-07 | XMS | Encounter Summary ---
Demographics + + + | Address | [address] | | | [place] [address] | + + + | Home Phone | | + + + | Preferred Language | Unknown | + + + | Marital Status | | + + + | Samaritan Affiliation | 1001 | + + + | Race | Unknown | + + + | Ethnic Group | Unknown | + + + Author + + + | Author | [facility] | | | and [place] | + + + | Organization | [facility] | | | and [...] [place] | | | | | [address] | | + + + + + Care Team Providers + +------+ + | Care Capital Equipment Specialist Name | Role | Phone | + +------+ + | Dre Jacobo MD | PCP | | + +------+ + Encounter Details +--------+ + + + + | Date | Type | Department | Care Team | Description | +--------+ + + + + | /03/ | Abstract | [facility] [place] | Bennie Garza | | | 2012 | | NEPHROLOGY [address] | M, DO [address] | | | | | [address] | [place], [address] | | | | | [place], [place] | [place], [place] | | | | | [address] | [address] | | | | | [phone] | | | +--------+ + + + [...] | Visit | | DO Deep [address] [place] [address] | | | | | | [place] [address] [facility] | | | | | | [place] | | | | | | [id number] | | | | | | | | +--------+ + + + + documented as of this encounter Visit Diagnoses Not on filedocumented in this encounter"
--- OUTSIDE RECORDS SUMMARY | ~2019-03-07 | XMS | Encounter Summary ---
Demographics + + + | Address | [address] | | | [place] [address] | + + + | Home Phone | | + + + | Preferred Language | Unknown | + + + | Marital Status | | + + + | Restorationist Affiliation | 1001 | + + + | Race | Unknown | + + + | Ethnic Group | Unknown | + + + Author + + + | Author | [facility] | | | and [place] | + + + | Organization | [facility] | | [...] [place] | | | | | [address] | | + + + + + Care Team Providers + +------+ + | Care Billiard Player Name | Role | Phone | + +------+ + | Dre Jacobo MD | PCP | | + +------+ + Encounter Details +--------+ + + + + | Date | Type | Department | Care Team | Description | +--------+ + + + + | 09/26/ | Abstract | [facility] [place] | Bennie Garza | | | 2012 | | NEPHROLOGY [address] | M, DO [address] | | | | | [address] | [place] | | | | | [place], [place] | [place], [place] | | | | | [address] | [address] | | | | | [phone] | | | +--------+ + + + [...] Nephrology | Silvaandrewde Bennie | | | 2018 | Visit | | DO Deep [address] [place] [address] | | | | | | [place], [address] | | | | | | [place] | | | | | | [address] | | | | | | | | +--------+ + + + + documented as of this encounter Procedures + +--------+ + + + | Procedure Name | Priori | Date/Time | Associated Diagnosis | Comments | | | ty | | | | + +--------+ + + + | CMP14+LP+CBC/D/PLT+T | Routin | 09/25/2012 | | Results for this | | SH+UA/M (NON ORD) | e | | | procedure are in the | | | | | | results section. | + +--------+ + + + documented in this encounter Results CMP14+LP+CBC/D/Plt+TSH+UA/M (09/25/2012) + + + + + + | Component | Value | Ref Range | Performed | Pathologist | | | | | At | Signature | + + + + + + | Na | 137 | mmol/L | | | + + + + + + | K | 3.8 | mmol/L | | | + + + + + + | Cl | 103 | mmol/L | | | + + + + + + | CO2 | 24 | mmol/L | | | + + + + + + | BUN | 39 | mg/dL | | | + + + + + + | CREA | 2.7 | mg/dL | | | + + + + + + | Glucose | 78 | mg/dL | | | + + + + + + | Calcium | 10.2 | mg/dL | | | + + + + + + | Hemoglobin | 13.6 | 13.2 - 17.0 | | | | | | g/dL | | | + + + + + + | Hematocrit | 40.9 | 39.0 - 50.0 % | | | + + + + + + | Bilirubin | 0.7 | 0.1 - 1.5 mg/dL | | | | Total | | | | | + + + + + + | AST | 19 | 10 - 45 U/L | | | + + + + + + | ALT | 19 | U/L | | | + + + + + + | Alkaline | 70 | 35 - 115 U/L | | | | Phosphatase | | | | | + + + + + + | Albumin | 4.5 | 3.3 - 4.8 g/dL | | | + + + + + + | PTH INTACT | 20.67 | pg/mL | | | + + + + + + | CREATININE | 31.0 (A) | 97.0 - 137.0 | | | | CLEARANCE | | mL/min | | | + + + + + + + + | Specimen | + + | | + + documented in this encounter Visit Diagnoses Not on filedocumented in this encounter"
--- OUTSIDE RECORDS SUMMARY | ~2019-03-07 | XMS | Encounter Summary ---
Demographics + + + | Address | [address] | | | [place] [address] | + + + | Home Phone [...] + + | Author | [facility] | | | and Ezraana | + + + | Organization | [facility] | | | and Ezraana [...] [place] | | | | | [address] | | + + + + + Care Team Providers + +------+ + | Care Christian Science Healer Name | Role | Phone | + +------+ + | Der Jacobo MD | PCP | | + [...] kidney | [address] | [address] | | | | | disease, | [address] | [place], [place] | | | | | stage 4 | [place] [address] | [address] [place] | | | | | (severe) | [place], | [place], [place] | | | | | (HCC) | [place] | [address] Phone: | | | | | Hypertension | [address] | [phone] | | | | | 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 | [phone] | [phone] | | | | | kidney | Fax: | | | | | | disease | [phone] | | | | | | Procedures | | | | | | | [place] OFFICE | | | | | | | OUTPATIENT | | | | | | | VISIT 25 | | | | | | | MINUTES | | | +--------+--------+ + + + + Encounter Details +--------+ + + + + | Date | Type | Department | Care Team | Description | +--------+ + + + + | 03/13/ | Off-Site | [facility] [place] | Osvaldode Bennie | Chronic kidney | | 2018 | Visit | NEPHROLOGY [address] | M, DO [address] | disease, stage IV | | | | [address] [place] [address] | [place], [place] [address] | (severe) ([facility]); | | | | [place], [place] | [place], [place] | Essential | | | | [address] | [address] | hypertension; | | | | [phone] | | SECONDARY | | | | [...] + + + | Blood Pressure | 152/78 | 03/13/2018 3:13 PM | | | | | PST | | + + + + + | Pulse | - | - | | + + + + + | Temperature | 35.6 C (96 F) | 03/13/2018 3:13 PM | | | | | PST [...] + + + + | Weight | 55.3 kg (122 lb) | 03/13/2018 3:13 PM | | | | | PST | | + + + + + | Height | - | - | | + + + + + | Body Mass Index | 20.3 | 10/02/2013 2:09 PM | | | | | PDT | | + + + + + documented in this encounter Progress Notes Bennie Garza DO - 03/13/2018 3:00 PM PST Subjective: NEPHROLOGY Patient ID: Dillon Glasgow is a 72 y.o. male. HPI: Follow up for this energetic, 72 YOWM with Stage 4 CKD felt secondary to hyperten priscila, SHPTH, and remote depression. He is s/p [...] somewhat better after being off of gabapentin. Outpatient Prescriptions Marked as Taking for the 03/13/18 encounter (Off-Site Visit) with Bennie Garza DO [...] mouth nightly. No Known Allergies Objective: BP 152/78 | Temp 35.6 C (96 F) | Wt 55.3 kg (122 lb) | BMI 20.30 kg/m Physical Exam Heart: Regular rate and rhythm with no S3, S4, murmur or rub. Lungs: CTA in all yanes. No rales or wheezes. Abdomen: soft, flat, nontender, NABS. Extremities: no clubbing, cyanosis, or edema. (+) 5-6 mm AVF in his Right arm with strong t hrill, no asterixis. Lab Results Component Value Date NAEX 137 03/07/2018 KEX 4.2 03/07/2018 CLEX 100 03/07/2018 CO2EX 20 03/07/2018 BUNEX 56 03/07/2018 CREEX 3.09 03/07/2018 EGFREX 20 03/07/2018 GLUEX 68 03/07/2018 PHOSEX 3.9 03/07/2018 PTHEX 36.08 03/07/2018 Lab Results Component Value Date WBCEX 6.6 03/07/2018 HGBEX 13.2 03/07/2018 HCTEX 39.6 03/07/2018 PLTEX 200 03/07/2018 Lab Results Component Value Date PROTEX 462 03/07/2018 CRCLEARANCE 17.0 (A) 03/07/2018 Assessment: 1. CKD, Stage 4, secondary to hypertensive nephrosclerosis-- his GFR is very slowly declini ng. He does not appear uremic or describe it on exam. 2. Hypertension-- I reiterated with Dillon and his , that it is reasonable for him to b e mildly hypertensive, to allow his AVF to continue to mature over time. I appears excellent on PE. 3. Depression--in remission. 4. History of gout--quiescent. 5. SHPTH-- stable on Calcitriol. 6. Historical diagnosis of Alzheimer's-- memory slowly declining over time, per his . Plan: 1. Will allow his minimal HTN, over time to maintain patency of his right Arm AVF, which a ppears fully mature. 2. He appears to be following a very strict diet. I told Dillon that he could relax his di etary restrictions somewhat as his azotemia is progressing very slowly. He understands that renal replacement Rx will be necessary when the GFR is consistently < 1 5 ml/min. 3. No change in Rx. 4. Will plan to see him back in 6 months at the [facility] at [place], [place]. He w ill have CBC, CMP, PO4, PTH, lipid profile, and 24 Hour urine for Pro., CrCl 1 week prior t o that, at [facility]. : Ray Mcmillan MD, BRANDAN Mcpherson MD, [facility] document ed in this encounter Plan of Treatment +--------+ + + + + | Date | Type | Specialty | Care Team | Description | +--------+ + + + + | 03/12/ | Off-Site | Nephrology | Bennie Garza | | | 2019 | Visit | | DO Deep [address] | | | | | | [place], [place] [address] | | | | | | [place], [place] | | | | | | [id number] [...]
--- OUTSIDE RECORDS SUMMARY | ~2019-03-07 | XMS | Encounter Summary ---
Demographics + + + | Address | [address] | | | [place] [address] | + + + | Home Phone | | + + + | Preferred Language | Unknown | + + + | Marital Status | | + + + | Synagogue Affiliation | 1001 | + + + | Race | Unknown | + + + | Ethnic Group | Unknown | + + + Author + + + | Author | [facility] | | | and [place]ra[place] | + + + | Organization | [facility] | | | and [place]ra[place] [...] [place] | | | | | [address] | | + + + + + Care Team Providers + +------+ + | Care Recruitment Assistant Name | Role | Phone | + +------+ + | Dre Jacobo MD | PCP | | + +------+ + Encounter Details +--------+ + + + + | Date | Type | Department | Care Team | Description | +--------+ + + + + | 01/31/ | Abstract | [facility] | [place], | | | 2012 | | [facility] | Dre Noble MD | | | | | KIDNEY TRANSPLANT | [address] [place] | | | | | [address] [place] | [address] [place], [place] | | | | | [address] [place] | [address] | | | | | [address] | [phone] | | | | | [phone] | | | +--------+ + + + [...] 2019 | Visit | | DO Deep [address] [place] [address] | | | | | | [place], [place] [address] | | | | | | [place] | | | | | | [id number] | | | | | | | | +--------+ + + + + documented as of this encounter Visit Diagnoses Not on filedocumented in this encounter"
--- OUTSIDE RECORDS SUMMARY | ~2019-03-07 | XMS | Encounter Summary ---
Demographics + + + | Address | [address] | | | [place] [address] | + + + | Home Phone [...] [facility] | | | and [place]ra[place] | + + + | Organization | [facility] | | [...] [place] | | | | | [address] | | + + + + + Care Team Providers + +------+ + | Care Materials Planner/Production Planner Name | Role | Phone | + +------+ + | Dre Jacobo MD | PCP | | + +------+ + Encounter Details +--------+ + + + + | Date | Type | Department | Care Team | Description | +--------+ + + + + | 08/16/ | Abstract | [facility] [place] | Bennie Garza | | | 2015 | | NEPHROLOGY [address] | M, DO [address] | | | | | [address] [address] | [place], [place] [address] | | | | | [place], [place] | [place], [place] | | | | | [address] | [address] | | | | | [phone] | | | +--------+ + + + [...] 2018 | Visit | | DO Deep [address] [place] [address] | | | | | | [address] [place] [address] | | | | | | [place] | | | | | | [address] | | | | | | | | +--------+ + + + + documented as of this encounter Visit Diagnoses Not on filedocumented in this encounter"
--- OUTSIDE RECORDS SUMMARY | ~2019-03-07 | XMS | Encounter Summary ---
Demographics + + + | Address | [address] | | | [place] [address] | + + + | Home Phone | | + + + | Preferred Language | Unknown | + + + | Marital Status | | + + + | Baptist Affiliation | 1001 | + + + | Race | Unknown | + + + | Ethnic Group | Unknown | + + + Author + + + | Author | [facility] | | | and Ezraana | + + + | Organization | [facility] | | | and [...] [place] | | | | | [address] | | + + + + + Care Team Providers + +------+ + | Care Relays Draftsperson Name | Role | Phone | + +------+ + | Dre Jacobo MD | PCP | | + +------+ + Encounter Details +--------+ + + + + | Date | Type | Department | Care Team | Description | +--------+ + + + + | 06/04/ | Hospital | [facility] | Luis Enrique Mcmillan | | | 2014 | Encounter | MED CTR MP INTRA OP | MD [place], FACS [address] | | | | | [address] | [facility] | | | | | [place], [place] | [place] [address] | | | | | [address] | [phone] | | | | | [phone] | | | +--------+ + + + [...] + + + +---------+ + + | benazepril | Take 5 mg by mouth | | 0 | | | | (LOTENSIN) 10 mg | Daily. | | | | 4 | | tablet | | | | | | + + + +---------+ + + | calcitRIOL | Take 0.5 mcg by | | 0 | 06/13/19 | | | (ROCALTROL) 0.5 MCG | mouth every 48 | | | 13 | 4 | | capsuleIndications: | hours. | | [...] | | | | | | | (of renal origin), | | | | | | | Depression | | | | | | + [...] | Visit | | DO Deep [address] | | | | | | [place] [address] | | | | | | [place] | | | | | | [address] | | | | | | | | +--------+ + + + + documented as of this encounter Procedures + +--------+ + + + | Procedure Name | Priori | Date/Time | Associated Diagnosis | Comments | | | ty | | | | + +--------+ + + + | POTASSIUM | Routin | 06/04/2013 | | Results for this | | | e | 9:35 AM | | procedure are in the | | | | PST | | results section. | + +--------+ + + + | POTASSIUM | Routin | 06/04/2013 | | Results for this | | | e | 9:28 AM | | procedure are in the | | | | PST | | results section. | + +--------+ + + + documented in this encounter Results Potassium (06/04/2013 9:35 AM PST) + +---------+ + + + | Component | Value | Ref Range | Performed | Pathologist | | | | | At | Signature | + +---------+ + + + | K | 3.3 (L) | 3.5 - 5.1 mEq/l | [facility] | [facility] | | | | | [facility] - | | | | | | LABORATORY | | + +---------+ + + + + + | Specimen | + + | | + + + + + + + | Performing | Address | City/State/Zipcode | Phone Number | | Organization | | | | + + + + + | [facility] | [address] | [place] | [phone] | | [facility] | | [address] | | | - LABORATORY | | | | + + + + + | [facility] | [address] | [place] | | | [facility] | | [address] | | | - LABORATORY | | | | + + + + + Potassium (06/04/2013 9:28 AM PST) + +---------+ + + + | Component | Value | Ref Range | Performed | Pathologist | | | | | At | Signature | + +---------+ + + + | K | 3.3 (L) | 3.5 - 5.1 mEq/l | [facility] | | | | | | [facility] | | | | | | [facility] | | | | | | [facility] - | | | | | | LABORATORY | | + +---------+ + + + + + | Specimen | + + | | + + + + + | Narrative | Performed At | + + + | Collect By: Nurse | [facility] | | | [facility] | | | [facility] | | | - LABORATORY | + + + + + + + + | Performing | Address | City/State/Zipcode | Phone Number | | Organization | | | | + + + + + | [facility] | [address] | [place] | [phone] | | [facility] | | [address] | | | - LABORATORY | | | | + + + + + | [facility] | [address] | [place] | | | [facility] | | [address] | | | - LABORATORY | | | | + + + + + documented in this encounter Visit Diagnoses Not on filedocumented in this encounter"
--- OUTSIDE RECORDS SUMMARY | ~2019-03-07 | XMS | Encounter Summary ---
Demographics + + + | Address | [address] | | | [place] [address] | + + + | Home Phone [...] Author | [facility] | | | and Ezraana | + + + | Organization | [facility] | | | and [place]ra[place] | [...] [place] | | | | | [address] | | + + + + + Care Team Providers + +------+ + | Care Commercial Portfolio Manager Name | Role | Phone | + +------+ + | Dre Jacobo MD | PCP | | + +------+ + Encounter Details +--------+ + + + + | Date | Type | Department | Care Team | Description | +--------+ + + + + | 12/06/ | Abstract | [facility] [place] | Bennie Garza | | | 2015 | | NEPHROLOGY [address] | M, DO [address] | | | | | [address] [place] [address] | [place], [place] [address] | | | | | [place], [place] | [place], [place] | | | | | [address] | [address] | | | | | [phone] | | | +--------+ + + + [...] | Visit | | DO Deep [address] | | | | | | [place] [place] [address] | | | | | | [place], [place] | | | | | | [address] | | | | | | | | +--------+ + + + + documented as of this encounter Procedures + +--------+ + + + | Procedure Name | Priori | Date/Time | Associated Diagnosis | Comments | | | ty | | | | + +--------+ + + + | EXTERNAL LAB: BUN | Routin | 03/08/2016 | | Results for this | | | e | | | procedure are in the | | | | | | results section. | + +--------+ + + + | EXTERNAL LAB: | Routin | 03/08/2016 | | Results for this | | GLUCOSE | e | | | procedure are in the | | | | | | results section. | + +--------+ + + + | EXTERNAL LAB: [place] | Routin | 03/08/2016 | | Results for this | | | e | | | procedure are in the | | | | | | results section. | + +--------+ + + + | EXTERNAL LAB: AST | Routin | 03/08/2016 | | Results for this | | | e | | | procedure are in the | | | | | | results section. | + +--------+ + + + | EXTERNAL LAB: | Routin | 03/08/2016 | | Results for this | | ALKALINE PHOSPHATASE | e | | | procedure are in the | | | | | | results section. | + +--------+ + + + | EXTERNAL LAB: | Routin | 03/08/2016 | | Results for this | | BILIRUBIN, TOTAL | e | | | procedure are in the | | | | | | results section. | + +--------+ + + + | EXTERNAL LAB: | Routin | 03/08/2016 | | Results for this | | ALBUMIN | e | | | procedure are in the | | | | | | results section. | + +--------+ + + + | EXTERNAL LAB: | Routin | 03/08/2016 | | Results for this | | PROTEIN, TOTAL | e | | | procedure are in the | | | | | | results section. | + +--------+ + + + | EXTERNAL LAB: | Routin | 03/08/2016 | | Results for this | | PHOSPHORUS | e | | | procedure are in the | | | | | | results section. | + +--------+ + + + | EXTERNAL LAB: | Routin | 03/08/2016 | | Results for this | | CALCIUM | e | | | procedure are in the | | | | | | results section. | + +--------+ + + + | EXTERNAL LAB: CARBON | Routin | 03/08/2016 | | Results for this | | DIOXIDE | e | | | procedure are in the | | | | | | results section. | + +--------+ + + + | EXTERNAL LAB: | Routin | 03/08/2016 | | Results for this | | CHLORIDE | e | | | procedure are in the | | | | | | results section. | + +--------+ + + + | EXTERNAL LAB: | Routin | 03/08/2016 | | Results for this | | POTASSIUM | e | | | procedure are in the | | | | | | results section. | + +--------+ + + + | EXTERNAL LAB: SODIUM | Routin | 03/08/2016 | | Results for this | | | e | | | procedure are in the | | | | | | results section. | + +--------+ + + + | EXTERNAL LAB: МАРИНА | Routin | 03/08/2016 | | Results for this | | INTACT | e | | | procedure are in the | | | | | | results section. | + +--------+ + + + | EXTERNAL LAB: | Routin | 03/08/2016 | | Results for this | | PROTEIN, URINE, 24HR | e | | | procedure are in the | | | | | | results section. | + +--------+ + + + | EXTERNAL LAB: CBC | Routin | 03/08/2016 | | Results for this | | | e | | | procedure are in the | | | | | | results section. | + +--------+ + + + | EXTERNAL LAB: | Routin | 03/08/2016 | | Results for this | | TRIGLYCERIDES | e | | | procedure are in the | | | | | | results section. | + +--------+ + + + | EXTERNAL LAB: | Routin | 03/08/2016 | | Results for this | | CHOLESTEROL, HDL | e | | | procedure are in the | | | | | | results section. | + +--------+ + + + | EXTERNAL LAB: | Routin | 03/08/2016 | | Results for this | | CHOLESTEROL, TOTAL | e | | | procedure are in the | | | | | | results section. | + +--------+ + + + | EXTERNAL LAB: | Routin | 03/08/2016 | | Results for this | | CHOLESTEROL, LDL | e | | | procedure are in the | | | | | | results section. | + +--------+ + + + | EXTERNAL LAB: EGFR | Routin | 03/08/2016 | | Results for this | | | e | | | procedure are in the | | | | | | results section. | + +--------+ + + + | EXTERNAL LAB: | Routin | 03/08/2016 | | Results for this | | CREATININE | e | | | procedure are in the | | | | | | results section. | + +--------+ + + + documented in this encounter Results External Lab: Protein, Urine, 24Hr (03/08/2016) + +---------+ + + + | Component | Value | Ref Range | Performed | Pathologist | | | | | At | Signature | + +---------+ + + + | Protein, | 260 (A) | 150 | EXTERNAL | | [...] + +---------+ + + External Lab: Triglycerides (03/08/2016) + +-------+ + + + | Component | Value | Ref Range | Performed | Pathologist | | | | | At | Signature | + +-------+ + + + | Triglycerid | 59 | 30 - 150 | EXTERNAL | [...] +---------+ + + External Lab: Cholesterol, HDL (03/08/2016) + +-------+ + + + | Component | Value | Ref Range | Performed | Pathologist | | | | | At | Signature | + +-------+ + + + | HDL | 57.3 | 40 mg/dl | EXTERNAL | | | Cholesterol [...] +---------+ + + External Lab: Cholesterol, Total (03/08/2016) + +-------+ + + + | Component | Value | Ref Range | Performed | Pathologist | | | | | At | Signature | + +-------+ + + + | Cholesterol | 143 | 200 mg/dl | EXTERNAL | | | , [...] +---------+ + + External Lab: Cholesterol, LDL (03/08/2016) + +-------+ + + + | Component | Value | Ref Range | Performed | Pathologist | | | | | At | Signature | + +-------+ + + + | LDL | 74 | 100 | EXTERNAL | | | [...] +---------+ + + External Lab: PTH, Intact (03/08/2016) + + + + + + | Component | Value | Ref Range | Performed | Pathologist | | | | | At | Signature | + + + + + + | PTH Intact, | 61.71 (A) | 12 - 18 | | | | External | | | | | + + + + + + | CREATININE | 28.0 (A) | 97.0 - 137.0 | | | | CLEARANCE | | mL/min | | | + + + + + + | 24H Urine | 2,600 | mL | | | | Volume | | | | | + + + + + + + + | Specimen | + + | | + + External Lab: ROSARIO (03/08/2016) + +--------+ + + + | Component | Value | Ref Range | Performed | Pathologist | | | | | At | Signature | + +--------+ + + + | BUN, | 38 (A) | 6 - 23 | EXTERNAL | | | External | | | LAB | | + +--------+ + + + + +---------+ + + | Performing | Address | City/State/Zipcode | Phone Number | | Organization | | | | + +---------+ + + | EXTERNAL LAB | | | | + +---------+ + + External Lab: Glucose (03/08/2016) + +-------+ + + + | Component | Value | Ref Range | Performed | Pathologist | | | | | At | Signature | + +-------+ + + + | Glucose, | 74 | 70 - 100 | EXTERNAL | | | External | | | LAB | | + +-------+ + + + + +---------+ + + | Performing | Address | City/State/Zipcode | Phone Number | | Organization | | | | + +---------+ + + | EXTERNAL LAB | | | | + +---------+ + + External Lab: ALT (03/08/2016) + +-------+ + + + | Component | Value | Ref Range | Performed | Pathologist | | | | | At | Signature | + +-------+ + + + | ALT, | 25 | 7 - 52 | EXTERNAL | | | External | | | LAB | | + +-------+ + + + + +---------+ + + | Performing | Address | City/State/Zipcode | Phone Number | | Organization | | | | + +---------+ + + | EXTERNAL LAB | | | | + +---------+ + + External Lab: SAHIL (03/08/2016) + +-------+ + + + | Component | Value | Ref Range | Performed | Pathologist | | | | | At | Signature | + +-------+ + + + | AST, | 30 | 13 - 39 | EXTERNAL | | | External | | | LAB | | + +-------+ + + + + +---------+ + + | Performing | Address | City/State/Zipcode | Phone Number | | Organization | | | | + +---------+ + + | EXTERNAL LAB | | | | + +---------+ + + External Lab: Alkaline Phosphatase (03/08/2016) + +-------+ + + + | Component | Value | Ref Range | Performed | Pathologist | | | | | At | Signature | + +-------+ + + + | ALP, | 75 | 30 - 128 | EXTERNAL | | | External | | | LAB | | + +-------+ + + + + +---------+ + + | Performing | Address | City/State/Zipcode | Phone Number | | Organization | | | | + +---------+ + + | EXTERNAL LAB | | | | + +---------+ + + External Lab: Bilirubin, Total (03/08/2016) + +-------+ + + + | Component [...] + +---------+ + + External Lab: Albumin (03/08/2016) + +-------+ + + + | Component [...] +---------+ + + External Lab: Protein, Total (03/08/2016) + +-------+ + + + | Component [...] + +---------+ + + External Lab: Phosphorus (03/08/2016) + +-------+ + + + | Component | Value | Ref Range | Performed | Pathologist | | | | | At | Signature | + +-------+ + + + | Phosphorus, | 3.0 | 2.5 - 5 | EXTERNAL | | | External | | | LAB | | + +-------+ + + + + +---------+ + + | Performing | Address | City/State/Zipcode | Phone Number | | Organization | | | | + +---------+ + + | EXTERNAL LAB | | | | + +---------+ + + External Lab: Calcium (03/08/2016) + +-------+ + + + | Component [...] +---------+ + + External Lab: Carbon Dioxide (03/08/2016) + +-------+ + + + | Component [...] + +---------+ + + External Lab: Chloride (03/08/2016) + +-------+ + + + | Component | Value | Ref Range | Performed | Pathologist | | | | | At | Signature | + +-------+ + + + | Chloride, | 101 | 100 - 110 | EXTERNAL | | | External | | | LAB | | + +-------+ + + + + +---------+ + + | Performing | Address | City/State/Zipcode | Phone Number | | Organization | | | | + +---------+ + + | EXTERNAL LAB | | | | + +---------+ + + External Lab: Potassium (03/08/2016) + +-------+ + + + | Component | Value | Ref Range | Performed | Pathologist | | | | | At | Signature | + +-------+ + + + | Potassium, | 4.1 | 3.6 - 5.1 | EXTERNAL | | | External | | | LAB | | + +-------+ + + + + +---------+ + + | Performing | Address | City/State/Zipcode | Phone Number | | Organization | | | | + +---------+ + + | EXTERNAL LAB | | | | + +---------+ + + External Lab: Sodium (03/08/2016) + +-------+ + + + | Component [...] + +---------+ + + External Lab: CBC (03/08/2016) + +-------+ + + + | Component | Value | Ref Range | Performed | Pathologist | | | | | At | Signature | + +-------+ + + + | WBC, | 6.1 | 4.5 - 11 | EXTERNAL | | | External | | | LAB | | + +-------+ + + + | HGB, | 14.4 | 13.5 - 18 | EXTERNAL | | | External | | | LAB | | + +-------+ + + + | HCT, | 42.8 | 41 - 50 | EXTERNAL | | | External | | | LAB | | + +-------+ + + + | PLT, | 165 | 140 - 440 | EXTERNAL | | | External | | | LAB | | + +-------+ + + + | RBC, | 4.44 | 4.3 - 5.7 | EXTERNAL | | | External | | | LAB | | + +-------+ + + + | MCV, | 96 | 81 - 99 | EXTERNAL | | | External | | | LAB | | + +-------+ + + + | RDW, | 13.8 | 10.5 - 15 | EXTERNAL | | | External | | | LAB | | + +-------+ + + + + +---------+ + + | Performing | Address | City/State/Zipcode | Phone Number | | Organization | | | | + +---------+ + + | EXTERNAL LAB | | | | + +---------+ + + External Lab: eGFR (03/08/2016) + +--------+ + + + | Component | Value | Ref Range | Performed | Pathologist | | | | | At | Signature | + +--------+ + + + | eGFR, | 25 (A) | 60 | EXTERNAL | | [...] + +---------+ + + External Lab: Creatinine (03/08/2016) + + + + + + | Component | Value | Ref Range | Performed | Pathologist | | | | | At | Signature | + + + + + + | Creatinine, | 2.54 (A) | 0.6 - 1.3 | EXTERNAL [...]
--- OUTSIDE RECORDS SUMMARY | ~2019-03-07 | XMS | Clinical Summary ---
Demographics + + + | Address | [address] | | | [place] [address] | + + + | Home Phone | | + + + | Preferred Language | Unknown | + + + | Marital Status | | + + + | Rastafari Affiliation | 1001 | + + + | Race | Unknown | + + + | Ethnic Group | Unknown | + + + Author + + + | Author | [facility] | | | and [place] | + + + | Organization | [facility] | | | and [...] [place] | | | | | [address] | | + + + + + Care Team Providers + +------+ + | Care Steaming Cabinet Tender Name | Role | Phone | + +------+ + | Dre Jacobo MD | PCP | | + +------+ + Allergies No Known Allergies Medications + + + +---------+------+------+-------+ | Medication | Sig | Dispensed | Refills | Star | End | Statu | | | | | | t | Date | s | | | | | | Date | | | + + + +---------+------+------+-------+ | fluoxetine | Take 40 mg by mouth | | 0 | 04/1 | | Activ | | (PROZAC) 40 MG | Daily. | | | 20 | | e | | capsule | | | | 12 | | | + + + +---------+------+------+-------+ | allopurinol | Take 100 mg by mouth | | 0 | 09/ | | Activ | | (ZYLOPRIM) 100 mg | Daily. | | | 20 | | e | | tablet | | | | 12 | | | + + + +---------+------+------+-------+ | traZODone | Take 100 mg by mouth | | 0 | 01/2 | | Activ | | (DESYREL) 50 mg | nightly. | | | /20 | | e | | tablet | | | | 11 | | | + + + +---------+------+------+-------+ | latanoprost | Place 1 drop into | | 0 | | | Activ | | (XALATAN) 0.005% | both eyes nightly. | | | | | e | | ophthalmic solution | | | | | | | + + + +---------+------+------+-------+ | donepezil | Take 10 mg by mouth | | 0 | | | Activ | | (ARICEPT) 10 MG | nightly. | | | | | e | | tabletIndications: | | | | | | | | Chronic kidney | | | | | | | | disease, stage IV | | | | | | | | (severe) ([facility]), | | | | | | | | Essential | | | | | | | | hypertension, Anemia | | | | | | | | in chronic renal | | | | | | | | disease, Secondary | | | | | | | | renal | | | | | | | | hyperparathyroidism | | | | | | | | (HCC) | | | | | | | + + + +---------+------+------+-------+ | timolol maleate | Place 1 drop into | | 0 | | | Activ | | (TIMOPTIC) 0.5% | both eyes 2 times | | | | | e | | ophthalmic solution | daily. | | | | | | + + + +---------+------+------+-------+ | calcitriol | Take 1 capsule by | 90 | 4 | 12/1 | | Activ | | (ROCALTROL) 0.25 mcg | mouth Daily. | capsule | | 0/20 | | e | | capsuleIndications: | | | | 18 | | | | Chronic kidney | | | | | | | | disease, stage IV | | | | | | | | (severe) (HCC), | | | | | | | | Essential | | | | | | | | hypertension, | | | | | | | | Secondary | | | | | | | | hyperparathyroidism | | | | | | | | (HCC), Idiopathic | | | | | | | | gout, unspecified | | | | | | | | chronicity, | | | | | | | | unspecified site | | | | | | | + + + +---------+------+------+-------+ | cholecalciferol | Take 2,000 Units by | | 0 | | | Activ | | (VITAMIN D-3) 2000 | mouth Daily. | | | | | e | | units TABS | | | | | | | + + + +---------+------+------+-------+ Active Problems + + + | Problem | Noted Date | + + + | Chronic kidney disease, stage IV (severe) | 07/21/2015 | + + + | Gout | 01/19/2014 | + + + | Awaiting kidney transplant status | 09/12/2013 | + + + + + | Overview: [facility] | | Status: PENDING-until kidney function declines to <20%. 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 | | | disease stage I through stage IV, or unspecified(403.90) | 12 | 5 | + + + + Encounters +--------+ + + + + | Date | Type | Specialty | Care Team | Description | +--------+ + + + + | 03/07/ | Abstract | Nephrology | Bennie Garza | | | 2018 | | | M, DO | | +--------+ + + + + | 02/14/ | Orders Only | Nephrology | Bennie Garza | Chronic kidney | | 2018 | | | M, DO | disease, stage IV | | | | | | (severe) (HCC) | | | | | | (Primary Dx); Anemia | | | | | | in stage 3 chronic | | | | | | kidney disease (HCC) | +--------+ + + + + from Last 3 Months Family History + + +------+ + | Medical History | Relation | Name | Comments | + + +------+ + | Diabetes | Brother | | | + + +------+ + | High blood pressure | Brother | | | + + +------+ + | Stroke | Brother | | | + + +------+ + | Other (see comment) | Father | | ALCOHOLISM | + + +------+ + | Diabetes | Mother | | | + + +------+ + | Kidney disease | Neg Hx | | | + + +------+ + + +------+ + + | Relation | Name | Status | Comments | + +------+ + + | Brother | | Alive | | + +------+ + + | Father | | | COMP. ALCOHOL | | | | (Age | | | | | 84) | | + +------+ + + | Mother | | | COMPLICATIONS DIABETES | | | | (Age | | | | | 77) | | + +------+ + + Social History + +-------+ +--------+------+ [...] recent travel history available. | + + Last Filed Vital Signs + + + [...] | | + + + + + Plan of Treatment +--------+ + + + + | Date | Type | Specialty | Care Team | Description | +--------+ + + + + | 03/12/ | Off-Site | Nephrology | Bennie Garza | | | 2019 | Visit | | DO Deep [address] [place] [address] | | | | | | [place] | | | | | | [place] | | | | | | [phone] | | | | | | | | +--------+ + + + + + + + + + | Health Maintenance | Due Date | Last Done | Comments | + + + + + | Vaccine: | | | | | Pneumococcal 65+ (1 | 9 | | | | of 2 - PCV13) | | | | + + + + + | Vaccine: Zoster (2 | | 02/08/2012 | | | of 3) | 3 | | | + + + + + | Adult Annual | | | | | Wellness Visit | 5 | | | + + + + + | Vaccine: Influenza | | 01/03/2018, 12/05/2016, | | | (#1) | 9 | 01/02/2016, Additional history | | | | | exists | | + + + + + | Vaccine: | | 10/14/2009, 11/16/2005 | | | Dtap/Tdap/Td (3 - | 0 | | | | Td) | | | | + + + + + | Colorectal Cancer | | 11/09/2010 | | | Screening | 1 | | | | (Colonoscopy) | | | | + + + + + Procedures + +--------+ + + + | [...] | EXTERNAL LAB: ROSARIO | Routin | 03/06/2019 | | Results [...] | EXTERNAL LAB: ALT | Routin | 03/06/2019 | | Results [...] section. | + +--------+ + + + from Last 3 Months Results External Lab: BUN (03/06/2019) + +-------+ + [...] +---------+ + + External Lab: PTH, Intact (03/06/2019) + +-------+ [...] + | | + + External Lab: CBC (03/06/2019) + [...] | | | + +---------+ + + from Last 3 Months Insurance + +--------+ +--------+ +---------+--------+ | Payer | Benefi | Subscriber | Effect | Phone | Address | Type | | | t Plan | ID | leo | | | | | | / | | Dates | | | | | | Group | | | | | | + +--------+ +--------+ +---------+--------+ | MEDICARE | MEDICA | [id number] | 05/05/19 | [phone] | | Medica | | | RE | | 09-Pre | 5 | | re | | | PART A | | sent | | | | | | AND B | | | | | | + +--------+ +--------+ +---------+--------+ | [employer] | UNITED | [id number] | 04/04/19 | [phone] | | Indemn | | | OF | | 12-Pre | 0 | | ity | | | ELEM | | sent | | | | | | MDCR | | | | | | | | SUPPL | | | | | | + +--------+ +--------+ +---------+--------+ | | [employer] | [id number] | 04/04/19 | [phone] | | Indemn | | | E FOR | | 13-Pre | 0 | | ity | | | LIFE | | sent | | | | + +--------+ +--------+ +---------+--------+ + +--------+ +--------+ + + | Guarantor Name | Accoun | Relation to | Date | Phone | Billing Address | | | t Type | Patient | of | | | | | | | | | | + +--------+ +--------+ + + | Dillon Glasgow | Person | Self | [birth year] | [address] | | Evangelist | al/Fam | | 1946 | [phone] | [place] [address] | | | nicole | | | 4 (Home) | | + +--------+ +--------+ + + Advance Directives + + + + + | Type | Date Recorded | Patient | Explanation | | | | Human Resources Intern | | + + + + + | Power of | | | | | Property Worker | | | | + + + + + | Advance | | | | | Directive | | | | + + + + +
--- OUTSIDE RECORDS SUMMARY | ~2019-03-07 | XMS | Encounter Summary ---
Demographics + + + | Address | [address] | | | [place] [address] | + + + | Home Phone [...] + | Author | [facility] | | | and [place] | + + + | Organization | [facility] | | | and [...] [place] | | | | | [address] | | + + + + + Care Team Providers + +------+ + | Care Green Building Engineer Name | Role | Phone | + +------+ + | Dre Jacobo MD | PCP | | + +------+ + Encounter Details +--------+ + + + + | Date | Type | Department | Care Team | Description | +--------+ + + + + | 08/22/ | Abstract | [facility] [place] | Bennie Gazra | | | 2017 | | NEPHROLOGY [address] | M, DO [address] | | | | | [address] | [place] | | | | | [place], [place] | [place], [place] | | | | | [address] | [address] | | | | | [phone] | | | +--------+ + + + [...] | Visit | | DO [address] | | | | | | [place] | | | | | | [place], [place] | | | | | | [id number] | | | | | | | | +--------+ + + + + documented as of this encounter Procedures + +--------+ + + + | Procedure Name | Priori | Date/Time | Associated Diagnosis | Comments | | | ty | | | | + +--------+ + + + | EXTERNAL LAB: BUN | Routin | 11/22/2016 | | Results for this | | | e | | | procedure are in the | | | | | | results section. | + +--------+ + + + | EXTERNAL LAB: | Routin | 11/22/2016 | | Results for this | | GLUCOSE | e | | | procedure are in the | | | | | | results section. | + +--------+ + + + | EXTERNAL LAB: HADLEY | Routin | 11/22/2016 | | Results for this | | | e | | | procedure are in the | | | | | | results section. | + +--------+ + + + | EXTERNAL LAB: AST | Routin | 11/22/2016 | | Results for this | | | e | | | procedure are in the | | | | | | results section. | + +--------+ + + + | EXTERNAL LAB: | Routin | 11/22/2016 | | Results for this | | ALKALINE PHOSPHATASE | e | | | procedure are in the | | | | | | results section. | + +--------+ + + + | EXTERNAL LAB: | Routin | 11/22/2016 | | Results for this | | BILIRUBIN, TOTAL | e | | | procedure are in the | | | | | | results section. | + +--------+ + + + | EXTERNAL LAB: | Routin | 11/22/2016 | | Results for this | | ALBUMIN | e | | | procedure are in the | | | | | | results section. | + +--------+ + + + | EXTERNAL LAB: | Routin | 11/22/2016 | | Results for this | | PROTEIN, TOTAL | e | | | procedure are in the | | | | | | results section. | + +--------+ + + + | EXTERNAL LAB: | Routin | 11/22/2016 | | Results for this | | PHOSPHORUS | e | | | procedure are in the | | | | | | results section. | + +--------+ + + + | EXTERNAL LAB: | Routin | 11/22/2016 | | Results for this | | CALCIUM | e | | | procedure are in the | | | | | | results section. | + +--------+ + + + | EXTERNAL LAB: CARBON | Routin | 11/22/2016 | | Results for this | | DIOXIDE | e | | | procedure are in the | | | | | | results section. | + +--------+ + + + | EXTERNAL LAB: | Routin | 11/22/2016 | | Results for this | | CHLORIDE | e | | | procedure are in the | | | | | | results section. | + +--------+ + + + | EXTERNAL LAB: | Routin | 11/22/2016 | | Results for this | | POTASSIUM | e | | | procedure are in the | | | | | | results section. | + +--------+ + + + | EXTERNAL LAB: SODIUM | Routin | 11/22/2016 | | Results for this | | | e | | | procedure are in the | | | | | | results section. | + +--------+ + + + | EXTERNAL LAB: МАРИНА | Routin | 11/22/2016 | | Results for this | | INTACT | e | | | procedure are in the | | | | | | results section. | + +--------+ + + + | EXTERNAL LAB: | Routin | 11/22/2016 | | Results for this | | PROTEIN, URINE, 24HR | e | | | procedure are in the | | | | | | results section. | + +--------+ + + + | EXTERNAL LAB: CBC | Routin | 11/22/2016 | | Results for this | | | e | | | procedure are in the | | | | | | results section. | + +--------+ + + + | EXTERNAL LAB: | Routin | 11/22/2016 | | Results for this | | TRIGLYCERIDES | e | | | procedure are in the | | | | | | results section. | + +--------+ + + + | EXTERNAL LAB: | Routin | 11/22/2016 | | Results for this | | CHOLESTEROL, HDL | e | | | procedure are in the | | | | | | results section. | + +--------+ + + + | EXTERNAL LAB: | Routin | 11/22/2016 | | Results for this | | CHOLESTEROL, TOTAL | e | | | procedure are in the | | | | | | results section. | + +--------+ + + + | EXTERNAL LAB: | Routin | 11/22/2016 | | Results for this | | CHOLESTEROL, LDL | e | | | procedure are in the | | | | | | results section. | + +--------+ + + + | EXTERNAL LAB: EGFR | Routin | 11/22/2016 | | Results for this | | | e | | | procedure are in the | | | | | | results section. | + +--------+ + + + | EXTERNAL LAB: | Routin | 11/22/2016 | | Results for this | | CREATININE | e | | | procedure are in the | | | | | | results section. | + +--------+ + + + | CREATININE | Routin | 11/22/2016 | | Results for this | | CLEARANCE, RESULT | e | | | procedure are in the | | | | | | results section. | + +--------+ + + + documented in this encounter Results External Lab: Protein, Urine, 24Hr (11/22/2016) + +---------+ + + + | Component | Value | Ref Range | Performed | Pathologist | | | | | At | Signature | + +---------+ + + + | Protein, | 242 (A) | 150 | EXTERNAL | | [...] + +---------+ + + External Lab: Triglycerides (11/22/2016) + +-------+ + + + | Component | Value | Ref Range | Performed | Pathologist | | | | | At | Signature | + +-------+ + + + | Triglycerid | 72 | 150 | EXTERNAL | | | es, [...] +---------+ + + External Lab: Cholesterol, HDL (11/22/2016) + +-------+ + + + | Component | Value | Ref Range | Performed | Pathologist | | | | | At | Signature | + +-------+ + + + | HDL | 61.8 | 40 mg/dl | EXTERNAL | | [...] +---------+ + + External Lab: Cholesterol, Total (11/22/2016) + +-------+ + + + | Component | Value | Ref Range | Performed | Pathologist | | | | | At | Signature | + +-------+ + + + | Cholesterol | 133 | 200 mg/dl | EXTERNAL | | [...] +---------+ + + External Lab: Cholesterol, LDL (11/22/2016) + +-------+ + + + | Component | Value | Ref Range | Performed | Pathologist | | | | | At | Signature | + +-------+ + + + | LDL | 57 | 100 | EXTERNAL | | | [...] +---------+ + + External Lab: PTH, Intact (11/22/2016) + +-------+ + + + | Component | Value | Ref Range | Performed | Pathologist | | | | | At | Signature | + +-------+ + + + | PTH Intact, | 47.81 | 15 - 65 | | | | External | | | | | + +-------+ + + + + + | Specimen | + + | | + + Creatinine Clearance, Result (11/22/2016) + + + + + + | Component | Value | Ref Range | Performed | Pathologist | | | | | At | Signature | + + + + + + | CREATININE | 24.0 (A) | 97.0 - 137.0 | | | | CLEARANCE | | mL/min | | | + + + + + + | 24H Urine | 2,200 | mL | | | | Volume | | | | | + + + + + + + + | Specimen | + + | Urine | + + External Lab: Alkaline Phosphatase (11/22/2016) + +-------+ + + + | Component | Value | Ref Range | Performed | Pathologist | | | | | At | Signature | + +-------+ + + + | ALP, | 68 | 31 - 120 | EXTERNAL | | | External | | | LAB | | + +-------+ + + + + +---------+ + + | Performing | Address | City/State/Zipcode | Phone Number | | Organization | | | | + +---------+ + + | EXTERNAL LAB | | | | + +---------+ + + External Lab: Bilirubin, Total (11/22/2016) + +-------+ + + + | Component [...] + +---------+ + + External Lab: CBC (11/22/2016) + +-------+ + + + | Component | Value | Ref Range | Performed | Pathologist | | | | | At | Signature | + +-------+ + + + | WBC, | 5.8 | 4 - 11 | EXTERNAL | | | External | | | LAB | | + +-------+ + + + | HGB, | 13.5 | 12 - 16 | EXTERNAL | | | External | | | LAB | | + +-------+ + + + | HCT, | 40.5 | 35 - 45 | EXTERNAL | | | External | | | LAB | | + +-------+ + + + | PLT, | 178 | 140 - 440 | EXTERNAL | | | External | | | LAB | | + +-------+ + + + | RBC, | 4.14 | 4 - 6 | EXTERNAL | | | External | | | LAB | | + +-------+ + + + | MCV, | 98 | 80 - 100 | EXTERNAL | | | External | | | LAB | | + +-------+ + + + | RDW, | 13.4 | 10.5 - 16 | EXTERNAL | | | External | | | LAB | | + +-------+ + + + + +---------+ + + | Performing | Address | City/State/Zipcode | Phone Number | | Organization | | | | + +---------+ + + | EXTERNAL LAB | | | | + +---------+ + + External Lab: ROSARIO (11/22/2016) + +--------+ + + + | Component | Value | Ref Range | Performed | Pathologist | | | | | At | Signature | + +--------+ + + + | BUN, | 49 (A) | 6 - 23 | EXTERNAL | | | External | | | LAB | | + +--------+ + + + + +---------+ + + | Performing | Address | City/State/Zipcode | Phone Number | | Organization | | | | + +---------+ + + | EXTERNAL LAB | | | | + +---------+ + + External Lab: Glucose (11/22/2016) + +-------+ + + + | Component | Value | Ref Range | Performed | Pathologist | | | | | At | Signature | + +-------+ + + + | Glucose, | 84 | 70 - 100 | EXTERNAL | | | External | | | LAB | | + +-------+ + + + + +---------+ + + | Performing | Address | City/State/Zipcode | Phone Number | | Organization | | | | + +---------+ + + | EXTERNAL LAB | | | | + +---------+ + + External Lab: ALT (11/22/2016) + +-------+ + + + | Component | Value | Ref Range | Performed | Pathologist | | | | | At | Signature | + +-------+ + + + | ALT, | 20 | 10 - 39 | EXTERNAL | | | External | | | LAB | | + +-------+ + + + + +---------+ + + | Performing | Address | City/State/Zipcode | Phone Number | | Organization | | | | + +---------+ + + | EXTERNAL LAB | | | | + +---------+ + + External Lab: AST (11/22/2016) + +-------+ + + + | Component | Value | Ref Range | Performed | Pathologist | | | | | At | Signature | + +-------+ + + + | AST, | 28 | 13 - 39 | EXTERNAL | | | External | | | LAB | | + +-------+ + + + + +---------+ + + | Performing | Address | City/State/Zipcode | Phone Number | | Organization | | | | + +---------+ + + | EXTERNAL LAB | | | | + +---------+ + + External Lab: Albumin (11/22/2016) + +-------+ + + + | Component | Value | Ref Range | Performed | Pathologist | | | | | At | Signature | + +-------+ + + + | Albumin, | 4.5 | 3.5 - 5 | EXTERNAL | | | External | | | LAB | | + +-------+ + + + + +---------+ + + | Performing | Address | City/State/Zipcode | Phone Number | | Organization | | | | + +---------+ + + | EXTERNAL LAB | | | | + +---------+ + + External Lab: Protein, Total (11/22/2016) + +-------+ + + + | Component | Value | Ref Range | Performed | Pathologist | | | | | At | Signature | + +-------+ + + + | Protein, | 7.3 | 6 - 8 | EXTERNAL | [...] + +---------+ + + External Lab: Phosphorus (11/22/2016) + +-------+ + + + | Component | Value | Ref Range | Performed | Pathologist | | | | | At | Signature | + +-------+ + + + | Phosphorus, | 3.9 | 2.5 - 5 | EXTERNAL | | | External | | | LAB | | + +-------+ + + + + +---------+ + + | Performing | Address | City/State/Zipcode | Phone Number | | Organization | | | | + +---------+ + + | EXTERNAL LAB | | | | + +---------+ + + External Lab: Calcium (11/22/2016) + +-------+ + + + | Component | Value | Ref Range | Performed | Pathologist | | | | | At | Signature | + +-------+ + + + | Calcium, | 9.6 | 8.4 - 10.2 | EXTERNAL | | | External | | | LAB | | + +-------+ + + + + +---------+ + + | Performing | Address | City/State/Zipcode | Phone Number | | Organization | | | | + +---------+ + + | EXTERNAL LAB | | | | + +---------+ + + External Lab: Carbon Dioxide (11/22/2016) + +--------+ + + + | Component | Value | Ref Range | Performed | Pathologist | | | | | At | Signature | + +--------+ + + + | Carbon | 19 (A) | 23 - 32 | EXTERNAL | | | [...] + +---------+ + + External Lab: Chloride (11/22/2016) + +-------+ + + + | Component [...] + +---------+ + + External Lab: Potassium (11/22/2016) + +-------+ + + + | Component | Value | Ref Range | Performed | Pathologist | | | | | At | Signature | + +-------+ + + + | Potassium, | 4.3 | 3.5 - 5.1 | EXTERNAL | | | External | | | LAB | | + +-------+ + + + + +---------+ + + | Performing | Address | City/State/Zipcode | Phone Number | | Organization | | | | + +---------+ + + | EXTERNAL LAB | | | | + +---------+ + + External Lab: Sodium (11/22/2016) + +---------+ + + + | Component | Value | Ref Range | Performed | Pathologist | | | | | At | Signature | + +---------+ + + + | Sodium, | 134 (A) | 135 - 145 | EXTERNAL | | | External | | | LAB | | + +---------+ + + + + +---------+ + + | Performing | Address | City/State/Zipcode | Phone Number | | Organization | | | | + +---------+ + + | EXTERNAL LAB | | | | + +---------+ + + External Lab: eGFR (11/22/2016) + +--------+ + + + | Component | Value | Ref Range | Performed | Pathologist | | | | | At | Signature | + +--------+ + + + | eGFR, | 22 (A) | 60 | EXTERNAL | | [...] + +---------+ + + External Lab: Creatinine (11/22/2016) + + + + + + | Component | Value | Ref Range | Performed | Pathologist | | | | | At | Signature | + + + + + + | Creatinine, | 2.85 (A) | 0.6 - 1.3 | EXTERNAL [...]
--- OUTSIDE RECORDS SUMMARY | ~2019-03-07 | XMS | Encounter Summary ---
Demographics + + + | Address | [address] | | | [place] [address] | + + + | Home Phone [...] + + + | Author | [facility] | | | and [place] | + + + | Organization | [facility] | | | and [place]ra[place] [...] [place] | | | | | [address] | | + + + + + Care Team Providers + +------+ + | Care Film Historian Name | Role | Phone | + +------+ + | Dre Jacobo MD | PCP | | + +------+ + Encounter Details +--------+ + + + + | Date | Type | Department | Care Team | Description | +--------+ + + + + | 04/22/ | Orders Only | [facility] [place] | [facility] | CHRONIC KIDNEY | | 2015 | | NEPHROLOGY [address] | M, DO [address] | DISEASE STAGE III | | | | [address] | [place] | (MODERATE) (Primary | | | | [place], [place] | [place], [place] | Dx); Anemia in | | | | [phone] | [address] | chronic kidney | | | | [phone] | | disease; SECONDARY | | | | | | [...] this encounter Progress Tanika Cross RN - 04/22/2014 2:53 PM PSTLabs for nephrology appt on 05/13/14 sent to [facility] documented in this encounter Plan of Treatment +--------+ + + + + | Date | Type | Specialty | Care Team | Description | +--------+ + + + + | 03/12/ | Off-Site | Nephrology | Bennie Garza | | | 2018 | Visit | | DO Deep [address] | | | | | | [place] | | | | | | [place] | | | | | | [phone] | | | | | | | [...]
--- OUTSIDE RECORDS SUMMARY | ~2019-03-07 | XMS | Encounter Summary ---
Demographics + + + | Address | [address] | | | [place] [address] | + + + | Home Phone | | + + + | Preferred Language | Unknown | + + + | Marital Status | | + + + | Holiness Affiliation | 1001 | + + + | Race | Unknown | + + + | Ethnic Group | Unknown | + + + Author + + + | Author | [facility] | | | and Ezraana | + + + | Organization | [facility] | | | and [...] [place] | | | | | [address] | | + + + + + Care Team Providers + +------+ + | Care Manager Of Operations Name | Role | Phone | + [...] kidney | MD [address] | [address] | | | | | disease, | [address] | [place], [place] | | | | | stage 4 | [place] [address] | [address] [place] | | | | | (severe) | [place], | [place], [place] | | | | | (HCC) | [place] | [address] Phone: | | | | | Hypertension | [address] | [phone] | | | | | 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 | [phone] | [phone] | | | | | kidney | Fax: | | | | | | disease | [phone] | | | | | | Procedures | | | | | | | CT OFFICE | | | | | | | OUTPATIENT | | | | | | | VISIT 25 | | | | | | | MINUTES | | | +--------+--------+ + + + + Encounter Details +--------+ + + + + | Date | Type | Department | Care Team | Description | +--------+ + + + + | 07/04/ | Off-Site | [facility] [place] | Bennie Garza | Chronic kidney | | 2018 | Visit | NEPHROLOGY [address] | M, DO [address] | disease, stage IV | | | | [address] | [place], [place] [address] | (severe) (HCC) | | | | [place], [place] | [place], [place] | (Primary Dx); | | | | [address] | [address] | Essential | | | | [phone] | | hypertension; | | | | | | SECONDARY | | | | | | HYPERPARATHYROIDISM; | | | | | | Idiopathic chronic | | | | | | gout without tophus, | | | | | | unspecified [...] + + + | Blood Pressure | 145/86 | 07/04/2017 6:05 PM | | | | | PDT | | + + + + + | Pulse | - | - | | + + + + + | Temperature | 36.8 C (98.2 F) | 07/04/2017 6:05 PM | | | | | PDT [...] | 57 kg (125 lb 10.6 | 07/04/2017 6:05 PM | | | | oz) | PDT | | + + + + + | Height | - | - | | + + + + + | Body Mass Index | 20.91 | 10/02/2013 2:09 PM | | | | | PDT | | + + + + + documented in this encounter Progress Notes Bennie Garza DO - 07/04/2017 3:00 PM PDT Subjective: NEPHROLOGY Patient ID: Dillon Glasgow is a 72 y.o. male. HPI Comments: Follow up for this pleasant, 71 YOWM with a long history of CKD sec ondary to hypertension, SHPTH, and remote depression. He feels that his memory loss has not necessarily worsened. He denies edema, hiccups, cram ps, anorexia, or MAURICE. He is s/p AVF construction in his right arm on 06/04/13. Outpatient Prescriptions Marked as Taking for the 07/04/17 encounter (Appointment) with Car Garza DO Medication Sig Dispense Refill allopurinol (ZYLOPRIM) 100 mg tablet Take 100 mg by mouth Daily. calcitriol (ROCALTROL) 0.25 mcg capsule Take 1 capsule by mouth Daily. 90 capsule 4 donepezil (ARICEPT) 10 MG tablet Take 10 mg by mouth nightly. [DISCONTINUED] dorzolamide (TRUSOPT) 2% ophthalmic solution Place 2 drops into both eye s 2 times daily. fluoxetine (PROZAC) 40 MG capsule Take [...] mouth nightly. No Known Allergies Objective: BP 145/86 | Temp 36.8 C (98.2 F) | Wt 57 kg (125 lb 10.6 oz) | BMI 20.9 1 kg/m Physical Exam Heart: Regular rate and rhythm with no S3, S4, murmur or rub. Lungs: CTA in all yanes. No rales or wheezes. Abdomen: soft, flat, nontender, NABS. Extremities: no clubbing, cyanosis, or edema. (+) ~ 6mm, AVF in the right arm with a stro ng bruit. No asterixis. Lab Results Component Value Date NAEX 139 06/27/2017 KEX 4.6 06/27/2017 CLEX 105 06/27/2017 CO2EX 23 06/27/2017 BUNEX 56 06/27/2017 CREEX 2.83 06/27/2017 EGFREX 22 06/27/2017 GLUEX 81 06/27/2017 PHOSEX 3.9 06/27/2017 PTHEX 36.93 06/27/2017 Lab Results Component Value Date CHOLEX 126 03/07/2017 HDLEX 65 03/07/2017 LDLEX 50 03/07/2017 TRIGEX 54 03/07/2017 Lab Results Component Value Date WBCEX 5.5 06/27/2017 HGBEX 13.6 06/27/2017 HCTEX 41 06/27/2017 PLTEX 158 06/27/2017 Lab Results Component Value Date PROTEX 330 (A) 06/27/2017 CRCLEARANCE 17.0 (A) 06/27/2017 Assessment: 1. CKD, Stage IV, secondary to hypertensive nephrosclerosis-- no symptoms of uremia. 2. Hypertension-- stable off of drug Rx. BP controlled been liberalized to promote maturat ion of the AVF. 3. Depression--in remission. 4. History of gout--in remission. 5. SHPTH-- excellent control with diet therapy. 6. Historical diagnosis of Alzheimer's--clinically he appears lucid today? Plan: 1. His AVF appears fully mature and ready to utilize. 2. I reviewed with Dillon and his that his GFR does appear to be slowly declining ove r time. He understands a renal replacement therapy will become necessary when the GFR is co nsistently <14 ml/minute. 3. For now his electrolytes appear stable on his current renal diet. He appears very compl iant with his phosphorus, and sodium restriction. 4. Will plan to see him back in 4 months at the CKD Clinic, [facility] , [place]. He anette l have a CBC, CMP, PO4, iPTH, and 24 Hour urine, one week prior to that. : Ray Mcmillan MD, Chandana Mcpherson MD, [facility] documented in t his encounter Plan of Treatment +--------+ + + + + | Date | Type | Specialty | Care Team | Description | +--------+ + + + + | 03/12/ | Off-Site | Nephrology | Bennie Garza | | | 2019 | Visit | | DO Deep [address] | | | | | | [place], [place] [address] | | | | | | [place] | | | | | | [phone] | | | | | | | [...] renal origin) | + + | Idiopathic chronic gout without tophus, unspecified site | + + documented in this encounter"
--- OUTSIDE RECORDS SUMMARY | ~2019-03-07 | XMS | Encounter Summary ---
Demographics + + + | Address | [address] | | | [place] [address] | + + + | Home Phone [...] + + | Author | [facility] | | | and Ezraana | + + + | Organization | [facility] | | | and [...] [place] | | | | | [address] | | + + + + + Care Team Providers + +------+ + | Care White Lead Filterer Name | Role | Phone | + [...] | | [address] | [place], [address] | | | | | [place], [place] | [place], [place] | | | | | [address] | [address] | | | | | [phone] | | | +--------+ + + + [...] | Visit | | DO Deep [address] [place] [address] | | | | | | [place], [address] | | | | | | [place] | | | | | | [address] | | | | | | | [...]
--- OUTSIDE RECORDS SUMMARY | ~2019-03-07 | XMS | Encounter Summary ---
Demographics + + + | Address | [address] | | | [place] [address] | + + + | Home Phone | | + + + | Preferred Language | Unknown | + + + | Marital Status | | + + + | Restorationist Affiliation | 1001 | + + + | Race | Unknown | + + + | Ethnic Group | Unknown | + + + Author + + + | Author | [facility] | | | and Ezraana | + + + | Organization | [facility] | | | and [...] [place] | | | | | [address] | | + + + + + Care Team Providers + +------+ + | Care Bumper And Painter Name | Role | Phone | + [...] kidney | MD [address] | [address] | | | | | disease, | [address] | [place], [place] | | | | | stage 4 | [address] | [address] [place] | | | | | (severe) | [place], | [place], [place] | | | | | (HCC) | [place] | [address] Phone: | | | | | Hypertension | [address] | [phone] | | | | | 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 | [phone] | [phone] | | | | | kidney | Fax: | | | | | | disease | [phone] | | | | | | Procedures | | | | | | | [place] OFFICE | | | | | | [...] | | [address] | [place], [place] [address] | (severe) ([facility]); | | | | [place], [place] | [place], [place] | Essential | | | | [address] | [address] | hypertension; | | | | [phone] | | SECONDARY | | | | [...] 6 months at the CKD Clinic at [place], [place]. He w ill have CBC, CMP, PO4, PTH, lipid profile, and 24 Hour urine for Pro., CrCl 1 week prior t o that, at [facility]. : Ray Mcmillan MD, BRANDAN Mcpherson MD, [facility] document ed in this encounter Plan of Treatment +--------+ + + + + | Date | Type | Specialty | Care Team | Description | +--------+ + + + + | 03/12/ | Off-Site | Nephrology | Bennie Garza | | | 2019 | Visit | | DO Deep [address] | | | | | | [place], [address] | | | | | | [place], [place] | | | | | | [...]
--- OUTSIDE RECORDS SUMMARY | ~2019-03-07 | XMS | Encounter Summary ---
Demographics + + + | Address | [address] | | | [place] [address] | + + + | Home Phone | | + + + | Preferred Language | Unknown | + + + | Marital Status | | + + + | Episcopalian Affiliation | 1001 | + + + | Race | Unknown | + + + | Ethnic Group | Unknown | + + + Author + + + | Author | [facility] | | | and Ezraana | + + + | Organization | [facility] | | | and Ezraana [...] [place] | | | | | [address] | | + + + + + Care Team Providers + +------+ + | Care Fleet Dispatch Manager Name | Role | Phone | [...] NEPHROLOGY [address] | M, DO [address] | | | | | [address] | [place], [address] | | | | | [place], [place] | [place], [place] | | | | | [address] | [address] | | | | | [phone] | | | +--------+ + + + [...] 2018 | Visit | | DO Deep [address] [place] [address] | | | | | | [place], [address] | | | | | | [place] | | | | | | [address] | | | | | | | [...]
--- OUTSIDE RECORDS SUMMARY | ~2019-03-07 | XMS | Encounter Summary ---
Demographics + + + | Address | [address] | | | [place] [address] | + + + | Home Phone | | + + + | Preferred Language | Unknown | + + + | Marital Status | | + + + | Roman Catholic Affiliation | 1001 | + + + | Race | Unknown | + + + | Ethnic Group | Unknown | + + + Author + + + | Author | [facility] | | | and Ezraana | + + + | Organization | [facility] | | | and [...] [place] | | | | | [address] | | + + + + + Care Team Providers + +------+ + | Care Trade Union Secretary Name | Role | Phone | + [...] | | | [employer] | [address] | | | | | [phone] | [place] [address] | | | | | | [phone] | | | | | | | [...] 2018 | Visit | | M, [address] | | | | | | [address] | | | | | | [place] | | | | | | [address] | | | | | | | | +--------+ + + + + documented as of this encounter Procedures + +--------+ + + + | Procedure Name | Priori | Date/Time | Associated Diagnosis | Comments | | | ty | | | | + +--------+ + + + | US ABDOMEN COMPLETE | Routin | 01/18/2011 | | Results for this | | | e | 1:16 PM | | procedure are in the | | | | PDT | | results section. | + +--------+ + + + documented in this encounter Results US Abdomen Complete (01/18/2011 1:16 PM PDT) + + | Specimen | + + | | + + + + + | Narrative | Performed At | + + + | [facility] [address] Ph: | | | Patient Name: DILLON CAMERON Date of : | | | 1945 Medical Record: [id number] Account: [id number] | | | Exam Date/Time: 01/18/2011 12:00 Ordering | | | Physician: REAGAN EMMANUEL Order Detail: [id number] Exam Description: | | | US ABDOMEN | | | | | | HISTORY: Screening for renal transplant associated with renal failure | | | TECHNIQUE: Imaging was performed using a curved array | | | transducer. Grayscale and color flow techniques were utilized. | | | COMPARISON: None. FINDINGS: Pancreas: Pancreas is somewhat | | | obscured by the overlying bowel gas. No obvious mass or fluid | | | collection. Aorta: The proximal portion of the aorta at the level of | | | the pancreas is obscured by overlying bowel gas the portions of the | | | aorta visualized are normal in contour and caliber no aneurysmal | | | dilatation. IVC: The inferior to vena cava is normal in size. Liver: | | | Liver is normal in appearance no evidence of mass or or intrahepatic | | | biliary dilatation. Gallbladder: The gallbladder is physiologically | | | distended without evidence of stones. Gallbladder Wall: Gallbladder | | | wall thickness is normal measuring 2.3 mm. Common bile duct: The | | | common bile duct is normal measuring 5.9 mm. Kidneys: Kidneys are | | | atrophic in appearance with cortical thinning and heterogeneity. | | | Are multiple cortical cysts. There are some scattered lung stones | | | within the kidneys but no evidence of hydronephrosis. No evidence | | | of complex cyst or solid mass. The right kidney measures 9.2 x 4.9 x | | | 5.5 cm.. The left kidney measures 12 x 4 x 5 cm. Spleen: The | | | spleen is normal in size and echogenicity. Peritoneal Findings: No | | | ascites identified. Incidental Findings: Largest cyst right kidney = | | | 1.5 cm. Largest cyst left kidney = 3.5 cm. IMPRESSION: 1. | | | Renal cortical atrophy and increased echogenicity consistent with | | | medical renal disease with multiple renal cysts and renal stones no | | | hydronephrosis. 2. Pancreas and proximal aorta are not | | | well-visualized due to overlying bowel gas. | | + + + + + | Procedure Note | + + | Josh, Rad Conversion - 11/25/2018 11:02 AM PDT | | [facility] | | [facility] [address] | | | | | | Patient Name: DILLON CAMERON | | Date of : 1945 | | Medical Record: [id number] | | Account: [id number] | | | | | | Exam Date/Time: 01/18/2011 12:00 | | Ordering Physician: REAGAN EMMANUEL | | Order Detail: [id number] | | Exam Description: US ABDOMEN | | | | HISTORY: | | Screening for renal transplant associated with renal failure | | | | TECHNIQUE: | | Imaging was performed using a curved array transducer. Grayscale and color | | flow techniques were utilized. | | | | COMPARISON: | | None. | | | | FINDINGS: | | Pancreas: Pancreas is somewhat obscured by the overlying bowel gas. No | | obvious mass or fluid collection. | | Aorta: The proximal portion of the aorta at the level of the pancreas is | | obscured by overlying bowel gas the portions of the aorta visualized are | | normal in contour and caliber no aneurysmal dilatation. | | IVC: The inferior to vena cava is normal in size. | | Liver: Liver is normal in appearance no evidence of mass or or intrahepatic | | biliary dilatation. | | Gallbladder: The gallbladder is physiologically distended without evidence | | of stones. | | Gallbladder Wall: Gallbladder wall thickness is normal measuring 2.3 mm. | | Common bile duct: The common bile duct is normal measuring 5.9 mm. | | Kidneys: Kidneys are atrophic in appearance with cortical thinning and | | heterogeneity. Are multiple cortical cysts. There are some scattered lung | | stones within the kidneys but no evidence of hydronephrosis. No evidence | | of complex cyst or solid mass. The right kidney measures 9.2 x 4.9 x 5.5 | | cm.. The left kidney measures 12 x 4 x 5 cm. | | Spleen: The spleen is normal in size and echogenicity. | | Peritoneal Findings: No ascites identified. | | Incidental Findings: Largest cyst right kidney = 1.5 cm. Largest cyst left | | kidney = 3.5 cm. | | | | IMPRESSION: | | 1. Renal cortical atrophy and increased echogenicity consistent with | | medical renal disease with multiple renal cysts and renal stones no | | hydronephrosis. | | 2. Pancreas and proximal aorta are not well-visualized due to overlying | | bowel gas. | | | | | + + documented in this encounter Visit Diagnoses Not on filedocumented in this encounter"
--- OUTSIDE RECORDS SUMMARY | ~2019-03-07 | XMS | Encounter Summary ---
Demographics + + + | Address | [address] | | | [place] [address] | + + + | Home Phone | | + + + | Preferred Language | Unknown | + + + | Marital Status | | + + + | Alevism Affiliation | 1001 | + + + | Race | Unknown | + + + | Ethnic Group | Unknown | + + + Author + + + | Author | [facility] | | | and Ezraana | + + + | Organization | [facility] | | | and [...] [place] | | | | | [address] | | + + + + + Care Team Providers + +------+ + | Care Practicing Md Anesthesiologist Name | Role | Phone | + [...] | | [address] | [place], [address] | | | | | [place], [place] | [place], [place] | | | | | [address] | [address] | | | | | [phone] | | | +--------+ + + + [...] | Visit | | DO Deep [address] | | | | | | [place], [address] | | | | | | [place], [place] | | | | | | [id number] | | | | | | | [...]
--- OUTSIDE RECORDS SUMMARY | ~2019-03-07 | XMS | Encounter Summary ---
Demographics + + + | Address | [address] | | | [place] [address] | + + + | Home Phone | | + + + | Preferred Language | Unknown | + + + | Marital Status | | + + + | Baptist Affiliation | 1001 | + + + | Race | Unknown | + + + | Ethnic Group | Unknown | + + + Author + + + | Author | [facility] | | | and Ezraana | + + + | Organization | [facility] | [...] [place] | | | | | [address] | | + + + + + Care Team Providers + +------+ + | Care Sql Developer Dba Name | Role | Phone | + +------+ + | Dre Jacobo MD | PCP | | + +------+ + Reason for Visit + + + | Reason | Comments | + + + | Medication | | | Management | | + + + Encounter Details +--------+ + + + + | Date | Type | Department | Care Team | Description | +--------+ + + + + | 09/04/ | Telephone | [facility] [place] | Lesly Juan W, | Medication | | 2013 | | NEPHROLOGY [address] | [address] | Management | | | | [address] | [address] [place] | | | | | [place], [place] | [place] [address] | | | | | [address] | [phone] | | | | | [phone] | | | +--------+ + + + [...] | Visit | | M, DO [address] | | | | | | [place], [address] | | | | | | [place] | | | | | | [phone] | | | | | | | | +--------+ + + + + documented as of this encounter Visit Diagnoses Not on filedocumented in this encounter"
--- OUTSIDE RECORDS SUMMARY | ~2019-03-07 | XMS | Encounter Summary ---
Demographics + + + | Address | [address] | | | [place] [address] | + + + | Home Phone | | + + + | Preferred Language | Unknown | + + + | Marital Status | | + + + | Mu-Ism Affiliation | 1001 | + + + | Race | Unknown | + + + | Ethnic Group | Unknown | + + + Author + + + | Author | [facility] | | | and Ezraana | + + + | Organization | [facility] [...] [place] | | | | | [address] | | + + + + + Care Team Providers + +------+ + | Care Wigs Salesperson Name | Role | Phone | + [...] | | [address] | [place], [address] | (severe) (HCC) | | | | [place], [place] | [place], [place] | (Primary Dx) | | | | [address] | [address] | | | | | [phone] | | | +--------+ + + + [...] PDTLabs for upcoming nephrology appointment sent to: [facility] documented in this encounter Plan of [...] [place] | | | | | | [id number] | | | | | | | | +--------+ + + + + documented as of this encounter Visit Diagnoses + + | Diagnosis | + + | Chronic kidney disease, stage IV (severe) (HCC) - Primary Chronic kidney disease, | | Stage IV (severe) | + + documented in this encounter"
--- OUTSIDE RECORDS SUMMARY | ~2019-03-07 | XMS | Encounter Summary ---
Demographics + + + | Address | [address] | | | [place] [address] | + + + | Home Phone [...] Author | [facility] | | | and Ezraana | + + + | Organization | [facility] | | | and [place] | [...] [place] | | | | | [address] | | + + + + + Care Team Providers + +------+ + | Care Getterer Name | Role | Phone | + +------+ + | Dre Jacobo MD | PCP | | + +------+ + Encounter Details +--------+ + + + + | Date | Type | Department | Care Team | Description | +--------+ + + + + | 08/03/ | Orders Only | [facility] [place] | Bennie Garza | Chronic kidney | | 2019 | | NEPHROLOGY [address] | M, DO [address] | disease, stage IV | | | | [address] | [place], [address] | (severe) (HCC) | | | | [place], [place] | [place], [place] | (Primary Dx); | | | | [address] | [address] | Essential | | | | [phone] | | hypertension | +--------+ + + [...] encounter Progress Notes Tanika Maddox RN - 08/03/2018 9:24 AM PDTLabs for upcoming nephrology appointment sent to: [facility] documented in this encounter Plan of Treatment +--------+ + + + + | Date | Type | Specialty | Care Team | Description | +--------+ + + + + | 03/12/ | Off-Site | Nephrology | Bennie Garza | | | 2018 | Visit | | DO Deep [address] | | | | | | [place] [address] | | | | | | [place] | | | | | | [id number] | | | | | | | [...]
--- OUTSIDE RECORDS SUMMARY | ~2019-03-07 | XMS | Encounter Summary ---
Demographics + + + | Address | [address] | | | [place] [address] | + + + | Home Phone [...] Author | [facility] | | | and Ezraana | + + + | Organization | [facility] | | | and Ezraana [...] | [place] | | | | | [address] | | + + + + + Care Team Providers + +------+ + | Care Steeping Press Operator Name | Role | Phone | [...] | Required | Surgery | renal | MD, FACS | , FACS [address] | | | | | disease | [address] | [address] | | | | | (HCC) | [place] | | | | | | [place], [place] | [place] [address] | | | | | | [address] | Phone: | | | | | | Phone: | [phone] | | | | | | [phone] | Fax: | | | | | | Fax: | [phone] | | | | | | [phone] | | +--------+ + + + + + Reason for Visit + + + | Reason | Comments | + + + | New Patient | RIGHT ARM AV FISTULA/STROEMEL/OLD PATIENT NEW ISSUE | + + + Encounter Details +--------+---------+ + + + | Date | Type | Department | Care Team | Description | +--------+---------+ + + + | 05/29/ | Office | [facility] | Luis Enrique Mcmillan | End stage renal | | 2013 | Visit | SURGERY [address] | MD Blanco, FACS [address] | disease (HCC) | | | | [place], [place] | [facility] | (Primary Dx) | | | | [address] | [place] [address] | | | | | [phone] | [phone] | | | | | | | [...] + + + | Blood Pressure | 130/80 | 05/29/2013 1:15 PM | | | | | PST | | + + + + + | Pulse | 72 | 05/29/2013 1:15 PM | | | | | PST | | + + + + + | Temperature | 36.5 C (97.7 F) | 05/29/2013 1:15 PM | | | | | PST | | + + + + + | Respiratory Rate | 16 | 05/29/2013 1:15 PM | | | | | PST | | + + + + + | Oxygen Saturation | 100% | 05/29/2013 1:15 PM | | | | | PST | | + + + + + | Inhaled Oxygen | - | - | | | Concentration | | | | + + + + + | Weight | 68 kg (150 lb) | 05/29/2013 1:15 PM | | | | | PST | | + + + + + | Height | 165.1 cm (5' 5") | 05/29/2013 1:15 PM | | | | | PST | | + + + + + | Body Mass Index | 24.96 | 05/29/2013 1:15 PM | | | | | PST | | + + + + + documented in this encounter Progress Notes Luis Enrique Mcmillan MD - 05/29/2013 1:13 PM PST Patient Identification: Dillon Glasgow 1945 Is a 68 y.o. male , a patient of Rubin Jacobo. Patient is here alone. Chief Complaint: Chief Complaint Patient presents with New Patient RIGHT ARM AV FISTULA/STROEMEL/OLD PATIENT NEW ISSUE HISTORY OF PRESENT ILLNESS Patients Preliminary Questionaire: Have you started dialysis yet? no How many years have been dialyzed? none Are you a candidate for kidney transplantation? no Who is your Primary Care ? Dre Jacobo Who is your Brick And Block Mason/Kidney Specialist ? Dr. Brown When was the current dialysis access placed? 2010 What problems are there with the current dialysis access? Unable to use Physician notes: Patient reminds me that Dr Talamantes place left arm fistula about Dec, 2010. With tranposition on Jan 28, 2011. Never got used. Maintained his kidney function. On Nov 03, 2012 I expl ored this and found the vein small and non-reonstructable. Patient hasn't required dialysis since then. Dr Garza recommends attempt at placement of access. Dre Jacobo's notes were Not available to be reviewed in clinic today. PAST MEDICAL HISTORY Past Medical History He has a past medical history of Hypertension; Secondary hyperparathyroidism (HCC); Depress ion; Sleep apnea; Chronic kidney disease, stage III (moderate) (HCC); Anemia; and Panic bk ck. Past Surgical History He Past Surgical History Procedure Date Tonsillectomy Nose surgery 1958 Uvulopalatopharygoplasty 2000 Av fistula repair Exploration, left brachial-basilic fistula 11/03/2012 No Known Allergies Medications: Outpatient Encounter Prescriptions as of 05/29/2013 Medication Sig Dispense Refill allopurinol (ZYLOPRIM) 100 [...] 50 mg by mouth 2 times daily. [DISCONTINUED] traZODone (DESYREL) 50 mg tablet 2, by mouth, daily. Family History: His family history includes [...] not drink alcohol or use illicit drugs. REVIEW of SYSTEMS General: []Weight loss/gain (over 10 lbs) []Fever/chills []Night sweats Hematologic: []Bleeding/brusing tendencies []Blood transfusion []Anemia Heent: []Hearing loss []Vision loss []Sinus problems/nosebleeds []Hoarseness Respiratory: []Wheezing []Shortness of breat []Cough []Spitting up blood []On oxygen Cardiac: []Chest pain []Palpitations/heart racing []Swelling of ankles/hands []Unusual shortness of breath []Difficulty sleeping flat Gastrointestinal: []Nausea/vomiting []Difficulty swallowing []Heartburn []Loss of appetite []Abdominal pain []Stomach Ulcers []Diarrhea [x]Constipation []Blood in stool Vascular: []Judd/TIAs []Fainting []Difficulty with speech []Leg cramps []Pain in feet/legs at rest []Foot ulcers/sores []Varicose veins []Phlebitis/blood clots Musculoskeletal: []Joint stiffness/swelling []Join pain []Back pain []Arthritis [x]Gout Urologic: []Blood in urine []Frequent urination at night []Burning/painful urination []Kidney stones []Difficulty urination []Sexual difficulties Neuro/Psychiatric: []Headaches []Seizures [x]Depression []Pain/anxiety attacks []Memory loss or confusion PHYSICAL EXAM BP 130/80 | Pulse 72 | Temp 36.5 C (97.7 F) (Temporal) | Resp 16 | Ht 1.651 m (5' 5") | Wt 68.04 kg (150 lb) | BMI 24.96 kg/m2 | SpO2 100% General Appearance: Alert, cooperative, no distress, appears stated age Head: Normocephalic, without obvious abnormality, atraumatic Eyes: PERRL, conjunctiva/corneas clear, vision adequate bilateral Ears: Adequate hearing Neck: Supple, symmetrical, no adenopathy, no neck bruits Lungs: Breath sounds are equal bilaterally, no wheezes or crackles Chest Wall/Back: No tenderness or deformity. No CVA Tenderness Heart: Regular rate and rhythm, no murmur Extremities: RIGHT arm Radial 2 +, visible forearm cephalic vein LEFT arm Scar medial upper arm. No visible veins. Palpable pulses Brachial Radial Ulnar LEFT 2+ 2+ 1+ RIGHT 2+ 2+ 1+ Ultrasound: See report. Neurologic: Cranial nerves II-XII grossly intact, UE motor ULTRASOUND REPORT: PATIENT NAME : Dillon Glasgow EQUIPMENT: Sonosite M-Turbo with 10-5 mHertz probe. INDICATIONS: Dialysis access evaluation FINDING: RIGHT arm vein Cephalic vein 4 mm, Radial artery 2 mm. Artery IMPRESSION: adequate right forearm cephalic vein. ASSESSMENT/PLAN Dillon was seen today for new patient. Diagnoses and associated orders for this visit: End stage renal disease (hcc) Due to chronic renal failure recommend AV fistula placement RIGHT arm. RIGHT cephalic vein to radial artery fistula (distal 2/3 of forearm). The advantage of mid-forearm fistula fo r prolonged maturation is helpful. Will mature the upper arm veins. Risks and possible complications including bleeding, infection, hand pain, failure for vein to dilate, OR stroke and was explained. No guarantees given or implied. Patient under stands and wishes to proceed. Return to clinic: One week post-operative. . MD Luis Enrique Carmen MD, FACS Vascular and General Surgery CC: Dre Jacobo documented in this encounter Plan of Treatment +--------+ + + + + | Date | Type | Specialty | Care Team | Description | +--------+ + + + + | 03/12/ | Off-Site | Nephrology | Bennie Garza | | | 2018 | Visit | | , DO [address] [place] [address] | | | | | | [place], [place] [address] | | | | | | [place] | | | | | | [address] | | | | | | | | +--------+ + + + + + + +--------+ + + | Name | Type | Priori | Associated Diagnoses | Order Schedule | | | | ty | | | + + +--------+ + + | Ambulatory referral | Outpatient | Routin | End stage renal | Ordered: 05/29/2013 | | to General Surgery | Referral | e | disease (HCC) | | + + +--------+ + + documented as of this encounter Visit Diagnoses + + | Diagnosis | + + | End stage renal disease (HCC) - Primary End stage renal disease | + + documented in this encounter
--- OUTSIDE RECORDS SUMMARY | ~2019-03-07 | XMS | Encounter Summary ---
Demographics + + + | Address | [address] | | | [place] [address] | + + + | Home Phone | | + + + | Preferred Language | Unknown | + + + | Marital Status | | + + + | Uatsdin Affiliation | 1001 | + + + | Race | Unknown | + + + | Ethnic Group | Unknown | + + + Author + + + | Author | [facility] | | | and Ezraana | + + + | Organization | [facility] | | | [...] [place] | | | | | [address] | | + + + + + Care Team Providers + +------+ + | Care Bonding Machine Operator Name | Role | Phone | + +------+ + | Dre Jacobo MD | PCP | | + +------+ + Encounter Details +--------+ + + + + | Date | Type | Department | Care Team | Description | +--------+ + + + + | 09/05/ | Orders Only | [facility] [place] | OsvaldodeBennie | CHRONIC KIDNEY | | 2012 | | NEPHROLOGY [address] | M, DO [address] | DISEASE STAGE III | | | | [address] | [place], [place] [address] | (MODERATE) (Primary | | | | [place], [place] | [place], [place] | Dx); Anemia in | | | | [address] | [address] | chronic kidney | | | | [phone] | | disease | +--------+ + + [...] encounter Progress Notes Tanika Maddox RN - 09/05/2012 3:49 PM PDTLabs for nephrology appt on 10/09/12 sent to [facility] documented in this encounter Plan of Treatment +--------+ + + + + | Date | Type | Specialty | Care Team | Description | +--------+ + + + + | 03/12/ | Off-Site | Nephrology | Bennie Garza | | | 2018 | Visit | | DO Deep [address] [place] [address] | | | | | | [place] [address] | | | | | | [place] | | | | | | [address] | | | | | | | [...]
--- OUTSIDE RECORDS SUMMARY | ~2019-03-07 | XMS | Encounter Summary ---
Demographics + + + | Address | [address] | | | [place] [address] | + + + | Home Phone | | + + + | Preferred Language | Unknown | + + + | Marital Status | | + + + | Jew Affiliation | 1001 | + + + | Race | Unknown | + + + | Ethnic Group | Unknown | + + + Author + + + | Author | [facility] | | | and Ezraana | + + + | Organization | [facility] | | | and [...] [place] | | | | | [address] | | + + + + + Care Team Providers + +------+ + | Care Sugarcane Planter Name | Role | Phone | + +------+ + | Dre Jacobo MD | PCP | | + +------+ + Encounter Details +--------+ + + + + | Date | Type | Department | Care Team | Description | +--------+ + + + + | 05// | Orders Only | [facility] [place] | Bennie Garza | CHRONIC KIDNEY | | 2015 | | NEPHROLOGY [address] | M, DO [address] | DISEASE STAGE III | | | | [address] | [place], [address] | (MODERATE) (Primary | | | | [place], [place] | [place], [place] | Dx); Anemia in | | | | [address] | [address] | chronic kidney | | | | [phone] | | disease; SECONDARY | | | | | | HYPERPARATHYROIDISM; | | | | | | Secondary | | | | | | hyperparathyroidism | | | | | | (of renal origin) | | | | | | ([facility]); Essential | | | | | | [...] encounter Progress Notes Tanika Maddox RN - 08/06/2014 4:23 PM PDTLabs for nephrology appt on 09/02/14 sent to In terpath documented in this encounter Plan of Treatment +--------+ + + + + | Date | Type | Specialty | Care Team | Description | +--------+ + + + + | 03/12/ | Off-Site | Nephrology | Bennie Garza | | | 2019 | Visit | | M, DO [address] [place] | | | | | | [place], [address] | | | | | | [place] | | | | | | [address] | | | | | | | [...] (of renal origin) | + + | Secondary hyperparathyroidism (of renal origin) | + + | Essential hypertension Unspecified essential hypertension | + + documented in this encounter"
--- OUTSIDE RECORDS SUMMARY | ~2019-03-07 | XMS | Encounter Summary ---
Demographics + + + | Address | [address] | | | [place] [address] | + + + | Home Phone | | + + + | Preferred Language | Unknown | + + + | Marital Status | | + + + | Scientology Affiliation | 1001 | + + + | Race | Unknown | + + + | Ethnic Group | Unknown | + + + Author + + + | Author | [facility] | | | and Ezraana | + + + | Organization | [facility] | | [...] [place] | | | | | [address] | | + + + + + Care Team Providers + +------+ + | Care Development Expert Name | Role | Phone | + [...] NEPHROLOGY [address] | M, DO [address] [place] | | | | | [address] | [place], [address] | | | | | [place], [place] | [place], [place] | | | | | [address] | [address] | | | | | [phone] | | | +--------+ + + + [...] 2018 | Visit | | DO Deep [address] [place] [address] | | | | | | [place] | | | | | | [place] | | | | | | [address] | | | | | | | [...] [address] | [place] | [phone] | | [facility] | | [address] | | | - LABORATORY | | | | + + + + + | [facility] [facility] | [address] | [place] | | | [facility] | | [address] | | | - LABORATORY | | [...] [address] | [place] | [phone] | | [facility] | | [address] | | | - LABORATORY | | | | + + + + + | [facility] | [address] | [place] | | | [facility] | | [address] | | | - LABORATORY | | [...] [address] | [place] | [phone] | | [facility] | | [address] | | | - LABORATORY | | | | + + + + + | [address] | [address] | [place] | | | [facility] | | [address] | | | - LABORATORY | | [...] + | [facility] | [address] | [place], [place] | [phone] | | [facility] | | [address] | | | - LABORATORY | | | | + + + + + | [facility] | [address] | [place], [place] | | | [facility] | | [address] | | | - LABORATORY | | [...] + | [facility] | [address] | [place] | [phone] | | [facility] | | [address] | | | - LABORATORY | | | | + + + + + | [facility] | [address] | [place] | | | [facility] | | [address] | | | - LABORATORY | | | | + + + + + documented in this encounter Visit Diagnoses Not on filedocumented in this encounter"
--- OUTSIDE RECORDS SUMMARY | ~2019-03-07 | XMS | Encounter Summary ---
Demographics + + + | Address | [address] | | | [place] [address] | + + + | Home Phone [...] | [facility] | | | and [place]raana | + + + | Organization | [facility] | | | and [...] [place] | | | | | [address] | | + + + + + Care Team Providers + +------+ + | Care Government Affairs Director Name | Role | Phone | [...] [address] [place] | [address] [place], [place] | | | | | [address] [place] | [address] | | | | | [address] | [phone] | | | | | [phone] | | | +--------+ + + + [...] 2019 | Visit | | DO Deep [address] [place] [address] | | | | | | [place] | | | | | | [place] | | | | | | [id number] | | | | | | | | +--------+ + + + + documented as of this encounter Visit Diagnoses Not on filedocumented in this encounter"
--- OUTSIDE RECORDS SUMMARY | ~2019-03-07 | XMS | Encounter Summary ---
Demographics + + + | Address | [address] | | | [place] [address] | + + + | Home Phone | | + + + | Preferred Language | Unknown | + + + | Marital Status | | + + + | Congregation Affiliation | 1001 | + + + | Race | Unknown | + + + | Ethnic Group | Unknown | + + + Author + + + | Author | [facility] | | | and [place]ra[place] | + + + | Organization | [facility] | | | and [place] [...] [place] | | | | | [address] | | + + + + + Care Team Providers + +------+ + | Care Postpartum Rn Name | Role | Phone | + +------+ + | Dre Jacobo MD | PCP | | + +------+ + Encounter Details +--------+ + + + + | Date | Type | Department | Care Team | Description | +--------+ + + + + | 02/10/ | Abstract | [facility] [place] | Bennie Garza | Chronic kidney | | 2016 | | NEPHROLOGY [address] | M, DO [address] | disease, stage IV | | | | [address] | [place], [address] | (severe) (HCC) | | | | [place], [place] | [place], [place] | (Primary Dx); Anemia | | | | [address] | [address] | in chronic kidney | | | | [phone] | | disease(285.21) | +--------+ + + [...] encounter Progress Notes Tanika Maddox RN - 02/11/2016 2:01 PM PST[facility]path 03/15/16 documented in this encounter Plan of Treatment +--------+ + + + + | Date | Type | Specialty | Care Team | Description | +--------+ + + + + | 03/12/ | Off-Site | Nephrology | Bennie Garza | | | 2018 | Visit | | DO Deep [address] | | | | | | [place] | | | | | | [place] | | | | | | [id number] | | | | | | | [...]
--- OUTSIDE RECORDS SUMMARY | ~2019-03-07 | XMS | Encounter Summary ---
Demographics + + + | Address | [address] | | | [place] [address] | + + + | Home Phone [...] | Author | [facility] | | | and [place] | + + + | Organization | [facility] | | | and [...] [place] | | | | | [address] | | + + + + + Care Team Providers + +------+ + | Care Car Pilot Name | Role | Phone | + +------+ + PCP | Unavailable | + +------+ + Encounter Details +--------+ + + + + | Date | Type | Department | Care Team | Description | +--------+ + + + + | 01/26/ | Hospital | [facility] | Ozzie Yost W, | | | 2010 | Encounter | [facility] | [address] [facility] [address] | | | | | KIDNEY TRANSPLANT | [address] | | | | | [address] [place] | [place] [address] | | | | | [address] [place] | [phone] | | | | | [address] | | | | | | [phone] | | | +--------+ + + + [...] 2018 | Visit | | DO Deep [address] [place] [address] | | | | | | [place] [address] | | | | | | [place] | | | | | | [address] | | | | | | | | +--------+ + + + + documented as of this encounter Visit Diagnoses Not on filedocumented in this encounter"
--- OUTSIDE RECORDS SUMMARY | ~2019-03-07 | XMS | Encounter Summary ---
Demographics + + + | Address | [address] | | | [place] [address] | + + + | Home Phone | | + + + | Preferred Language | Unknown | + + + | Marital Status | | + + + | Episcopalian Affiliation | 1001 | + + + | Race | Unknown | + + + | Ethnic Group | Unknown | + + + Author + + + | Author | [facility] | | | and [place] | + + + | Organization | [facility] | | | and [place] | + + + | Address | Unknown | + + + | Phone | Unavailable | + + + Support + + + + + | Name | Relationship | Address | Phone | + + + + + | Genet [place] | ECON | [address] | | | | | [place] | | | | | [address] | | + + + + + Care Team Providers + +------+ + | Care Beef Grader Name | Role | Phone | + [...] NEPHROLOGY [address] | M, DO [address] | | | | | [address] | [place], [address] | | | | | [place], [place] | [place], [place] | | | | | [address] | [address] | | | | | [phone] | | | +--------+ + + + [...] | Visit | | DO Deep [address] | | | | | | [place], [address] | | | | | | [place], [place] | | | | | | [address] | | | | | | | | +--------+ + + + + documented as of this encounter Procedures + +--------+ + + + | Procedure Name | Priori | Date/Time | Associated Diagnosis | Comments | | | ty | | | | + +--------+ + + + | EXTERNAL LAB: BUN | Routin | 05/06/2014 | | Results for this | | | e | | | procedure are in the | | | | | | results section. | + +--------+ + + + | EXTERNAL LAB: | Routin | 05/06/2014 | | Results for this | | GLUCOSE | e | | | procedure are in the | | | | | | results section. | + +--------+ + + + | EXTERNAL LAB: HADLEY | Routin | 05/06/2014 | | Results for this | | | e | | | procedure are in the | | | | | | results section. | + +--------+ + + + | EXTERNAL LAB: AST | Routin | 05/06/2014 | | Results for this | | | e | | | procedure are in the | | | | | | results section. | + +--------+ + + + | EXTERNAL LAB: | Routin | 05/06/2014 | | Results for this | | ALKALINE PHOSPHATASE | e | | | procedure are in the | | | | | | results section. | + +--------+ + + + | EXTERNAL LAB: | Routin | 05/06/2014 | | Results for this | | BILIRUBIN, TOTAL | e | | | procedure are in the | | | | | | results section. | + +--------+ + + + | EXTERNAL LAB: | Routin | 05/06/2014 | | Results for this | | ALBUMIN | e | | | procedure are in the | | | | | | results section. | + +--------+ + + + | EXTERNAL LAB: | Routin | 05/06/2014 | | Results for this | | PROTEIN, TOTAL | e | | | procedure are in the | | | | | | results section. | + +--------+ + + + | EXTERNAL LAB: | Routin | 05/06/2014 | | Results for this | | PHOSPHORUS | e | | | procedure are in the | | | | | | results section. | + +--------+ + + + | EXTERNAL LAB: | Routin | 05/06/2014 | | Results for this | | CALCIUM | e | | | procedure are in the | | | | | | results section. | + +--------+ + + + | EXTERNAL LAB: CARBON | Routin | 05/06/2014 | | Results for this | | DIOXIDE | e | | | procedure are in the | | | | | | results section. | + +--------+ + + + | EXTERNAL LAB: | Routin | 05/06/2014 | | Results for this | | CHLORIDE | e | | | procedure are in the | | | | | | results section. | + +--------+ + + + | EXTERNAL LAB: | Routin | 05/06/2014 | | Results for this | | POTASSIUM | e | | | procedure are in the | | | | | | results section. | + +--------+ + + + | EXTERNAL LAB: SODIUM | Routin | 05/06/2014 | | Results for this | | | e | | | procedure are in the | | | | | | results section. | + +--------+ + + + | EXTERNAL LAB: МАРИНА | Routin | 05/06/2014 | | Results for this | | INTACT | e | | | procedure are in the | | | | | | results section. | + +--------+ + + + | EXTERNAL LAB: | Routin | 05/06/2014 | | Results for this | | PROTEIN, URINE, 24HR | e | | | procedure are in the | | | | | | results section. | + +--------+ + + + | EXTERNAL LAB: CBC | Routin | 05/06/2014 | | Results for this | | | e | | | procedure are in the | | | | | | results section. | + +--------+ + + + | EXTERNAL LAB: EGFR | Routin | 05/06/2014 | | Results for this | | | e | | | procedure are in the | | | | | | results section. | + +--------+ + + + | EXTERNAL LAB: | Routin | 05/06/2014 | | Results for this | | CREATININE | e | | | procedure are in the | | | | | | results section. | + +--------+ + + + | CREATININE | Routin | 05/06/2014 | | Results for this | | CLEARANCE, RESULT | e | | | procedure are in the | | | | | | results section. | + +--------+ + + + documented in this encounter Results External Lab: PTH, Intact (05/06/2014) + +-------+ + + + | Component | Value | Ref Range | Performed | Pathologist | | | | | At | Signature | + +-------+ + + + | PTH Intact, | 79.23 | | EXTERNAL | | | External [...] + +---------+ + + Creatinine Clearance, Result (05/06/2014) + + + + + + | Component | Value | Ref Range | Performed | Pathologist | | | | | At | Signature | + + + + + + | CREATININE | 33.0 (A) | 85.0 - 125.0 | EXTERNAL | | | CLEARANCE | [...] + +---------+ + + External Lab: ROSARIO (05/06/2014) + +--------+ + + + | Component | Value | Ref Range | Performed | Pathologist | | | | | At | Signature | + +--------+ + + + | BUN, | 36 (A) | 6 - 23 | EXTERNAL [...] + +---------+ + + External Lab: Glucose (05/06/2014) + +-------+ + + + | Component | Value | Ref Range | Performed | Pathologist | | | | | At | Signature | + +-------+ + + + | Glucose, | 85 | 70 - 100 | EXTERNAL | [...] + +---------+ + + External Lab: ALT (05/06/2014) + +-------+ + + + | Component | Value | Ref Range | Performed | Pathologist | | | | | At | Signature | + +-------+ + + + | ALT, | 27 | 7 - 52 | EXTERNAL | [...] + +---------+ + + External Lab: AST (05/06/2014) + +-------+ + + + | Component | Value | Ref Range | Performed | Pathologist | | | | | At | Signature | + +-------+ + + + | AST, | 24 | 13 - 39 | EXTERNAL | [...] +---------+ + + External Lab: Alkaline Phosphatase (05/06/2014) + +-------+ + + + | Component | Value | Ref Range | Performed | Pathologist | | | | | At | Signature | + +-------+ + + + | ALP, | 95 | 30 - 128 | EXTERNAL | [...] +---------+ + + External Lab: Bilirubin, Total (05/06/2014) + +-------+ + + + | Component [...] + +---------+ + + External Lab: Albumin (05/06/2014) + +-------+ + + + | Component [...] +---------+ + + External Lab: Protein, Total (05/06/2014) + +-------+ + + + | Component | Value | Ref Range | Performed | Pathologist | | | | | At | Signature | + +-------+ + + + | Protein, | 7 | 6 - 8 | EXTERNAL | [...] + +---------+ + + External Lab: Phosphorus (05/06/2014) + +-------+ + + + | Component [...] + +---------+ + + External Lab: Calcium (05/06/2014) + +-------+ + + + | Component [...] +---------+ + + External Lab: Carbon Dioxide (05/06/2014) + +-------+ + + + | Component | Value | Ref Range | Performed | Pathologist | | | | | At | Signature | + +-------+ + + + | Carbon | 26 | 19 - 31 | EXTERNAL | [...] + +---------+ + + External Lab: Chloride (05/06/2014) + +-------+ + + + | Component [...] + +---------+ + + External Lab: Potassium (05/06/2014) + +-------+ + + + | Component [...] + +---------+ + + External Lab: Sodium (05/06/2014) + +-------+ + + + | Component | Value | Ref Range | Performed | Pathologist | | | | | At | Signature | + +-------+ + + + | Sodium, | 141 | 132 - 143 | EXTERNAL | [...] + + External Lab: Protein, Urine, 24Hr (05/06/2014) + +---------+ + + + | Component | Value | Ref Range | Performed | Pathologist | | | | | At | Signature | + +---------+ + + + | Protein, | 210 (A) | 150 | EXTERNAL | | [...] + +---------+ + + External Lab: CBC (05/06/2014) + +-------+ + + + | Component | Value | Ref Range | Performed | Pathologist | | | | | At | Signature | + +-------+ + + + | HGB, | 14.3 | 13.5 - 18 | EXTERNAL | | | External | | | LAB | | + +-------+ + + + | HCT, | 44.7 [...] + +---------+ + + External Lab: eGFR (05/06/2014) + +-------+ + + + | Component | Value | Ref Range | Performed | Pathologist | | | | | At | Signature | + +-------+ + + + | eGFR, | 30 | | EXTERNAL | | | External | | | LAB | | + +-------+ + + + | eGFR, | | | EXTERNAL | | | | | | LAB | | | [place], | | | | | | External [...] + +---------+ + + External Lab: Creatinine (05/06/2014) + +---------+ + + + | Component | Value | Ref Range | Performed | Pathologist | | | | | At | Signature | + +---------+ + + + | Creatinine, | 2.3 (A) | 0.7 - 1.18 | EXTERNAL [...]
--- OUTSIDE RECORDS SUMMARY | ~2019-03-07 | XMS | Encounter Summary ---
Demographics + + + | Address | [address] | | | [place] [address] | + + + | Home Phone | | + + + | Preferred Language | Unknown | + + + | Marital Status | | + + + | Yarsani Affiliation | 1001 | + + + | Race | Unknown | + + + | Ethnic Group | Unknown | + + + Author + + + | Author | [facility] | | | and [place] | + + + | Organization | [facility] | | | and [...] [place] | | | | | [address] | | + + + + + Care Team Providers + +------+ + | Care Air Grinder Name | Role | Phone | + [...] | | [address] | [place], [address] | (severe) (HCC) | | | | [place], [place] | [place], [place] | (Primary Dx); | | | | [address] | [address] | Essential | | | | [phone] | | hypertension | +--------+ + + [...] | Visit | | DO Deep [address] | | | | | | [address] | | | | | | [place] | | | | | | [id number] | | | | | | | [...]
--- OUTSIDE RECORDS SUMMARY | ~2019-03-07 | XMS | Encounter Summary ---
Demographics + + + | Address | [address] | | | [place] [address] | + + + | Home Phone [...] | [facility] | | | and [place] | + + + | Organization | [facility] | | | and [place] [...] [place] | | | | | [address] | | + + + + + Care Team Providers + +------+ + | Care Pocket Assembler Name | Role | Phone | + [...] | | [address] | [place], [address] | (MODERATE) (Primary | | | | [place], [place] | [place], [place] | Dx); Anemia in | | | | [address] | [address] | chronic kidney | | | | [phone] | | disease(285.21) | +--------+ + + [...] nephrology appt on 11/24/15 sent to [facility]. documented in this en counter Plan of Treatment +--------+ + + + + | Date | Type | Specialty | Care Team | Description | +--------+ + + + + | 03/12/ | Off-Site | Nephrology | Bennie Garza | | | 2018 | Visit | | DO Deep [address] [place] [address] | | | | | | [place], [address] | | | | | | [place] | | | | | | [phone] | | | | | | | [...]
--- OUTSIDE RECORDS SUMMARY | ~2019-03-07 | XMS | Encounter Summary ---
Demographics + + + | Address | [address] | | | [place] [address] | + + + | Home Phone | | + + + | Preferred Language | Unknown | + + + | Marital Status | | + + + | Sabianism Affiliation | 1001 | + + + | Race | Unknown | + + + | Ethnic Group | Unknown | + + + Author + + + | Author | [facility] | | | and [place] | + + + | Organization | [facility] | | | and [place] [...] [place] | | | | | [address] | | + + + + + Care Team Providers + +------+ + | Care Area Mechanic Name | Role | Phone | [...] | | [address] | [place], [address] | (MODERATE) (Primary | | | | [place], [place] | [place], [place] | Dx); Anemia in | | | | [address] | [address] | chronic kidney | | | | [phone] | | disease(285.21); | | | | [...] 2018 | Visit | | DO Deep [address] [place] [address] | | | | | | [place] | | | | | | [place] | | | | | | [address] | | | | | | | [...]
--- OUTSIDE RECORDS SUMMARY | ~2019-03-07 | XMS | Encounter Summary ---
Demographics + + + | Address | [address] | | | [place] [address] | + + + | Home Phone | | + + + | Preferred Language | Unknown | + + + | Marital Status | | + + + | Spiritism Affiliation | 1001 | + + + | Race | Unknown | + + + | Ethnic Group | Unknown | + + + Author + + + | Author | [facility] | | | and [place] | + + + | Organization | [facility] | | | and [place] [...] [place] | | | | | [address] | | + + + + + Care Team Providers + +------+ + | Care Weapons Electrical Engineering Officer Name | Role | Phone | + [...] | | [address] | [place], [address] | (MODERATE) (Primary | | | | [place], [place] | [place], [place] | Dx) | | | | [address] | [address] | | | | | [phone] | | | +--------+ + + + [...] for nephrology appt on 01/14/14 sent to [facility] documented in this e ncounter Plan of Treatment +--------+ + + + + | Date | Type | Specialty | Care Team | Description | +--------+ + + + + | 03/12/ | Off-Site | Nephrology | Bennie Garza | | | 2018 | Visit | | DO Deep [address] | | | | | | [address] | | | | | | [place], [place] | | | | | | [address] | | | | | | | | +--------+ + + + + documented as of this encounter Visit Diagnoses + + | Diagnosis | + + | CHRONIC KIDNEY DISEASE STAGE III (MODERATE) - Primary Chronic kidney disease, Stage | | III (moderate) | + + documented in this encounter"
--- OUTSIDE RECORDS SUMMARY | ~2019-03-07 | XMS | Encounter Summary ---
Demographics + + + | Address | [address] | | | [place] [address] | + + + | Home Phone [...] | Author | [facility] | | | and [place] | + + + | Organization | [facility] | | | [...] [place] | | | | | [address] | | + + + + + Care Team Providers + +------+ + | Care Mounter Saxophones Name | Role | Phone | + +------+ + | Dre Jacobo MD | PCP | | + +------+ + Encounter Details +--------+ + + + + | Date | Type | Department | Care Team | Description | +--------+ + + + + | 09/30/ | Hospital | [facility] [address] | | | | 2015 | Encounter | [place] | | | | | | CARE [address] | | | | | | [place] | | | | | | [address] | | | | | | [phone] | | | +--------+ + + + [...] 2018 | Visit | | DO Deep [address] [place] [address] | | | | | | [address] | | | | | | [place] | | | | | | [address] | | | | | | | | +--------+ + + + + documented as of this encounter Visit Diagnoses Not on filedocumented in this encounter"
--- OUTSIDE RECORDS SUMMARY | ~2019-03-07 | XMS | Encounter Summary ---
Demographics + + + | Address | [address] | | | [place] [address] | + + + | Home Phone [...] | Author | [facility] | | | and [place] | + + + | Organization | [facility] | | | and [...] [place] | | | | | [address] | | + + + + + Care Team Providers + +------+ + | Care Draw Frame Tender Name | Role | Phone | + +------+ + | Dre Jacobo MD | PCP | | + +------+ + Encounter Details +--------+ + + + + | Date | Type | Department | Care Team | Description | +--------+ + + + + | 08/15/ | Orders Only | [facility] [place] | Bennie Garza | Anemia in chronic | | 2014 | | NEPHROLOGY [address] | M, DO [address] | kidney disease | | | | [address] | [place], [address] | (Primary Dx); | | | | [place], [place] | [place], [place] | CHRONIC KIDNEY | | | | [address] | [address] | DISEASE STAGE III | | | | [phone] | | (MODERATE) | +--------+ + + [...] documented as of this encounter Progress Notes Lori Short RN - 09/06/2013 9:44 AM PDTAppointment moved to 09/24/13.Rush carracso signed by Lori Short RN at 09/06/2013 9:45 AM Lori Page RN - 08/15/2013 2:26 PM PDTLab order for nephrology appt on 09/03[facility] signed by Lori Short RN at 08/15/2013 2:30 PM PDTdocumented in this encoun ter Plan of Treatment +--------+ + + + + | Date | Type | Specialty | Care Team | Description | +--------+ + + + + | 03/12/ | Off-Site | Nephrology | Bennie Garza | | | 2019 | Visit | | Deep, [address] | | | | | | [address] | | | | | | [place] | | | | | | [address] | | | | | | | | +--------+ + + + + documented as of this encounter Visit Diagnoses + + | Diagnosis | + + | Anemia in chronic kidney disease - Primary | + + | CHRONIC KIDNEY DISEASE STAGE III (MODERATE) Chronic kidney disease, Stage III | | (moderate) | + + documented in this encounter"
--- OUTSIDE RECORDS SUMMARY | ~2019-03-07 | XMS | Encounter Summary ---
Demographics + + + | Address | [address] | | | [place] [address] | + + + | Home Phone | | + + + | Preferred Language | Unknown | + + + | Marital Status | | + + + | Episcopal Affiliation | 1001 | + + + | Race | Unknown | + + + | Ethnic Group | Unknown | + + + Author + + + | Author | [facility] | | | and [place] | + + + | Organization | [facility] | | | and [...] [place] | | | | | [address] | | + + + + + Care Team Providers + +------+ + | Care Supervisor Air Conditioning Installer Name | Role | Phone | [...] + | 11/06/ | Telephone | [facility] | Luis Enrique Mcmillan | Dressing Change | | 2012 | | SURGERY [address] | MD [place]anco, FACS [address] | | | | | [place], [place] | [facility] | | | | | [address] | [place] [address] | | | | | [phone] | [phone] | | | | | | | [...] [place] | | | | | | [address] | | | | | | | | +--------+ + + + + documented as of this encounter Visit Diagnoses Not on filedocumented in this encounter"
--- OUTSIDE RECORDS SUMMARY | ~2019-03-07 | XMS | Encounter Summary ---
Demographics + + + | Address | [address] | | | [place] [address] | + + + | Home Phone | | + + + | Preferred Language | Unknown | + + + | Marital Status | | + + + | Buddhist Affiliation | 1001 | + + + | Race | Unknown | + + + | Ethnic Group | Unknown | + + + Author + + + | Author | [facility] | | | and [place] | + + + | Organization | [facility] | | | and [place] | [...] [place] | | | | | [address] | | + + + + + Care Team Providers + +------+ + | Care Sales Analyst Name | Role | Phone | [...] kidney | MD [address] | [address] | | | | | disease, | [address] | [place], [place] | | | | | stage 4 | [place] [address] | [address] [place] | | | | | (severe) | [place], | [place], [place] | | | | | (HCC) | [place] | [address] Phone: | | | | | Hypertension | [address] | [phone] | | | | | 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 | [phone] | [phone] | | | | | kidney | Fax: | | | | | | disease | [phone] | | | | | | Procedures | | | | | | | [place] OFFICE | | | | | | [...] | | [address] | [place], [address] | (severe) (HCC) | | | | [place], [place] | [place], [place] | (Primary Dx); | | | | [address] | [address] | SECONDARY | | | | [phone] | | HYPERPARATHYROIDISM; | | | | [...] tony < 15 ml/min, to minimize any SALES MANAGER [place] confusion, superimposed his background mild dementia/m anu loss. He verbalizes that this is c/w his wishes. 3. In regards to his PTH, will decrease the Calcitriol to 0.5 mcg, Q M-- only to target the PTH 150-300 pg/ml. 4. Will plan to see him back in 6 months at the [facility] at [place], [place]. He w ill have a CBC, CMP, PO4, HbA1c, iPTH, Vitamin D level, lipid profile, and spot Urine Pro/ Cr ratio one week prior to that. Otherwise, will see him sooner if his symptoms worsen. Electronically signed by Bennie Garza DO. 09/08/18 16:57 CC: Ray Mcmillan MD, BRANDAN Mcpherson MD, [facility] documented in thi s encounter Plan of Treatment +--------+ + + + + | Date | Type | Specialty | Care Team | Description | +--------+ + + + + | 03/12/ | Off-Site | Nephrology | Bennie Garza | | | 2019 | Visit | | DO Deep [address] [place] [address] | | | | | | [place] [address] | | | | | | [place] | | | | | | [phone] | | | | | | | [...]
--- OUTSIDE RECORDS SUMMARY | ~2019-03-07 | XMS | Encounter Summary ---
Demographics + + + | Address | [address] | | | [place] [address] | + + + | Home Phone | | + + + | Preferred Language | Unknown | + + + | Marital Status | | + + + | Voodoo Affiliation | 1001 | + + + | Race | Unknown | + + + | Ethnic Group | Unknown | + + + Author + + + | Author | [facility] | | | and [place] | + + + | Organization | [facility] | | | and [...] [place] | | | | | [address] | | + + + + + Care Team Providers + +------+ + | Care Cover Mat Machine Operator Name | Role | Phone [...] NEPHROLOGY [address] | M, DO [address] | | | | | [address] | [place], [address] | | | | | [place], [place] | [place], [place] | | | | | [address] | [address] | | | | | [phone] | | | +--------+ + + + [...] | Visit | | DO Deep [address] | | | | | | [place], [address] | | | | | | [place], [place] | | | | | | [address] | | | | | | | [...]
--- OUTSIDE RECORDS SUMMARY | ~2019-03-07 | XMS | Encounter Summary ---
Demographics + + + | Address | [address] | | | [place] [address] | + + + | Home Phone | | + + + | Preferred Language | Unknown | + + + | Marital Status | | + + + | Tenriism Affiliation | 1001 | + + + | Race | Unknown | + + + | Ethnic Group | Unknown | + + + Author + + + | Author | [facility] | | | and [place] | + + + | Organization | [facility] | | | and [place] [...] [place] | | | | | [address] | | + + + + + Care Team Providers + +------+ + | Care Singing Messenger Name | Role | Phone | + +------+ + | Dre Jacobo MD | PCP | | + +------+ + Encounter Details +--------+ + + + + | Date | Type | Department | Care Team | Description | +--------+ + + + + | 02/20/ | Orders Only | [facility] [place] | Bennie Garza | Chronic kidney | | 2018 | | NEPHROLOGY [address] | M, DO [address] | disease, stage IV | | | | [address] | [place], [address] | (severe) (HCC) | | | | [place], [place] | [place], [place] | (Primary Dx) | | | | [address] | [address] | | | | | [phone] | | | +--------+ + + + [...] encounter Progress Notes Tanika Maddox RN - 02/20/2018 1:48 PM PSTLabs for upcoming nephrology appointment sent [...] | | | | | [place] | | | | | | [id number] | | | | | | | | +--------+ + + + + documented as of this encounter Visit Diagnoses + + | Diagnosis | + + | Chronic kidney disease, stage IV (severe) (HCC) - Primary Chronic kidney disease, | | Stage IV (severe) | + + documented in this encounter"
--- OUTSIDE RECORDS SUMMARY | ~2019-03-07 | XMS | Encounter Summary ---
Demographics + + + | Address | [address] | | | [place] [address] | + + + | Home Phone [...] Author | [facility] | | | and [place] | + + + | Organization | [facility] | | | and [place] | + + + | Address | Unknown | + + + | Phone | Unavailable | + + + Support + + + + + | Name | Relationship | Address | Phone | + + + + + | Gen[place] | ECON | [address] | | | | | [place] | | | | | [address] | | + + + + + Care Team Providers + +------+ + | Care Revolving Field Assembler Name | Role | Phone | [...] NEPHROLOGY [address] | M, DO [address] | | | | | [address] | [place], [address] | | | | | [place], [place] | [place], [place] | | | | | [address] | [address] | | | | | [phone] | | | +--------+ + + + [...] 2018 | Visit | | DO Deep [address] [place] [address] | | | | | | [place] [facility] | | | | | | [place] | | | | | | [address] | | | | | | | | +--------+ + + + + documented as of this encounter Visit Diagnoses Not on filedocumented in this encounter"
--- OUTSIDE RECORDS SUMMARY | ~2019-03-07 | XMS | Encounter Summary ---
Demographics + + + | Address | [address] | | | [place] [address] | + + + | Home Phone | | + + + | Preferred Language | Unknown | + + + | Marital Status | | + + + | Caodaism Affiliation | 1001 | + + + | Race | Unknown | + + + | Ethnic Group | Unknown | + + + Author + + + | Author | [facility] | | | and Ezraana | + + + | Organization | [facility] | | [...] [place] | | | | | [address] | | + + + + + Care Team Providers + +------+ + | Care Nautical Instrument Mechanic Name | Role | Phone | [...] | | [address] | [place] | | | | | [place], [place] | [place], [place] | | | | | [address] | [address] | | | | | [phone] | | | +--------+ + + + [...] | Visit | | DO Deep [address] | | | | | | [place], [address] | | | | | | [place], [place] | | | | | | [address] | | | | | | | [...] [address] | [place] | [phone] | | [facility] | | [address] | | | - LABORATORY | | [...]
--- OUTSIDE RECORDS SUMMARY | ~2019-03-07 | XMS | Encounter Summary ---
Demographics + + + | Address | [address] | | | [place] [address] | + + + | Home Phone | | + + + | Preferred Language | Unknown | + + + | Marital Status | | + + + | Worship Affiliation | 1001 | + + + | Race | Unknown | + + + | Ethnic Group | Unknown | + + + Author + + + | Author | [facility] | | | and Ezraana | + + + | Organization | [facility] [...] [place] | | | | | [address] | | + + + + + Care Team Providers + +------+ + | Care Clerical Adjudicator Name | Role | Phone | + [...] | hypertension | [address] | [place], [place] | | | | | Chronic | [address] | [address] [place] | | | | | kidney | [place], | [place], [place] | | | | | disease, | [place] | [address] Phone: | | | | | stage III | [address] | [phone] | | | | | (moderate) | Phone: | Fax: | | | | | (HCC) | [phone] | [phone] | | | | | Procedures | Fax: | | | | | | Evaluate & | [phone] | | | | | | treat [...] | | [address] | [place], [address] | (MODERATE) (Primary | | | | [place], [place] | [place], [place] | Dx); Secondary | | | | [address] | [address] | hyperparathyroidism | | | | [phone] | | (of renal origin); | | [...] t o that. CC: [facility] Trans[facility], [facility] Ray Mcmillan MD 2: 35 PM PDTdocumented in this encounter Plan of Treatment +--------+ + + + + | Date | Type | Specialty | Care Team | Description | +--------+ + + + + | 03/12/ | Off-Site | Nephrology | Bennie Garza | | | 2019 | Visit | | DO Deep [address] [place] [address] | | | | | | [place], [facility] 100 | | | | | | [place] | | | | | | [phone] | | | | | | | [...]
--- OUTSIDE RECORDS SUMMARY | ~2019-03-07 | XMS | Encounter Summary ---
Demographics + + + | Address | [address] | | | [place] [address] | + + + | Home Phone [...] | Author | [facility] | | | and Ezra[place] | + + + | Organization | [facility] | | | and Ezraana [...] [place] | | | | | [address] | | + + + + + Care Team Providers + +------+ + | Care Weight Control Lecturer Name | Role | Phone | + +------+ + | Dre Jcaobo MD | PCP | | + +------+ + Encounter Details +--------+ + + + + | Date | Type | Department | Care Team | Description | +--------+ + + + + | 01/27/ | Abstract | [facility] [place] | Bennie Garza | | | 2013 | | NEPHROLOGY [address] | M, DO [address] | | | | | [address] | [place], [address] | | | | | [place], [place] | [place], [place] | | | | | [address] | [address] | | | | | [phone] | | | +--------+ + + + [...] | Visit | | DO Deep [address] | | | | | | [place], [address] | | | | | | [place], [place] | | | | | | [id number] | | | | | | | [...] | | | LAB | | | Thai, | | | | | | External [...]
--- OUTSIDE RECORDS SUMMARY | ~2019-03-07 | XMS | Encounter Summary ---
Demographics + + + | Address | [address] | | | [place] [address] | + + + | Home Phone [...] + | Author | [facility] | | | and Ezraana | + + + | Organization | [facility] | [...] [place] | | | | | [address] | | + + + + + Care Team Providers + +------+ + | Care Coal Briquette Machine Operator Name | Role | Phone | + +------+ + | Dre Jacobo MD | PCP | | + +------+ + Reason for Visit + + + | Reason | Comments | + + + | Chronic Kidney | Stage III | | Disease | | + + + Encounter Details +--------+---------+ + + + | Date | Type | Department | Care Team | Description | +--------+---------+ + + + | 02/06/ | Office | [facility] | Perlita Garzaias | Unspecified | | 2011 | Visit | NEPHROLOGY [address] | M, DO [address] | hypertensive kidney | | | | [address] | [place], [address] | disease with chronic | | | | [place], [place] | [place], [place] | kidney disease | | | | [address] | [address] | stage I through | | | | [phone] | | stage IV, or | | | | | | unspecified; CHRONIC | | | | | | KIDNEY DISEASE | | | | | | STAGE III | | | | | | (MODERATE); | | | | | | Secondary | | | | | | hyperparathyroidism | | | | | | (HCC); Anemia in | | | | | | chronic kidney | | | | | | disease | +--------+---------+ + + + Social History [...] + + + | Blood Pressure | 112/60 | 02/07/2012 11:31 AM | | | | | PST | | + + + + + | Pulse | - | - | | + + + + + | Temperature | 36.3 C (97.4 F) | 02/07/2012 11:31 AM | | | | | PST | [...] Weight | 67.1 kg (148 lb) | 02/07/2012 11:31 AM | | | | | PST | | + + + + + | Height | - | - | | + + + + + | Body Mass Index | 24.63 | 01/26/2011 11:06 AM | | | | | PDT | | + + + + + documented in this encounter Progress Notes Nikki Preston - 02/18/2012 3:12 PM PSTE-faxed to Dr. Jacobo, mailed to [facility] Renal T rans[facility] on 02/18/12 as requested.Electronically signed by Nikki Preston at 2011 3:13 PM Bennie Rizvi DO - 02/07/2012 5:38 PM PSTFormatting of this note mi ght be different from the original. Subjective: NEPHROLOGY Patient ID: Dillon Glasgow is a 66 y.o. male. HPI Comments: Followup for this 66-year-old white male with history of CKD secondary to hypertension, SHP TH, and remote depression. He has had a left arm aVF, placed 12/10/10, in anticipation of d ialysis. He denies dyspnea, edema, pruritus, or fatigue. He is very meticulous about his medicatio ns, diet, and regimen. He inquires whether he should see a renal dietitian at some point? Review of Systems Outpatient Prescriptions Marked as Taking for the 02/07/12 encounter (Office Visit) with Gustavo Garza DO [...] tablet Take 200 mg by mouth Daily. DISCONTD: doxercalciferol (HECTOROL) 2.5 mcg capsule Take 1 tablet by mouth every and Tuesday No Known Allergies Objective: BP 112/60 | Temp 36.3 C (97.4 F) | Wt 67.132 kg (148 lb) (my exam) Physical Exam Cardiovascular: Regular rate and rhythm, with no S3, S4, murmur or rub. Pulmonary/Chest: CTA bilaterally. No rales or wheezes. Abdominal: Soft, flat, nontender, normoactive bowel sounds, no guarding. Musculoskeletal: No clubbing, cyanosis, or edema. No asterixis. (+) there is a large AVF, in his lef t upper arm with a strong bruit. LAB: BUN 39, creatinine 2.43, K+ 3.7, HCO3 20, glucose 90, TSH 1.92, Ca++ 9.6, P0 4 2.3, hemoglobin 13.4, HCT 39.9%. 24-Hour Urine: Ccr = 32 mL/minute, 234 mg protein/day. Assessment: 1. CKD, Stage III, secondary to hypertensive nephrosclerosis--GFR is improved. No symptoms of uremia. 2. Hypertension--good control. 3. SHPTH--stable on a maintenance dose of Hectorol. 4. Depression--in remission. 5. Anemia secondary to CKD-- not yet requiring EPO. Plan: 1. I discussed with Dillon that his GFR is improved. His last specimen 3 months ago, may h ave perhaps been an under collection? Regardless, he understands that dialytic therapy is no t necessary until the GFR <15 mL/minute. Furthermore, he understands that there is no reaso n to formally list him for a renal allograft until the GFR <20 mL/minute. 2. Will continue benazepril for its renoprotective effect. He does state that rarely he c an be lightheaded with standing. Given his current exam, I told him that it would be okay t o liberalize his salt intake, somewhat. 3. Will plan to see him back in 4 months, At the CKD Clinic, [facility]. He will have a CBC, CMP, P04, PTH, Lipid Profile, and 24-hour urine collection one week prior to that. CC: Renal Transplant Clinic, [facility] Ray Jacobo M.D. 6 :06 PM PSTdocumented in this encounter Plan of Treatment +--------+ + + + + | Date | Type | Specialty | Care Team | Description | +--------+ + + + + | 03/12/ | Off-Site | Nephrology | Bennie Garza | | | 2019 | Visit | | DO Deep [address] [place] [address] | | | | | | [place] | | | | | | [place] | | | | | | [address] [...] IV, or unspecified | + + | CHRONIC KIDNEY DISEASE STAGE III (MODERATE) Chronic kidney disease, Stage III | | (moderate) | + + | Secondary hyperparathyroidism (HCC) Secondary hyperparathyroidism (of renal origin) | + + | Anemia in chronic kidney disease(285.21) Anemia in chronic kidney disease | + + documented in this encounter"
--- OUTSIDE RECORDS SUMMARY | ~2019-03-07 | XMS | Encounter Summary ---
Demographics + + + | Address | [address] | | | [place] [address] | + + + | Home Phone | | + + + | Preferred Language | Unknown | + + + | Marital Status | | + + + | Latter Day Affiliation | 1001 | + + + | Race | Unknown | + + + | Ethnic Group | Unknown | + + + Author + + + | Author | [facility] | | | and Ezraana | + + + | Organization | [facility] | | [...] [place] | | | | | [address] | | + + + + + Care Team Providers + +------+ + | Care Rolls Baker Name | Role | Phone | + [...] | | | INTERFACES | [address] | | | | | [phone] | [place] [address] | | | | | | [phone] | | | | | | | [...] | Visit | | DO Deep [address] | | | | | | [place] [address] | | | | | | [place] | | | | | | [address] | | | | | | | | +--------+ + + + + documented as of this encounter Procedures + +--------+ + + + | Procedure Name | Priori | Date/Time | Associated Diagnosis | Comments | | | ty | | | | + +--------+ + + + | US PELVIS LIMITED | Routin | 01/18/2011 | | Results for this | | | e | 11:13 AM | | procedure are in the | | | | PDT | | results section. | + +--------+ + + + documented in this encounter Results US Pelvis Limited (01/18/2011 11:13 AM PDT) + + | Specimen | + + | | + + + + + | Narrative | Performed At | + + + | [facility] [address] Ph: | | | Patient Name: DILLON CAMERON Date of : | | | 1945 Medical Record: [id number] Account: [id number] | | | Exam Date/Time: 01/18/2011 10:55 Ordering | | | Physician: REAGAN EMMANUEL Order Detail: [id number] Exam Description: | | | US PELVIS LIMITED | | | | | | DILLON CAMERON US PELVIS LIMITED 01/18/2011 10:55 AM HISTORY: 65 | | | years. Male. Chronic renal failure for kidney transplant | | | TECHNIQUE: Sonographic interrogation of the urinary bladder with a | | | 4-MHz transducer multiple static images were preserved. | | | COMPARISON: None FINDINGS: Pre-void volume = 129 cc. Post void | | | volume = 17 cc. The urinary bladder is normal in appearance there | | | is no evidence of mass or shadowing stone. The left ureteral jet was | | | visualized on the study the right ureteral jet was unable be | | | identified however given the lack of any significant pelvocaliectasis | | | this is of doubtful significance. IMPRESSION: 1. Post void | | | residual of 17 cc. 2. Urinary bladder is otherwise unremarkable in | | | appearance. Electronically signed by Pedro Lopez MD on | | | 01/18/2011 4:20 PM | | + + + + + | Procedure Note | + + | Matias Moreno Conversion - 11/25/2018 11:02 AM PDT | | [facility] | | [facility] [address] | | | | | | Patient Name: DILLON CAMERON | | Date of : 1945 | | Medical Record: [id number] | | Account: [id number] | | | | | | Exam Date/Time: 01/18/2011 10:55 | | Ordering Physician: REAGAN EMMANUEL | | Order Detail: [id number] | | Exam Description: US PELVIS LIMITED | | | | DILLON CAMERON | | US PELVIS LIMITED | | 01/18/2011 10:55 AM | | | | HISTORY: | | 65 years. Male. Chronic renal failure for kidney transplant | | | | TECHNIQUE: | | Sonographic interrogation of the urinary bladder with a 4-MHz transducer | | multiple static images were preserved. | | | | COMPARISON: | | None | | | | FINDINGS: | | Pre-void volume = 129 cc. Post void volume = 17 cc. The urinary bladder | | is normal in appearance there is no evidence of mass or shadowing stone. | | The left ureteral jet was visualized on the study the right ureteral jet | | was unable be identified however given the lack of any significant | | pelvocaliectasis this is of doubtful significance. | | | | IMPRESSION: | | 1. Post void residual of 17 cc. | | 2. Urinary bladder is otherwise unremarkable in appearance. | | | | | + + documented in this encounter Visit Diagnoses Not on filedocumented in this encounter"
--- OUTSIDE RECORDS SUMMARY | ~2019-03-07 | XMS | Encounter Summary ---
Demographics + + + | Address | [address] | | | [place] [address] | + + + | Home Phone | | + + + | Preferred Language | Unknown | + + + | Marital Status | | + + + | Voodoo Affiliation | 1001 | + + + | Race | Unknown | + + + | Ethnic Group | Unknown | + + + Author + + + | Author | [facility] | | | and Ezraana | + + + | Organization | [facility] [...] [place] | | | | | [address] | | + + + + + Care Team Providers + +------+ + | Care Tree Doctor Name | Role | Phone | + [...] Description | +--------+--------+ + + + | 09/03/ | Refill | [facility] [place] | Bennie Garza | Medication Refill | | 2013 | | NEPHROLOGY [address] | M, DO [address] | | | | | [address] | [place], [address] | | | | | [place], [place] | [place], [place] | | | | | [address] | [address] | | | | | [phone] | | | +--------+--------+ + + + [...] | Visit | | DO Deep [address] | | | | | | [place], [address] | | | | | | [place] | | | | | | [address] | | | | | | | | +--------+ + + + + documented as of this encounter Visit Diagnoses + + | Diagnosis | + + | SECONDARY HYPERPARATHYROIDISM - Primary Secondary hyperparathyroidism (of renal | | origin) | + + documented in this encounter"
--- OUTSIDE RECORDS SUMMARY | ~2019-03-07 | XMS | Encounter Summary ---
Demographics + + + | Address | [address] | | | [place] [address] | + + + | Home Phone [...] | Author | [facility] | | | and Ezraana | + + + | Organization | [facility] | | | and [place]ra[place] [...] [place] | | | | | [address] | | + + + + + Care Team Providers + +------+ + | Care Diabetes Trainer Name | Role | Phone | + [...] NEPHROLOGY [address] | M, DO [address] | | | | | [address] | [place], [address] | | | | | [place], [place] | [place], [place] | | | | | [address] | [address] | | | | | [phone] | | | +--------+ + + + [...] | Visit | | DO Deep [address] | | | | | | [place], [address] | | | | | | [place], [place] | | | | | | [address] | | | | | | | [...] | | | LAB | | | Samoan, | | | | | | External [...]
--- OUTSIDE RECORDS SUMMARY | ~2019-03-07 | XMS | Encounter Summary ---
Demographics + + + | Address | [address] | | | [place] [address] | + + + | Home Phone | | + + + | Preferred Language | Unknown | + + + | Marital Status | | + + + | Jehovah'S Witness Affiliation | 1001 | + + + | Race | Unknown | + + + | Ethnic Group | Unknown | + + + Author + + + | Author | [facility] | | | and Ezraana | + + + | Organization | [facility] | | | and [...] [place] | | | | | [address] | | + + + + + Care Team Providers + +------+ + | Care Locksmith Helper Name | Role | Phone | + [...] | hypertension | [address] | [place], [place] | | | | | Chronic | [address] | [address] [place] | | | | | kidney | [place], | [place], [place] | | | | | disease, | [place] | [address] Phone: | | | | | stage III | [address] | [phone] | | | | | (moderate) | Phone: | Fax: | | | | | (HCC) | [phone] | [phone] | | | | | Procedures | Fax: | | | | | | Evaluate & | [phone] | | | | | | treat | | | +--------+--------+ + + + + Encounter Details +--------+ + + + + | Date | Type | Department | Care Team | Description | +--------+ + + + + | 09/02/ | Off-Site | [facility] [place] | Stroemel, Bennie | Essential | | 2015 | Visit | NEPHROLOGY [address] | M, DO [address] | hypertension | | | | [address] | [place], [address] | (Primary Dx); | | | | [place], [place] | [place], [place] | CHRONIC KIDNEY | | | | [address] | [address] | DISEASE STAGE III | | | | [phone] | | (MODERATE); Gout; | | | | | | Secondary [...] + + + | Blood Pressure | 120/60 | 09/02/2014 12:05 PM | | | | | PDT | | + + + + + | Pulse | - | - | | + + + + + | Temperature | 36.3 C (97.3 F) | 09/02/2014 12:05 PM | | | | | PDT [...] + | Weight | 65.8 kg (145 lb 1 | 09/02/2014 12:05 PM | | | | oz) | PDT | | + + + + + | Height | - | - | | + + + + + | Body Mass Index | 24.14 | 10/02/2013 2:09 PM | | | | | PDT | | + + + + + documented in this encounter Progress Notes Bennie Garza, - 10/20/2014 12:06 PM PDT Subjective: NEPHROLOGY Patient ID: Dillon Glasgow is a 69 y.o. male. HPI Comments: Followup for this 69 YO white male with history of CKD secondary to hypertens ion, SHPTH, and remote depression. He is an excellent historian. He denies any new edeman, SOB, anorexia or pruritus. Outpatient Prescriptions Marked as Taking for the 09/02/14 encounter (Off-Site Visit) with Danica Garza, Medication Sig Dispense Refill allopurinol (ZYLOPRIM) 100 mg tablet Take 100 mg by mouth Daily. calcitRIOL (ROCALTROL) 0.25 mcg capsule Take 1 capsule by mouth Every other day. (Patie nt taking differently: Take 0.25 mcg by mouth Daily.) 45 capsule 4 clonazePAM (KLONOPIN) 0.5 mg tablet Take 0.5 mg by mouth nightly. fluoxetine (PROZAC) 40 MG capsule Take 40 mg by mouth Daily. traZODone (DESYREL) 50 mg tablet Take 100 mg by mouth nightly. No Known Allergies Objective: BP 120/60 mmHg | Temp(Src) 36.3 C (97.3 F) | Wt 65.8 kg (145 lb 1 oz) Physical Exam Cardiovascular: Regular rate and rhythm, with no S3, S4, murmur or rub. Pulmonary/Chest: CTA in all yanes. No rales or wheezes. Abdominal: Soft, flat, nontender, normoactive bowel sounds, no guarding. Musculoskeletal: No clubbing, cyanosis, or edema. (+) ~ 6mm, well developed AVF in the right arm with a strong bruit. Lab Results Component Value Date NAEX 137 08/27/2014 KEX 3.3* 08/27/2014 CLEX 104 08/27/2014 CO2EX 22 08/27/2014 BUNEX 30* 08/27/2014 CREEX 2.32* 08/27/2014 EGFREX 28 08/27/2014 GLUEX 86 08/27/2014 PHOSEX 2.8 08/27/2014 PTHEX 74.29 08/27/2014 Lab Results Component Value Date WBCEX 6.9 08/27/2014 HGBEX 14.9 08/27/2014 HCTEX 44.7 08/27/2014 PLTEX 178 08/27/2014 Lab Results Component Value Date PROTEX 224* 08/27/2014 CRCLEARANCE 32.0* 08/27/2014 Assessment: 1. CKD, Stage III, secondary to hypertensive nephrosclerosis--hsi GFR appears to have plate uaed. 2. Hypertension--excellent control. 3. SHPTH-- stable. 4. Depression--in remission. 5. 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 6. History of gout--in remission. Plan: 1. Overall, Dillon appears to be dong well on his current regimen. HIs GFR appears to have plateaued, and his AVF has matured very nicely. 2. He understands that there is no need for renal replacement Rx until his GFR is < 15 ml/ min. 3. Will plan to see him back in 4 mo. at [facility]. He will have a CBC, CMP, P04, PTH, an d 24-hour urine collection one week prior to that. CC: Ray Mcmillan MD, FACS documented in th is encounter Plan of Treatment +--------+ + + + + | Date | Type | Specialty | Care Team | Description | +--------+ + + + + | 03/12/ | Off-Site | Nephrology | Bennie Garza | | | 2018 | Visit | | DO Deep [address] [place] [address] | | | | | | [place] [address] | | | | | | [place], [place] | | | | | | [address] | | | | | | | | +--------+ + + + + documented as of this encounter Visit Diagnoses + + | Diagnosis | + + | Essential hypertension - Primary Unspecified essential hypertension | + + | CHRONIC KIDNEY DISEASE STAGE III (MODERATE) Chronic kidney disease, Stage III | | (moderate) | + + | Gout Gout, unspecified | + + | Secondary hyperparathyroidism (of renal origin) | + + documented in this encounter"
--- OUTSIDE RECORDS SUMMARY | ~2019-03-07 | XMS | Encounter Summary ---
Demographics + + + | Address | [address] | | | [place] [address] | + + + | Home Phone | | + + + | Preferred Language | Unknown | + + + | Marital Status | | + + + | Lutheran Affiliation | 1001 | + + + | Race | Unknown | + + + | Ethnic Group | Unknown | + + + Author + + + | Author | [facility] | | | and Ezraana | + + + | Organization | [facility] [...] [place] | | | | | [address] | | + + + + + Care Team Providers + +------+ + | Care Manager Merchandise Name | Role | Phone | + +------+ + PCP | Unavailable | + +------+ + Encounter Details +--------+ + + + + | Date | Type | Department | Care Team | Description | +--------+ + + + + | 09/14/ | [facility] | [facility] | Ozzie Miguel | | | 2000 | Encounter | MED CTR SLEEP | MD Patric[address] | | | | | [place] [address] | [place] | | | | | [place] | [place] [address] | | | | | [address] | [phone] | | | | | [phone] | | | +--------+ + + + [...] [place] | | | | | | [address] | | | | | | | | +--------+ + + + + documented as of this encounter Visit Diagnoses Not on filedocumented in this encounter"
--- OUTSIDE RECORDS SUMMARY | ~2019-03-07 | XMS | Encounter Summary ---
Demographics + + + | Address | [address] | | | [place] [address] | + + + | Home Phone | | + + + | Preferred Language | Unknown | + + + | Marital Status | | + + + | Pentecostal Affiliation | 1001 | + + + | Race | Unknown | + + + | Ethnic Group | Unknown | + + + Author + + + | Author | [facility] | | | and Ezraana | + + + | Organization | [facility] | | [...] [place] | | | | | [address] | | + + + + + Care Team Providers + +------+ + | Care Veterinary Pharmacologist Name | Role | Phone | + [...] | | | INTERFACES | [address] | | | | | [phone] | [place] [address] | | | | | | [phone] | | | | | | | [...] 2018 | Visit | | M, [address] | | | | | | [address] | | | | | | [place] | | | | | | [address] | | | | | | | [...] Performed At | + + + | [facility] [address] Ph: | | | Patient Name: DILLON CAMERON Date of : | | | 1945 Medical Record: [id number] Account: [id number] | | | Exam Date/Time: 01/18/2011 12:50 [...] - 11/25/2018 11:02 AM PDT | | [facility] | | [facility] [address] | | | | | | Patient Name: DILLON CAMERON | | Date of : 1945 | | Medical Record: [id number] | | Account: [id number] | | | | | | Exam [...]
--- OUTSIDE RECORDS SUMMARY | ~2019-03-07 | XMS | Encounter Summary ---
Demographics + + + | Address | [address] | | | [place] [address] | + + + | Home Phone [...] | Author | [facility] | | | and Ezraana | + + + | Organization | [facility] | | | and Ezraana [...] [place] | | | | | [address] | | + + + + + Care Team Providers + +------+ + | Care Sawmill Supervisor Name | Role | Phone | [...] | | [address] | [place] | | | | | [place], [place] | [place], [place] | | | | | [address] | [address] | | | | | [phone] | | | +--------+ + + + [...] 2019 | Visit | | DO Deep [address] [place] [address] | | | | | | [place], [address] | | | | | | [place] | | | | | | [phone] | | | | | | | | +--------+ + + + + documented as of this encounter Visit Diagnoses Not on filedocumented in this encounter"
--- OUTSIDE RECORDS SUMMARY | ~2019-03-07 | XMS | Encounter Summary ---
Demographics + + + | Address | [address] | | | [place] [address] | + + + | Home Phone | | + + + | Preferred Language | Unknown | + + + | Marital Status | | + + + | Religion Affiliation | 1001 | + + + | Race | Unknown | + + + | Ethnic Group | Unknown | + + + Author + + + | Author | [facility] | | | and Ezraana | + + + | Organization | [facility] | | | and Ezraana [...] [place] | | | | | [address] | | + + + + + Care Team Providers + +------+ + | Care Cna Hospice Name | Role | Phone | + [...] | hypertension | [address] | [place], [place] | | | | | Chronic | [address] | [address] [place] | | | | | kidney | [place], | [place], [place] | | | | | disease, | [place] | [address] Phone: | | | | | stage III | [address] | [phone] | | | | | (moderate) | Phone: | Fax: | | | | | (HCC) | [phone] | [phone] | | | | | Procedures | Fax: | | | | | | Evaluate & | [phone] | | | | | | treat [...] | | [address] | [place], [address] | disease with chronic | | | | [place], [place] | [place], [place] | kidney disease | | | | [address] | [address] | stage I through | | | | [phone] | | stage IV, or | | [...] Results Component Value Date CRCLEARANCE 33.0* 08/28/2013 FQV68CZQ 4.0 08/28/2013 Assessment: 1. CKD, Stage III, secondary to hypertensive nephrosclerosis--his GFR is relatively stable. 2. Hypertension--good control. 3. SHPTH--excellent control. 4. Depression--in remission. 5. 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 6. History of gout--in remission. Plan: 1. I told Dillon that he has made a lu decision to pursue a patent AVF , computer terminal operator. 2. His GFR does appear stable for now, but the natural Hx of CKD is for it to progress ove r time, if you take all comers. 3. His PTH appears improved on his current dose of Calcitriol. 4. Will plant to see him back in 4 mo. at the [facility] in [place] in 4 mo. He will have lab and a 24 Hr urine 1 week, prior to that. I greatly appreciate Dr. Mcmillan's excellent help with his AVF. CC: [facility], [facility] Ray Mcmillan MD 4: 18 PM PDTdocumented in this encounter Plan of Treatment +--------+ + + + + | Date | Type | Specialty | Care Team | Description | +--------+ + + + + | 03/12/ | Off-Site | Nephrology | Bennie Garza | | | 2019 | Visit | | DO Deep [address] [place] [address] | | | | | | [place], [facility] [address] | | | | | | [place], [place] | | | | | | [phone] | | | | | | | [...]
--- OUTSIDE RECORDS SUMMARY | ~2019-03-07 | XMS | Encounter Summary ---
Demographics + + + | Address | [address] | | | [place] [address] | + + + | Home Phone | | + + + | Preferred Language | Unknown | + + + | Marital Status | | + + + | Jew Affiliation | 1001 | + + + | Race | Unknown | + + + | Ethnic Group | Unknown | + + + Author + + + | Author | [facility] | | | and Ezraana | + + + | Organization | [facility] | | | and Ezraana [...] [place] | | | | | [address] | | + + + + + Care Team Providers + +------+ + | Care Electrical Technology Instructor Name | Role | Phone | [...] | | [address] | [place], [address] | (MODERATE) (Primary | | | | [place], [place] | [place], [place] | Dx); Anemia in | | | | [address] | [address] | chronic kidney | | | | [phone] | | disease | +--------+ + + [...] as of this encounter Progress Notes Tanika Maddxo RN - 09/05/2012 3:49 PM PDTLabs for nephrology appt on 10/09/12 sent to In [facility] documented in this encounter Plan of Treatment +--------+ + + + + | Date | Type | Specialty | Care Team | Description | +--------+ + + + + | 03/12/ | Off-Site | Nephrology | Bennie Garza | | | 2018 | Visit | | DO Deep [address] [place] [address] | | | | | | [place] [address] | | | | | | [place] | | | | | | [address] | | | | | | | [...]
--- OUTSIDE RECORDS SUMMARY | ~2019-03-07 | XMS | Encounter Summary ---
Demographics + + + | Address | [address] | | | [place] [address] | + + + | Home Phone | | + + + | Preferred Language | Unknown | + + + | Marital Status | | + + + | Religion Affiliation | 1001 | + + + | Race | Unknown | + + + | Ethnic Group | Unknown | + + + Author + + + | Author | [facility] | | | and Ezraana | + + + | Organization | [facility] | | | and Ezraana | [...] [place] | | | | | [address] | | + + + + + Care Team Providers + +------+ + | Care Waitstaff Name | Role | Phone | + [...] | | [address] | [place], [address] | disease with chronic | | | | [place], [place] | [place], [place] | kidney disease | | | | [address] | [address] | stage I through | | | | [phone] | | stage IV, or | | [...] plan on seeing him around 04/23/39 at [facility]. CC: [facility], [facility] Ray Mcmillan MD 10: 04 PM PSTdocumented in this encounter Plan of Treatment +--------+ + + + + | Date | Type | Specialty | Care Team | Description | +--------+ + + + + | 03/12/ | Off-Site | Nephrology | Bennie Garza | | | 2018 | Visit | | DO Deep [address] [place] [address] | | | | | | [place] [address] | | | | | | [place] | | | | | | [address] | | | | | | | [...]
--- OUTSIDE RECORDS SUMMARY | ~2019-03-07 | XMS | Encounter Summary ---
Demographics + + + | Address | [address] | | | [place] [address] | + + + | Home Phone | | + + + | Preferred Language | Unknown | + + + | Marital Status | | + + + | Judaism Affiliation | 1001 | + + + | Race | Unknown | + + + | Ethnic Group | Unknown | + + + Author + + + | Author | [facility] | | | and Ezraana | + + + | Organization | [facility] | | | and [...] [place] | | | | | [address] | | + + + + + Care Team Providers + +------+ + | Care Floor Worker Name | Role | Phone | + +------+ + PCP | Unavailable | + +------+ + Encounter Details +--------+ + + + + | Date | Type | Department | Care Team | Description | +--------+ + + + + | 01/28/ | [facility] | [facility] | Garfield [place], | | | 2010 | Encounter | MED CTR MP INTRA OP | [phone] | | | | | [address] | (Fax) | | | | | [place] | | | | | | [address] | | | | | | [phone] | | | +--------+ + + + [...] | Visit | | M, DO [address] | | | | | | [address] | | | | | | [place] | | | | | | [address] | | | | | | | [...] [address] | [place] | [phone] | | [facility] | | [address] | | | - LABORATORY | | | | + + + + + | [address] | [address] | [place] | | | [facility] | | [address] | | | - LABORATORY | | | | + + + + + documented in this encounter Visit Diagnoses Not on filedocumented in this encounter"
--- OUTSIDE RECORDS SUMMARY | ~2019-03-07 | XMS | Encounter Summary ---
Demographics + + + | Address | [address] | | | [place] [address] | + + + | Home Phone | | + + + | Preferred Language | Unknown | + + + | Marital Status | | + + + | Denominational Affiliation | 1001 | + + + | Race | Unknown | + + + | Ethnic Group | Unknown | + + + Author + + + | Author | [facility] | | | and Ezraana | + + + | Organization | [facility] | | | and [...] [place] | | | | | [address] | | + + + + + Care Team Providers + +------+ + | Care Wash Mill Operator Name | Role | Phone | + +------+ + PCP | Unavailable | + +------+ + Encounter Details +--------+ + + + + | Date | Type | Department | Care Team | Description | +--------+ + + + + | 08/19/ | [facility] | [facility] | Ozzie Miguel | | | 2000 | Encounter | MED CTR SLEEP | MD Patricio [address] | | | | | STR[address] | [place] | | | | | [place] | [place] [address] | | | | | [address] | [phone] | | | | | [phone] | | | +--------+ + + + [...] [place] | | | | | | [address] | | | | | | | | +--------+ + + + + documented as of this encounter Visit Diagnoses Not on filedocumented in this encounter"
--- OUTSIDE RECORDS SUMMARY | ~2019-03-07 | XMS | Encounter Summary ---
Demographics + + + | Address | [address] | | | [place] [address] | + + + | Home Phone | | + + + | Preferred Language | Unknown | + + + | Marital Status | | + + + | Catholic Affiliation | 1001 | + + + | Race | Unknown | + + + | Ethnic Group | Unknown | + + + Author + + + | Author | [facility] | | | and Ezraana | + + + | Organization | [facility] | | | and Ezraana [...] [place] | | | | | [address] | | + + + + + Care Team Providers + +------+ + | Care Briar Wood Sorter Name | Role | Phone | + [...] kidney | [address] | [address] | | | | | disease, | [address] | [place], [place] | | | | | stage 4 | [address] | [address] [place] | | | | | (severe) | [address], | [place], [place] | | | | | (HCC) | [place] | [address] Phone: | | | | | Hypertension | [address] | [phone] | | | | | 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 | [phone] | [phone] | | | | | kidney | Fax: | | | | | | disease | [phone] | | | | | | Procedures [...] | | [address] | [place] | (Primary Dx); | | | | [place], [place] | [place], [place] | Chronic kidney | | | | [address] | [address] | disease, stage IV | | | | [phone] | | (severe) (HCC); | | | [...] C'd to help promote maturation of his sauk-suiattle AVF, which continues to develop nicely. Outpatient [...] him back in 4 mo. at the [facility], [place], [place]. He will have a CBC, CMP, [...] | Visit | | Deep DO [address] | | | | | | [place] [address] | | | | | | [place] | | | | | | [phone] | | | | | | | [...]
--- OUTSIDE RECORDS SUMMARY | ~2019-03-07 | XMS | Encounter Summary ---
Demographics + + + | Address | [address] | | | [place] [address] | + + + | Home Phone [...] + | Author | [facility] | | | and Ezraana | + + + | Organization | [facility] | [...] [place] | | | | | [address] | | + + + + + Care Team Providers + +------+ + | Care Engineering Operator Name | Role | Phone | [...] NEPHROLOGY [address] | M, DO [address] | | | | | [address] | [place], [address] | | | | | [place], [place] | [place], [place] | | | | | [address] | [address] | | | | | [phone] | | | +--------+ + + + [...] | Visit | | DO Deep [address] | | | | | | [place], [address] | | | | | | [place], [place] | | | | | | [address] | | | | | | | | +--------+ + + + + documented as of this encounter Procedures + +--------+ + + + | Procedure Name | Priori | Date/Time | Associated Diagnosis | Comments | | | ty | | | | + +--------+ + + + | EXTERNAL LAB: CBC | Routin | 01/08/2013 | | Results for this | | | e | | | procedure are in the | | | | | | results section. | + +--------+ + + + | EXTERNAL LAB: SAHIL | Routin | 01/08/2013 | | Results for this | | | e | | | procedure are in the | | | | | | results section. | + +--------+ + + + | EXTERNAL LAB: HADLEY | Routin | 01/08/2013 | | Results for this | | | e | | | procedure are in the | | | | | | results section. | + +--------+ + + + | EXTERNAL LAB: EGFR | Routin | 01/08/2013 | | Results for this | | | e | | | procedure are in the | | | | | | results section. | + +--------+ + + + | EXTERNAL LAB: | Routin | 01/08/2013 | | Results for this | | CREATININE | e | | | procedure are in the | | | | | | results section. | + +--------+ + + + | CMP14+LP+CBC/D/PLT+T | Routin | 01/08/2013 | | Results for this | | SH+UA/M (NON ORD) | e | | | procedure are in the | | | | | | results section. | + +--------+ + + + documented in this encounter Results CMP14+LP+CBC/D/Plt+TSH+UA/M (01/08/2013) + + + + + + | Component | Value | Ref Range | Performed | Pathologist | | | | | At | Signature | + + + + + + | Na | 138 | mmol/L | | | + + + + + + | K | 3.5 | mmol/L | | | + + + + + + | Cl | 104 | mmol/L | | | + + + + + + | CO2 | 25 | mmol/L | | | + + + + + + | BUN | 43 | mg/dL | | | + + + + + + | Glucose | 89 | mg/dL | | | + + + + + + | Calcium | 9.5 | mg/dL | | | + + + + + + | Phosphorus | 3.1 | 2.1 - 3.9 mg/dL | | | + + + + + + | Bilirubin | 0.7 | 0.1 - 1.5 mg/dL | | | | Total | | | | | + + + + + + | Alkaline | 75 | 35 - 115 U/L | | | | Phosphatase | | | | | + + + + + + | Albumin | 4.4 | 3.3 - 4.8 g/dL | | | + + + + + + | PROTEIN, | 192.0 | mg/24hrs | | | | 24HR URINE | | | | | + + + + + + | CREATININE | 36.0 (A) | 97.0 - 137.0 | | | | CLEARANCE | | mL/min | | | + + + + + + + + | Specimen | + + | | + + External Lab: CBC (01/08/2013) + +-------+ + + + | Component | Value | Ref Range | Performed | Pathologist | | | | | At | Signature | + +-------+ + + + | HGB, | 13.7 | | EXTERNAL | | | External | | | LAB | | + +-------+ + + + | HCT, | 41.9 | | EXTERNAL | | | External [...] + +---------+ + + External Lab: SAHIL (01/08/2013) + +-------+ + + + | Component | Value | Ref Range | Performed | Pathologist | | | | | At | Signature | + +-------+ + + + | AST, | 19 | | EXTERNAL | | [...] + +---------+ + + External Lab: ALT (01/08/2013) + +-------+ + + + | Component | Value | Ref Range | Performed | Pathologist | | | | | At | Signature | + +-------+ + + + | ALT, | 20 | | EXTERNAL | | | External [...] + +---------+ + + External Lab: eGFR (01/08/2013) + +-------+ + + + | Component | Value | Ref Range | Performed | Pathologist | | | | | At | Signature | + +-------+ + + + | eGFR, | 26 | | EXTERNAL | | | External | | | LAB | | + +-------+ + + + | eGFR, | | | EXTERNAL | | | | | | LAB | | | [place], | | | | | | External [...] + +---------+ + + External Lab: Creatinine (01/08/2013) + +-------+ + + + | Component | Value | Ref Range | Performed | Pathologist | | | | | At | Signature | + +-------+ + + + | Creatinine, | 2.5 | | EXTERNAL | | | External [...]
--- OUTSIDE RECORDS SUMMARY | ~2019-03-07 | XMS | Encounter Summary ---
Demographics + + + | Address | [address] | | | [place] [address] | + + + | Home Phone [...] | Author | [facility] | | | and Ezraana | + + + | Organization | [facility] | | | and Ezraana | [...] [place] | | | | | [address] | | + + + + + Care Team Providers + +------+ + | Care Chemical Laboratory Scientist Name | Role | Phone | + [...] | | [address] | [place], [address] | (severe) (HCC) | | | | [place], [place] | [place], [place] | (Primary Dx) | | | | [address] | [address] | | | | | [phone] | | | +--------+ + + + [...] | | | | | [place] | | | | | | [id number] | | | | | | | | +--------+ + + + + documented as of this encounter Visit Diagnoses + + | Diagnosis | + + | Chronic kidney disease, stage IV (severe) (HCC) - Primary Chronic kidney disease, | | Stage IV (severe) | + + documented in this encounter"
--- OUTSIDE RECORDS SUMMARY | ~2019-03-07 | XMS | Encounter Summary ---
Demographics + + + | Address | [address] | | | [place] [address] | + + + | Home Phone | | + + + | Preferred Language | Unknown | + + + | Marital Status | | + + + | Latter-Day Affiliation | 1001 | + + + | Race | Unknown | + + + | Ethnic Group | Unknown | + + + Author + + + | Author | [facility] | | | and Ezraana | + + + | Organization | [facility] | | | and Ezraana [...] [place] | | | | | [phone] | | + + + + + Care Team Providers + +------+ + | Care Shop Welder Name | Role | Phone | + [...] NEPHROLOGY [address] | M, DO [address] | | | | | [address] | [place] | | | | | [place], [place] | [place], [place] | | | | | [phone] | [id number] | | | | | [phone] | | | +--------+ + + + [...] | Visit | | DO [address] | | | | | | [place] | | | | | | [place], [place] | | | | | | [id number] | | | | | | | | +--------+ + + + + documented as of this encounter Procedures + +--------+ + + + | Procedure Name | Priori | Date/Time | Associated Diagnosis | Comments | | | ty | | | | + +--------+ + + + | EXTERNAL LAB: BUN | Routin | 03/07/2017 | | Results for this | | | e | | | procedure are in the | | | | | | results section. | + +--------+ + + + | EXTERNAL LAB: | Routin | 03/07/2017 | | Results for this | | GLUCOSE | e | | | procedure are in the | | | | | | results section. | + +--------+ + + + | EXTERNAL LAB: HADLEY | Routin | 03/07/2017 | | Results for this | | | e | | | procedure are in the | | | | | | results section. | + +--------+ + + + | EXTERNAL LAB: AST | Routin | 03/07/2017 | | Results for this | | | e | | | procedure are in the | | | | | | results section. | + +--------+ + + + | EXTERNAL LAB: | Routin | 03/07/2017 | | Results for this | | ALKALINE PHOSPHATASE | e | | | procedure are in the | | | | | | results section. | + +--------+ + + + | EXTERNAL LAB: | Routin | 03/07/2017 | | Results for this | | BILIRUBIN, TOTAL | e | | | procedure are in the | | | | | | results section. | + +--------+ + + + | EXTERNAL LAB: | Routin | 03/07/2017 | | Results for this | | ALBUMIN | e | | | procedure are in the | | | | | | results section. | + +--------+ + + + | EXTERNAL LAB: | Routin | 03/07/2017 | | Results for this | | PROTEIN, TOTAL | e | | | procedure are in the | | | | | | results section. | + +--------+ + + + | EXTERNAL LAB: | Routin | 03/07/2017 | | Results for this | | PHOSPHORUS | e | | | procedure are in the | | | | | | results section. | + +--------+ + + + | EXTERNAL LAB: | Routin | 03/07/2017 | | Results for this | | CALCIUM | e | | | procedure are in the | | | | | | results section. | + +--------+ + + + | EXTERNAL LAB: CARBON | Routin | 03/07/2017 | | Results for this | | DIOXIDE | e | | | procedure are in the | | | | | | results section. | + +--------+ + + + | EXTERNAL LAB: | Routin | 03/07/2017 | | Results for this | | CHLORIDE | e | | | procedure are in the | | | | | | results section. | + +--------+ + + + | EXTERNAL LAB: | Routin | 03/07/2017 | | Results for this | | POTASSIUM | e | | | procedure are in the | | | | | | results section. | + +--------+ + + + | EXTERNAL LAB: SODIUM | Routin | 03/07/2017 | | Results for this | | | e | | | procedure are in the | | | | | | results section. | + +--------+ + + + | EXTERNAL LAB: МАРИНА | Routin | 03/07/2017 | | Results for this | | INTACT | e | | | procedure are in the | | | | | | results section. | + +--------+ + + + | EXTERNAL LAB: | Routin | 03/07/2017 | | Results for this | | PROTEIN, URINE, 24HR | e | | | procedure are in the | | | | | | results section. | + +--------+ + + + | EXTERNAL LAB: | Routin | 03/07/2017 | | Results for this | | TRIGLYCERIDES | e | | | procedure are in the | | | | | | results section. | + +--------+ + + + | EXTERNAL LAB: | Routin | 03/07/2017 | | Results for this | | CHOLESTEROL, HDL | e | | | procedure are in the | | | | | | results section. | + +--------+ + + + | EXTERNAL LAB: | Routin | 03/07/2017 | | Results for this | | CHOLESTEROL, TOTAL | e | | | procedure are in the | | | | | | results section. | + +--------+ + + + | EXTERNAL LAB: | Routin | 03/07/2017 | | Results for this | | CHOLESTEROL, LDL | e | | | procedure are in the | | | | | | results section. | + +--------+ + + + | EXTERNAL LAB: EGFR | Routin | 03/07/2017 | | Results for this | | | e | | | procedure are in the | | | | | | results section. | + +--------+ + + + | EXTERNAL LAB: | Routin | 03/07/2017 | | Results for this | | CREATININE | e | | | procedure are in the | | | | | | results section. | + +--------+ + + + | CREATININE | Routin | 03/07/2017 | | Results for this | | CLEARANCE, RESULT | e | | | procedure are in the | | | | | | results section. | + +--------+ + + + documented in this encounter Results Creatinine Clearance, Result (03/07/2017) + + + + + + | Component | Value | Ref Range | Performed | Pathologist | | | | | At | Signature | + + + + + + | CREATININE | 23.0 (A) | 97.0 - 137.0 | | | | CLEARANCE | | mL/min | | | + + + + + + | 24H Urine | 2,500 | mL | | | | Volume | | | | | + + + + + + + + | Specimen | + + | Urine | + + External Lab: Protein, Urine, 24Hr (03/07/2017) + +---------+ + + + | Component | Value | Ref Range | Performed | Pathologist | | | | | At | Signature | + +---------+ + + + | Protein, | 325 (A) | 150 | EXTERNAL | | [...] +---------+ + + External Lab: PTH, Intact (03/07/2017) + +-------+ + + + | Component | Value | Ref Range | Performed | Pathologist | | | | | At | Signature | + +-------+ + + + | PTH Intact, | 33.84 | 15 - 65 | | | | External | | | | | + +-------+ + + + + + | Specimen | + + | | + + External Lab: BUN (03/07/2017) + +--------+ + + + | Component | Value | Ref Range | Performed | Pathologist | | | | | At | Signature | + +--------+ + + + | BUN, | 52 (A) | 6 - 23 | EXTERNAL | | | External | | | LAB | | + +--------+ + + + + +---------+ + + | Performing | Address | City/State/Zipcode | Phone Number | | Organization | | | | + +---------+ + + | EXTERNAL LAB | | | | + +---------+ + + External Lab: Glucose (03/07/2017) + +-------+ + + + | Component | Value | Ref Range | Performed | Pathologist | | | | | At | Signature | + +-------+ + + + | Glucose, | 82 | 70 - 100 | EXTERNAL | | | External | | | LAB | | + +-------+ + + + + +---------+ + + | Performing | Address | City/State/Zipcode | Phone Number | | Organization | | | | + +---------+ + + | EXTERNAL LAB | | | | + +---------+ + + External Lab: ALT (03/07/2017) + +-------+ + + + | Component | Value | Ref Range | Performed | Pathologist | | | | | At | Signature | + +-------+ + + + | ALT, | 22 | 13 - 39 | EXTERNAL | | | External | | | LAB | | + +-------+ + + + + +---------+ + + | Performing | Address | City/State/Zipcode | Phone Number | | Organization | | | | + +---------+ + + | EXTERNAL LAB | | | | + +---------+ + + External Lab: AST (03/07/2017) + +-------+ + + + | Component | Value | Ref Range | Performed | Pathologist | | | | | At | Signature | + +-------+ + + + | AST, | 22 | 13 - 52 | EXTERNAL | | | External | | | LAB | | + +-------+ + + + + +---------+ + + | Performing | Address | City/State/Zipcode | Phone Number | | Organization | | | | + +---------+ + + | EXTERNAL LAB | | | | + +---------+ + + External Lab: Alkaline Phosphatase (03/07/2017) + +-------+ + + + | Component | Value | Ref Range | Performed | Pathologist | | | | | At | Signature | + +-------+ + + + | ALP, | 78 | 31 - 120 | EXTERNAL | | | External | | | LAB | | + +-------+ + + + + +---------+ + + | Performing | Address | City/State/Zipcode | Phone Number | | Organization | | | | + +---------+ + + | EXTERNAL LAB | | | | + +---------+ + + External Lab: Bilirubin, Total (03/07/2017) + +-------+ + + + | Component [...] + +---------+ + + External Lab: Albumin (03/07/2017) + +-------+ + + + | Component | Value | Ref Range | Performed | Pathologist | | | | | At | Signature | + +-------+ + + + | Albumin, | 4.4 | 3.5 - 5 | EXTERNAL | | | External | | | LAB | | + +-------+ + + + + +---------+ + + | Performing | Address | City/State/Zipcode | Phone Number | | Organization | | | | + +---------+ + + | EXTERNAL LAB | | | | + +---------+ + + External Lab: Protein, Total (03/07/2017) + +-------+ + + + | Component | Value | Ref Range | Performed | Pathologist | | | | | At | Signature | + +-------+ + + + | Protein, | 7.1 | 6 - 8 | EXTERNAL | [...] + +---------+ + + External Lab: Phosphorus (03/07/2017) + +-------+ + + + | Component | Value | Ref Range | Performed | Pathologist | | | | | At | Signature | + +-------+ + + + | Phosphorus, | 78 | 31 - 120 | EXTERNAL | | | External | | | LAB | | + +-------+ + + + + +---------+ + + | Performing | Address | City/State/Zipcode | Phone Number | | Organization | | | | + +---------+ + + | EXTERNAL LAB | | | | + +---------+ + + External Lab: Calcium (03/07/2017) + +-------+ + + + | Component | Value | Ref Range | Performed | Pathologist | | | | | At | Signature | + +-------+ + + + | Calcium, | 10.1 | 8.4 - 10.2 | EXTERNAL | | | External | | | LAB | | + +-------+ + + + + +---------+ + + | Performing | Address | City/State/Zipcode | Phone Number | | Organization | | | | + +---------+ + + | EXTERNAL LAB | | | | + +---------+ + + External Lab: Carbon Dioxide (03/07/2017) + +-------+ + + + | Component [...] + +---------+ + + External Lab: Chloride (03/07/2017) + +-------+ + + + | Component [...] + +---------+ + + External Lab: Potassium (03/07/2017) + +-------+ + + + | Component [...] + +---------+ + + External Lab: Sodium (03/07/2017) + +-------+ + + + | Component [...] + +---------+ + + External Lab: Triglycerides (03/07/2017) + +-------+ + + + | Component | Value | Ref Range | Performed | Pathologist | | | | | At | Signature | + +-------+ + + + | Triglycerid | 54 | 30 - 150 | EXTERNAL | [...] +---------+ + + External Lab: Cholesterol, HDL (03/07/2017) + +-------+ + + + | Component | Value | Ref Range | Performed | Pathologist | | | | | At | Signature | + +-------+ + + + | HDL | 65 | 40 mg/dl | EXTERNAL | | [...] +---------+ + + External Lab: Cholesterol, Total (03/07/2017) + +-------+ + + + | Component | Value | Ref Range | Performed | Pathologist | | | | | At | Signature | + +-------+ + + + | Cholesterol | 126 | 200 mg/dl | EXTERNAL | | [...] +---------+ + + External Lab: Cholesterol, LDL (03/07/2017) + +-------+ + + + | Component | Value | Ref Range | Performed | Pathologist | | | | | At | Signature | + +-------+ + + + | LDL | 50 | 100 | EXTERNAL | | | [...] + +---------+ + + External Lab: eGFR (03/07/2017) + +--------+ + + + | Component | Value | Ref Range | Performed | Pathologist | | | | | At | Signature | + +--------+ + + + | eGFR, | 21 (A) | 60 | EXTERNAL | | [...] + +---------+ + + External Lab: Creatinine (03/07/2017) + + + + + + | Component | Value | Ref Range | Performed | Pathologist | | | | | At | Signature | + + + + + + | Creatinine, | 2.99 (A) | 0.6 - 1.3 | EXTERNAL [...]
--- OUTSIDE RECORDS SUMMARY | ~2019-03-07 | XMS | Encounter Summary ---
Demographics + + + | Address | [address] | | | [place] [address] | + + + | Home Phone | | + + + | Preferred Language | Unknown | + + + | Marital Status | | + + + | Presybeterian Affiliation | 1001 | + + + | Race | Unknown | + + + | Ethnic Group | Unknown | + + + Author + + + | Author | [facility] | | | and Ezraana | + + + | Organization | [facility] | | | and [place]ra[place] [...] [place] | | | | | [address] | | + + + + + Care Team Providers + +------+ + | Care Auto Mechanic Apprentice Name | Role | Phone | [...] NEPHROLOGY [address] | M, DO [address] | | | | | [address] | [place] | | | | | [place], [place] | [place], [place] | | | | | [address] | [address] | | | | | [phone] | | | +--------+ + + + [...] | Visit | | DO Deep [address] | | | | | | [place] | | | | | | [place], [place] | | | | | | [address] | | | | | | | | +--------+ + + + + documented as of this encounter Procedures + +--------+ + + + | Procedure Name | Priori | Date/Time | Associated Diagnosis | Comments | | | ty | | | | + +--------+ + + + | EXTERNAL LAB: BUN | Routin | 11/17/2015 | | Results for this | | | e | | | procedure are in the | | | | | | results section. | + +--------+ + + + | EXTERNAL LAB: | Routin | 11/17/2015 | | Results for this | | GLUCOSE | e | | | procedure are in the | | | | | | results section. | + +--------+ + + + | EXTERNAL LAB: HADLEY | Routin | 11/17/2015 | | Results for this | | | e | | | procedure are in the | | | | | | results section. | + +--------+ + + + | EXTERNAL LAB: AST | Routin | 11/17/2015 | | Results for this | | | e | | | procedure are in the | | | | | | results section. | + +--------+ + + + | EXTERNAL LAB: | Routin | 11/17/2015 | | Results for this | | ALKALINE PHOSPHATASE | e | | | procedure are in the | | | | | | results section. | + +--------+ + + + | EXTERNAL LAB: | Routin | 11/17/2015 | | Results for this | | BILIRUBIN, TOTAL | e | | | procedure are in the | | | | | | results section. | + +--------+ + + + | EXTERNAL LAB: | Routin | 11/17/2015 | | Results for this | | ALBUMIN | e | | | procedure are in the | | | | | | results section. | + +--------+ + + + | EXTERNAL LAB: | Routin | 11/17/2015 | | Results for this | | PROTEIN, TOTAL | e | | | procedure are in the | | | | | | results section. | + +--------+ + + + | EXTERNAL LAB: | Routin | 11/17/2015 | | Results for this | | PHOSPHORUS | e | | | procedure are in the | | | | | | results section. | + +--------+ + + + | EXTERNAL LAB: | Routin | 11/17/2015 | | Results for this | | CALCIUM | e | | | procedure are in the | | | | | | results section. | + +--------+ + + + | EXTERNAL LAB: CARBON | Routin | 11/17/2015 | | Results for this | | DIOXIDE | e | | | procedure are in the | | | | | | results section. | + +--------+ + + + | EXTERNAL LAB: | Routin | 11/17/2015 | | Results for this | | CHLORIDE | e | | | procedure are in the | | | | | | results section. | + +--------+ + + + | EXTERNAL LAB: | Routin | 11/17/2015 | | Results for this | | POTASSIUM | e | | | procedure are in the | | | | | | results section. | + +--------+ + + + | EXTERNAL LAB: MARIA G | Routin | 11/17/2015 | | Results for this | | | e | | | procedure are in the | | | | | | results section. | + +--------+ + + + | EXTERNAL LAB: МАРИНА | Routin | 11/17/2015 | | Results for this | | INTACT | e | | | procedure are in the | | | | | | results section. | + +--------+ + + + | EXTERNAL LAB: | Routin | 11/17/2015 | | Results for this | | PROTEIN, URINE, 24HR | e | | | procedure are in the | | | | | | results section. | + +--------+ + + + | EXTERNAL LAB: CBC | Routin | 11/17/2015 | | Results for this | | | e | | | procedure are in the | | | | | | results section. | + +--------+ + + + | EXTERNAL LAB: | Routin | 11/17/2015 | | Results for this | | TRIGLYCERIDES | e | | | procedure are in the | | | | | | results section. | + +--------+ + + + | EXTERNAL LAB: | Routin | 11/17/2015 | | Results for this | | CHOLESTEROL, HDL | e | | | procedure are in the | | | | | | results section. | + +--------+ + + + | EXTERNAL LAB: | Routin | 11/17/2015 | | Results for this | | CHOLESTEROL, TOTAL | e | | | procedure are in the | | | | | | results section. | + +--------+ + + + | EXTERNAL LAB: | Routin | 11/17/2015 | | Results for this | | CHOLESTEROL, LDL | e | | | procedure are in the | | | | | | results section. | + +--------+ + + + | EXTERNAL LAB: EGFR | Routin | 11/17/2015 | | Results for this | | | e | | | procedure are in the | | | | | | results section. | + +--------+ + + + | EXTERNAL LAB: | Routin | 11/17/2015 | | Results for this | | CREATININE | e | | | procedure are in the | | | | | | results section. | + +--------+ + + + | CREATININE | Routin | 11/17/2015 | | Results for this | | CLEARANCE, TEST | e | | | procedure are in the | | | | | | results section. | + +--------+ + + + documented in this encounter Results External Lab: Protein, Urine, 24Hr (11/17/2015) + +---------+ + + + | Component | Value | Ref Range | Performed | Pathologist | | | | | At | Signature | + +---------+ + + + | Protein, | 207 (A) | 150 | EXTERNAL | | | Urine 24Hr, | | | LAB | | | External | | | | | + +---------+ + + + + + | Specimen | + + | Urine specimen | | (specimen) | + + + + | Resulting Agency Comment | + + | [facility] | + + + +---------+ + + | Performing | Address | City/State/Zipcode | Phone Number | | Organization | | | | + +---------+ + + | EXTERNAL LAB | | | | + +---------+ + + Creatinine Clearance, Test (11/17/2015) + + + + + + | [...] | (specimen) | + + External Lab: PTH, Intact (11/17/2015) + +-------+ + + + | Component | Value | Ref Range | Performed | Pathologist | | | | | At | Signature | + +-------+ + + + | PTH Intact, | 44.08 | | | | | External | | | | | + +-------+ + + + + + | Specimen | + + | | + + External Lab: ROSARIO (11/17/2015) + +--------+ + + + | Component | Value | Ref Range | Performed | Pathologist | | | | | At | Signature | + +--------+ + + + | BUN, | 40 (A) | 6 - 23 | EXTERNAL | | | External | | | LAB | | + +--------+ + + + + + | Resulting Agency Comment | + + | [facility] | + + + +---------+ + + | Performing | Address | City/State/Zipcode | Phone Number | | Organization | | | | + +---------+ + + | EXTERNAL LAB | | | | + +---------+ + + External Lab: Glucose (11/17/2015) + +-------+ + + + | Component [...] Resulting Agency Comment | + + | [facility] | + + + +---------+ + + | Performing | Address | City/State/Zipcode | Phone Number | | Organization | | | | + +---------+ + + | EXTERNAL LAB | | | | + +---------+ + + External Lab: ALT (11/17/2015) + +-------+ + + + | Component [...] Resulting Agency Comment | + + | [facility] | + + + +---------+ + + | Performing | Address | City/State/Zipcode | Phone Number | | Organization | | | | + +---------+ + + | EXTERNAL LAB | | | | + +---------+ + + External Lab: AST (11/17/2015) + +-------+ + + + | Component | Value | Ref Range | Performed | Pathologist | | | | | At | Signature | + +-------+ + + + | AST, | 23 | 13 - 39 | EXTERNAL | | | External | | | LAB | | + +-------+ + + + + + | Resulting Agency Comment | + + | [facility] | + + + +---------+ + + | Performing | Address | City/State/Zipcode | Phone Number | | Organization | | | | + +---------+ + + | EXTERNAL LAB | | | | + +---------+ + + External Lab: Alkaline Phosphatase (11/17/2015) + +-------+ + + + | Component | Value | Ref Range | Performed | Pathologist | | | | | At | Signature | + +-------+ + + + | ALP, | 66 | 30 - 128 | EXTERNAL | | | External | | | LAB | | + +-------+ + + + + + | Resulting Agency Comment | + + | [facility] | + + + +---------+ + + | Performing | Address | City/State/Zipcode | Phone Number | | Organization | | | | + +---------+ + + | EXTERNAL LAB | | | | + +---------+ + + External Lab: Bilirubin, Total (11/17/2015) + +-------+ + + + | Component [...] Resulting Agency Comment | + + | [facility] | + + + +---------+ + + | Performing | Address | City/State/Zipcode | Phone Number | | Organization | | | | + +---------+ + + | EXTERNAL LAB | | | | + +---------+ + + External Lab: Albumin (11/17/2015) + +-------+ + + + | Component [...] Resulting Agency Comment | + + | [facility] | + + + +---------+ + + | Performing | Address | City/State/Zipcode | Phone Number | | Organization | | | | + +---------+ + + | EXTERNAL LAB | | | | + +---------+ + + External Lab: Protein, Total (11/17/2015) + +-------+ + + + | Component | Value | Ref Range | Performed | Pathologist | | | | | At | Signature | + +-------+ + + + | Protein, | 6.6 | 6 - 8 | EXTERNAL | | | Total, | | | LAB | | | External | | | | | + +-------+ + + + + + | Resulting Agency Comment | + + | [facility] | + + + +---------+ + + | Performing | Address | City/State/Zipcode | Phone Number | | Organization | | | | + +---------+ + + | EXTERNAL LAB | | | | + +---------+ + + External Lab: Phosphorus (11/17/2015) + +-------+ + + + | Component [...] Resulting Agency Comment | + + | [facility] | + + + +---------+ + + | Performing | Address | City/State/Zipcode | Phone Number | | Organization | | | | + +---------+ + + | EXTERNAL LAB | | | | + +---------+ + + External Lab: Calcium (11/17/2015) + +-------+ + + + | Component | Value | Ref Range | Performed | Pathologist | | | | | At | Signature | + +-------+ + + + | Calcium, | 9.3 | 8.4 - 10.2 | EXTERNAL | | | External | | | LAB | | + +-------+ + + + + + | Resulting Agency Comment | + + | [facility] | + + + +---------+ + + | Performing | Address | City/State/Zipcode | Phone Number | | Organization | | | | + +---------+ + + | EXTERNAL LAB | | | | + +---------+ + + External Lab: Carbon Dioxide (11/17/2015) + +-------+ + + + | Component [...] Resulting Agency Comment | + + | [facility] | + + + +---------+ + + | Performing | Address | City/State/Zipcode | Phone Number | | Organization | | | | + +---------+ + + | EXTERNAL LAB | | | | + +---------+ + + External Lab: Chloride (11/17/2015) + +-------+ + + + | Component | Value | Ref Range | Performed | Pathologist | | | | | At | Signature | + +-------+ + + + | Chloride, | 102 | 95 - 112 | EXTERNAL | | | External | | | LAB | | + +-------+ + + + + + | Resulting Agency Comment | + + | [facility] | + + + +---------+ + + | Performing | Address | City/State/Zipcode | Phone Number | | Organization | | | | + +---------+ + + | EXTERNAL LAB | | | | + +---------+ + + External Lab: Potassium (11/17/2015) + +-------+ + + + | Component | Value | Ref Range | Performed | Pathologist | | | | | At | Signature | + +-------+ + + + | Potassium, | 3.6 | 3.6 - 5.1 | EXTERNAL | | | External | | | LAB | | + +-------+ + + + + + | Resulting Agency Comment | + + | [facility] | + + + +---------+ + + | Performing | Address | City/State/Zipcode | Phone Number | | Organization | | | | + +---------+ + + | EXTERNAL LAB | | | | + +---------+ + + External Lab: Sodium (11/17/2015) + +-------+ + + + | Component [...] Resulting Agency Comment | + + | [facility] | + + + +---------+ + + | Performing | Address | City/State/Zipcode | Phone Number | | Organization | | | | + +---------+ + + | EXTERNAL LAB | | | | + +---------+ + + External Lab: CBC (11/17/2015) + + + + + + | Component | Value | Ref Range | Performed | Pathologist | | | | | At | Signature | + + + + + + | WBC, | 6.1 | 4.5 - 11 | EXTERNAL | | | External | | | LAB | | + + + + + + | HGB, | 13.3 (A) | 13.5 - 18 | EXTERNAL | | | External | | | LAB | | + + + + + + | HCT, | 40.1 (A) | 41 - 50 | EXTERNAL | | | External | | | LAB | | + + + + + + | PLT, | 169 | 140 - 440 | EXTERNAL | | | External | | | LAB | | + + + + + + | Neutrophils | 68.0 | 39 - 80 | EXTERNAL | [...] + + + + | Monocytes | 8.1 | 0 - 12 | EXTERNAL | | | %, External | | | LAB | | + + + + + + | Eosinophils | 1.0 | 0 - 6 | EXTERNAL | | | %, | | | LAB | | | External | | | | | + + + + + + | RBC, | 4.17 (A) | 4.3 - 5.7 | EXTERNAL | | | External | | | LAB | | + + + + + + | MCV, | 96 | 81 - 99 | EXTERNAL | | | External | | | LAB | | + + + + + + | RDW, | 14.3 | 10.5 - 15 | EXTERNAL | | | External | | | LAB | | + + + + + + + + | Resulting Agency Comment | + + | [facility] | + + + +---------+ + + | Performing | Address | City/State/Zipcode | Phone Number | | Organization | | | | + +---------+ + + | EXTERNAL LAB | | | | + +---------+ + + External Lab: Triglycerides (11/17/2015) + +-------+ + + + | Component | Value | Ref Range | Performed | Pathologist | | | | | At | Signature | + +-------+ + + + | Triglycerid | 66 | 30 - 150 | EXTERNAL | | | es, | | | LAB | | | External | | | | | + +-------+ + + + + + | Specimen | + + | Blood specimen | | (specimen) | + + + + | Resulting Agency Comment | + + | [facility] | + + + +---------+ + + | Performing | Address | City/State/Zipcode | Phone Number | | Organization | | | | + +---------+ + + | EXTERNAL LAB | | | | + +---------+ + + External Lab: Cholesterol, HDL (11/17/2015) + + + + + + | Component | Value | Ref Range | Performed | Pathologist | | | | | At | Signature | + + + + + + | HDL | 51.9 (A) | 40 mg/dl | EXTERNAL | | | Cholesterol | | | LAB | | | , External | | | | | + + + + + + + + | Specimen | + + | Blood specimen | | (specimen) | + + + + | Resulting Agency Comment | + + | [facility] | + + + +---------+ + + | Performing | Address | City/State/Zipcode | Phone Number | | Organization | | | | + +---------+ + + | EXTERNAL LAB | | | | + +---------+ + + External Lab: Cholesterol, Total (11/17/2015) + +-------+ + + + | Component | Value | Ref Range | Performed | Pathologist | | | | | At | Signature | + +-------+ + + + | Cholesterol | 142 | 200 mg/dl | EXTERNAL | | | , Total, | | | LAB | | | External | | | | | + +-------+ + + + + + | Specimen | + + | Blood specimen | | (specimen) | + + + + | Resulting Agency Comment | + + | [facility] | + + + +---------+ + + | Performing | Address | City/State/Zipcode | Phone Number | | Organization | | | | + +---------+ + + | EXTERNAL LAB | | | | + +---------+ + + External Lab: Cholesterol, LDL (11/17/2015) + +-------+ + + + | Component | Value | Ref Range | Performed | Pathologist | | | | | At | Signature | + +-------+ + + + | LDL | 77 | 100 | EXTERNAL | | | Cholesterol | | | LAB | | | , Direct, | | | | | | External | | | | | + +-------+ + + + + + | Specimen | + + | Blood specimen | | (specimen) | + + + + | Resulting Agency Comment | + + | [facility] | + + + +---------+ + + | Performing | Address | City/State/Zipcode | Phone Number | | Organization | | | | + +---------+ + + | EXTERNAL LAB | | | | + +---------+ + + External Lab: eGFR (11/17/2015) + +-------+ + + + | Component | Value | Ref Range | Performed | Pathologist | | | | | At | Signature | + +-------+ + + + | eGFR, | 27 | 60 | EXTERNAL | | | External | | | LAB | | + +-------+ + + + + + | Specimen | + + | Blood specimen | | (specimen) | + + + + | Resulting Agency Comment | + + | [facility] | + + + +---------+ + + | Performing | Address | City/State/Zipcode | Phone Number | | Organization | | | | + +---------+ + + | EXTERNAL LAB | | | | + +---------+ + + External Lab: Creatinine (11/17/2015) + + + + + + | Component | Value | Ref Range | Performed | Pathologist | | | | | At | Signature | + + + + + + | Creatinine, | 2.36 (A) | 0.5 - 1.5 | EXTERNAL | | | External | | | LAB | | + + + + + + + + | Specimen | + + | Blood specimen | | (specimen) | + + + + | Resulting Agency Comment | + + | [facility] | + + + +---------+ + + | Performing | Address | City/State/Zipcode | Phone Number | | Organization | | | | + +---------+ + + | EXTERNAL LAB | | | | + +---------+ + + documented in this encounter Visit Diagnoses Not on filedocumented in this encounter"
--- OUTSIDE RECORDS SUMMARY | ~2019-03-07 | XMS | Encounter Summary ---
Demographics + + + | Address | [address] | | | [place] [address] | + + + | Home Phone [...] | Author | [facility] | | | and Ezra[place] | + + + | Organization | [facility] | | [...] [place] | | | | | [address] | | + + + + + Care Team Providers + +------+ + | Care Supervisor Paste Mixing Name | Role | Phone | + [...] NEPHROLOGY [address] | M, DO [address] [place] | | | | | [address] | [place], [address] | | | | | [place], [place] | [place], [place] | | | | | [address] | [address] | | | | | [phone] | | | +--------+ + + + [...] | Visit | | DO Deep [address] [place] [address] | | | | | | [address] [place] [address] | | | | | | [place] | | | | | | [id number] | | | | | | | | +--------+ + + + + documented as of this encounter Visit Diagnoses Not on filedocumented in this encounter"
--- OUTSIDE RECORDS SUMMARY | ~2019-03-07 | XMS | Encounter Summary ---
Demographics + + + | Address | [address] | | | [place] [address] | + + + | Home Phone [...] + | Author | [facility] | | | and [place]ra[place] | + + + | Organization | [facility] | [...] [place] | | | | | [address] | | + + + + + Care Team Providers + +------+ + | Care Sewer And Cutter Finger Buff Material Name | Role | Phone | + [...] NEPHROLOGY [address] | M, DO [address] [place] | | | | | [address] | [place], [address] | | | | | [place], [place] | [place], [place] | | | | | [address] | [address] | | | | | [phone] | | | +--------+ + + + [...] | Visit | | DO Deep [address] | | | | | | [place] | | | | | | [place], [place] | | | | | | [address] | | | | | | | [...] [address] | [place] | [phone] | | [facility] | | [address] | | | - LABORATORY | | [...]
--- OUTSIDE RECORDS SUMMARY | ~2019-03-07 | XMS | Encounter Summary ---
Demographics + + + | Address | [address] | | | [place] [address] | + + + | Home Phone [...] Author | [facility] | | | and Ezra[place] | + + + | Organization | [facility] | | | and [place]raana [...] [place] | | | | | [address] | | + + + + + Care Team Providers + +------+ + | Care Stencil Typist Name | Role | Phone | + [...] NEPHROLOGY [address] | M, DO [address] [place] | | | | | [address] | [place], [address] | | | | | [place], [place] | [place], [place] | | | | | [address] | [address] | | | | | [phone] | | | +--------+ + + + [...] | Visit | | DO Deep [address] | | | | | | [place] | | | | | | [place], [place] | | | | | | [address] | | | | | | | [...]
--- OUTSIDE RECORDS SUMMARY | ~2019-03-07 | XMS | Encounter Summary ---
Demographics + + + | Address | [address] | | | [place] [address] | + + + | Home Phone [...] + | Author | [facility] | | | and [place]ra[place] | + + + | Organization | [facility] | [...] [place] | | | | | [address] | | + + + + + Care Team Providers + +------+ + | Care Senior Analyst Developer Name | Role | Phone | [...] | disease, | [address] | [place], [place] | | | | | stage III | [address] | [address] [place] | | | | | (moderate) | [place], | [place], [place] | | | | | (HCC) | [place] | [address] Phone: | | | | | Unspecified | [address] | [phone] | | | | | essential | Phone: | Fax: | | | | | hypertension | [phone] | [phone] | | | | | | Fax: | | | | | | Unspecified | [phone] | | | | | | hypertensive [...] | | | | | | | [place] OFFICE | | | | | | [...] NEPHROLOGY [address] | M, DO [address] | kidney | | | | [address] | [place], [facility] 100 | disease(285.21) | | | | [place] | [place] | (Primary Dx); | | | | [address] | [address] | 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 at the CKD Clinic, [place], [place]. He will have a C BC, [...] | Visit | | DO Deep [address] | | | | | | [place] [address] | | | | | | [place] | | | | | | [address] | | | | | | | [...]
--- OUTSIDE RECORDS SUMMARY | ~2019-03-07 | XMS | Encounter Summary ---
Demographics + + + | Address | [address] | | | [place] [address] | + + + | Home Phone [...] + | Author | [facility] | | | and Ezraana | + + + | Organization | [facility] | | | and [...] [place] | | | | | [address] | | + + + + + Care Team Providers + +------+ + | Care Sports Activities Foul Judge Name | Role | Phone | [...] + + | 02/06/ | Office | [facility] | Perlita Garzaias | Unspecified | | 2011 | Visit | NEPHROLOGY [address] | M, DO [address] | hypertensive kidney | | | | [address] | [place], [place] [address] | disease with chronic | | | | [place], [place] | [place], [place] | kidney disease | | | | [address] | [address] | stage I through | | | | [phone] | | stage IV, or | | [...] PM PSTE-faxed to Dr. Jacobo, mailed to [facility] on 02/18/12 as [...] in 4 months, At the CKD Clinic, [facility]. He will have a CBC, CMP, P04, PTH, Lipid Profile, and 24-hour urine collection one week prior to that. CC: [facility] Ray Jacobo M.D. 6 :06 PM PSTdocumented in this encounter Plan of Treatment +--------+ + + + + | Date | Type | Specialty | Care Team | Description | +--------+ + + + + | 03/12/ | Off-Site | Nephrology | Bennie Garza | | | 2019 | Visit | | DO Deep [address] [place] [address] | | | | | | [place] | | | | | | [place] | | | | | | [address] [...]
--- OUTSIDE RECORDS SUMMARY | ~2019-03-07 | XMS | Encounter Summary ---
Demographics + + + | Address | [address] | | | [place] [address] | + + + | Home Phone | | + + + | Preferred Language | Unknown | + + + | Marital Status | | + + + | Spiritism Affiliation | 1001 | + + + | Race | Unknown | + + + | Ethnic Group | Unknown | + + + Author + + + | Author | [facility] | | | and Ezraana | + + + | Organization | 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
--- OUTSIDE RECORDS SUMMARY | ~2019-03-07 | XMS | Encounter Summary ---
Demographics + + + | Address | [address] | | | [place] [address] | + + + | Home Phone | | + + + | Preferred Language | Unknown | + + + | Marital Status | | + + + | Latter-Day Affiliation | 1001 | + + + | Race | Unknown | + + + | Ethnic Group | Unknown | + + + Author + + + | Author | [facility] | | | and Ezraana | + + + | Organization | [facility] | | | and [...] [place] | | | | | [address] | | + + + + + Care Team Providers + +------+ + | Care Manager Of Digital Name | Role | Phone | + [...] | | | [employer] | [address] | | | | | [phone] | [place] [address] | | | | | | [phone] | | | | | | | [...] | Visit | | DO Deep [address] [place] | | | | | | [place] [address] | | | | | | [place] | | | | | | [address] | | | | | | | [...] Performed At | + + + | [facility] [address] Ph: | | | Patient Name: DILLON CAMERON Date of : | | | 1945 Medical Record: [id number] Account: [id number] | | | Exam Date/Time: 01/18/2011 10:55 [...] - 11/25/2018 11:02 AM PDT | | [facility] | | [facility] [address] | | | | | | Patient Name: DILLON CAMERON | | Date of : 1945 | | Medical Record: [id number] | | Account: [id number] | | | | | | Exam [...]
--- OUTSIDE RECORDS SUMMARY | ~2019-03-07 | XMS | Encounter Summary ---
Demographics + + + | Address | [address] | | | [place] [address] | + + + | Home Phone | | + + + | Preferred Language | Unknown | + + + | Marital Status | | + + + | Pentecostalism Affiliation | 1001 | + + + | Race | Unknown | + + + | Ethnic Group | Unknown | + + + Author + + + | Author | [facility] | | | and Ezraana | + + + | Organization | [facility] | | | [...] [place] | | | | | [address] | | + + + + + Care Team Providers + +------+ + | Care Live Ammunition Inspector Name | Role | Phone | + +------+ + | Dre Jacobo MD | PCP | | + +------+ + Reason for Referral +--------+--------+ + + + + | Status | Reason | Specialty | Diagnoses / | Referred By | Referred To | | | | | Procedures | Contact | Contact | +--------+--------+ + + + + | Closed | | Radiology | Procedures | [facility]am[facility] | | | | | | ECHO | Default | | | | | | Complete | Clinic | | | | | | | Conversion | | | | | | | Location | | | | | | | Phone: | | | | | | | | | | | | | | Fax: | | | | | | | | | +--------+--------+ + + + + Encounter Details +--------+ + + + + | Date | Type | Department | Care Team | Description | +--------+ + + + + | 02/05/ | Abstract | [place] [facility] | Unknown, Doctor | | | 2012 | | Conversion Location | | | | | | | (Fax) | | +--------+ + + + + [...] + + + | Blood Pressure | 108/61 | 01/26/2011 11:06 AM | | | | | PDT | | + + + + + | Pulse | - | - | | + + + + + | Temperature | - | - | | + + + + + | Respiratory Rate | - | - | | + + + + + | Oxygen Saturation | - | - | | + + + + + | Inhaled Oxygen | - | - | | | Concentration | | | | + + + + + | Weight | 66.7 kg (147 lb 1.6 | 01/26/2011 11:06 AM | | | | oz) | PDT | | + + + + + | Height | 165.1 cm (5' 5") | 01/26/2011 11:06 AM | | | | | PDT | | + + + + + | Body Mass Index | 24.48 | 01/26/2011 11:06 AM | | | | | PDT | | + + + + + documented in this encounter Plan of Treatment +--------+ + + + + | Date | Type | Specialty | Care Team | Description | +--------+ + + + + | 03/12/ | Off-Site | Nephrology | Bennie Garza | | | 2018 | Visit | | DO [address] | | | | | | [address] | | | | | | [place] | | | | | | [phone] | | | | | | | | +--------+ + + + + documented as of this encounter Procedures + +--------+ + + + | Procedure Name | Priori | Date/Time | Associated Diagnosis | Comments | | | ty | | | | + +--------+ + + + | ECHO COMPLETE | Routin | 01/21/2011 | | Results for this | | | e | 11:07 AM | | procedure are in the | | | | PDT | | results section. | + +--------+ + + + | ENDOSCOPY, COLON, | Routin | 11/09/2010 | | | | DIAGNOSTIC | e | 11:07 AM | | | | | | PDT | | | + +--------+ + + + documented in this encounter Results ECHO Complete (01/21/2011 11:07 AM PDT) + +-------+ + + + | Component | Value | Ref Range | Performed | Pathologist | | | | | At | Signature | + +-------+ + + + | LVEF-TTE | 60% | | | | | TRANSTHORAC | | | | | | IC ECHO | | | | | + +-------+ + + + documented in this encounter Visit Diagnoses Not on filedocumented in this encounter
--- OUTSIDE RECORDS SUMMARY | ~2019-03-07 | XMS | Encounter Summary ---
Demographics + + + | Address | [address] | | | [place] [address] | + + + | Home Phone | | + + + | Preferred Language | Unknown | + + + | Marital Status | | + + + | Taoism Affiliation | 1001 | + + + | Race | Unknown | + + + | Ethnic Group | Unknown | + + + Author + + + | Author | [facility] | | | and [place]ra[place] | + + + | Organization | [facility] | | | and [place]ra[place] [...] [place] | | | | | [address] | | + + + + + Care Team Providers + +------+ + | Care Steam Shovel Operating Engineer Name | Role | Phone | + +------+ + | Dre Jacobo MD | PCP | | + +------+ + Encounter Details +--------+ + + + + | Date | Type | Department | Care Team | Description | +--------+ + + + + | 06/12/ | Orders Only | [facility] [place] | Bennie Garza | Unspecified | | 2012 | | NEPHROLOGY [address] | M, DO [address] | hypertensive kidney | | | | [address] | [place] | disease with chronic | | | | [place], [place] | [place], [place] | kidney disease | | | | [address] | [address] | stage I through | | | | [phone] | | stage IV, or | | | | | | unspecified (Primary | | | | | | Dx); CHRONIC KIDNEY | | | | | [...] 2018 | Visit | | DO Deep [address] [place] [address] | | | | | | [address] | | | | | | [place] | | | | | | [phone] | | | | | | | [...]
--- OUTSIDE RECORDS SUMMARY | ~2019-03-07 | XMS | Encounter Summary ---
Demographics + + + | Address | [address] | | | [place] [address] | + + + | Home Phone | | + + + | Preferred Language | Unknown | + + + | Marital Status | | + + + | Worship Affiliation | 1001 | + + + | Race | Unknown | + + + | Ethnic Group | Unknown | + + + Author + + + | Author | [facility] | | | and [place]ra[place] | + + + | Organization | [facility] | | | and [place] | + + + | Address | Unknown | + + + | Phone | Unavailable | + + + Support + + + + + | Name | Relationship | Address | Phone | + + + + + | Genet Glasogw | ECON | [address] | | | | | [place] | | | | | [address] | | + + + + + Care Team Providers + +------+ + | Care Enrollment Nurse Name | Role | Phone | + +------+ + | Dre Jacobo MD | PCP | | + +------+ + Encounter Details +--------+ + + + + | Date | Type | Department | Care Team | Description | +--------+ + + + + | 06/04/ | Hospital | [facility] | Luis Enrique Mcmillan | | | 2014 | Encounter | MED CTR MP INTRA OP | MD [place]anco, FACS [address] | | | | | [address] | [facility] | | | | | [place], [place] | [place] [address] | | | | | [address] | [phone] | | | | | [phone] | | | +--------+ + + + [...] | Visit | | DO Deep [address] | | | | | | [address] | | | | | | [place] | | | | | | [address] | | | | | | | [...] + | [facility] | [address] | [place] | [phone] | | [facility] | | [address] | | | - LABORATORY | | | | + + + + + | [facility] | [address] | [place] | | | [facility] | | [address] | | | - LABORATORY | | [...] [address] | [place] | [phone] | | [facility] | | [address] | | | - LABORATORY | | | | + + + + + | [facility] | [address] | [place] | | | [facility] | | [address] | | | - LABORATORY | | | | + + + + + documented in this encounter Visit Diagnoses Not on filedocumented in this encounter"
--- OUTSIDE RECORDS SUMMARY | ~2019-03-07 | XMS | Encounter Summary ---
Demographics + + + | Address | [address] | | | [place] [address] | + + + | Home Phone [...] + + + | Author | [facility] | | | and Ezraana | + + + | Organization | [facility] | | [...] [address] | | | | | [place] | | | | | [address] | | + + + + + Care Team Providers + +------+ + | Care Customer Support Engineer Name | Role | Phone | + +------+ + PCP | Unavailable | + +------+ + Encounter Details +--------+ + + + + | Date | Type | Department | Care Team | Description | +--------+ + + + + | 12/15/ | Abstract | [place] [facility] | DATA MIGRATION FREDA | | | 2011 | | Conversion Location | SR | | | | | [phone] | | | +--------+ + + + [...] + + + | Blood Pressure | 118/60 | 10/18/2011 12:00 AM | | | | | PDT [...] + | Weight | 66.7 kg (147 lb) | 10/18/2011 12:00 AM | | | | | PDT | | + + + + + | Height | 165.1 cm (5' 5") | 06/17/2009 12:00 AM | | | | | PDT | | + + + + + | Body Mass Index | 24.46 | 01/26/2011 11:06 AM | | | [...] | Visit | | DO Deep [address] | | | | | | [address] | | | | | | [place] | | | | | | [address] | | | | | | | | +--------+ + + + + documented as of this encounter Visit Diagnoses Not on filedocumented in this encounter
--- OUTSIDE RECORDS SUMMARY | ~2019-03-07 | XMS | Encounter Summary ---
Demographics + + + | Address | [address] | | | [place] [address] | + + + | Home Phone [...] | Author | [facility] | | | and Ezraana | + + + | Organization | [facility] | [...] | [place] | | | | | [address] | | + + + + + Care Team Providers + +------+ + | Care Chief Marketing Officer Name | Role | Phone | [...] | Procedures | [place], [place] | [place] [address] | | | | | MD AV FIST | [address] | Phone: | | | | | REVISE | Phone: | [phone] | | | | | GRLANCE,W | [phone] | Fax: | | | | | THROMBECTOMY | Fax: | [phone] | | | | | | [phone] | | +--------+ + + + + + Reason for Visit + + + | Reason | Comments | + + + | New Patient | AV Fistula not working | + + + Encounter Details +--------+---------+ + + + | Date | Type | Department | Care Team | Description | +--------+---------+ + + + | 10/16/ | Office | [facility] | Luis Enrique Mcmillan | End stage renal | | 2013 | Visit | SURGERY [address] | MD [place]anco, FACS [address] | disease (HCC) | | | | [place], [place] | [facility] | (Primary Dx) | | | | [address] | [place] [address] | | | | | [phone] | [phone] | | | | | | | [...] Care ? Dre Jacobo Who is your Cruise Director/Kidney Specialist ? Dr. Garza When was the [...] Patient is retired. No hobbies. Diaz s adventist stuff. On September 25, 2012 at an [...] REPORT: PATIENT NAME : Dillon Glasgow EQUIPMENT: Sonvufind M-Turbo with 10-5 mHertz probe. INDICATIONS: Ddialysis [...] It may need an additional piece of Hercules-Reymundo. By ultrasound appe ars that he is a venous stenosis 1 centimeters distal to the anastomosis. If we are surgic ally unable to restore flow in the left arm fistula then would recommend waiting for further deterioration of his renal function before proceeding with a right arm AV fistula. Risks and possible complications including bleeding, infection, hand pain, failure for vein to dilate, DE stroke and was explained. No guarantees given [...] | Visit | | DO Deep [address] [place] [address] | | | | | | [address] | | | | | | [place] | | | | | | [address] | | | | | | | [...]
--- OUTSIDE RECORDS SUMMARY | ~2019-03-07 | XMS | Encounter Summary ---
Demographics + + + | Address | [address] | | | [place] [address] | + + + | Home Phone [...] Author | [facility] | | | and Ezraana | + + + | Organization | [facility] | | [...] [place] | | | | | [address] | | + + + + + [...] NEPHROLOGY [address] | M, DO [address] | | | | | [address] | [place] | | | | | [place], [place] | [place], [place] | | | | | [address] | [address] | | | | | [phone] | | | +--------+ + + + [...] | Visit | | DO Deep [address] | | | | | | [place] | | | | | | [place], [place] | | | | | | [address] | | | | | | | [...] + | [facility] | [address] | [place] | [phone] | | [facility] | | [address] | | | - LABORATORY | | [...]
--- OUTSIDE RECORDS SUMMARY | ~2019-03-07 | XMS | Encounter Summary ---
Demographics + + + | Address | [address] | | | [place] [address] | + + + | Home Phone [...] | [facility] | | | and [place]ra[place] | + + + | Organization | [facility] | | | and [place]ra[place] [...] [place] | | | | | [address] | | + + + + + Care Team Providers + +------+ + | Care Tattoo And Body Artist Name | Role | Phone | + +------+ + PCP | Unavailable | + +------+ + Encounter Details +--------+ + + + + | Date | Type | Department | Care Team | Description | +--------+ + + + + | 05/11/ | [facility] | [facility] | Ozzie Miguel | | | 2002 | Encounter | MED CTR SLEEP | MD Patric[address] | | | | | [place] [address] | [place] | | | | | [place] | [place] [address] | | | | | [address] | [phone] | | | | | [phone] | | | +--------+ + + + [...] [place] | | | | | | [address] | | | | | | | | +--------+ + + + + documented as of this encounter Visit Diagnoses Not on filedocumented in this encounter"
--- OUTSIDE RECORDS SUMMARY | ~2019-03-07 | XMS | Encounter Summary ---
Demographics + + + | Address | [address] | | | [place] [address] | + + + | Home Phone [...] + | Author | [facility] | | | and Ezra[place] | + + + | Organization | [facility] | | | and [place]ra[place] | + + + | Address | Unknown | + + + | Phone | Unavailable | + + + Support + + + + + | Name | Relationship | Address | Phone | + + + + + | Genet Galsgow | ECON | [address] | | | | | [place] | | | | | [address] | | + + + + + Care Team Providers + +------+ + | Care Mica Plate Layer Name | Role | Phone | [...] | | [address] | [place] | | | | | [place], [place] | [place] | | | | | [address] | [address] | | | | | [phone] | | | +--------+--------+ + + + [...] | Visit | | DO Deep [address] | | | | | | [place] | | | | | | [place] | | | | | | [address] | | | | | | | | +--------+ + + + + documented as of this encounter Visit Diagnoses + + | Diagnosis | + + | SECONDARY HYPERPARATHYROIDISM - Primary Secondary hyperparathyroidism (of renal | | origin) | + + documented in this encounter"
--- OUTSIDE RECORDS SUMMARY | ~2019-03-07 | XMS | Encounter Summary ---
Demographics + + + | Address | [address] | | | [place] [address] | + + + | Home Phone | | + + + | Preferred Language | Unknown | + + + | Marital Status | | + + + | Sabianist Affiliation | 1001 | + + + | Race | Unknown | + + + | Ethnic Group | Unknown | + + + Author + + + | Author | [facility] | | | and Ezraana | + + + | Organization | [facility] | | | and [...] [place] | | | | | [address] | | + + + + + Care Team Providers + +------+ + | Care Chief Dietitian Name | Role | Phone | + [...] | | [address] | [place] | (Primary Dx); | | | | [place], [place] | [place], [place] | CHRONIC KIDNEY | | | | [address] | [address] | DISEASE STAGE III | | | | [phone] | | (MODERATE) | +--------+ + + [...] 09/06/2013 9:44 AM PDTAppointment moved to 09/24/13.Rush carrasco signed by Lori Short RN at 09/06/2013 9:45 AM Lori Page RN - 08/15/2013 2:26 PM PDTLab order for nephrology appt on 09/03/13 [facility] signed by Lori Short RN at 08/15/2013 2:30 PM PDTdocumented in this encoun ter Plan of Treatment +--------+ + + + + | Date | Type | Specialty | Care Team | Description | +--------+ + + + + | 03/12/ | Off-Site | Nephrology | Bennie Garza | | | 2019 | Visit | | Deep[address] | | | | | | [address] | | | | | | [place] | | | | | | [address] | | | | | | | [...]
--- OUTSIDE RECORDS SUMMARY | ~2019-03-07 | XMS | Encounter Summary ---
Demographics + + + | Address | [address] | | | [place] [address] | + + + | Home Phone [...] Author | [facility] | | | and [place]ra[place] | + + + | Organization | [facility] [...] [place] | | | | | [address] | | + + + + + Care Team Providers + +------+ + | Care Retail Account Manager Name | Role | Phone | [...] | disease, | [address] | [place], [place] | | | | | stage III | [address] | [address] [place] | | | | | (moderate) | [place], | [place] | | | | | (HCC) | [place] | [address] Phone: | | | | | Unspecified | [address] | [phone] | | | | | essential | Phone: | Fax: | | | | | hypertension | [phone] | [phone] | | | | | | Fax: | | | | | | Unspecified | [phone] | | | | | | hypertensive [...] Description | +--------+---------+ + + + | 01/27/ | Office | [facility] | Bennie Garza | Secondary | | 2015 | Visit | NEPHROLOGY [address] | M, DO [address] | hyperparathyroidism | | | | [address] | [place], [address] | (of renal origin) | | | | [place] | [place] | (Primary Dx); | | | | [address] | [address] | CHRONIC KIDNEY | | | | [phone] | | DISEASE STAGE III | | | | | | (MODERATE); | | | | | | Essential | | | | | | hypertension; Anemia | | | | | | in chronic kidney | | | | | | disease(285.21) | +--------+---------+ + + + Social History [...] + + + | Blood Pressure | 125/68 | 01/27/2015 3:10 PM | | | | | PDT | | + + + + + | Pulse | - | - | | + + + + + | Temperature | 35.7 C (96.2 F) | 01/27/2015 3:10 PM | | | | | PDT [...] + + + + | Weight | 63.5 kg (139 lb 15.9 | 01/27/2015 3:10 PM | | | | oz) | PDT | | + + + + + | Height | - | - | | + + + + + | Body Mass Index | 23.3 | 10/02/2013 2:09 PM | | | | | PDT | | + + + + + documented in this encounter Progress Notes Bennie Garza DO - 02/01/2015 12:31 PM PDT Subjective: NEPHROLOGY Patient ID: Dillon Glasgow is a 69 y.o. male. HPI Comments: Followup for this 69 YO white male with history of CKD secondary to hypertens ion, SHPTH, and remote depression. He is s/p AVF construction in his right arm on 06/04/13. He denies increased edema, hiccups, or decreased energy. He appears to follow a very consistent diet, and follows his Na+ intake very closely. Outpatient Prescriptions Marked as Taking for the 01/27/15 encounter (Office Visit) with Danica Garza, DO Medication Sig Dispense Refill allopurinol (ZYLOPRIM) 100 mg tablet Take 100 mg by mouth Daily. calcitriol (ROCALTROL) 0.25 mcg capsule Take 1 capsule by mouth Every other day. 45 cap rene 4 [DISCONTINUED] calcitRIOL (ROCALTROL) 0.25 mcg capsule Take 1 capsule by mouth Every ot her day. (Patient taking differently: Take 0.25 mcg by mouth Daily.) 45 capsule 4 clonazePAM (KLONOPIN) 0.5 mg tablet Take 0.5 mg by mouth nightly. fluoxetine (PROZAC) 40 MG capsule Take 40 mg by mouth Daily. traZODone (DESYREL) 50 mg tablet Take 100 mg by mouth nightly. No Known Allergies Objective: BP 125/68 mmHg | Temp(Src) 35.7 C (96.2 F) | Wt 63.5 kg (139 lb 15.9 oz) Physical Exam Cardiovascular: Regular rate and rhythm, with no S3, S4, murmur or rub. Pulmonary/Chest: CTA in all yanes. No rales or wheezes. Abdominal: Soft, flat, nontender, normoactive bowel sounds, no guarding. Musculoskeletal: No clubbing, cyanosis, or edema. (+) ~ 6mm, well developed AVF in the right arm with a strong bruit. Lab Results Component Value Date NAEX 138 01/20/2015 KEX 3.8 01/20/2015 CLEX 103 01/20/2015 CO2EX 21 01/20/2015 BUNEX 30* 01/20/2015 CREEX 2.43* 01/20/2015 EGFREX 26* 01/20/2015 GLUEX 89 01/20/2015 PHOSEX 2.8 01/20/2015 PTHEX 70.38 01/20/2015 Lab Results Component Value Date WBCEX 6.5 01/20/2015 HGBEX 15.4 01/20/2015 HCTEX 44.8 01/20/2015 PLTEX 182 01/20/2015 Lab Results Component Value Date PROTEX 216* 01/20/2015 CRCLEARANCE 33.0* 01/20/2015 Assessment: 1. CKD, Stage III, secondary to hypertensive nephrosclerosis--his Ccr is stable but his Sc r does appear to be slowly worsening over time. 2. Hypertension--have tapered off of BP meds to allow maturation of his AVF. With his stri ct adherence to a low salt diet he appears to have improved his BP control to diet Rx alone? 3. SHPTH-- stable on low dose Calcitriol. 4. Depression--in remission. 5. History of gout--in remission. Plan: 1. His AVF appears fully mature and ready for use. 2. I encouraged Dillon that he appears to have done an excellent job with maintaining a ve ry low salt, diet. 3. Will plan to see him back in 4 mo. He will have a CBC, CMP, P04, PTH, HbA1c, lipid pro file and 24-hour urine collection one week prior [...] | Visit | | DO Deep [address] | | | | | | [place], [...] | LABS - EXTERNAL SCAN | | 03/08/2016 | | Results for this | | | | 12:00 AM | | procedure are in the | | | | PST | | results section. | + +--------+ + + + documented in this encounter Results LABS - EXTERNAL SCAN (03/08/2016 12:00 AM PST) + + + | Narrative | Performed At | + + + | Ordered by an | | | unspecified provider. | | + + + documented in this encounter Visit Diagnoses + + | Diagnosis | + + | Secondary hyperparathyroidism (of renal origin) - Primary | + + | CHRONIC KIDNEY DISEASE STAGE III (MODERATE) Chronic kidney disease, Stage III | | (moderate) | + + | Essential hypertension Unspecified essential hypertension | + + | Anemia in chronic kidney disease(285.21) Anemia in chronic kidney disease | + + documented in this encounter"
--- OUTSIDE RECORDS SUMMARY | ~2019-03-07 | XMS | Encounter Summary ---
Demographics + + + | Address | [address] | | | [place] [address] | + + + | Home Phone | | + + + | Preferred Language | Unknown | + + + | Marital Status | | + + + | Jain Affiliation | 1001 | + + + | Race | Unknown | + + + | Ethnic Group | Unknown | + + + Author + + + | Author | [facility] | | | and [place]ra[place] | + + + | Organization | [facility] | | [...] [place] | | | | | [address] | | + + + + + Care Team Providers + +------+ + | Care Behavioral Services Tech Name | Role | Phone | + [...] | | [address] | [place], [address] | | | | | [place], [place] | [place], [place] | | | | | [address] | [address] | | | | | [phone] | | | +--------+ + + + [...] | Visit | | DO Deep [address] | | | | | | [address] | | | | | | [place], [place] | | | | | | [address] | | | | | | | [...]
--- OUTSIDE RECORDS SUMMARY | ~2019-03-07 | XMS | Encounter Summary ---
Demographics + + + | Address | [address] | | | [place] [address] | + + + | Home Phone | | + + + | Preferred Language | Unknown | + + + | Marital Status | | + + + | Rastafarian Affiliation | 1001 | + + + | Race | Unknown | + + + | Ethnic Group | Unknown | + + + Author + + + | Author | [facility] | | | and Ezraana | + + + | Organization | [facility] | | | [...] [place] | | | | | [address] | | + + + + + Care Team Providers + +------+ + | Care Aerodynamicist Name | Role | Phone | + +------+ + | Dre Jacobo MD | PCP | | + +------+ + Encounter Details +--------+ + + + + | Date | Type | Department | Care Team | Description | +--------+ + + + + | 08/29/ | Abstract | [facility] [place] | Bennie Garza | | | 2013 | | NEPHROLOGY [address] | M, DO [address] | | | | | [address] | [place], [address] | | | | | [place], [place] | [place], [place] | | | | | [address] | [address] | | | | | [phone] | | | +--------+ + + + [...] | Visit | | DO Deep [address] | | | | | | [place], [address] | | | | | | [place], [place] | | | | | | [address] | | | | | | | | +--------+ + + + + documented as of this encounter Procedures + +--------+ + + + | Procedure Name | Priori | Date/Time | Associated Diagnosis | Comments | | | ty | | | | + +--------+ + + + | EXTERNAL LAB: CBC | Routin | 08/28/2013 | | Results for this | | | e | | | procedure are in the | | | | | | results section. | + +--------+ + + + | EXTERNAL LAB: AST | Routin | 08/28/2013 | | Results for this | | | e | | | procedure are in the | | | | | | results section. | + +--------+ + + + | EXTERNAL LAB: ALT | Routin | 08/28/2013 | | Results for this | | | e | | | procedure are in the | | | | | | results section. | + +--------+ + + + | EXTERNAL LAB: EGFR | Routin | 08/28/2013 | | Results for this | | | e | | | procedure are in the | | | | | | results section. | + +--------+ + + + | EXTERNAL LAB: | Routin | 08/28/2013 | | Results for this | | CREATININE | e | | | procedure are in the | | | | | | results section. | + +--------+ + + + | CMPI | Routin | 08/28/2013 | | Results for this | | | e | | | procedure are in the | | | | | | results section. | + +--------+ + + + documented in this encounter Results CMP/ISTAT (08/28/2013) + + + + + + | Component | Value | Ref Range | Performed | Pathologist | | | | | At | Signature | + + + + + + | Na | 137 | mmol/L | | | + + + + + + | K | 3.6 | mmol/L | | | + + + + + + | Cl | 102 | mmol/L | | | + + + + + + | CO2 | 25 | mmol/L | | | + + + + + + | BUN | 37 | mg/dL | | | + + + + + + | Glucose | 74 | mg/dL | | | + + + + + + | Calcium | 9.7 | mg/dL | | | + + + + + + | PTH INTACT | 31.32 | pg/mL | | | + + + + + + | Phosphorus | 2.7 | 2.1 - 3.9 mg/dL | | | + + + + + + | Bilirubin | 1.0 | mg/dL | | | | Total | | | | | + + + + + + | Alkaline | 66 | U/L | | | | Phosphatase | | | | | + + + + + + | Albumin | 4.1 | 3.3 - 4.8 g/dL | | | + + + + + + | CREATININE | 33.0 (A) | 97.0 - 137.0 | | | | CLEARANCE | | mL/min | | | + + + + + + | PROTEIN, | 4.0 | mg/24hrs | | | | 24HR URINE | | | | | + + + + + + + + | Specimen | + + | Blood specimen | | (specimen) | + + External Lab: CBC (08/28/2013) + +-------+ + + + | Component | Value | Ref Range | Performed | Pathologist | | | | | At | Signature | + +-------+ + + + | HGB, | 13.8 | 12 - 16 | EXTERNAL | | | External | | | LAB | | + +-------+ + + + | HCT, | 41.3 | 35 - 45 | EXTERNAL | [...] + +---------+ + + External Lab: AST (08/28/2013) + +-------+ + + + | Component | Value | Ref Range | Performed | Pathologist | | | | | At | Signature | + +-------+ + + + | AST, | 21 | 0 - 40 | EXTERNAL | | | External | [...] + +---------+ + + External Lab: ALT (08/28/2013) + +-------+ + + + | Component | Value | Ref Range | Performed | Pathologist | | | | | At | Signature | + +-------+ + + + | ALT, | 20 | 0 - 40 | EXTERNAL | | | External | [...] + +---------+ + + External Lab: eGFR (08/28/2013) + +--------+ + + + | Component | Value | Ref Range | Performed | Pathologist | | | | | At | Signature | + +--------+ + + + | eGFR, | 26 (A) | 60 | EXTERNAL | | | External | | | LAB | | + +--------+ + + + | eGFR, | | | EXTERNAL | | | | | | LAB | | | Mal[place], | | | | | | External [...] + +---------+ + + External Lab: Creatinine (08/28/2013) + + + + + + | Component | Value | Ref Range | Performed | Pathologist | | | | | At | Signature | + + + + + + | Creatinine, | 2.45 (A) | 0.6 - 1.3 | EXTERNAL [...]
--- OUTSIDE RECORDS SUMMARY | ~2019-03-07 | XMS | Encounter Summary ---
Demographics + + + | Address | [address] | | | [place] [address] | + + + | Home Phone [...] Author | [facility] | | | and Ezraana | + + + | Organization | [facility] | [...] [place] | | | | | [address] | | + + + + + Care Team Providers + +------+ + | Care Package Sealer Name | Role | Phone | + [...] kidney | MD [address] | [address] [place] | | | | | disease, | [address] | [place], [place] | | | | | stage 4 | [address] | [address] [place] | | | | | (severe) | [place], | [place], [place] | | | | | (HCC) | [place] | [address] Phone: | | | | | Hypertension | [address] | [phone] | | | | | 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 | [phone] | [phone] | | | | | kidney | Fax: | | | | | | disease | [phone] | | | | | | Procedures | | | | | | | [place] OFFICE | | | | | | | OUTPATIENT | | | | | | | VISIT 25 | | | | | | | MINUTES | | | +--------+--------+ + + + + Encounter Details +--------+ + + + + | Date | Type | Department | Care Team | Description | +--------+ + + + + | 07/26/ | Off-Site | [facility] [place] | Bennie Garza | Chronic kidney | | 2017 | Visit | NEPHROLOGY [address] | M, DO [address] | disease, stage IV | | | | [address] | [place], [address] | (severe) (HCC) | | | | [place], [place] | [place], [place] | (Primary Dx); | | | | [address] | [address] | Essential | | | | [phone] | | hypertension; Anemia | | | [...] + + + | Blood Pressure | 140/70 | 07/26/2016 2:12 PM | | | | | PDT | | + + + + + | Pulse | - | - | | + + + + + | Temperature | 35.6 C (96 F) | 07/26/2016 2:12 PM | | | | | PDT [...] + + + + | Weight | 60 kg (132 lb 4.4 | 07/26/2016 2:12 PM | | | | oz) | PDT | | + + + + + | Height | - | - | | + + + + + | Body Mass Index | 22.01 | 10/02/2013 2:09 PM | | | | | PDT | | + + + + + documented in this encounter Progress Notes Bennie Garza DO - 07/26/2016 2:25 PM PDT Subjective: NEPHROLOGY Patient ID: Dillon Glasgow is a 71 y.o. male. HPI Comments: Followup for this pleasant, 71 YOWM with a long history of CKD secondary t o hypertension, SHPTH, and remote depression. He is s/p AVF construction in his right arm on 06/04/13. With some lifestyle modification, a nd very consistent diet changes his CKD appears to have plateaued. He denies any increased edema, SOB, hiccups, or fatigue. Outpatient Prescriptions Marked as Taking for the 07/26/16 encounter (Off-Site Visit) with Deep Garza DO Medication Sig Dispense Refill allopurinol (ZYLOPRIM) 100 mg tablet Take 100 mg by mouth Daily. calcitriol (ROCALTROL) 0.25 mcg capsule Take 1 capsule by mouth Daily. 90 capsule 4 [DISCONTINUED] clonazePAM (KLONOPIN) 0.5 mg tablet Take 0.5 mg by mouth nightly. (Patie nt taking differently: Take 0.25 mg by mouth nightly as needed.) fluoxetine (PROZAC) 40 MG capsule Take 40 mg by mouth Daily. traZODone (DESYREL) 50 mg tablet Take 100 mg by mouth nightly. No Known Allergies Objective: BP 140/70 mmHg | Temp(Src) 35.6 C (96 F) | Wt 60 kg (132 lb 4.4 oz) Physical Exam Cardiovascular: Regular rate and rhythm, with no S3, S4, murmur or rub. Pulmonary/Chest: CTA in all yanes. No rales or wheezes. Abdominal: Soft, flat, nontender, normoactive bowel sounds, no guarding. Musculoskeletal: No clubbing, cyanosis, or edema. (+) ~ 6mm, AVF in the right arm with a strong brui t. Lab Results Component Value Date NAEX 136 07/19/2016 KEX 3.7 07/19/2016 CLEX 103 07/19/2016 CO2EX 21 07/19/2016 BUNEX 48* 07/19/2016 CREEX 2.46* 07/19/2016 EGFREX 26* 07/19/2016 GLUEX 81 07/19/2016 PHOSEX 4.0 07/19/2016 PTHEX 67.95* 07/19/2016 Lab Results Component Value Date CHOLEX 143 03/08/2016 HDLEX 57.3 03/08/2016 LDLEX 74 03/08/2016 TRIGEX 59 03/08/2016 Lab Results Component Value Date WBCEX 5.3 07/19/2016 HGBEX 13.6 07/19/2016 HCTEX 40.8 07/19/2016 PLTEX 172 07/19/2016 Lab Results Component Value Date PROTEX 230* 07/19/2016 CRCLEARANCE 29.0* 07/19/2016 Assessment: 1. CKD, Stage IV, secondary to hypertensive nephrosclerosis-- GFR is stable, and his AVF is fully mature. 2. Hypertension-- maintaining control with diet Rx alone. 3. Depression--compensated. 4. History of gout--in remission. 5. SHPTH-- PTH is stable. Plan: 1. I reviewed with Dillon his lab, Ccr, PTH and BP. 2. He understands that renal replacement Rx is not necessary until his GFR is clearly < 15 ml/min. I affirmed him that he made the right decision, however, with early placement of an AVF to allow pre-emptive planning and avoid sarahy indwelling IJ catheters. 3. His PTH is stable on a maintenance does of calcitriol. 4. Will plan to see him back in 4 mo. at the CKD Clinic at [facility]. He will collins ve CBC, CMP, PO4, iPTH, lipid profile, and 24 Hr urine one week prior to that. : Ray Mcmillan MD, FACS documented in t his encounter Plan of Treatment +--------+ + + + + | Date | Type | Specialty | Care Team | Description | +--------+ + + + + | 03/12/ | Off-Site | Nephrology | Bennie Garza | | | 2019 | Visit | | M DO [address] [place] [address] | | | | | | [address] | | | | | | [place] | | | | | | [phone] | | | | | | | | +--------+ + + + + documented as of this encounter Procedures + +--------+ + + + | Procedure Name | Priori | Date/Time | Associated Diagnosis | Comments | | | ty | | | | + +--------+ + + + | LABS - EXTERNAL SCAN | | 07/19/2016 | | Results for this | | | | 12:00 AM | | procedure are in the | | | | PDT | | results section. | + +--------+ + + + documented in this encounter Results LABS - EXTERNAL SCAN (07/19/2016 12:00 AM PDT) + + + | [...]
--- OUTSIDE RECORDS SUMMARY | ~2019-03-07 | XMS | Encounter Summary ---
Demographics + + + | Address | [address] | | | [place] [address] | + + + | Home Phone | | + + + | Preferred Language | Unknown | + + + | Marital Status | | + + + | Temple Affiliation | 1001 | + + + | Race | Unknown | + + + | Ethnic Group | Unknown | + + + Author + + + | Author | [facility] | | | and Ezraana | + + + | Organization | [facility] [...] [place] | | | | | [address] | | + + + + + Care Team Providers + +------+ + | Care Screen Writer Name | Role | Phone | + [...] kidney | MD [address] | [address] [place] | | | | | disease, | [address] | [place], [place] | | | | | stage 4 | [address] | [address] [place] | | | | | (severe) | [place], | [place], [place] | | | | | (HCC) | [place] | [address] Phone: | | | | | Hypertension | [address] | [phone] | | | | | 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 | [phone] | [phone] | | | | | kidney | Fax: | | | | | | disease | [phone] | | | | | | Procedures [...] | | [address] | [place], [address] | (severe) (HCC) | | | | [place], [place] | [place], [place] | (Primary Dx); | | | | [address] | [address] | Essential | | | | [phone] | | hypertension; Anemia | | | [...] 4 mo. at the CKD Clinic at [facility]. He will collins ve CBC, CMP, PO4, [...] | Visit | | M DO [address] [place] [address] | | | | | | [address] | | | | | | [place] | | | | | | [phone] | | | | | | | [...]
--- OUTSIDE RECORDS SUMMARY | ~2019-03-07 | XMS | Encounter Summary ---
Demographics + + + | Address | [address] | | | [place] [address] | + + + | Home Phone [...] Author | [facility] | | | and Ezraana | + + + | Organization | [facility] | | | and [...] [place] | | | | | [address] | | + + + + + Care Team Providers + +------+ + | Care Forensic Identification Specialist Name | Role | Phone | [...] | | [address] | [place], [address] | (MODERATE) (Primary | | | | [place], [place] | [place], [place] | Dx); Anemia in | | | | [address] | [address] | chronic kidney | | | | [phone] | | disease; SECONDARY | | | [...] | Visit | | DO Deep [address] | | | | | | [place], [address] | | | | | | [place] | | | | | | [id number] | | | | | | | [...]
--- OUTSIDE RECORDS SUMMARY | ~2019-03-07 | XMS | Encounter Summary ---
Demographics + + + | Address | [address] | | | [place] [address] | + + + | Home Phone [...] Author | [facility] | | | and Ezraana | + + + | Organization | [facility] | | | and [place]raana | + + + | Address | Unknown | + + + | Phone | Unavailable | + + + Support + + + + + | Name | Relationship | Address | Phone | + + + + + | Genet Glsagow | ECON | [address] | | | | | [place] | | | | | [address] | | + + + + + Care Team Providers + +------+ + | Care Licensed Customs Broker Name | Role | Phone | [...] | | [address] | [place], [address] | | | | | [place], [place] | [place], [place] | | | | | [address] | [address] | | | | | [phone] | | | +--------+ + + + [...] | Visit | | DO Deep [address] | | | | | | [place], [address] | | | | | | [place], [place] | | | | | | [id number] | | | | | | | [...]
--- OUTSIDE RECORDS SUMMARY | ~2019-03-07 | XMS | Clinical Summary ---
Demographics + + + | Address | [address] | | | [place] [address] | + + + | Home Phone | | + + + | Preferred Language | Unknown | + + + | Marital Status | | + + + | Christian Affiliation | Unknown | + + + | Race | Unknown | + + + | Ethnic Group | Unknown | + + + Author + + + | Author | [facility] (Historical as of | | | 11-18-18) | + + + | Organization | [facility] (Historical as of | | | 11-18-18) | + + + | Address | Unknown | + + + | Phone | Unavailable | + + + Support + + + + + | Name | Relationship | Address | Phone | + + + + + | Genet Glasgow | ECON | [address] | | | | | [place] | | | | | [address] | | + + + + + Care Team Providers + +------+ + | Care Weight Yardage Checker Name | Role | Phone | + +------+ + | Dr. Jluis | PP | Unavailable | + +------+ + Allergies Not on File Current Medications Not on file Active Problems Not on file Social History + +-------+ +--------+------+ | Tobacco [...] on file | | + + + Plan of Treatment Not on file Results Not on filefrom Last 3 Months"
--- OUTSIDE RECORDS SUMMARY | ~2019-03-07 | XMS | Encounter Summary ---
Demographics + + + | Address | [address] | | | [place] [address] | + + + | Home Phone | | + + + | Preferred Language | Unknown | + + + | Marital Status | | + + + | Congregation Affiliation | 1001 | + + + | Race | Unknown | + + + | Ethnic Group | Unknown | + + + Author + + + | Author | [facility] | | | and Ezraana | + + + | Organization | [facility] | | [...] [place] | | | | | [address] | | + + + + + Care Team Providers + +------+ + | Care Customs Officer Name | Role | Phone | [...] kidney | MD [address] | [address] | | | | | disease, | [address] | [place], [place] | | | | | stage 4 | [address] | [address] [place] | | | | | (severe) | [place], | [place], [place] | | | | | (HCC) | [place] | [address] Phone: | | | | | Hypertension | [address] | [phone] | | | | | 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 | [phone] | [phone] | | | | | kidney | Fax: | | | | | | disease | [phone] | | | | | | Procedures [...] | | [address] | [place], [address] | (Primary Dx); | | | | [place], [place] | [place], [place] | Chronic kidney | | | | [address] | [address] | disease, stage III | | | | [phone] | | (moderate); Anemia | | | [...] | Visit | | M, DO [address] | | | | | | [place] [address] | | | | | | [place], [place] | | | | | | [address] | | | | | | | [...]
--- OUTSIDE RECORDS SUMMARY | ~2019-03-07 | XMS | Encounter Summary ---
Demographics + + + | Address | [address] | | | [place] [address] | + + + | Home Phone | | + + + | Preferred Language | Unknown | + + + | Marital Status | | + + + | Zoroastrian Affiliation | 1001 | + + + | Race | Unknown | + + + | Ethnic Group | Unknown | + + + Author + + + | Author | [facility] | | | and Ezraana | + + + | Organization | [facility] | | | and [place]ra[place] | [...] [place] | | | | | [address] | | + + + + + Care Team Providers + +------+ + | Care Boxcar Weigher Name | Role | Phone | + [...] | | [address] | [place], [address] | (MODERATE) (Primary | | | | [place], [place] | [place], [place] | Dx); Unspecified | | | | [address] | [address] | hypertensive kidney | | | | [phone] | | disease with chronic | | [...] Ray Jacobo MD, estephania gallegos faxed to [facility] Ren[facility] on 08/24/12. Bennie Rodriguez DO - 06/12/2012 6:06 PM PDT Subjective: NEPHROLOGY Patient ID: Dillon Glasgow is a 67 y.o. male. HPI Comments: Followup at the [facility] CKD Clinic for this 67-year-old white male [...] see him back in 4 months at [facility] with and H/H, CMP, PTH, and 24 hr urine one week before. CC: Renal Transplant Clinic, [facility] Ray Jacobo M.D. 6 :21 PM PDTdocumented in this encounter Plan of Treatment +--------+ + + + + | Date | Type | Specialty | Care Team | Description | +--------+ + + + + | 03/12/ | Off-Site | Nephrology | Bennie Garza | | | 2018 | Visit | | DO Deep [address] [place] [address] | | | | | | [place] [address] | | | | | | [place], [place] | | | | | | [address] | | | | | | | [...]
--- OUTSIDE RECORDS SUMMARY | ~2019-03-07 | XMS | Encounter Summary ---
Demographics + + + | Address | [address] | | | [place] [address] | + + + | Home Phone [...] Author | [facility] | | | and Ezraana | + + + | Organization | [facility] | | [...] [place] | | | | | [address] | | + + + + + Care Team Providers + +------+ + | Care Smash Piecer Name | Role | Phone | + [...] | | [address] | [place], [address] | | | | | [place], [place] | [place], [place] | | | | | [address] | [address] | | | | | [phone] | | | +--------+--------+ + + + [...] | Visit | | DO Deep [address] [place] | | | | | | [place], [address] | | | | | | [place] | | | | | | [address] | | | | | | | | +--------+ + + + + documented as of this encounter Visit Diagnoses Not on filedocumented in this encounter"
--- OUTSIDE RECORDS SUMMARY | ~2019-03-07 | XMS | Encounter Summary ---
Demographics + + + | Address | [address] | | | [place] [address] | + + + | Home Phone [...] | Author | [facility] | | | and Ezraana | + + + | Organization | [facility] [...] [place] | | | | | [address] | | + + + + + Care Team Providers + +------+ + | Care Electrical Project Manager Name | Role | Phone | [...] | hypertension | [address] | [place], [place] | | | | | Chronic | [address] | [address] [place] | | | | | kidney | [place], | [place], [place] | | | | | disease, | [place] | [address] Phone: | | | | | stage III | [address] | [phone] | | | | | (moderate) | Phone: | Fax: | | | | | (HCC) | [phone] | [phone] | | | | | Procedures | Fax: | | | | | | Evaluate & | [phone] | | | | | | treat [...] | | [address] | [place], [address] | (Primary Dx); | | | | [place], [place] | [place], [place] | CHRONIC KIDNEY | | | | [address] | [address] | DISEASE STAGE III | | | | [phone] | | (MODERATE); Gout; | | | [...] see him back in [address] [facility]. He will have a CBC, CMP, P04, [...] 2018 | Visit | | DO Deep [address] [place] [address] | | | | | | [place] [address] | | | | | | [place], [place] | | | | | | [address] | | | | | | | [...]
--- OUTSIDE RECORDS SUMMARY | ~2019-03-07 | XMS | Encounter Summary ---
Demographics + + + | Address | [address] | | | [place] [address] | + + + | Home Phone [...] | Author | [facility] | | | and Ezraana | + + + | Organization | [facility] | [...] | [place] | | | | | [address] | | + + + + + Care Team Providers + +------+ + | Care Underwater Welder Name | Role | Phone | [...] | | | [place], [place] | [place] [address] | | | | | | [address] | Phone: | | | | | | Phone: | [phone] | | | | | | [phone] | Fax: | | | | | | Fax: | [phone] | | | | | | [phone] | | +--------+ + + + + [...] + + | 05/29/ | Office | [facility] | Luis Enrique Mcmillan | End stage renal | | 2013 | Visit | SURGERY [address] | MD Blanco, FACS [address] | disease (HCC) | | | | [place], [place] | [facility] | (Primary Dx) | | | | [address] | [place] [address] | | | | | [phone] | [phone] | | | | | | | [...] Care ? Dre Jacobo Who is your Ornamental Rail Installer/Kidney Specialist ? Dr. Brown When was the [...] hand pain, failure for vein to dilate, [place] stroke and was explained. No guarantees given [...] 2018 | Visit | | , DO [address] [place] [address] | | | | | | [place], [address] | | | | | | [place] | | | | | | [address] | | | | | | | [...]
--- OUTSIDE RECORDS SUMMARY | ~2019-03-07 | XMS | Encounter Summary ---
Demographics + + + | Address | [address] | | | [place] [address] | + + + | Home Phone [...] | Author | [facility] | | | and Ezraana | + + + | Organization | [facility] [...] [place] | | | | | [address] | | + + + + + Care Team Providers + +------+ + | Care Dog License Officer Supervisor Name | Role | Phone | [...] | | [address] | [place], [address] | | | | | [place], [place] | [place], [place] | | | | | [address] | [address] | | | | | [phone] | | | +--------+--------+ + + + [...] | Visit | | DO Deep [address] [place] | | | | | | [place], [address] | | | | | | [place] | | | | | | [address] | | | | | | | [...]
--- OUTSIDE RECORDS SUMMARY | ~2019-03-07 | XMS | Encounter Summary ---
Demographics + + + | Address | [address] | | | [place] [address] | + + + | Home Phone [...] + + | Author | [facility] | | | and Ezraana | + + + | Organization | [facility] | | | and Ezraana | [...] [place] | | | | | [address] | | + + + + + Care Team Providers + +------+ + | Care Asphalt Smoother Name | Role | Phone | + +------+ + PCP | Unavailable | + +------+ + Encounter Details +--------+ + + + + | Date | Type | Department | Care Team | Description | +--------+ + + + + | 12/10/ | Hospital | [facility] | Garfield Talamantes, | | | 2010 | Encounter | MED CTR MP INTRA OP | [phone] | | | | | [address] | (Fax) | | | | | [place] | | | | | | [address] | | | | | | [phone] | | | +--------+ + + + [...] | Visit | | M, DO [address] | | | | | | [address] | | | | | | [place] | | | | | | [address] | | | | | | | [...] [address] | [place] | [phone] | | [facility] | | [address] | | | - LABORATORY | | | | + + + + + | [address] | [address] | [place] | | | [facility] | | [address] | | | - LABORATORY | | | | + + + + + documented in this encounter Visit Diagnoses Not on filedocumented in this encounter"
--- OUTSIDE RECORDS SUMMARY | ~2019-03-07 | XMS | Encounter Summary ---
Demographics + + + | Address | [address] | | | [place] [address] | + + + | Home Phone [...] | Author | [facility] | | | and [place]ra[place] | + + + | Organization | [facility] | | | and [place] [...] [place] | | | | | [address] | | + + + + + Care Team Providers + +------+ + | Care Obiee Consultant Name | Role | Phone | [...] | | [address] | [place], [address] | (HCC) (Primary Dx); | | | | [place], [place] | [place], [place] | CHRONIC KIDNEY | | | | [address] | [address] | DISEASE STAGE III | | | | [phone] | | (MODERATE); Anemia | | | [...] | Visit | | DO Deep [address] [place] [address] | | | | | | [address] | | | | | | [place] | | | | | | [address] | | | | | | | [...]
--- OUTSIDE RECORDS SUMMARY | ~2019-03-07 | XMS | Encounter Summary ---
Demographics + + + | Address | [address] | | | [place] [address] | + + + | Home Phone [...] | Author | [facility] | | | and Ezraana | + + + | Organization | [facility] | | [...] [place] | | | | | [address] | | + + + + + Care Team Providers + +------+ + | Care Bag Maker Name | Role | Phone | + [...] NEPHROLOGY [address] | M, DO [address] | | | | | [address] | [place], [address] | | | | | [place], [place] | [place], [place] | | | | | [address] | [address] | | | | | [phone] | | | +--------+ + + + [...] | Visit | | DO Deep [address] | | | | | | [address] | | | | | | [place], [place] | | | | | | [address] | | | | | | | [...] | | | LAB | | | [place], | | | | | | External [...]
--- OUTSIDE RECORDS SUMMARY | ~2019-03-07 | XMS | Encounter Summary ---
Demographics + + + | Address | [address] | | | [place] [address] | + + + | Home Phone [...] | [facility] | | | and Ezraana | + + + | Organization | [facility] [...] [place] | | | | | [address] | | + + + + + Care Team Providers + +------+ + | Care Mobile Sales Expert Name | Role | Phone | [...] | | [address] | [place], [address] | | | | | [place], [place] | [place], [place] | | | | | [address] | [address] | | | | | [phone] | | | +--------+ + + + [...] | Visit | | DO Deep [address] [place] | | | | | | [address] | | | | | | [place], [place] | | | | | | [address] | | | | | | | [...]
--- OUTSIDE RECORDS SUMMARY | ~2019-03-07 | XMS | Encounter Summary ---
Demographics + + + | Address | [address] | | | [place] [address] | + + + | Home Phone | | + + + | Preferred Language | Unknown | + + + | Marital Status | | + + + | Muslim Affiliation | 1001 | + + + | Race | Unknown | + + + | Ethnic Group | Unknown | + + + Author + + + | Author | [facility] | | | and Ezraana | + + + | Organization | [facility] [...] [place] | | | | | [address] | | + + + + + Care Team Providers + +------+ + | Care Automotive Machinist Apprentice Name | Role | Phone | + +------+ + | Dre Jacobo MD | PCP | | + +------+ + Reason for Visit +--------+ + | Reason | Comments | +--------+ + | Other | Questions on immunizations | +--------+ + Encounter Details +--------+ + + + + | Date | Type | Department | Care Team | Description | +--------+ + + + + | 02/07/ | Telephone | [facility] | Bennie Garza | Other (Questions on | | 2011 | | NEPHROLOGY [address] | M, DO [address] | immunizations) | | | | [address] | [place], [address] | | | | | [place] | [place] | | | | | [address] | [address] | | | | | [phone] | | | +--------+ + + + [...] 2019 | Visit | | DO Deep [address] [place] [address] | | | | | | [address] | | | | | | [place] | | | | | | [address] | | | | | | | | +--------+ + + + + documented as of this encounter Visit Diagnoses Not on filedocumented in this encounter"
--- OUTSIDE RECORDS SUMMARY | ~2019-03-07 | XMS | Encounter Summary ---
Demographics + + + | Address | [address] | | | [place] [address] | + + + | Home Phone [...] + | Author | [facility] | | | and Ezraana | + + + | Organization | [facility] | | | [...] [place] | | | | | [address] | | + + + + + Care Team Providers + +------+ + | Care Business Planner Name | Role | Phone | [...] NEPHROLOGY [address] | M, DO [address] [place] | | | | | [address] | [place], [address] | | | | | [place], [place] | [place], [place] | | | | | [address] | [address] | | | | | [phone] | | | +--------+ + + + [...] records: Standing lab order renewal form from [facility]. Dos: 02/26/17. Sent to scan.Electronically sign ed by Nikki Preston at 03/01/2017 11:22 AM PSTdocumented in this encounter Plan of Treatment +--------+ + + + + | Date | Type | Specialty | Care Team | Description | +--------+ + + + + | 03/12/ | Off-Site | Nephrology | Bennie Garza | | | 2018 | Visit | | Deep, DO [address] [place] [address] | | | | | | [address] | | | | | | [place] | | | | | | [address] | | | | | | | | +--------+ + + + + documented as of this encounter Visit Diagnoses Not on filedocumented in this encounter"
--- OUTSIDE RECORDS SUMMARY | ~2019-03-07 | XMS | Encounter Summary ---
Demographics + + + | Address | [address] | | | [place] [address] | + + + | Home Phone | | + + + | Preferred Language | Unknown | + + + | Marital Status | | + + + | Sabianist Affiliation | 1001 | + + + | Race | Unknown | + + + | Ethnic Group | Unknown | + + + Author + + + | Author | [facility] | | | and [place]ra[place] | + + + | Organization | [facility] | | | and [place] [...] [place] | | | | | [address] | | + + + + + Care Team Providers + +------+ + | Care Unhairer Name | Role | Phone | + [...] NEPHROLOGY [address] | M, DO [address] | | | | | [address] | [place], [address] | | | | | [place], [place] | [place], [place] | | | | | [address] | [address] | | | | | [phone] | | | +--------+ + + + [...] | Visit | | DO Deep [address] | | | | | | [address], [address] | | | | | | [place], [place] | | | | | | [address] | | | | | | | [...]
--- OUTSIDE RECORDS SUMMARY | ~2019-03-07 | XMS | Encounter Summary ---
Demographics + + + | Address | [address] | | | [place] [address] | + + + | Home Phone [...] | Author | [facility] | | | and Ezraana | + + + | Organization | [facility] | | [...] [place] | | | | | [address] | | + + + + + Care Team Providers + +------+ + | Care Congressional Assistant Name | Role | Phone | [...] | Visit | | DO Deep [address] | | | | | | [address] | | | | | | [place] | | | | | | [address] | | | | | | | [...]
--- OUTSIDE RECORDS SUMMARY | ~2019-03-07 | XMS | Encounter Summary ---
Demographics + + + | Address | [address] | | | [place] [address] | + + + | Home Phone [...] [facility] | | | and [place]raana | + + + | Organization | [facility] | | | and [...] [place] | | | | | [address] | | + + + + + Care Team Providers + +------+ + | Care Radio Survey Worker Name | Role | Phone | [...] | | [address] | [place], [address] | (MODERATE) (Primary | | | | [place], [place] | [place], [place] | Dx); Anemia in | | | | [address] | [address] | chronic kidney | | | | [phone] | | disease; 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
--- OUTSIDE RECORDS SUMMARY | ~2019-03-07 | XMS | Encounter Summary ---
Demographics + + + | Address | [address] | | | [place] [address] | + + + | Home Phone [...] Author | [facility] | | | and Erzaana | + + + | Organization | [facility] | | | and [place]ra[place] [...] [place] | | | | | [address] | | + + + + + Care Team Providers + +------+ + | Care Explosives Detonator Name | Role | Phone | + [...] kidney | MD [address] | [address] | | | | | disease, | [address] | [place], [place] | | | | | stage 4 | [address] | [address] [place] | | | | | (severe) | [place], | [place], [place] | | | | | (HCC) | [place] | [address] Phone: | | | | | Hypertension | [address] | [phone] | | | | | 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 | [phone] | [phone] | | | | | kidney | Fax: | | | | | | disease | [phone] | | | | | | Procedures | | | | | | | ID OFFICE | | | | | | [...] | Off-Site | [facility] [place] | Benine Garza | Essential | | 2017 | Visit | NEPHROLOGY [address] | M, DO [address] | hypertension | | | | [address] | [place], [address] | (Primary Dx); | | | | [place], [place] | [place], [place] | Chronic kidney | | | | [address] | [address] | disease, stage IV | | | | [phone] | | (severe) (HCC); | | | [...] 4 mo. at the [facility] at [place], [place]. He will have CBC, CMP, PO4, iPTH, and 24 Hr urine one week prior to that. : Ray Mcmillan MD, Chandana Mcpherson MD, [facility] documented in t his encounter Plan of Treatment +--------+ + + + + | Date | Type | Specialty | Care Team | Description | +--------+ + + + + | 03/12/ | Off-Site | Nephrology | Bennie Garza | | | 2019 | Visit | | M, DO [address] [place] | | | | | | [address], [address] | | | | | | [place] | | | | | | [address] | | | | | | | [...]
--- OUTSIDE RECORDS SUMMARY | ~2019-03-07 | XMS | Encounter Summary ---
Demographics + + + | Address | [address] | | | [place] [address] | + + + | Home Phone | | + + + | Preferred Language | Unknown | + + + | Marital Status | | + + + | Orthodox Affiliation | 1001 | + + + | Race | Unknown | + + + | Ethnic Group | Unknown | + + + Author + + + | Author | [facility] | | | and [place]raana | + + + | Organization | [facility] | | | and [place] [...] [place] | | | | | [address] | | + + + + + Care Team Providers + +------+ + | Care Clarifier Operator Name | Role | Phone | + +------+ + | Dre Jacobo MD | PCP | | + +------+ + Encounter Details +--------+ + + + + | Date | Type | Department | Care Team | Description | +--------+ + + + + | 11/03/ | Hospital | [facility] | Luis Enrique Mcmillan | | | 2013 | Encounter | MED CTR MP INTRA OP | MD [place], FACS [address] | | | | | [address] | [facility] | | | | | [place], [place] | [place] [address] | | | | | [address] | [phone] | | | | | [phone] | | | +--------+ + + + [...] + + + +---------+ + + | Coenzyme Q10 (CO | Take 200 mg by mouth | | 0 | 12/17/19 | | | Q-10) 200 MG CAPS | Daily. | | | 12 | 4 | + + + +---------+ + + | L-Tyrosine 500 MG | Take 500 mg by mouth | | 0 | 12/17/19 | | | TABS | Daily. | | | 12 | 4 | + + + +---------+ + + | pyridoxine ([facility] | Take 200 mg by mouth | | 0 | 12/17/19 | | | VITAMIN B-6) 200 MG | Daily. | | | 12 | 4 | | tablet | | | | | | + + + +---------+ + + | traZODone | 2, by mouth, daily. | | 0 | 04/29/19 | | | (DESYREL) 50 mg | | | | 11 | 4 | | tablet | | | | | | + + + +---------+ + + | vitamin B-12 | Take 1,000 mcg by | | 0 | 12/17/19 | | | (CYANOCOBALAMIN) | mouth Daily. | | | 12 | 4 | | 1000 MCG tablet | | | | | | + + + +---------+ + + | Zinc Picolinate 50 | Take 50 mg by mouth | | 0 | 12/17/19 | | | MG TABS | Daily. | | | 12 | 4 | + + + +---------+ + + documented as of this encounter Plan of Treatment +--------+ + + + + | Date | Type | Specialty | Care Team | Description | +--------+ + + + + | 03/12/ | Off-Site | Nephrology | Bennie Garza | | | 2019 | Visit | | DO Deep [address] [place] | | | | | | [address] | | | | | | [place], [place] | | | | | | [address] | | | | | | | | +--------+ + + + + documented as of this encounter Procedures + +--------+ + + + | Procedure Name | Priori | Date/Time | Associated Diagnosis | Comments | | | ty | | | | + +--------+ + + + | FL IMAGE STATS NO | Routin | 11/03/2012 | | Results for this | | CHARGE | e | 9:59 AM | | procedure are in the | | | | PDT | | results section. | + +--------+ + + + | POTASSIUM | Routin | 11/03/2012 | | Results for this | | | e | 7:21 AM | | procedure are in the | | | | PDT | | results section. | + +--------+ + + + | POTASSIUM | Routin | 11/03/2012 | | Results for this | | | e | 7:17 AM | | procedure are in the | | | | PDT | | results section. | + +--------+ + + + documented in this encounter Results FL Image Stats No Charge (11/03/2012 9:59 AM PDT) + + | Specimen | + + | | + + + + + | Narrative | Performed At | + + + | [facility] | [place] | | Department [address] [facility] | [facility] | | [ rep [address]] [ rep [facility] | | [facility]] Signed | - IMAGING | | | | | Patient Name: KEARA CAMERON Physician: | | | NEETU : 1945 Age: 67 Sex: M Unit #: [id number] | | | Exam Date: 11/03/12 Location: [facility] | | | Report #: [id number] Page: | | | %(RAD)RES..mtdd.print.filter("pg") of %(RAD) | | | RES..mtdd.print.filter("tpg") | | | | | | Accession Number: [id number] | | | FLUOROSCOPY FOR INTRAOPERATIVE VENOGRAPHY: 11/03/2012 | | | CLINICAL HISTORY: FAILED LEFT UPPER ARM AV FISTULA. | | | COMPARISON: None. FINDINGS: Three fluoroscopic spot | | | images from left upper extremity intraoperative venography are | | | submitted. These demonstrate opacified venous segments in the upper | | | arm and axilla, likely the basilic and axillary veins. The opacified | | | vessel segments appear patent without focal caliber narrowing. | | | IMPRESSION: 1. INTRAOPERATIVE VENOGRAPHY DESCRIBED. | | | PLEASE SEE THE OPERATIVE REPORT FOR FURTHER DETAILS. | | | <<Signature on File>> | | | Charles Gonzales | | | MD Morro11/03/12 1078 <Electronically signed by Charles Hooker MD> | | | Charles Hooker MD 11/03/12 0929 External Grinder Tender: | | | Helen Anthony11/03/12 1401 Luis Enrique Mcmillan MD | | | | | + + + + + + + + | Performing | Address | City/State/Zipcode | Phone Number | | Organization | | | | + + + + + | [facility] | [address] | [place] | [phone] | | [facility] | | [address] | | | - IMAGING | | | | + + + + + Potassium (11/03/2012 7:21 AM PDT) + +-------+ + + + | Component | Value | Ref Range | Performed | Pathologist | | | | | At | Signature | + +-------+ + + + | K | 3.6 | 3.5 - 5.1 mEq/l | [facility] | | | | | | ST. [...] + | [facility] | [address] | [place] | [phone] | | [facility] | | [address] | | | - LABORATORY | | | | + + + + + | [facility] | [address] | [place] | | | [facility] | | [address] | | | - LABORATORY | | | | + + + + + Potassium (11/03/2012 7:17 AM PDT) + +-------+ + + + | Component | Value | Ref Range | Performed | Pathologist | | | | | At | Signature | + +-------+ + + + | K | 3.6 | 3.5 - 5.1 mEq/l | [facility] [...] + + | Collect By: Nurse | [facility] | | | [facility] | | | [facility] | | | - LABORATORY | + + + + + + + + | Performing | Address | City/State/Zipcode | Phone Number | | Organization | | | | + + + + + | [facility] | [address] | [place], [place] | [phone] | | [facility] | | [address] | | | - LABORATORY | | | | + + + + + | [facility] | [address] | [place], [place] | | | [facility] | | [address] | | | - LABORATORY | | | | + + + + + documented in this encounter Visit Diagnoses Not on filedocumented in this encounter
--- OUTSIDE RECORDS SUMMARY | ~2019-03-07 | XMS | Encounter Summary ---
Demographics + + + | Address | [address] | | | [place] [address] | + + + | Home Phone [...] + + + | Author | [facility] | | | and Ezraana | + + + | Organization | [facility] [...] [place] | | | | | [address] | | + + + + + Care Team Providers + +------+ + | Care Graphic Design Manager Name | Role | Phone | [...] NEPHROLOGY [address] | M, DO [address] [place] | | | | | [address] | [place], [address] | | | | | [place], [place] | [place], [place] | | | | | [address] | [address] | | | | | [phone] | | | +--------+ + + + [...] | Visit | | DO Deep [address] [place] [address] | | | | | | [address] [facility] | | | | | | [place] | | | | | | [address] | | | | | | | | +--------+ + + + + documented as of this encounter Visit Diagnoses Not on filedocumented in this encounter"
--- OUTSIDE RECORDS SUMMARY | ~2019-03-07 | XMS | Encounter Summary ---
Demographics + + + | Address | [address] | | | [place] [address] | + + + | Home Phone | | + + + | Preferred Language | Unknown | + + + | Marital Status | | + + + | Spiritism Affiliation | 1001 | + + + | Race | Unknown | + + + | Ethnic Group | Unknown | + + + Author + + + | Author | [facility] | | | and Ezraana | + + + | Organization | [facility] [...] [place] | | | | | [address] | | + + + + + Care Team Providers + +------+ + | Care Forge Shop Supervisor Name | Role | Phone | [...] | NEPHROLOGY [address] | [address] | Management | | | | [address] | [address] [place] | | | | | [place], [place] | [place] [address] | | | | | [address] | [phone] | | | | | [phone] | | | +--------+ + + + [...] | Visit | | M, DO [address] | | | | | | [address], [address] | | | | | | [place] | | | | | | [address] | | | | | | | | +--------+ + + + + documented as of this encounter Visit Diagnoses Not on filedocumented in this encounter"
--- OUTSIDE RECORDS SUMMARY | ~2019-03-07 | XMS | Encounter Summary ---
Demographics + + + | Address | [address] | | | [place] [address] | + + + | Home Phone | | + + + | Preferred Language | Unknown | + + + | Marital Status | | + + + | Episcopalian Affiliation | 1001 | + + + | Race | Unknown | + + + | Ethnic Group | Unknown | + + + Author + + + | Author | [facility] | | | and Ezraana | + + + | Organization | [facility] | | | and [...] [place] | | | | | [address] | | + + + + + Care Team Providers + +------+ + | Care Teaching Music Lessons Name | Role | Phone | + [...] [place] | | | | | [address] | [address] | | | | | [phone] | | | +--------+ + + + [...] | Visit | | DO Deep [address] [place] [address] | | | | | | [address] | | | | | | [place] | | | | | | [address] | | | | | | | | +--------+ + + + + documented as of this encounter Visit Diagnoses Not on filedocumented in this encounter"
--- OUTSIDE RECORDS SUMMARY | ~2019-03-07 | XMS | Encounter Summary ---
Demographics + + + | Address | [address] | | | [place] [address] | + + + | Home Phone | | + + + | Preferred Language | Unknown | + + + | Marital Status | | + + + | Advent Affiliation | 1001 | + + + | Race | Unknown | + + + | Ethnic Group | Unknown | + + + Author + + + | Author | [facility] | | | and Ezraana | + + + | Organization | [facility] | | | and Ezraana | [...] [place] | | | | | [address] | | + + + + + Care Team Providers + +------+ + | Care National Account Representative Name | Role | Phone | + [...] NEPHROLOGY [address] | M, DO [address] [place] | | | | | [address] | [place], [address] | | | | | [place], [place] | [place], [place] | | | | | [address] | [address] | | | | | [phone] | | | +--------+ + + + [...] | Visit | | DO Deep [address] [place] [address] | | | | | | [place], [address] | | | | | | [place] | | | | | | [address] | | | | | | | | +--------+ + + + + documented as of this encounter Visit Diagnoses Not on filedocumented in this encounter"
--- OUTSIDE RECORDS SUMMARY | ~2019-03-07 | XMS | Encounter Summary ---
Demographics + + + | Address | [address] | | | [place] [address] | + + + | Home Phone [...] | Author | [facility] | | | and Ezraana | + + + | Organization | [facility] | | | and Ezraana [...] [place] | | | | | [address] | | + + + + + Care Team Providers + +------+ + | Care Tray Setter Name | Role | Phone | + [...] + | 06/05/ | Telephone | [facility] | Luis Enrique Mcmillan | Other (Post Op | | 2013 | | SURGERY [address] | MD [place], FACS [address] | Dressing Change) | | | | [place], [place] | [facility] | | | | | [address] | [place] [address] | | | | | [phone] | [phone] | | | | | | | [...] 2018 | Visit | | DO Deep [address] [place] [address] | | | | | | [place] | | | | | | [place] | | | | | | [address] | | | | | | | | +--------+ + + + + documented as of this encounter Visit Diagnoses Not on filedocumented in this encounter"
--- OUTSIDE RECORDS SUMMARY | ~2019-03-07 | XMS | Clinical Summary ---
Demographics + + + | Address | [address] | | | [place] [address] | + + + | Home Phone | | + + + | Preferred Language | Unknown | + + + | Marital Status | | + + + | Latter-Day Affiliation | Unknown | + + + | Race | Unknown | + + + | Ethnic Group | Unknown | + + + Author + + + | Author | [facility] (Historical as of | | | 11-18-18) | + + + | Organization | [facility] (Historical as of | | | 11-18-18) [...] [place] | | | | | [address] | | + + + + + Care Team Providers + +------+ + | Care Kiln Door Builder Name | Role | Phone | [...]
--- OUTSIDE RECORDS SUMMARY | ~2019-03-07 | XMS | Encounter Summary ---
Demographics + + + | Address | [address] | | | [place] [address] | + + + | Home Phone [...] + + + | Author | [facility]ad | | | and Ezraana | + + + | Organization | [facility] | | | and [...] [place] | | | | | [address] | | + + + + + Care Team Providers + +------+ + | Care Boat Puller Name | Role | Phone | + [...] NEPHROLOGY [address] | M, DO [address] | | | | | [address] | [place], [address] | | | | | [place], [place] | [place], [place] | | | | | [address] | [address] | | | | | [phone] | | | +--------+ + + + [...] | Visit | | DO Deep [address] | | | | | | [place], [address] | | | | | | [place], [place] | | | | | | [id number] | | | | | | | [...]
--- OUTSIDE RECORDS SUMMARY | ~2019-03-07 | XMS | Encounter Summary ---
Demographics + + + | Address | [address] | | | [place] [address] | + + + | Home Phone [...] | Author | [facility] | | | and Ezraana | + + + | Organization | [facility] | | | and Ezraana [...] [place] | | | | | [address] | | + + + + + Care Team Providers + +------+ + | Care Grades 1 Through 5 Teacher Name | Role | Phone | [...] + + | 12/05/ | Office | [facility] | Luis Enrique Mcmillan | End stage renal | | 2012 | Visit | SURGERY [address] | MD Blanco, FACS [address] | disease (HCC) | | | | [place], [place] | [facility] | (Primary Dx) | | | | [address] | [place] [address] | | | | | [phone] | [phone] | | | | | | | [...] 2019 | Visit | | DO Deep [address] [place] [address] | | | | | | [address] | | | | | | [place], [place] | | | | | | [address] | | | | | | | | +--------+ + + + + documented as of this encounter Visit Diagnoses + + | Diagnosis | + + | End stage renal disease (HCC) - Primary End stage renal disease | + + documented in this encounter
--- OUTSIDE RECORDS SUMMARY | ~2019-03-07 | XMS | Encounter Summary ---
Demographics + + + | Address | [address] | | | [place] [address] | + + + | Home Phone [...] Author | [facility] Conrad | | | and Ezraana | + + + | Organization | [facility] | | | and Ezraana | [...] [place] | | | | | [address] | | + + + + + Care Team Providers + +------+ + | Care Continuous Washer Operator Name | Role | Phone | [...] NEPHROLOGY [address] | M, DO [address] | | | | | [address] | [place], [address] | | | | | [place], [place] | [place], [place] | | | | | [address] | [address] | | | | | [phone] | | | +--------+ + + + [...] | Visit | | DO Deep [address] | | | | | | [place], [address] | | | | | | [place], [place] | | | | | | [address] | | | | | | | [...] | + +--------+ + + + | ME EXT ECG RECORD | Routin | 01/08/2014 [...] + + documented in this encounter Results ME EXT ECG RECORD CONTIN 48 HR, SCAN [...] | | | LAB | | | [place], | | | | | | External [...]
--- OUTSIDE RECORDS SUMMARY | ~2019-03-07 | XMS | Clinical Summary ---
Demographics + + + | Address | [address] | | | [place] [address] | + + + | Home Phone [...] | [facility] | | | and Ezraana | + + + | Organization | [facility] | [...] [place] | | | | | [address] | | + + + + + Care Team Providers + +------+ + | Care Automatic Head Sawyer Name | Role | Phone | + [...] | | | | | | (severe) ([facility]), | | | | | [...] + + + | Overview: Referred to [facility] on 09/18/10 | | Status: [...] | Visit | | DO Deep [address] [place] [address] | | | | | | [place], [address] | | | | | | [place] | | | | | | [address] | | | | | | | [...] +--------+ +---------+--------+ | MEDICARE | MEDICA | [id number] | 05/05/19 | [phone] | | Medica | | | RE | | 09-Pre | 5 | | re | | | PART A | | sent | | | | | | AND B | | | | | | + +--------+ +--------+ +---------+--------+ | [employer] [place] | UNITED | [id number] | 04/04/19 | [phone] | | Indemn | | | OF | | 12-Pre | 0 | | ity | | | [place] | | sent | | | | | | MDCR | | | | | | | | SUPPL | | | | | | + +--------+ +--------+ +---------+--------+ | | [employer] | [id number] | 04/04/19 | [phone] | | Indemn [...] Evangelist | al/Fam | | 1946 | [phone] | [place] [address] | | | nicole | | | 4 (Home) | | + +--------+ +--------+ + + Advance Directives + + + + + | Type | Date Recorded | Patient | Explanation | | | | Patent Examiner | | + + + + + | Power of | | | | | Fig Bar Machine Operator | | | | + + + + + | Advance | | | | | Directive | | | | + + + + +
--- OUTSIDE RECORDS SUMMARY | ~2019-03-07 | XMS | Encounter Summary ---
Demographics + + + | Address | [address] | | | [place] [address] | + + + | Home Phone [...] + | Author | [facility] | | | and Ezraana | + + + | Organization | [facility] | | | and Ezraana [...] [place] | | | | | [address] | | + + + + + Care Team Providers + +------+ + | Care Quality Controller Name | Role | Phone | + [...] kidney | MD [address] | [address] | | | | | disease, | [address] | [place], [place] | | | | | stage 4 | [address] | [address] [place] | | | | | (severe) | [place], | [place], [place] | | | | | (HCC) | [place] | [address] Phone: | | | | | Hypertension | [address] | [phone] | | | | | 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 | [phone] | [phone] | | | | | kidney | Fax: | | | | | | disease | [phone] | | | | | | Procedures | | | | | | | [place] OFFICE | | | | | | [...] IV | | | | [address] | [place], [address] | (severe) (HCC) | | | | [place], [place] | [place], [place] | (Primary Dx); | | | | [address] | [address] | Essential | | | | [phone] | | hypertension; | | | | [...] : Ray Mcmillan MD, Chandana Mcpherson MD, [facility] documented in t his encounter Plan of Treatment +--------+ + + + + | Date | Type | Specialty | Care Team | Description | +--------+ + + + + | 03/12/ | Off-Site | Nephrology | Bennie Garza | | | 2018 | Visit | | DO Deep [address] [place] [address] | | | | | | [place] [address] | | | | | | [place], [place] | | | | | | [id number] | | | | | | | [...]
--- OUTSIDE RECORDS SUMMARY | ~2019-03-07 | XMS | Encounter Summary ---
Demographics + + + | Address | [address] | | | [place] [address] | + + + | Home Phone [...] Author | [facility] | | | and Ezraana | + + + | Organization | [facility] [...] [place] | | | | | [address] | | + + + + + Care Team Providers + +------+ + | Care Copra Sampler Name | Role | Phone | + [...] | | [address] | [place], [address] | (severe) (HCC) | | | | [place], [place] | [place], [place] | (Primary Dx); Anemia | | | | [address] | [address] | in chronic kidney | | | | [phone] | | disease(285.21) | +--------+ + + [...] | Visit | | DO Deep [address] | | | | | | [place], [address] | | | | | | [place] | | | | | | [id number] | | | | | | | [...]
--- OUTSIDE RECORDS SUMMARY | ~2019-03-07 | XMS | Encounter Summary ---
Demographics + + + | Address | [address] | | | [place] [address] | + + + | Home Phone | | + + + | Preferred Language | Unknown | + + + | Marital Status | | + + + | Christianity Affiliation | 1001 | + + + | Race | Unknown | + + + | Ethnic Group | Unknown | + + + Author + + + | Author | [facility] | | | and Ezraana | + + + | Organization | [facility] | | | [...] [place] | | | | | [address] | | + + + + + Care Team Providers + +------+ + | Care Hard Candy Spinner Name | Role | Phone | + [...] | hypertension | [address] | [place], [place] | | | | | Chronic | [address] | [address] [place] | | | | | kidney | [place], | [place], [place] | | | | | disease, | [place] | [address] Phone: | | | | | stage III | [address] | [phone] | | | | | (moderate) | Phone: | Fax: | | | | | (HCC) | [phone] | [phone] | | | | | Procedures | Fax: | | | | | | Evaluate & | [phone] | | | | | | treat [...] | | [address] | [place], [address] | (MODERATE) (Primary | | | | [place], [place] | [place], [place] | Dx); Unspecified | | | | [address] | [address] | hypertensive kidney | | | | [phone] | | disease with chronic | | [...] [facility] He will have a CBC, CMP, P 04, PTH, lipid profile and 24-hour urine collection one week prior to that. CC: [facility], [facility] Ray Jacobo M.D. Luis Enrique Mcmillan MD, FACS documented in thi s encounter Plan of Treatment +--------+ + + + + | Date | Type | Specialty | Care Team | Description | +--------+ + + + + | 03/12/ | Off-Site | Nephrology | Bennie Garza | | | 2019 | Visit | | DO Deep [address] [place] [address] | | | | | | [place], [facility] 100 | | | | | | [place], [place] | | | | | | [phone] | | | | | | | [...]
--- OUTSIDE RECORDS SUMMARY | ~2019-03-07 | XMS | Encounter Summary ---
Demographics + + + | Address | [address] | | | [place] [address] | + + + | Home Phone [...] | Author | [facility] | | | and Ezraana | + + + | Organization | [facility] | | | and [...] [place] | | | | | [address] | | + + + + + Care Team Providers + +------+ + | Care Guest Service Representative Name | Role | Phone | [...] kidney | MD [address] | [address] | | | | | disease, | [address] | [place], [place] | | | | | stage 4 | [address] | 100 [place] | | | | | (severe) | [place], | [place], [place] | | | | | (HCC) | [place] | [address] Phone: | | | | | Hypertension | [address] | [phone] | | | | | 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 | [phone] | [phone] | | | | | kidney | Fax: | | | | | | disease | [phone] | | | | | | Procedures [...] | | [address] | [place], [address] | (severe) (HCC) | | | | [place], [place] | [place], [place] | (Primary Dx); | | | | [address] | [address] | Essential | | | | [phone] | | hypertension; | | | | [...] in 4 months at the CKD Clinic, [facility] , [place]. He anette l have a CBC, CMP, PO4, iPTH, and 24 Hour urine, one week prior to that. : Ray Mcmillan MD, Chandana Mcpherson MD, [facility] documented in t his encounter Plan of Treatment +--------+ + + + + | Date | Type | Specialty | Care Team | Description | +--------+ + + + + | 03/12/ | Off-Site | Nephrology | Bennie Garza | | | 2019 | Visit | | DO Deep [address] | | | | | | [place], [address] | | | | | | [place] | | | | | | [phone] | | | | | | | [...]
--- OUTSIDE RECORDS SUMMARY | ~2019-03-07 | XMS | Encounter Summary ---
Demographics + + + | Address | [address] | | | [place] [address] | + + + | Home Phone [...] | Author | [facility] | | | and Ezraana | + + + | Organization | [facility] | | [...] [place] | | | | | [address] | | + + + + + Care Team Providers + +------+ + | Care Medical Appliance Maker Name | Role | Phone | [...] | | [address] | [place], [address] | disease with chronic | | | | [place], [place] | [place], [place] | kidney disease | | | | [address] | [address] | stage I through | | | | [phone] | | stage IV, or | | [...] 2018 | Visit | | DO Deep [address] [place] [address] | | | | | | [address] [address] | | | | | | [place] | | | | | | [address] | | | | | | | [...]
--- OUTSIDE RECORDS SUMMARY | ~2019-03-07 | XMS | Encounter Summary ---
Demographics + + + | Address | [address] | | | [place] [address] | + + + | Home Phone [...] | Author | [facility] Conrad | | | and Ezraana | + + + | Organization | [facility] [...] [place] | | | | | [address] | | + + + + + Care Team Providers + +------+ + | Care Marketing Education Teacher Name | Role | Phone | + +------+ + | Dre Jacobo MD | PCP | | + +------+ + Reason for Visit +---------+ + | Reason | Comments | +---------+ + | Post Op | AV FISTULA REVISION | +---------+ + Encounter Details +--------+---------+ + + + | Date | Type | Department | Care Team | Description | +--------+---------+ + + + | 11/09/ | Office | [facility] | Luis Enirque Mcmillan | End stage renal | | 2012 | Visit | SURGERY [address] | MD Blanco, FACS [address] | disease (HCC) | | | | [place], [place] | [address] [facility] | (Primary Dx) | | | | [address] | [place] [address] | | | | | [phone] | [phone] | | | | | | | [...] + + + | Blood Pressure | 108/68 | 11/09/2012 11:20 AM | | | | | PDT | | + + + + + | Pulse | 64 | 11/09/2012 11:20 AM | | | | | PDT | | + + + + + | Temperature | 36.8 C (98.2 F) | 11/09/2012 11:20 AM | | | | | PDT | | + + + + + | Respiratory Rate | 16 | 11/09/2012 11:20 AM | | | | | PDT | | + + + + + | Oxygen Saturation | 99% | 11/09/2012 11:20 AM | | | | | PDT | | + + + + + | Inhaled Oxygen | - | - | | | Concentration | | | | + + + + + | Weight | 66.7 kg (147 lb) | 11/09/2012 11:20 AM | | | | | PDT | | + + + + + | Height | 165.1 cm (5' 5") | 11/09/2012 11:20 AM | | | | | PDT | | + + + + + | Body Mass Index | 24.46 | 11/09/2012 11:20 AM | | | | | PDT | | + + + + + documented in this encounter Progress Notes , Luis Enrique Siemon MD - 11/09/2012 11:18 AM PDT Patient Identification: Dillon Glasgow 1945 Is a 67 y.o. male , a patient of Rubin Jacobo. Patient is here with self . S: Date of surgery 11/03/2012 . Title of surgery Exploration, Left brachial-basilic fistula. Patient is doing well status post expiration of thrombosed left basilic vein. Has no whiteside d pain. He does not currently being dialyzed. Past Medical History He has a past medical history of Hypertension; Secondary hyperparathyroidism; Depression; S leep apnea; Chronic kidney disease, stage III (moderate); Anemia; and Panic attack. Past Surgical History He has past surgical history that includes Tonsillectomy; Nose surgery (1959); Uvulopalatop harygoplasty (2000); and AV fistula repair. No Known Allergies Medications: He has a current medication list which includes the following prescription(s): allopurinol, calcitriol, klonopin, co q-10, fluoxetine, l-tyrosine, cvs vitamin b-6, trazodone, vitamin b-12, and zinc picolinate. Outpatient Encounter Prescriptions as of 11/09/2012 Medication Sig Dispense Refill allopurinol (ZYLOPRIM) 100 [...] TABS Take 50 mg by mouth Daily. Family [...] drink alcohol or use illicit drugs. PE: Left arm: Incision clean and dry. No thrill IMP: Failed left arm AV fistula-nonretractable P: Will recheck patient's BUN and creatinine. Since he will probably need an AV graft, anette l delay placement until dialysis is started. Luis Enrique Mcmillan MD, FACS documented in this encounter Plan of Treatment +--------+ + + + + | Date | Type | Specialty | Care Team | Description | +--------+ + + + + | 03/12/ | Off-Site | Nephrology | Bennie Garza | | | 2019 | Visit | | DO Deep [address] [place] [address] | | | | | | [address] | | | | | | [place] | | | | | | [address] | | | | | | | | +--------+ + + + + + +------+--------+ + + | Name | Type | Priori | Associated Diagnoses | Order Schedule | | | | ty | | | + +------+--------+ + + | Basic Metabolic | Lab | Routin | End stage renal | 1 Occurrences | | Panel | | e | disease (HCC) | starting 11/09/2012 | | | | | | until 11/09/2013 | + +------+--------+ + + documented as of this encounter Visit Diagnoses + + | Diagnosis | + + | End stage renal disease (HCC) - Primary End stage renal disease | + + documented in this encounter
--- OUTSIDE RECORDS SUMMARY | ~2019-03-07 | XMS | Encounter Summary ---
Demographics + + + | Address | [address] | | | [place] [address] | + + + | Home Phone [...] | Author | [facility] | | | and Ezraana | + + + | Organization | [facility] | [...] [place] | | | | | [address] | | + + + + + Care Team Providers + +------+ + | Care Sports Bookmaker Name | Role | Phone | + [...] NEPHROLOGY [address] | M, DO [address] | | | | | [address] | [place], [address] | | | | | [place], [place] | [place], [place] | | | | | [address] | [address] | | | | | [phone] | | | +--------+ + + + [...] | Visit | | DO Deep [address] | | | | | | [place], [address] | | | | | | [place], [place] | | | | | | [id number] | | | | | | | [...] | | | LAB | | | [place] Islander, | | | | | | External [...]
--- OUTSIDE RECORDS SUMMARY | ~2019-03-07 | XMS | Encounter Summary ---
Demographics + + + | Address | [address] | | | [place] [address] | + + + | Home Phone [...] | Author | [facility] | | | and Ezraana | + + + | Organization | [facility] | | | [...] [place] | | | | | [address] | | + + + + + Care Team Providers + +------+ + | Care Environmental Engineering Intern Name | Role | Phone | + [...] | disease, | [address] | [place], [place] | | | | | stage III | [address] | 100 [place] | | | | | (moderate) | [place], | [place], [place] | | | | | (HCC) | [place] | [address] Phone: | | | | | Unspecified | [address] | [phone] | | | | | essential | Phone: | Fax: | | | | | hypertension | [phone] | [phone] | | | | | | Fax: | | | | | | Unspecified | [phone] | | | | | | hypertensive [...] + + | 01/27/ | Office | [facility] | Bennie Garza | Secondary | | 2015 | Visit | NEPHROLOGY [address] | M, DO [address] | hyperparathyroidism | | | | [address] | [place], [place] [address] | (of renal origin) | | | | [place] | [place] | (Primary Dx); | | | | [address] | [address] | CHRONIC KIDNEY | | | | [phone] | | DISEASE STAGE III | | [...] | Visit | | DO Deep [address] | | | | | | [place], [address] | | | | | | [place] | | | | | | [address] [...]
--- OUTSIDE RECORDS SUMMARY | ~2019-03-07 | XMS | Encounter Summary ---
Demographics + + + | Address | [address] | | | [place] [address] | + + + | Home Phone | | + + + | Preferred Language | Unknown | + + + | Marital Status | | + + + | Mandaen Affiliation | 1001 | + + + | Race | Unknown | + + + | Ethnic Group | Unknown | + + + Author + + + | Author | [facility] | | | and Ezraana | + + + | Organization | [facility] | | | and [...] [place] | | | | | [address] | | + + + + + Care Team Providers + +------+ + | Care Adhesive Sprayer Name | Role | Phone | + [...] kidney | [address] | [address] | | | | | disease, | [address] | [place], [place] | | | | | stage 4 | [address] | 100 [place] | | | | | (severe) | [place], | [place], [place] | | | | | (HCC) | [place] | [address] Phone: | | | | | Hypertension | [address] | [phone] | | | | | 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 at the CKD Clinic, [facility], in [place]. He will collins ve a CBC, CMP, [...] | Visit | | DO Deep [address] | | | | | | [place] [address] | | | | | | [place] | | | | | | [address] [...]
--- OUTSIDE RECORDS SUMMARY | ~2019-03-07 | XMS | Encounter Summary ---
Demographics + + + | Address | [address] | | | [place] [address] | + + + | Home Phone | | + + + | Preferred Language | Unknown | + + + | Marital Status | | + + + | Restorationism Affiliation | 1001 | + + + | Race | Unknown | + + + | Ethnic Group | Unknown | + + + Author + + + | Author | [facility] | | | and Ezraana | + + + | Organization | [facility] | | | and [...] [place] | | | | | [address] | | + + + + + Care Team Providers + +------+ + | Care Strategies Analyst Name | Role | Phone | [...] | SR | | | | | [phone] | | | +--------+ + + + [...] | Visit | | DO Deep [address] | | | | | | [place] [address] | | | | | | [place] | | | | | | [address] | | | | | | | | +--------+ + + + + documented as of this encounter Visit Diagnoses Not on filedocumented in this encounter
--- OUTSIDE RECORDS SUMMARY | ~2019-03-07 | XMS | Encounter Summary ---
Demographics + + + | Address | [address] | | | [place] [address] | + + + | Home Phone [...] | Author | [facility] | | | and Ezraana | + + + | Organization | [facility] | [...] [place] | | | | | [address] | | + + + + + Care Team Providers + +------+ + | Care Cable Coverer Name | Role | Phone | + [...] + + | 11/09/ | Office | [facility] | Luis Enrique Mcmillan | End stage renal | | 2012 | Visit | SURGERY [address] | MD Blanco, FACS 380 | disease (HCC) | | | | [place], [place] | [facility] | (Primary Dx) | | | | [address] | [place] [address] | | | | | [phone] | [phone] | | | | | | | [...] this encounter Progress Notes , Luis Enrique Simeon MD - 11/09/2012 11:18 AM PDT Patient [...] | Visit | | DO Deep [address] [place] [address] | | | | | | [place] [address] | | | | | | [place] | | | | | | [address] | | | | | | | [...]
--- OUTSIDE RECORDS SUMMARY | ~2019-03-07 | XMS | Encounter Summary ---
Demographics + + + | Address | [address] | | | [place] [address] | + + + | Home Phone [...] | Author | [facility] | | | and Ezraana | + + + | Organization | [facility] | [...] [place] | | | | | [address] | | + + + + + Care Team Providers + +------+ + | Care Clinical Implementation Specialist Name | Role | Phone | + +------+ + | Dre Jacobo MD | PCP | | + +------+ + Encounter Details +--------+ + + + + | Date | Type | Department | Care Team | Description | +--------+ + + + + | 11/03/ | Hospital | [facility] | Luis Enrique Mcmillan | | | 2013 | Encounter | MED CTR MP INTRA OP | MD Blanco, FACS [address] | | | | | [address] | [facility] | | | | | [place], [place] | [place] [address] | | | | | [address] | [phone] | | | | | [phone] | | | +--------+ + + + [...] | Visit | | DO Deep [address] | | | | | | [address] | | | | | | [place], [place] | | | | | | [address] | | | | | | | [...] Performed At | + + + | [facility] Diagnostic Imaging | [place] | | Department [address] [facility] | [facility] | | [ rep [address]] [ rep [facility] | | [facility]] Signed | - IMAGING | | | | | Patient Name: KEARA CAMERON Physician: | | | NEETU : 1945 Age: 67 Sex: M Unit #: [id number] | | | Exam Date: 11/03/12 Location: [facility] | | | Report #: [id number] Page: | | | %(RAD)RES..mtdd.print.filter("pg") of %(RAD) | | | RES..mtdd.print.filter("tpg") | | | | | | Accession Number: [id number] | | | FLUOROSCOPY FOR INTRAOPERATIVE VENOGRAPHY: [...] Charles Gonzales | | | MD Morro11/03/12 7928 <Electronically signed by Charles Hooker MD> | | | Charles Hooker MD 11/03/12 0956 Direct Mail Coordinator: | | | Helen Anthony11/03/12 1401 Luis Enrique Mcmillan MD | | | | | + + + + + + + + | Performing | Address | City/State/Zipcode | Phone Number | | Organization | | | | + + + + + | [facility] | [address] | [place] | [phone] | | [facility] | | [address] | | | - IMAGING | | [...] + | [facility] | [address] | [place] | [phone] | | [facility] | | [address] | | | - LABORATORY | | | | + + + + + | [facility] | [address] | [place] | | | [facility] | | [address] | | | - LABORATORY | | [...] Nurse | [facility] | | | [facility] | | | [facility] | | | - LABORATORY | + + + + + + + + | Performing | Address | City/State/Zipcode | Phone Number | | Organization | | | | + + + + + | [facility] | [address] | [place], [place] | [phone] | | [facility] | | [address] | | | - LABORATORY | | | | + + + + + | [facility] | [address] | [place], [place] | | | [facility] | | [address] | | | - LABORATORY | | | | + + + + + documented in this encounter Visit Diagnoses Not on filedocumented in this encounter
--- OUTSIDE RECORDS SUMMARY | ~2019-03-07 | XMS | Encounter Summary ---
Demographics + + + | Address | [address] | | | [place] [address] | + + + | Home Phone [...] Author | [facility] | | | and Ezraana | + + + | Organization | [facility] | | | and [...] [place] | | | | | [address] | | + + + + + Care Team Providers + +------+ + | Care Air Force Senior Officer Name | Role | Phone | [...] | | [address] | [place], [address] | (severe) (HCC) | | | | [place], [place] | [place], [place] | (Primary Dx) | | | | [address] | [address] | | | | | [phone] | | | +--------+ + + + [...] [place] | | | | | | [address] | | | | | | | | +--------+ + + + + documented as of this encounter Visit Diagnoses + + | Diagnosis | + + | Chronic kidney disease, stage IV (severe) (HCC) - Primary Chronic kidney disease, | | Stage IV (severe) | + + documented in this encounter"
--- OUTSIDE RECORDS SUMMARY | ~2019-03-07 | XMS | Encounter Summary ---
Demographics + + + | Address | [address] | | | [place] [address] | + + + | Home Phone | | + + + | Preferred Language | Unknown | + + + | Marital Status | | + + + | Scientology Affiliation | 1001 | + + + | Race | Unknown | + + + | Ethnic Group | Unknown | + + + Author + + + | Author | [facility] | | | and Ezraana | + + + | Organization | [facility] | [...] [place] | | | | | [address] | | + + + + + Care Team Providers + +------+ + | Care Inspector Conveyor Line Name | Role | Phone | + [...] | | | INTERFACES | [address] | | | | | [phone] | [place] [address] | | | | | | [phone] | | | | | | | [...] | Visit | | DO [address] | | | | | | [address] | | | | | | [place] | | | | | | [address] | | | | | | | [...] Performed At | + + + | [facility] [address] Ph: | | | Patient Name: DILLON CAMERON Date of : | | | 1945 Medical Record: [id number] Account: [id number] | | | Exam Date/Time: 01/18/2011 10:25 [...] - 11/25/2018 11:02 AM PDT | | [facility] | | [facility] [address] | | | | | | Patient Name: DILLON CAMERON | | Date of : 1945 | | Medical Record: [id number] | | Account: [id number] | | | | | | Exam [...]
--- OUTSIDE RECORDS SUMMARY | ~2019-03-07 | XMS | Encounter Summary ---
Demographics + + + | Address | [address] | | | [place] [address] | + + + | Home Phone [...] + | Author | [facility] | | | and Ezraana | + + + | Organization | [facility] | | | and Ezraana | + + + | Address | Unknown | + + + | Phone | Unavailable | + + + Support + + + + + | Name | Relationship | Address | Phone | + + + + + | Genet [place] | ECON | [address] | | | | | [place] | | | | | [address] | | + + + + + Care Team Providers + +------+ + | Care Brake Lining Finisher Asbestos Name | Role | Phone | + [...] NEPHROLOGY [address] | M, DO [address] | | | | | [address] | [place] | | | | | [place], [place] | [place], [place] | | | | | [address] | [address] | | | | | [phone] | | | +--------+ + + + [...] | Visit | | DO Deep [address] [place] [address] | | | | | | [place] | | | | | | [place] | | | | | | [address] | | | | | | | [...]
--- OUTSIDE RECORDS SUMMARY | ~2019-03-07 | XMS | Encounter Summary ---
Demographics + + + | Address | [address] | | | [place] [address] | + + + | Home Phone [...] | Author | [facility] | | | and Ezraana | + + + | Organization | [facility] | [...] [place] | | | | | [address] | | + + + + + Care Team Providers + +------+ + | Care Supervisor Commercial [employer] Hatchery Name | Role | Phone | + +------+ + | Dre Jacobo MD | PCP | | + +------+ + Encounter Details +--------+ + + + + | Date | Type | Department | Care Team | Description | +--------+ + + + + | /03/ | Abstract | [facility] | Bnenie Garza | | | 2012 | | NEPHROLOGY [address] | M, DO [address] | | | | | [address] | [place] | | | | | [place], [place] | [place], [place] | | | | | [address] | [address] | | | | | [phone] | | | +--------+ + + + [...] 2018 | Visit | | DO Deep [address] [place] [address] | | | | | | [address] [facility] | | | | | | [place] | | | | | | [address] | | | | | | | | +--------+ + + + + documented as of this encounter Visit Diagnoses Not on filedocumented in this encounter"
--- OUTSIDE RECORDS SUMMARY | ~2019-03-07 | XMS | Encounter Summary ---
Demographics + + + | Address | [address] | | | [place] [address] | + + + | Home Phone | | + + + | Preferred Language | Unknown | + + + | Marital Status | | + + + | Jewish Affiliation | 1001 | + + + | Race | Unknown | + + + | Ethnic Group | Unknown | + + + Author + + + | Author | [facility] | | | and Ezraana | + + + | Organization | [facility] | | | [...] [place] | | | | | [address] | | + + + + + Care Team Providers + +------+ + | Care Interior Mechanic Name | Role | Phone | [...] NEPHROLOGY [address] | M, DO [address] | | | | | [address] | [place] | | | | | [place], [place] | [place], [place] | | | | | [address] | [address] | | | | | [phone] | | | +--------+ + + + [...] | Visit | | DO [address] | | | | | | [address] | | | | | | [place], [place] | | | | | | [address] | | | | | | | [...]
--- OUTSIDE RECORDS SUMMARY | ~2019-03-07 | XMS | Encounter Summary ---
Demographics + + + | Address | [address] | | | [place] [address] | + + + | Home Phone [...] | Author | [facility] | | | and Ezraana | + + + | Organization | [facility] | | | and Ezraana [...] [place] | | | | | [address] | | + + + + + Care Team Providers + +------+ + | Care Signal Apprentice Name | Role | Phone | [...] | | | INTERFACES | [address] | | | | | [phone] | [place] [address] | | | | | | [phone] | | | | | | | [...] 2018 | Visit | | M, [address] | | | | | | [address] | | | | | | [place] | | | | | | [address] | | | | | | | [...] Performed At | + + + | [facility] [address] Ph: | | | Patient Name: DILLON CAMERON Date of : | | | 1945 Medical Record: [id number] Account: [id number] | | | Exam Date/Time: 01/18/2011 12:00 [...] - 11/25/2018 11:02 AM PDT | | [facility] | | [facility] [address] | | | | | | Patient Name: DILLON CAMERON | | Date of : 1945 | | Medical Record: [id number] | | Account: [id number] | | | | | | Exam [...]
--- OUTSIDE RECORDS SUMMARY | ~2019-03-07 | XMS | Encounter Summary ---
Demographics + + + | Address | [address] | | | [place] [address] | + + + | Home Phone [...] Author | [facility] | | | and Ezraana | + + + | Organization | [facility] | | | and Erzaana | + + + | Address | Unknown | + + + | Phone | Unavailable | + + + Support + + + + + | Name | Relationship | Address | Phone | + + + + + | Genet [place] | ECON | [address] | | | | | [place] | | | | | [address] | | + + + + + Care Team Providers + +------+ + | Care Automotive Tire Worker Name | Role | Phone | [...] + + | 06/12/ | Office | [facility] | Luis Enrique Mcmillan | End stage renal | | 2013 | Visit | SURGERY [address] | MD Blanco, FACS [address] | disease (HCC) | | | | [place], [place] | [facility] | (Primary Dx) | | | | [address] | [place] [address] | | | | | [phone] | [phone] | | | | | | | [...] 2019 | Visit | | DO Deep [address] [place] [address] | | | | | | [address] [place] [address] | | | | | | [place], [place] | | | | | | [address] | | | | | | | | +--------+ + + + + documented as of this encounter Visit Diagnoses + + | Diagnosis | + + | End stage renal disease (HCC) - Primary End stage renal disease | + + documented in this encounter
--- NOTE | 2019-03-07 17:52 | EKG ---
[facility] [address] [facility] [place], [place] [address] Signed Normal sinus rhythm Normal ECG When compared with ECG of 23-JUN-2017 14:36, No significant change was found Confirmed by ALLAN LA DO ([id number]) on 03/07/2019 5:52:45 PM Electronically Signed By: ALLAN LA DO 03/07/19 1752 PATIENT NAME: KEARA CAMERON MARIAM Electrocardiogram DATE OF : 41 PHYSICIAN: ALLAN LA DO REPORT #: [id number] REPORT IS CONFIDENTIAL AND NOT TO BE RELEASED WITHOUT AUTHORIZATION
--- NOTE | 2019-03-08 20:15 | EKG ---
[facility] [address] [facility] [place], [place] [address] Signed Normal sinus rhythm Otherwise normal ECG When compared with ECG of 07-MAR-2019 16:11, No significant change was found Confirmed by ALLAN LA DO ([id number]) on 03/08/2019 8:14:55 PM Electronically Signed By: ALLAN LA DO 03/08/192014 PATIENT NAME: KEARA CAMERON AFSANEHARELI Electrocardiogram DATE OF : 41 PHYSICIAN: ALLAN LA DO REPORT #: [id number] REPORT IS CONFIDENTIAL AND NOT TO BE RELEASED WITHOUT AUTHORIZATION
== END 2019-03-08 08:40 | disposition short-term general hospital (02) ==
LOC: ED 16:08
DX: R07.89 Other chest pain (principal); R79.89 Other specified abnormal findings of blood chemistry; Z79.899 Other long term (current) drug therapy
CPT/HCPCS: 36415; 71045; 80053; 81001; 83735; 84484; 85025; 93005; 93010; 99285-25

== ENCOUNTER 2019-12-30 11:29 | Emergency (ER) | payer MEDICARE, OTHER ==
[~2019-12-30] VITALS: Ht 162.6 cm; Wt 56.7 kg
[2019-12-30] MEDS ORDERED: LACTULOSE10 GM/15 M PO (14:08)
== END 2019-12-30 15:32 | disposition home or self-care (01) ==
LOC: ED 11:29
DX: R33.9 Retention of urine, unspecified (principal); N18.9 Chronic kidney disease, unspecified; N17.9 Acute kidney failure, unspecified; Z79.899 Other long term (current) drug therapy
CPT/HCPCS: 51702; 51798; 74018; 80053; 81001; 85025; 99284-25

== ENCOUNTER 2023-08-16 16:30 | Emergency (ER) | payer MEDICARE, OTHER ==
[~2023-08-16] VITALS: Ht 162.6 cm; Wt 61.0 kg
[~2023-08-16 16:30] MED LIST changes: +5-HTP200 MG; +BETAINE HCL300 MG PO; +ISTALOL2.5 ML OPTH; +KEFLEX500 MG PO; +L-CARNITINE500 M1 PO; +L-THREONINE500 MG PO; +LACTULOSE10 GM/15 M PO; +TAMSULOSIN HCL0.4 MG PO; +TRAMADOL HCL50 MG PO; +VITAMIN D3250 MC1 PO; -VITAMIN D34000 UNIT PO; +[UNRECOGNIZED DRUG - OTHER] MISC
[2023-08-16] MEDS ORDERED: MIDODRINE HCL10 MG PO (18:28)
[2023-08-16] MEDS ORDERED: SEVELAMER CARB0.8 GM PO (18:29)
[2023-08-16] MEDS ORDERED: TRAMADOL HCL50 MG PO (19:27)
[2023-08-16] MEDS ORDERED: TRAMADOL HCL 50 MG HOME.PACK PO ONE (19:30)
[2023-08-16 19:58] VITALS: BP 126/87
== END 2023-08-16 19:59 | disposition home or self-care (01) ==
LOC: ED 16:30
DX: S20.212A Contusion of left front wall of thorax, initial encounter (principal); F03.90 Unspecified dementia, unspecified severity, without behavioral disturbance, psychotic disturbance, mood disturbance, and anxiety; W18.39XA Other fall on same level, initial encounter; Z79.899 Other long term (current) drug therapy
CPT/HCPCS: 71100; 99283-25; A9270

== ENCOUNTER 2024-05-30 09:42 | Emergency (ER) | payer MEDICARE, OTHER ==
[~2024-05-30] VITALS: Ht 162.6 cm; Wt 55.8 kg
[~2024-05-30 09:42] MED LIST changes: +MIDODRINE HCL10 MG PO; +SEVELAMER CARB0.8 GM PO
[2024-05-30 10:13] LABS: BASOPHILS 1.4 % (0-2); EOSINOPHILS 1.6 % (0-6); HEMATOCRIT 29.4 % (35.0-50.0); LYMPHOCYTES 9.2 % (24-44); MCH 34.7 (27-36); MONOCYTES 13.2 % (0-12); NEUTROPHILS 74.6 % (39-80); PLATELET COUNT 277 K/uL (140-440); RBC 2.88 M/ul (4.3-5.7); RDW 14.1 (10.5-15.0)
[2024-05-30] MEDS ORDERED: TIMOLOL MALEATE5 M2 OP (10:21)
[2024-05-30] MEDS ORDERED: DULOXETINE HCL20 MG PO (10:22)
[2024-05-30 10:36] LABS: ALBUMIN 2.7 g/dL (3.4-5.0); ALBUMIN/GLOBULIN RATIO 0.66 (1.1-2.4); ANION GAP 16.9 (7-21); BILIRUBIN, TOTAL 0.9 mg/dL (0.2-1.0); BUN/CREATININE RATIO 9.68 (6.0-28.6); CALCIUM 10.3 mg/dL (8.5-10.1); CREATININE, SERUM 5.16 mg/dL (0.70-1.30); MAGNESIUM 2.4 mg/dL (1.8-2.4); POTASSIUM 4.9 mmol/L (3.5-5.1); PROTEIN, TOTAL 6.8 g/dL (6.4-8.2)
[2024-05-30 10:41] LABS: BILIRUBIN, URINE NEGATIVE (negative); BLOOD/HGB, URINE NEGATIVE (Negative); KETONE, URINE NEGATIVE (Negative); LEUK ESTERASE, URINE NEGATIVE (negative); NITRITE, URINE NEGATIVE (negative)
[2024-05-30 10:48] LABS: RED BLOOD CELLS, URINE 0-1 /hpf (0-5)
[2024-05-30 10:49] LABS: CRYSTALS, URINE NONE SEEN (0-1+); EPITHELIAL CELLS, URINE SQUAMOUS 3+ /lpf (0-1+)
[2024-05-30 10:53] LABS: BACTERIA, URINE NONE SEEN /hpf (negative); CASTS, URINE NONE SEEN \\lpf
[2024-05-30 10:54] LABS: COLLECTION TYPE, URINE CLEAN CATCH; REFLEX CULTURE, URINE No (No)
[2024-05-30 11:07] LABS: CORONAVIRUS COVID-19 AG NEGATIVE (NEGATIVE); INFLUENZA A AG NEGATIVE (NEGATIVE); INFLUENZA B AG NEGATIVE (NEGATIVE)
[2024-05-30 16:04] VITALS: BP 149/70
--- NOTE | 2024-05-30 16:33 | EKG ---
[facility] [address] [facility] [place] [address] Signed Normal sinus rhythm Low voltage QRS Borderline ECG When compared with ECG of 07-MAR-2019 21:27, Nonspecific T wave abnormality now evident in Inferior leads Confirmed by Sb Kaplan MD () on 05/30/2024 4:33:35 PM Electronically Signed By: SB KAPLAN MD 05/30/24 1633 PATIENT NAME: KEARA CAMERON Electrocardiogram DATE OF : 41 PHYSICIAN: SB KAPLAN MD REPORT #: [id number] REPORT IS CONFIDENTIAL AND NOT TO BE RELEASED WITHOUT AUTHORIZATION
== END 2024-05-30 16:07 | disposition home or self-care (01) ==
LOC: ED 09:42
PROVIDERS: Emergency Medicine
DX: R53.1 Weakness (principal); F03.90 Unspecified dementia, unspecified severity, without behavioral disturbance, psychotic disturbance, mood disturbance, and anxiety; N18.6 End stage renal disease; Z99.2 Dependence on renal dialysis; Z79.899 Other long term (current) drug therapy
CPT/HCPCS: 36415; 51701; 51798; 80053; 81001; 83735; 84484; 85025; 93005; 93010; 99285-25